=== PATIENT | male | born 1960 | race Caucasian/White ===

== ENCOUNTER → 2017-11-27 05:57 | Outpatient (CLI) | payer OTHER, SELFPAY ==
[2017-11-27 06:03] LABS: Bacteria 0 SEEN /hpf (None Seen); Mucous, Urine 0 SEEN /hpf (<or=2+); Red Blood Cells-Urine 0 SEEN /hpf (0-5); Squamous Epithelial Cells - UA 0 SEEN /hpf (0-5); White Blood Cells 0 SEEN /hpf (0-5)
[2017-11-27 07:51] LABS: Absolute Lymphocyte Count 2.21 X10^3/ul (0.83-4.51); Absolute Neutrophil Count 2.3 X10^3/uL (2.0-7.7); Basophil# 0.02 X10^3/uL; Basophil% 0.4 % (0-1); Eosinophil# 0.26 X10^3/uL; Eosinophils% 4.9 % (0-5); Hematocrit 41.9 % (40-54); Hemoglobin 14.2 g/dl (13.0-16.5); Lymphocyte # 2.21 X10^3/ul (4.0); Lymphocyte % 41.3 % (19-41); Mean Corp Hgb Conc 33.9 g/gl (32-36); Mean Corpuscular Hgb 31.2 pg (27.0-32.0); Mean Corpuscular Volume 92.1 fL (80-94); Mean Platelet Vol. 10.2 fl (6.2-12.0); Monocyte# 0.59 X10^3/uL; Neutrophil # 2.27 X10^3/uL (2.7-7.7); Neutrophil % 42.4 % (47-70); Platelet Count 228 K/mm3 (150-450); RBC Distribution Width CV 12.1 % (11.6-14.6); RBC Distribution Width SD 40.1 fl (35.1-43.9); Red Blood Count 4.55 M/mm3 (4.6-6.2); White Blood Count 5.4 K/mm3 (4.4-11.0)
[2017-11-27 07:56] LABS: POSITIVE COUNT NO; POSITIVE DIFFERENTIAL NO; POSITIVE MORPHOLOGY NO
[2017-11-27 08:09] LABS: Microalbumin,Random Urine < 5.0 mg/L (NO RANGE EST.)
[2017-11-27 08:26] LABS: BUN 12 mg/dL (7-18); Creatinine, Serum 0.93 mg/dL (0.70-1.30); Glucose 86 mg/dL (74-106)
[2017-11-27 08:27] LABS: ALB/GLOB Ratio 1.1 RATIO (0.9-2.4); AST(SGOT) 17 U/L (15-37); Alanine Aminotransfer ALT/SGPT 37 U/L (16-61); Albumin, Serum 3.7 g/dL (3.2-5.0); Alkaline Phosphatase 88 U/L (45-117); Anion Gap 7 (5-15); Calcium,Total 8.3 mg/dL (8.5-10.1); Chloride 105 mmol/L (98-107); Cholesterol 131 mg/dL (200); EST Glomerular Filtration Rate 90 mL/min (>60); Est Glom Filt Rate - Afr Amer 109 mL/min (>60); Globulin 3.4 g/dL (2.2-4.2); High Density Lipoprotein 35 mg/dL; Potassium 3.9 mmol/L (3.5-5.1); Protein, Total 7.1 g/dL (6.4-8.2); Sodium Level 140 mmol/L (136-145); Thyroid Stim Hormone (TSH) 2.27 uIU/mL (0.358-3.74); Triglycerides 157 mg/dL; Very Low Density Lipoprotein 31 mg/dL (5-40)
[2017-11-27 08:37] LABS: Color, Urine Yellow (Yellow); Glucose, Dipstick Normal (Normal); Ketone-Dipstick Negative (Negative); Leukocyte Esterase-Dipstick Negative /ul (Negative); Nitrite-Dipstick Negative (Negative); Occult Blood-Urine Negative /ul (Negative); Protein-Dipstick Negative (Negative); Urine Bilirubin Dipstick Negative (Negative); Urine Clarity Sl. Cloudy (Clear); Urine Urobilinogen Normal (Normal)
== END ==
PROVIDERS: Family Provider Internal Medicine; PCP Internal Medicine; Visit Provider Internal Medicine
DX: I10 Essential (primary) hypertension (principal); E78.5 Hyperlipidemia, unspecified
CPT/HCPCS: 36415; 80053; 80061; 81001; 82043; 82570; 84443; 85025

== ENCOUNTER → 2018-05-28 05:58 | Outpatient (CLI) | payer OTHER, SELFPAY ==
[2018-05-28 07:48] LABS: Cholesterol 165 mg/dL (200); High Density Lipoprotein 58 mg/dL; PSA,Total - Annual Screen 1.18 ng/mL (0.00-4.00); Triglycerides 158 mg/dL; Very Low Density Lipoprotein 32 mg/dL (5-40)
== END ==
PROVIDERS: Family Provider Internal Medicine; PCP Internal Medicine; Referring Provider Internal Medicine; Visit Provider Internal Medicine
DX: Z12.5 Encounter for screening for malignant neoplasm of prostate (principal); I10 Essential (primary) hypertension
CPT/HCPCS: 36415; 80061; 84153; G0103

== ENCOUNTER → 2018-12-13 06:06 | Outpatient (CLI) | payer OTHER, SELFPAY ==
[2018-12-13 06:15] LABS: Bacteria 0 SEEN /hpf (None Seen); Mucous, Urine 0 SEEN /hpf (<or=2+); Red Blood Cells-Urine 0 SEEN /hpf (0-5); Squamous Epithelial Cells - UA 0 SEEN /hpf (0-5); White Blood Cells 0 SEEN /hpf (0-5)
[2018-12-13 08:07] LABS: Color, Urine Yellow (Yellow); Glucose, Dipstick Normal (Normal); Ketone-Dipstick Negative (Negative); Leukocyte Esterase-Dipstick Negative /ul (Negative); Nitrite-Dipstick Negative (Negative); Occult Blood-Urine Negative /ul (Negative); Protein-Dipstick Negative (Negative); Urine Bilirubin Dipstick Negative (Negative); Urine Clarity Clear (Clear); Urine Urobilinogen Normal (Normal)
[2018-12-13 08:11] LABS: Absolute Lymphocyte Count 1.89 X10^3/ul (0.83-4.51); Absolute Neutrophil Count 2.2 X10^3/uL (2.0-7.7); Basophil# 0.03 X10^3/uL; Basophil% 0.6 % (0-1); Eosinophil# 0.21 X10^3/uL; Eosinophils% 4.4 % (0-5); Hematocrit 44.4 % (40-54); Hemoglobin 14.8 g/dl (13.0-16.5); Lymphocyte # 1.89 X10^3/ul (4.0); Lymphocyte % 39.9 % (19-41); Mean Corp Hgb Conc 33.3 g/gl (32-36); Mean Corpuscular Hgb 30.6 pg (27.0-32.0); Mean Corpuscular Volume 91.7 fL (80-94); Mean Platelet Vol. 10.1 fl (6.2-12.0); Monocyte# 0.45 X10^3/uL; Monocyte% 9.5 % (0-10); Neutrophil # 2.15 X10^3/uL (2.7-7.7); Neutrophil % 45.4 % (47-70); Platelet Count 221 K/mm3 (150-450); RBC Distribution Width CV 12.3 % (11.6-14.6); RBC Distribution Width SD 40.6 fl (35.1-43.9); Red Blood Count 4.84 M/mm3 (4.6-6.2); White Blood Count 4.7 K/mm3 (4.4-11.0)
[2018-12-13 08:14] LABS: POSITIVE COUNT NO; POSITIVE DIFFERENTIAL NO; POSITIVE MORPHOLOGY NO
[2018-12-13 08:31] LABS: Microalbumin,Random Urine < 5.0 mg/L (NO RANGE EST.)
[2018-12-13 08:39] LABS: ALB/GLOB Ratio 1.2 RATIO (0.9-2.4); AST(SGOT) 21 U/L (15-37); Alanine Aminotransfer ALT/SGPT 42 U/L (16-61); Albumin, Serum 3.9 g/dL (3.2-5.0); Alkaline Phosphatase 81 U/L (45-117); Anion Gap 9 (5-15); BUN 15 mg/dL (7-18); BUN/Creat Ratio 17.6 RATIO (10-20); Calcium,Total 8.5 mg/dL (8.5-10.1); Chloride 104 mmol/L (98-107); Cholesterol 198 mg/dL (200); Creatinine, Serum 0.85 mg/dL (0.70-1.30); EST Glomerular Filtration Rate 98 mL/min (>60); Est Glom Filt Rate - Afr Amer 119 mL/min (>60); Globulin 3.2 g/dL (2.2-4.2); Glucose 87 mg/dL (74-106); High Density Lipoprotein 55 mg/dL; Potassium 3.7 mmol/L (3.5-5.1); Protein, Total 7.1 g/dL (6.4-8.2); Sodium Level 141 mmol/L (136-145); Thyroid Stim Hormone (TSH) 2.09 uIU/mL (0.358-3.74); Triglycerides 114 mg/dL; Very Low Density Lipoprotein 23 mg/dL (5-40)
== END ==
PROVIDERS: Family Provider Internal Medicine; PCP Internal Medicine; Referring Provider Internal Medicine; Visit Provider Internal Medicine
DX: E78.5 Hyperlipidemia, unspecified (principal); I10 Essential (primary) hypertension
CPT/HCPCS: 36415; 80053; 80061; 81001; 82043; 82570; 84443; 85025

== ENCOUNTER → 2019-06-14 06:16 | Outpatient (CLI) | payer OTHER, SELFPAY ==
[2019-06-14 06:23] LABS: Bacteria 0 SEEN /hpf (None Seen); Mucous, Urine 0 SEEN /hpf (<or=2+); Red Blood Cells-Urine 0 SEEN /hpf (0-5); White Blood Cells 0 SEEN /hpf (0-5)
[2019-06-14 07:06] LABS: Absolute Neutrophil Count 2.2 X10^3/uL (2.0-7.7); Basophil# 0.05 X10^3/uL; Eosinophil# 0.29 X10^3/uL; Eosinophils% 5.6 % (0-5); Hematocrit 43.7 % (40-54); Hemoglobin 14.5 g/dL (13.0-16.5); Lymphocyte % 40.2 % (19-41); Mean Corp Hgb Conc 33.2 g/dL (32-36); Mean Corpuscular Hgb 31.1 pg (27.0-32.0); Mean Corpuscular Volume 93.8 fL (80-94); Mean Platelet Vol. 9.7 fl (6.2-12.0); Monocyte# 0.55 X10^3/uL; Monocyte% 10.5 % (0-10); NRBC Flagged by Analyzer 0 % (0-5); Neutrophil # 2.21 X10^3/uL (2.7-7.7); Neutrophil % 42.3 % (47-70); Platelet Count 233 K/mm3 (150-450); RBC Distribution Width SD 41.3 fl (35.1-43.9); Red Blood Count 4.66 M/mm3 (4.6-6.2); White Blood Count 5.2 K/mm3 (4.4-11.0)
[2019-06-14 07:39] LABS: ALB/GLOB Ratio 1.1 RATIO (0.9-2.4); AST(SGOT) 30 U/L (15-37); Alanine Aminotransfer ALT/SGPT 53 U/L (16-61); Albumin, Serum 3.8 g/dL (3.2-5.0); Alkaline Phosphatase 85 U/L (45-117); Anion Gap 9 (5-15); BUN 15 mg/dL (7-18); BUN/Creat Ratio 17.9 RATIO (10-20); Calcium,Total 8.5 mg/dL (8.5-10.1); Chloride 104 mmol/L (98-107); Cholesterol 186 mg/dL (200); Creatinine, Serum 0.84 mg/dL (0.70-1.30); EST Glomerular Filtration Rate 100 mL/min (>60); Est Glom Filt Rate - Afr Amer 121 mL/min (>60); Globulin 3.5 g/dL (2.2-4.2); Glucose 87 mg/dL (74-106); High Density Lipoprotein 51 mg/dL; Protein, Total 7.3 g/dL (6.4-8.2); Sodium Level 141 mmol/L (136-145); Thyroid Stim Hormone (TSH) 1.84 uIU/mL (0.358-3.74); Triglycerides 155 mg/dL; Very Low Density Lipoprotein 31 mg/dL (5-40)
[2019-06-14 07:47] LABS: Microalbumin,Random Urine < 5.0 mg/L (NO RANGE EST.)
[2019-06-14 07:53] LABS: Color, Urine Yellow (Yellow); Glucose, Dipstick Normal (Normal); Ketone-Dipstick Negative (Negative); Leukocyte Esterase-Dipstick Negative /ul (Negative); Nitrite-Dipstick Negative (Negative); Occult Blood-Urine Negative /ul (Negative); Protein-Dipstick Negative (Negative); Specific Gravity, Urine 1.005 (1.002-1.030); Urine Bilirubin Dipstick Negative (Negative); Urine Clarity Sl. Cloudy (Clear); Urine Urobilinogen Normal (Normal)
[2019-06-14 08:04] LABS: Squamous Epithelial Cells - UA 0-5 SEEN /hpf (0-5)
== END ==
PROVIDERS: Family Provider Internal Medicine; PCP Internal Medicine; Referring Provider Internal Medicine; Visit Provider Internal Medicine
DX: E78.5 Hyperlipidemia, unspecified (principal); I10 Essential (primary) hypertension
CPT/HCPCS: 36415; 80053; 80061; 81001; 82043; 82570; 84443; 85025

== ENCOUNTER → 2020-04-22 06:02 | Outpatient (CLI) | payer BC, SELFPAY ==
[2020-04-22 06:10] LABS: Bacteria 0 SEEN /hpf (None Seen); Mucous, Urine 0 SEEN /hpf (<or=2+); Red Blood Cells-Urine 0 SEEN /hpf (0-5); Squamous Epithelial Cells - UA 0 SEEN /hpf (0-5)
[2020-04-22 07:14] LABS: Absolute Lymphocyte Count 2.22 X10^3/uL (0.83-4.51); Absolute Neutrophil Count 2.1 X10^3/uL (2.0-7.7); Basophil# 0.05 X10^3/uL; Eosinophil# 0.23 X10^3/uL; Eosinophils% 4.4 % (0-5); Hematocrit 42.3 % (40-54); Hemoglobin 14.1 g/dL (13.0-16.5); Lymphocyte # 2.22 X10^3/ul (4.0); Lymphocyte % 42.9 % (19-41); Mean Corp Hgb Conc 33.3 g/dL (32-36); Monocyte# 0.51 X10^3/uL; Monocyte% 9.9 % (0-10); NRBC Flagged by Analyzer 0 % (0-5); Neutrophil # 2.14 X10^3/uL (2.7-7.7); Neutrophil % 41.4 % (47-70); Platelet Count 253 K/mm3 (150-450); RBC Distribution Width CV 12.2 % (11.6-14.6); Red Blood Count 4.55 M/mm3 (4.6-6.2); White Blood Count 5.2 K/mm3 (4.4-11.0)
[2020-04-22 07:38] LABS: Microalbumin,Random Urine 9.1 mg/L (NO RANGE EST.); Microalbumin:Creatinine Ratio 5.3 mg/g CRE (<30 mg/g CRE)
[2020-04-22 07:39] LABS: Color, Urine Yellow (Yellow); Glucose, Dipstick Normal (Normal); Ketone-Dipstick Negative (Negative); Leukocyte Esterase-Dipstick Negative /ul (Negative); Nitrite-Dipstick Negative (Negative); Occult Blood-Urine Negative /ul (Negative); Protein-Dipstick 15 mg/dl (Negative); Urine Bilirubin Dipstick Negative (Negative); Urine Clarity Clear (Clear); Urine Urobilinogen Normal (Normal)
[2020-04-22 07:56] LABS: AST(SGOT) 22 U/L (15-37); Alanine Aminotransfer ALT/SGPT 39 U/L (16-61); Albumin, Serum 3.6 g/dL (3.2-5.0); Alkaline Phosphatase 92 U/L (45-117); Anion Gap 5 (5-15); BUN 18 mg/dL (7-18); BUN/Creat Ratio 21.3 RATIO (10-20); Calcium,Total 8.6 mg/dL (8.5-10.1); Chloride 107 mmol/L (98-107); Cholesterol 201 mg/dL (200); Creatinine, Serum 0.85 mg/dL (0.70-1.30); EST Glomerular Filtration Rate 99 mL/min (>60); Est Glom Filt Rate - Afr Amer 120 mL/min (>60); Globulin 3.6 g/dL (2.2-4.2); Glucose 87 mg/dL (74-106); High Density Lipoprotein 43 mg/dL; Protein, Total 7.2 g/dL (6.4-8.2); Sodium Level 140 mmol/L (136-145); Thyroid Stim Hormone (TSH) 2.46 uIU/mL (0.358-3.74); Triglycerides 238 mg/dL; Very Low Density Lipoprotein 48 mg/dL (5-40)
[2020-04-22 08:11] LABS: White Blood Cells 0-5 SEEN /hpf (0-5)
== END ==
PROVIDERS: PCP Internal Medicine; Referring Provider Internal Medicine; Visit Provider Internal Medicine
DX: I10 Essential (primary) hypertension (principal); E78.5 Hyperlipidemia, unspecified
CPT/HCPCS: 36415; 80053; 80061; 81001; 82043; 82570; 84443; 85025

== ENCOUNTER → 2020-10-12 06:06 | Outpatient (CLI) | payer BC, SELFPAY ==
[2020-10-12 06:11] LABS: Bacteria 0 SEEN /hpf (None Seen); Mucous, Urine 0 SEEN /hpf (<or=2+); Red Blood Cells-Urine 0 SEEN /hpf (0-5); Squamous Epithelial Cells - UA 0 SEEN /hpf (0-5); White Blood Cells 0 SEEN /hpf (0-5)
[2020-10-12 07:23] LABS: Absolute Neutrophil Count 2.9 X10^3/uL (2.0-7.7); Basophil# 0.04 X10^3/uL; Basophil% 0.7 % (0-1); Eosinophil# 0.35 X10^3/uL; Eosinophils% 5.8 % (0-5); Hematocrit 44.6 % (40-54); Hemoglobin 14.7 g/dL (13.0-16.5); Lymphocyte % 34.7 % (19-41); Mean Corpuscular Hgb 30.6 pg (27.0-32.0); Mean Corpuscular Volume 92.7 fL (80-94); Monocyte# 0.64 X10^3/uL; Monocyte% 10.6 % (0-10); NRBC Flagged by Analyzer 0 % (0-5); Neutrophil # 2.91 X10^3/uL (2.7-7.7); Platelet Count 252 K/mm3 (150-450); RBC Distribution Width CV 12.1 % (11.6-14.6); RBC Distribution Width SD 42.3 fl (35.1-43.9); Red Blood Count 4.81 M/mm3 (4.6-6.2); White Blood Count 6.1 K/mm3 (4.4-11.0)
[2020-10-12 07:43] LABS: Microalbumin,Random Urine 7.5 mg/L (NO RANGE EST.); Microalbumin:Creatinine Ratio 7.2 mg/g CRE (<30 mg/g CRE)
[2020-10-12 07:47] LABS: AST(SGOT) 24 U/L (15-37); Alanine Aminotransfer ALT/SGPT 47 U/L (16-61); Albumin, Serum 3.7 g/dL (3.2-5.0); Alkaline Phosphatase 108 U/L (45-117); Anion Gap 11 (5-15); BUN 12 mg/dL (7-18); Calcium,Total 8.3 mg/dL (8.5-10.1); Chloride 98 mmol/L (98-107); Cholesterol 221 mg/dL (200); Creatinine, Serum 0.86 mg/dL (0.70-1.30); EST Glomerular Filtration Rate 97 mL/min (>60); Est Glom Filt Rate - Afr Amer 117 mL/min (>60); Globulin 3.8 g/dL (2.2-4.2); Glucose 105 mg/dL (74-106); High Density Lipoprotein 54 mg/dL; Potassium 3.3 mmol/L (3.5-5.1); Protein, Total 7.5 g/dL (6.4-8.2); Sodium Level 137 mmol/L (136-145); Thyroid Stim Hormone (TSH) 2.72 uIU/mL (0.358-3.74); Triglycerides 202 mg/dL; Very Low Density Lipoprotein 40 mg/dL (5-40)
[2020-10-12 07:54] LABS: Color, Urine Yellow (Yellow); Glucose, Dipstick Normal (Normal); Ketone-Dipstick Negative (Negative); Leukocyte Esterase-Dipstick Negative /ul (Negative); Nitrite-Dipstick Negative (Negative); Occult Blood-Urine Negative /ul (Negative); Protein-Dipstick Negative (Negative); Urine Bilirubin Dipstick Negative (Negative); Urine Clarity Clear (Clear); Urine Urobilinogen Normal (Normal); Urine pH 6.5 (5.0 - 8.0)
== END ==
PROVIDERS: PCP Internal Medicine; Referring Provider Internal Medicine; Visit Provider Internal Medicine
DX: I10 Essential (primary) hypertension (principal); E78.5 Hyperlipidemia, unspecified
CPT/HCPCS: 36415; 80053; 80061; 81001; 82043; 82570; 84443; 85025

== ENCOUNTER → 2021-04-28 06:10 | Outpatient (CLI) | payer OTHER, SELFPAY ==
[2021-04-28 06:41] LABS: Absolute Neutrophil Count 2.7 X10^3/uL (2.0-7.7); Basophil# 0.05 X10^3/uL; Basophil% 0.8 % (0-1); Eosinophil# 0.21 X10^3/uL; Eosinophils% 3.5 % (0-5); Hematocrit 42.7 % (40-54); Hemoglobin 14.4 g/dL (13.0-16.5); Lymphocyte % 39.6 % (19-41); Mean Corp Hgb Conc 33.7 g/dL (32-36); Mean Corpuscular Hgb 31.1 pg (27.0-32.0); Mean Corpuscular Volume 92.2 fL (80-94); Mean Platelet Vol. 9.8 fl (6.2-12.0); Monocyte# 0.67 X10^3/uL; Monocyte% 11.1 % (0-10); NRBC Flagged by Analyzer 0 % (0-5); Neutrophil % 44.5 % (47-70); Platelet Count 235 K/mm3 (150-450); RBC Distribution Width SD 40.6 fl (35.1-43.9); Red Blood Count 4.63 M/mm3 (4.6-6.2); White Blood Count 6.1 K/mm3 (4.4-11.0)
[2021-04-28 06:45] LABS: Color, Urine Yellow (Yellow); Glucose, Dipstick Normal (Normal); Ketone-Dipstick Negative (Negative); Leukocyte Esterase-Dipstick Negative /ul (Negative); Nitrite-Dipstick Negative (Negative); Occult Blood-Urine Negative /ul (Negative); Protein-Dipstick Negative (Negative); Urine Bilirubin Dipstick Negative (Negative); Urine Clarity Clear (Clear); Urine Urobilinogen Normal (Normal); Urine pH 6.5 (5.0 - 8.0)
[2021-04-28 07:13] LABS: Hemoglobin A1c 5.5 % (3.8-5.6)
[2021-04-28 07:14] LABS: Microalbumin,Random Urine 5.2 mg/L (NO RANGE EST.)
[2021-04-28 07:15] LABS: ALB/GLOB Ratio 0.9 RATIO (0.9-2.4); AST(SGOT) 24 U/L (15-37); Alanine Aminotransfer ALT/SGPT 48 U/L (16-61); Albumin, Serum 3.5 g/dL (3.2-5.0); Alkaline Phosphatase 97 U/L (45-117); Anion Gap 6 (5-15); BUN 14 mg/dL (7-18); BUN/Creat Ratio 16.6 RATIO (10-20); Calcium,Total 8.9 mg/dL (8.5-10.1); Chloride 102 mmol/L (98-107); Cholesterol 204 mg/dL (200); Creatinine, Serum 0.84 mg/dL (0.70-1.30); EST Glomerular Filtration Rate 99 mL/min (>60); Est Glom Filt Rate - Afr Amer 120 mL/min (>60); Globulin 3.9 g/dL (2.2-4.2); Glucose 96 mg/dL (74-106); High Density Lipoprotein 44 mg/dL; Potassium 3.9 mmol/L (3.5-5.1); Protein, Total 7.4 g/dL (6.4-8.2); Sodium Level 136 mmol/L (136-145); Thyroid Stim Hormone (TSH) 2.23 uIU/mL (0.358-3.74); Triglycerides 213 mg/dL; Very Low Density Lipoprotein 43 mg/dL (5-40)
== END ==
PROVIDERS: PCP Internal Medicine; Referring Provider Internal Medicine; Visit Provider Internal Medicine
DX: I10 Essential (primary) hypertension (principal); E78.5 Hyperlipidemia, unspecified
CPT/HCPCS: 36415; 80053; 80061; 81002; 82043; 82570; 83036; 84443; 85025

== ENCOUNTER 2021-09-20 10:41 | Outpatient (CLI) | payer OTHER, SELFPAY ==
--- NOTE | 2021-09-20 10:46 | ECHOCS_ITS ---
Reason For Study: CHEST PAIN Procedure This was a 2D Doppler, Color Flow transthoracic echocardiogram. The study was technically difficult. Contrast injection was performed. Exam performed in department. Left Ventricle Normal LV size. Left ventricular systolic function is normal. The estimated ejection fraction is 60 %. Normal diastology for age. No regional wall motion abnormalities noted. Right Ventricle Normal RV size. Normal systolic function. Atria Normal left atrium. Normal right atrium. Mitral Valve Normal mitral valve. Tricuspid Valve Normal tricuspid valve. Mild (1+) tricuspid valve insufficiency. Pulmonary artery systolic pressure is 34 mmHg. Aortic Valve The aortic valve is not well visualized. Pulmonic Valve The pulmonic valve is not well visualized. Great Vessels Normal aortic root. The pulmonary artery is normal size. Normal inferior vena cava. Pericardium/Pleural No pericardial effusion. Medication 22 gauge I.V. with prn adaptor inserted into left arm. Diluted definity 5.0ml given slow IV push to enhance endocardial definition. MMode/2D Measurements & Calculations LVIDd: 4.7 cm IVSd: 0.99 cm LAV(MOD-bp): 47.2 ml LVIDs: 3.1 cm LVPWd: 0.98 cm RVDd: 3.6 cm FS: 33.2 % LAV(MOD-bp) Indexed: 22.9 ml/m2 LAV(MOD-sp2): 45.2 ml LAV(MOD-sp4): 49.8 ml SV(MOD-sp4): 65.1 ml SV(sp4-el): 68.7 ml LVAd ap4: 32.2 cm2 LVLd ap4: 8.2 cm EDV(MOD-sp4): 104.0 ml EDV(sp4-el): 108.2 ml LVAs ap4: 17.6 cm2 LVLs ap4: 6.7 cm ESV(MOD-sp4): 38.9 ml ESV(sp4-el): 39.5 ml EF(MOD-sp4): 62.6 % EF(sp4-el): 63.5 % LA A4 area: 18.1 cm2 RA A4 area: 12.5 cm2 Doppler Measurements & Calculations MV E max ajit: 81.9 cm/sec Lat Peak E' Ajit: 15.8 cm/sec Med Peak E' Ajit: 10.3 cm/sec MV A max ajit: 71.9 cm/sec E/E' lat: 5.2 E/E' med: 7.9 MV E/A: 1.1 Ao V2 max: 147.4 cm/sec LV V1 max: 146.8 cm/sec TR max ajit: 268.5 cm/sec Ao max P.7 mmHg LV V1 max P.6 mmHg TR max P.8 mmHg ECHO/Echo Complete W/ Contrast Interpretation Summary Normal LV size. Left ventricular systolic function is normal. The estimated ejection fraction is 60 %. Normal diastology for age. Contrast injection was performed. Ordering Physician: Abi Newman Referring Physician: Abi Newman Performed By: Delmi Richards, MARCELLUS, RVT
--- NOTE | 2021-09-20 17:51 | STRESSREP_ITS ---
Stress Test Report Exercise stress test. 61-year-old man with a history of chest pain. Medications amlodipine atorvastatin aspirin lisinopril hydrochlorothiazide. Stress protocol: Resting EKG demonstrates normal sinus rhythm with a rate of 71 bpm normal intervals are noted resting blood pressure is 144/92 mmHg. The patient exercised according to regular Regan protocol for total duration of 10 minutes and 31 seconds completing 1 minute and 31 seconds into stage IV of the Regan protocol. The maximum heart rate attained was 166 bpm which was 103% of max i mpact at heart rate the maximum workload was 13.4 metabolic equivalents. At rest there were no ST or T wave changes noted suggest ischemia and at peak exercise upsloping ST changes were noted with did not meet the criteria for ischemia. No clinical angina was noted the test was terminated due to leg fatigue. No arrhythmias were noted. The peak blood pressure was 178/70 mmHg. Conclusion: Exercise stress test with no EKG criteria for ischemia at a high workload. Excellent functional capacity
== END 2021-09-20 23:59 | disposition home or self-care (01) ==
PROVIDERS: PCP Internal Medicine; Referring Provider Internal Medicine; Visit Provider Internal Medicine
DX: R07.89 Other chest pain (principal)
CPT/HCPCS: 93017; 93306; Q9957; A4216; C8929

== ENCOUNTER → 2022-01-19 | Outpatient (CLI) | payer OTHER, SELFPAY ==
[2022-01-19 07:09] LABS: Absolute Lymphocyte Count 2.03 X10^3/uL (0.83-4.51); Absolute Neutrophil Count 2.4 X10^3/uL (2.0-7.7); Basophil# 0.05 X10^3/uL; Eosinophil# 0.13 X10^3/uL; Eosinophils% 2.5 % (0-5); Hematocrit 41.8 % (40-54); Hemoglobin 14.1 g/dL (13.0-16.5); Lymphocyte # 2.03 X10^3/ul (0.83-4.51); Lymphocyte % 39.5 % (19-41); Mean Corp Hgb Conc 33.7 g/dL (32-36); Mean Corpuscular Hgb 31.7 pg (27.0-32.0); Mean Corpuscular Volume 93.9 fL (80-94); Monocyte# 0.55 X10^3/uL; Monocyte% 10.7 % (0-10); NRBC Flagged by Analyzer 0 % (0-5); Neutrophil # 2.37 X10^3/uL (2.7-7.7); Neutrophil % 46.1 % (47-70); Platelet Count 240 K/mm3 (150-450); RBC Distribution Width CV 12.3 % (11.6-14.6); RBC Distribution Width SD 42.7 fl (35.1-43.9); Red Blood Count 4.45 M/mm3 (4.6-6.2); White Blood Count 5.1 K/mm3 (4.4-11.0)
[2022-01-19 07:10] LABS: Color, Urine Yellow (Yellow); Glucose, Dipstick Normal (Normal); Ketone-Dipstick Negative (Negative); Leukocyte Esterase-Dipstick Negative /ul (Negative); Nitrite-Dipstick Negative (Negative); Occult Blood-Urine Negative /ul (Negative); Protein-Dipstick Negative (Negative); Specific Gravity, Urine 1.005 (1.002-1.030); Urine Bilirubin Dipstick Negative (Negative); Urine Clarity Clear (Clear); Urine Urobilinogen Normal (Normal)
[2022-01-19 07:39] LABS: Microalbumin,Random Urine < 5.0 mg/L (NO RANGE EST.)
[2022-01-19 07:43] LABS: ALB/GLOB Ratio 1.1 RATIO (0.9-2.4); AST(SGOT) 15 U/L (15-37); Alanine Aminotransfer ALT/SGPT 33 U/L (16-61); Albumin, Serum 3.7 g/dL (3.2-5.0); Alkaline Phosphatase 91 U/L (45-117); Anion Gap 6 (5-15); BUN 15 mg/dL (7-18); BUN/Creat Ratio 18.3 RATIO (10-20); Calcium,Total 8.9 mg/dL (8.5-10.1); Chloride 105 mmol/L (98-107); Cholesterol 204 mg/dL (200); Creatinine, Serum 0.82 mg/dL (0.70-1.30); EST Glomerular Filtration Rate 102 mL/min (>60); Est Glom Filt Rate - Afr Amer 123 mL/min (>60); Globulin 3.5 g/dL (2.2-4.2); Glucose 95 mg/dL (74-106); High Density Lipoprotein 49 mg/dL; PSA,Total - Annual Screen 2.15 ng/mL (0.00-4.00); Potassium 4.2 mmol/L (3.5-5.1); Protein, Total 7.2 g/dL (6.4-8.2); Sodium Level 138 mmol/L (136-145); Thyroid Stim Hormone (TSH) 2.34 uIU/mL (0.358-3.74); Triglycerides 130 mg/dL; Very Low Density Lipoprotein 26 mg/dL (5-40)
[2022-01-19 08:15] LABS: Vitamin D,25 Hydroxy 50.4 ng/mL
[2022-01-19 09:00] LABS: Hemoglobin A1c 5.4 % (3.8-5.6)
== END | disposition home or self-care (01) ==
LOC: LAB 06:00
PROVIDERS: PCP Internal Medicine; Referring Provider Internal Medicine; Visit Provider Internal Medicine
DX: E78.5 Hyperlipidemia, unspecified (principal); I10 Essential (primary) hypertension; E55.9 Vitamin D deficiency, unspecified; E78.6 Lipoprotein deficiency; Z13.29 Encounter for screening for other suspected endocrine disorder; Z12.5 Encounter for screening for malignant neoplasm of prostate
CPT/HCPCS: 36415; 80053; 80061; 81002; 82043; 82306; 82570; 83036; 84153; 84443; 85025; G0103

== ENCOUNTER → 2022-07-22 | Outpatient (CLI) | payer OTHER, SELFPAY ==
[2022-07-22 06:45] LABS: Absolute Lymphocyte Count 1.83 X10^3/uL (0.83-4.51); Absolute Neutrophil Count 1.8 X10^3/uL (2.0-7.7); Basophil# 0.04 X10^3/uL; Basophil% 0.9 % (0-1); Eosinophil# 0.24 X10^3/uL; Eosinophils% 5.6 % (0-5); Hematocrit 42.5 % (40-54); Hemoglobin 14.2 g/dL (13.0-16.5); Lymphocyte # 1.83 X10^3/ul (0.83-4.51); Lymphocyte % 42.4 % (19-41); Mean Corp Hgb Conc 33.4 g/dL (32-36); Mean Corpuscular Hgb 31.5 pg (27.0-32.0); Mean Corpuscular Volume 94.2 fL (80-94); Mean Platelet Vol. 10.2 fl (6.2-12.0); Monocyte# 0.45 X10^3/uL; Monocyte% 10.4 % (0-10); NRBC Flagged by Analyzer 0 % (0-5); Neutrophil # 1.75 X10^3/uL (2.7-7.7); Neutrophil % 40.5 % (47-70); Platelet Count 237 K/mm3 (150-450); RBC Distribution Width CV 11.9 % (11.6-14.6); RBC Distribution Width SD 41.1 fl (35.1-43.9); Red Blood Count 4.51 M/mm3 (4.6-6.2); White Blood Count 4.3 K/mm3 (4.4-11.0)
[2022-07-22 07:16] LABS: ALB/GLOB Ratio 1.1 RATIO (0.9-2.4); AST(SGOT) 17 U/L (15-37); Alanine Aminotransfer ALT/SGPT 34 U/L (16-61); Albumin, Serum 3.7 g/dL (3.2-5.0); Alkaline Phosphatase 79 U/L (45-117); Anion Gap 4 (5-15); BUN 18 mg/dL (7-18); BUN/Creat Ratio 22.5 RATIO (10-20); Calcium,Total 8.6 mg/dL (8.5-10.1); Chloride 106 mmol/L (98-107); Cholesterol 211 mg/dL (200); EST Glomerular Filtration Rate 105 mL/min (>60); Est Glom Filt Rate - Afr Amer 127 mL/min (>60); Globulin 3.3 g/dL (2.2-4.2); Glucose 94 mg/dL (74-106); High Density Lipoprotein 60 mg/dL; Potassium 4.1 mmol/L (3.5-5.1); Sodium Level 138 mmol/L (136-145); Thyroid Stim Hormone (TSH) 1.89 uIU/mL (0.358-3.74); Triglycerides 135 mg/dL; Very Low Density Lipoprotein 27 mg/dL (5-40)
[2022-07-22 07:19] LABS: Microalbumin,Random Urine 11.6 mg/L (NO RANGE EST.); Microalbumin:Creatinine Ratio 13.4 mg/g CRE (<30 mg/g CRE)
[2022-07-22 08:09] LABS: Vitamin D,25 Hydroxy 40.9 ng/mL
== END | disposition home or self-care (01) ==
LOC: LAB 06:02
PROVIDERS: PCP Internal Medicine; Referring Provider Internal Medicine; Visit Provider Internal Medicine
DX: I10 Essential (primary) hypertension (principal); E78.5 Hyperlipidemia, unspecified; E55.9 Vitamin D deficiency, unspecified
CPT/HCPCS: 36415; 80053; 80061; 82043; 82306; 82570; 84443; 85025

== ENCOUNTER → 2022-09-15 | Outpatient (CLI) | payer OTHER, SELFPAY ==
[2022-09-15 07:46] LABS: Cholesterol 245 mg/dL (200); High Density Lipoprotein 54 mg/dL; Triglycerides 134 mg/dL; Very Low Density Lipoprotein 27 mg/dL (5-40)
== END | disposition home or self-care (01) ==
LOC: LAB 06:00
PROVIDERS: PCP Internal Medicine; Referring Provider Internal Medicine; Visit Provider Internal Medicine
DX: E78.5 Hyperlipidemia, unspecified (principal)
CPT/HCPCS: 36415; 80061

== ENCOUNTER → 2023-03-29 | Outpatient (CLI) | payer OTHER, SELFPAY ==
[2023-03-29 07:38] LABS: Absolute Lymphocyte Count 1.77 X10^3/uL (0.83-4.51); Absolute Neutrophil Count 2.4 X10^3/uL (2.0-7.7); Basophil# 0.06 X10^3/uL; Basophil% 1.2 % (0-1); Hematocrit 45.3 % (40-54); Hemoglobin 15.1 g/dL (13.0-16.5); Lymphocyte # 1.77 X10^3/ul (0.83-4.51); Lymphocyte % 36.2 % (19-41); Mean Corp Hgb Conc 33.3 g/dL (32-36); Mean Corpuscular Hgb 32.2 pg (27.0-32.0); Mean Corpuscular Volume 96.6 fL (80-94); Monocyte# 0.55 X10^3/uL; Monocyte% 11.2 % (0-10); NRBC Flagged by Analyzer 0 % (0-5); Neutrophil # 2.38 X10^3/uL (2.7-7.7); Neutrophil % 48.8 % (47-70); Platelet Count 245 K/mm3 (150-450); RBC Distribution Width CV 11.8 % (11.6-14.6); RBC Distribution Width SD 41.6 fl (35.1-43.9); Red Blood Count 4.69 M/mm3 (4.6-6.2); White Blood Count 4.9 K/mm3 (4.4-11.0)
[2023-03-29 08:13] LABS: Microalbumin,Random Urine 5.4 mg/L (NO RANGE EST.)
[2023-03-29 08:16] LABS: AST(SGOT) 23 U/L (15-37); Alanine Aminotransfer ALT/SGPT 37 U/L (16-61); Albumin, Serum 3.8 g/dL (3.2-5.0); Alkaline Phosphatase 97 U/L (45-117); Anion Gap 6 (5-15); BUN 20 mg/dL (7-18); BUN/Creat Ratio 23.7 RATIO (10-20); Calcium,Total 9.6 mg/dL (8.5-10.1); Chloride 102 mmol/L (98-107); Cholesterol 262 mg/dL (200); Creatinine, Serum 0.84 mg/dL (0.70-1.30); EST Glomerular Filtration Rate 98 mL/min (>60); Est Glom Filt Rate - Afr Amer 119 mL/min (>60); Globulin 3.9 g/dL (2.2-4.2); Glucose 92 mg/dL (74-106); High Density Lipoprotein 63 mg/dL; PSA,Total - Annual Screen 2.22 ng/mL (0.00-4.00); Protein, Total 7.7 g/dL (6.4-8.2); Sodium Level 136 mmol/L (136-145); Thyroid Stim Hormone (TSH) 2.53 uIU/mL (0.358-3.74); Triglycerides 199 mg/dL; Very Low Density Lipoprotein 40 mg/dL (5-40)
[2023-03-29 09:18] LABS: Hepatitis C Antibody Non-Reactive (Nonreactive)
== END | disposition home or self-care (01) ==
PROVIDERS: PCP Internal Medicine; Referring Provider Internal Medicine; Visit Provider Internal Medicine
DX: I10 Essential (primary) hypertension (principal); E78.5 Hyperlipidemia, unspecified; Z11.59 Encounter for screening for other viral diseases; Z12.5 Encounter for screening for malignant neoplasm of prostate
CPT/HCPCS: 36415; 80053; 80061; 82043; 82570; 84153; 84443; 85025; 86803; G0103

== ENCOUNTER → 2023-06-20 | Outpatient (CLI) | payer OTHER, SELFPAY ==
[2023-06-20 07:29] LABS: Cholesterol 229 mg/dL (200); High Density Lipoprotein 49 mg/dL; Triglycerides 269 mg/dL; Very Low Density Lipoprotein 54 mg/dL (5-40)
== END | disposition home or self-care (01) ==
LOC: LAB 05:57
PROVIDERS: PCP Internal Medicine; Referring Provider Internal Medicine; Visit Provider Internal Medicine
DX: E78.5 Hyperlipidemia, unspecified (principal)
CPT/HCPCS: 36415; 80061

== ENCOUNTER → 2023-07-12 | Outpatient (CLI) | payer OTHER, SELFPAY ==
[2023-07-12 10:21] LABS: Cholesterol 209 mg/dL (200); High Density Lipoprotein 53 mg/dL; Triglycerides 136 mg/dL; Very Low Density Lipoprotein 27 mg/dL (5-40)
== END | disposition home or self-care (01) ==
LOC: LAB 06:00
PROVIDERS: PCP Internal Medicine; Referring Provider Internal Medicine; Visit Provider Internal Medicine
DX: E78.2 Mixed hyperlipidemia (principal)
CPT/HCPCS: 36415; 80061

== ENCOUNTER → 2023-10-06 | Outpatient (CLI) | payer OTHER, SELFPAY ==
--- OUTSIDE RECORDS SUMMARY | 2023-10-06 06:05 | XMS RPT_ITS | CCD ---
Author Name Unknown Address [id number] [place] [address] Organization [facility] Care Team Providers Care Geochemical Manager Name Role Phone Abi Newman Unavailable Carmen Friedman Unavailable Unavailable Unavailable Unavailable Abi Newman Unavailable Gravius, Leda Unavailable Unavailable Unavailable Unavailable Charmaine, Onelia Unavailable Unavailable Gravius, Leda Unavailable Unavailable Michael, Jacey Unavailable Unavailable Paty DO Abi Unavailable [phone] Gravius STORE HOST, Leda Unavailable Unavailable Cross RESIDENT INSPECTOR, Jacey Unavailable Unavailable Unavailable Unavailable Slarb RESIDENT INSPECTOR, Analia Unavailable Unavailable Charmaine RESIDENT INSPECTOR, Onelia Unavailable Unavailable Elder RESIDENT INSPECTOR, Philip Unavailable Unavailable Manchristi STORE HOST, Daja Unavailable Unavailable Rafiq MEHTA, Maryann Unavailable Unavailable Camille Newman DOhleen Unavailable Hermelinda STORE HOST, Kayela Unavailable Unavailable PatyAbi albercht DO Attending Unavailable Paty DO Abi Consulting Unavailable Darian RESIDENT INSPECTOR, HOLA Unavailable Unavailable Medications Completed/Discontinued Medications Medication Drug Class(es) Dates Sig (Normalized) Sig (Original) acetaminophen / HYDROcodone (20 sources) Opioid Agonist Start: 05-26-2014 End: 10-01-2014 take 1 tablet by mouth every week VICODIN, 5-300MG (ORAL TABLET), 5-300mgmg (Oral Tablet) (Free Text) 1 (one) Tablet 2 x week for 20 days Refills: 0 Ordered: 01-Oct-2014 Aixa Yates RN Start : 26-May-2014 End : 01-Oct-2014 Inactive Problems Active Problems Problem Classification Problem Date Documented Da te Episodic/Chronic Abdominal hernia (20 sources) Hernia of abdominal cavity; Translations: [Intra-abdominal hernia] 12-19-2018 Episodic Past or Other Problems Problem Classification Problem Date Documented Date Episodic/Chronic Coronary atherosclerosis and other heart disease (20 sources) Coronary atherosclerosis and other heart disease Other nutritional; endocrine; and metabolic disorders (20 sources) Body mass index 25-29 - overweight; Translations: [BMI 28.0-28.9,adult] Resolved: 06-19-2019 12-19-2018 Chronic Residual codes; unclassified (6 sources) Increased body mass index; Translations: [BMI 29.0-29.9,adult] Resolved: 06-19-2019 12-19-2018 Episodic Unclassified (20 sources) Stress reaction Unclassified (20 sources) Stye, right Unclassified (20 sources) Unspecified Diagnosis 12-04-2017 Unclassified (20 sources) Screening status; Translations: [Encounter for screening for malignant neoplasm of colon (Renamed from Special screening for malignant neoplasms, colon)] 12-19-2018 Unclassified (20 sources) Patient encounter status; Translations: [Encounter for tobacco use cessation counseling] 12-19-2018 Unclassified (20 sources) Strain of muscle of right thigh; Translations: [Muscle strain of right thigh, initial encounter] 02-08-2019 Unclassified (20 sources) Muscle injury Unclassified (20 sources) BMI 32.0-32.9,adult Unclassified (20 sources) Chest pain, atypical Unclassified (8 sources) Screening for thyroid disorder NEGATED: Highlighted row has been ruled out!Unclassified (20 sources) Problem Onset: 04-20-2011 12-04-2017 Results Test Name Value Interpretation Reference Range Facil it Vital Signs Date Time Vital Sign Value Performing Clinician Facility 04-05-2023 15:05-0400 Body height 172.72 cm HOLA Farmer LPN [facility]; [facility] Work Phone: 04-05-2023 15:05-0400 Body mass index (BMI) [Ratio] 27.98 kg/m2 HOLA Farmer LPN [facility]; [facility] Work Phone: 04-05-2023 15:05-0400 Body surface area Derived from formula 1.97 m2 HOLA Farmer LPN [facility]; [facility] Work Phone: 04-05-2023 15:05-0400 Body temperature 97.7 [degF] HOLA Darian [facility]; [facility] Work Phone: Encounters Encounter Date Encounter Type Care Provider Facility Start: 04-05-2023 End: 04-05-2023 Office outpatient visit 15 minutes Abi Paty DO Work Phone: [facility] Start: 11-23-2022 ambulatory Abi Paty DO [facility] Start: 10-07-2022 End: 10-07-2022 Phone Encounter Abi Paty DO Work Phone: [facility] Start: 10-07-2022 End: 10-07-2022 Phone Encounter Abi Paty DO Work Phone: [facility] Start: 09-21-2022 End: 09-21-2022 Office outpatient visit 15 minutes Abi Paty DO Work Phone: [facility] Start: 07-27-2022 End: 07-27-2022 Office outpatient visit 15 minutes Abi Paty DO Work Phone: [facility] Start: 07-27-2022 Review Abi Fearo n DO Work Phone: [facility] Start: 01-24-2022 End: 01-24-2022 Office outpatient visit 25 minutes Abi Paty DO Work Phone: [facility] Start: 01-24-2022 Review Abi Fearo n DO Work Phone: [facility] Start: 09-23-2021 End: 09-23-2021 Lab Order Abi Paty DO Work Phone: [facility] Start: 08-30-2021 End: 09-14-2021 Phone Encounter Abi Paty DO Work Phone: [facility] Start: 08-30-2021 Review Abi Fearo n DO Work Phone: [facility] Start: 08-23-2021 End: 08-23-2021 Office outpatient visit 40 minutes Abi Paty DO Work Phone: [facility] Start: 07-26-2021 End: 07-26-2021 Office outpatient visit 10 minutes Abi Paty DO Work Phone: [facility] Start: 07-05-2021 End: 07-05-2021 Office outpatient visit 10 minutes Abi Paty DO Work Phone: [facility] Start: 05-03-2021 End: 05-03-2021 Office outpatient visit 25 minutes Abi Paty DO Work Phone: [facility] Start: 10-29-2020 End: 10-29-2020 Phone Encounter Abi Newman [facility] Start: 10-29-2020 End: 10-29-2020 Phone Encounter Abi Newman [facility] Start: 10-28-2020 End: 10-28-2020 Office outpatient visit 15 minutes Abi Newman [facility] Start: 04-15-2020 End: 04-15-2020 Office outpatient visit 25 minutes Abisoheila Newman [facility] Start: 10-16-2019 End: 10-16-2019 Office outpatient visit 10 minutes Abi Newman [facility] Start: 09-09-2019 End: 09-09-2019 Office outpatient visit 15 minutes Abi Trevizoon [facility] Start: 08-19-2019 End: 08-19-2019 Office outpatient visit 15 minutes Abi Newman [facility] Start: 07-16-2019 End: 07-16-2019 Phone Encounter Abi Newman [facility] Start: 06-19-2019 End: 06-19-2019 Office outpatient visit 15 minutes Abisoheila Newman [facility] Start: 02-08-2019 End: 02-08-2019 Office outpatient visit 10 minutes Abi Newman [facility] Start: 12-19-2018 End: 12-19-2018 Office outpatient visit 25 minutes Abi Paty [facility] Start: 06-18-2018 End: 06-18-2018 Office outpatient visit 15 minutes Abisoheila Newman [facility] Start: 12-04-2017 End: 12-04-2017 Office outpatient visit 15 minutes Abisoheila Newman [facility] Start: 05-29-2017 End: 05-29-2017 Phone Encounter Abi Paty [facility] Start: 05-29-2017 End: 05-29-2017 Office outpatient visit 15 minutes [facility] Start: 11-21-2016 End: 11-21-2016 Office outpatient visit 15 minutes Abi [facility] Start: 07-13-2016 End: 07-13-2016 Office outpatient visit 15 minutes Abi [facility] Start: 05-18-2016 End: 05-18-2016 Office outpatient visit 15 minutes Abi [facility] Start: 11-11-2015 End: 11-11-2015 Office outpatient visit 25 minutes Abi [facility] Start: 08-19-2015 End: 08-19-2015 Phone Encounter Abi [facility] Start: 05-13-2015 End: 05-13-2015 Phone Encounter Abi [facility] Start: 05-11-2015 End: 05-11-2015 Office outpatient visit 15 minutes Abi [facility] Start: 11-07-2014 End: 11-07-2014 Office outpatient visit 25 minutes Abi [facility] Start: 10-15-2014 End: 10-15-2014 Phone Encounter Abi [facility] Start: 10-01-2014 End: 10-01-2014 Office outpatient visit 15 minutes Abi [facility] Start: 05-26-2014 End: 05-26-2014 Office outpatient visit 40 minutes Abi [facility] Start: 08-26-2013 End: 08-26-2013 Patient encounter Abi [facility] Start: 06-03-2013 End: 06-03-2013 Patient encounter [facility]i [facility] Start: 02-06-2013 End: 02-06-2013 Patient encounter [facility]i [facility] Start: 07-23-2012 End: 07-23-2012 Patient encounter Abi [facility] Start: 07-13-2012 End: 07-13-2012 Patient encounter Abi [facility] Start: 04-20-2011 End: 04-20-2011 Patient encounter [facility]i [facility] Procedures Date Procedure Procedure Detail Performing Clinician Start: 09-20-2021 End: 09-20-2021 Stress Report Comments: See Note; NOTES: [facility] [address] [place] [address] MR#: [id number] Acct: [id number] Name: LOPEZ MALLORY Rep #: [id number] : 1960 61 From: Jose Rajput MD Primary Care: Dr. Abi Newman DO Status: REG CLI Referring Dr: Abi Newman DO Sex: M C Stress Test Report Exercise stress test. 61-year-old man with a history of chest pain. Medications amlodipine atorvastatin aspirin lisinopril hydrochlorothiazide. Stress protocol: Resting EKG demonstrates normal sinus rhythm with a rate of 71 bpm normal intervals are noted resting blood pressure is 144/92 mmHg. The patient exercised according to regular Regan protocol for total duration of 10 minutes and 31 seconds completing 1 minute and 31 seconds into stage IV of the Regan protocol. The maximum heart rate attained was 166 bpm which was 103% of max impact at heart rate the maximum workload was 13.4 metabolic equivalents. At rest there were no ST or T wave changes noted suggest ischemia and at peak exercise upsloping ST changes were noted with did not meet the criteria for ischemia. No clinical angina was noted the test was terminated due to leg fatigue. No arrhythmias were noted. The peak blood pressure was 178/70 mmHg. Conclusion: Exercise stress test with no EKG criteria for ischemia at a high workload. Excellent functional capacity 09/20/211751 <Electronically signed by Jose Rajput MD> Date Jose Rajput MD CC: Dr. Abi Newman DO; Abi Newman DO Date Dictated: 09/20/211750 Date Transcribed: 09/20/211750 Insole Cementer: CO Signed Abi Newman DO Work Phone: Start: 09-20-2021 End: 09-20-2021 Echo Complete W/ Contrast Comments: See Note; NOTES: [facility] [address] [place] [address] Echo Complete W/ Contrast 09/20/21 1100 MR#: [id number] Acct: [id number] Name: LOPEZ MALLORY Rep #: [id number] : 1960 61 From: Jose Rajput MD Attending Dr: Dr. Abi Newman, Status: R EG CLI Ordering Dr: Abi Newman DO Date: 09/20/21 Location: [facility] Sex: M C Admitted: Reason For Study: CHEST PAIN Procedure This was a 2D Doppler, Color Flow transthoracic echocardiogram. The study was technically difficult. Contrast injection was performed. Exam performed in department. Left Ventricle Normal LV size. Left ventricular systolic function is normal. The estimated ejection fraction is 60 %. Normal diastology for age. No regional wall motion abnormalities noted. Right Ventricle Normal RV size. Normal systolic function. Atria Normal left atrium. Normal right atrium. Mitral Valve Normal mitral valve. Tricuspid Valve Normal tricuspid valve. Mild (1+) tricuspid valve insufficiency. Pulmonary artery systolic pressure is 34 mmHg. Aortic Valve The aortic valve is not well visualized. Pulmonic Valve The pulmonic valve is not well visualized. Great Vessels Normal aortic root. The pulmonary artery is normal size. Normal inferior vena cava. Pericardium/Pleural No pericardial effusion. Medication 22 gauge I.V. with prn adaptor inserted into left arm. Diluted definity 5.0ml given slow IV push to enhance endocardial definition. MMode/2D Measurements Calculations LVIDd: 4.7 cm IVSd: 0.99 cm LAV(MOD-bp): 47.2 ml LVIDs: 3.1 cm LVPWd: 0.98 cm RVDd: 3.6 cm FS: 33.2 % LAV(MOD-bp) Indexed: 22.9 ml/m2 LAV(MOD-sp2): 45.2 ml LAV(MOD-sp4): 49.8 ml SV(MOD-sp4): 65.1 ml SV(sp4-el): 68.7 ml LVAd ap4: 32.2 cm2 LVLd ap4: 8.2 cm EDV(MOD-sp4): 104.0 ml EDV(sp4-el): 108.2 ml LVAs ap4: 17.6 cm2 LVLs ap4: 6.7 cm ESV(MOD-sp4): 38.9 ml ESV(sp4-el): 39.5 ml EF(MOD-sp4): 62.6 % EF(sp4-el): 63.5 % LA A4 area: 18.1 cm2 RA A4 area: 12.5 cm2 Doppler Measurements Calculations MV E max ajit: 81.9 cm/sec Lat Peak E' Ajit: 15.8 cm/sec Med Peak E' Ajit: 10.3 cm/sec MV A max ajit: 71.9 cm/sec E/E' lat: 5.2 E/E' med: 7.9 MV E/A: 1.1 Ao V2 max: 147.4 cm/sec LV V1 max: 146.8 cm/sec TR max ajit: 268.5 cm/sec Ao max P.7 mmHg LV V1 max P.6 mmHg TR max P.8 mmHg ECHO/Echo Complete W/ Contrast Interpretation Summary Normal LV size. Left ventricular systolic function is normal. The estimated ejection fraction is 60 %. Normal diastology for age. Contrast injection was performed. _ Ordering Physician: Abi Newman Referring Physician: Abi Newman Performed By: Delmi Richards, EDUARDCS, RVT 09/20/21 1155 Date Jose Rajput MD CC: Dr. Abi Newman DO; Abi Newman DO Date Dictated: 09/20/21 1100 Date Transcribed: 09/20/21 115 Insole Cementer: Signed Abi Newman DO Work Phone: Start: 03-22-2018 End: 03-22-2018 Screening colonoscopy Daja Annalise QUACH A Plan of Treatment Date Care Activity Detail Author Start: 04-05-2023 Lipid panel LIPID PANEL (80642) [facility]; [facility] Work Phone: Start: 04-05-2023 Procedure Education Eprescribed prescriptions (G8553) [facility]; [facility] Work Phone: Start: 04-05-2023 Provider Instructions for Treatment [facility]; [facility] Work Phone: Start: 09-21-2022 Hepatitis c antibody HEPATITIS C ANTIBODY (35861) [facility]; [facility] Work Phone: Start: 09-21-2022 Assay of prostate specific antigen total PSA (PROSTATE SPECIFIC ANTIGEN) (V76.44) [facility]; [facility] Work Phone: Start: 09-21-2022 Urine albumin quantitative MICROALBUMIN: CREATININE RATIO (48788) AND (23909) [facility]; [facility] Work Phone: Start: 09-21-2022 Assay of thyroid stimulating hormone tsh TSH (94030) [facility]; [facility] Work Phone: Start: 09-21-2022 Comprehensive metabolic panel METABOLIC PANEL, COMPREHENSIVE (31776) [facility]; [facility] Work Phone: Start: 09-21-2022 Lipid panel LIPID PANEL (20991) [facility]; [facility] Work Phone: Start: 09-21-2022 Blood count complete auto&auto difrntl wbc CBC W/AUTO DIFF WBC (49311) [facility]; [facility] Work Phone: Start: 09-21-2022 Procedure Education Eprescribed prescriptions (G8553) [facility]; [facility] Work Phone: Start: 09-21-2022 Provider Instructions for Treatment [facility]; [facility] Work Phone: Start: 07-27-2022 Lipid panel LIPID PANEL (75536) [facility]; [facility] Work Phone: Immunizations Immunization Date Immunization Notes Care Provider Seth campos 07-05-2021 zoster vaccine, live Kathlee n Paty DO Work Phone: [facility]; [facility] Work Phone: Payers Date Payer Category Payer Private Health Insurance [id number] 2020 Unknown [id number] 2018 Unknown [id number] 2015 Unknown [id number] 2010 Unknown [id number] 1960 Unknown [id number] Unknown Unknown [id number] Social History Date Type Detail Facility Alcohol Use: Occasional alcohol use. [facility] Work Phone: Caffeine Use [facility] Work Phone: Clinical Notes Note Date & Type Note Facility [facility]; [facility] Work Phone: Instructions* Name Dates Details Patient Instructions Indication:Non-smoker Start:26-Jul-2021 Instruction Type:Provider Instructions for Treatment How to Access Health Informa tion Online using Patient Portal and 3rd [employer] Apps Indication:Non-smoker Start:26-Jul-2021 Instruction Type:Patient Education Patient Instructions Indication:BMI 32.0-32.9,adult Start:05-Jul-2021 Instruction Type:Provider Instructions for Treatment How to Access Health Informa tion Online using Patient Portal and 3[employer] Apps Indication:BMI 32.0-32.9,adult Start:05-Jul-2021 Instruction Type:Patient Education Patient Instructions Indication:Non-smoker Start:03-May-2021 Instruction Type:Provider Instructions for Treatment How to Access Health Informa tion Online using Patient Portal and 3[employer] Apps Indication:Non-smoker Start:03-May-2021 Instruction Type:Patient Education How to Access Health Informa tion Online using Patient Portal and [employer] Apps Indication:Tobacco abuse Start:28-Oct-2020 Instruction Type:Patient Education Patient Instructions Indication:Tobacco abuse Start:28-Oct-2020 Instruction Type:Provider Instructions for Treatment How to access health informa tion online Indication:Non-smoker Start:15-Apr-2020 Instruction Type:Patient Education How to access health informa tion online - Detail Indication:Non-smoker Start:15-Apr-2020 Instruction Type:Patient Education Patient Instructions Indication:Non-smoker Start:15-Apr-2020 Instruction Type:Provider Instructions for Treatment How to access health informa tion online Indication:BMI 31.0-31.9,adult Start:16-Oct-2019 Instruction Type:Patient Education How to access health informa tion online - Detail Indication:BMI 31.0-31.9,adult Start:16-Oct-2019 Instruction Type:Patient Education Patient Instructions Indication:BMI 31.0-31.9,adult Start:16-Oct-2019 Instruction Type:Provider Instructions for Treatment How to access health informa tion online Indication:BMI 31.0-31.9,adult Start:09-Sep-2019 Instruction Type:Patient Education How to access health informa tion online - Detail Indication:BMI 31.0-31.9,adult Start:09-Sep-2019 Instruction Type:Patient Education Patient Instructions Indication:BMI 31.0-31.9,adult Start:09-Sep-2019 Instruction Type:Provider Instructions for Treatment How to access health informa tion online Indication:BMI 31.0-31.9,adult Start:19-Aug-2019 Instruction Type:Patient Education How to access health informa tion online - Detail Indication:BMI 31.0-31.9,adult Start:19-Aug-2019 Instruction Type:Patient Education Patient Instructions Indication:BMI 31.0-31.9,adult Start:19-Aug-2019 Instruction Type:Provider Instructions for Treatment How to access health informa tion online Indication:BMI 31.0-31.9,adult Start:19-Jun-2019 Instruction Type:Patient Education How to access health informa tion online - Detail Indication:BMI 31.0-31.9,adult Start:19-Jun-2019 Instruction Type:Patient Education Patient Instructions Indication:BMI 31.0-31.9,adult Start:19-Jun-2019 Instruction Type:Provider Instructions for Treatment How to access health informa tion online Indication:Muscle injury Start:08-Feb-2019 Instruction Type:Patient Education How to access health informa tion online - Detail Indication:Muscle injury Start:08-Feb-2019 Instruction Type:Patient Education Patient Instructions Indication:Muscle injury Start:08-Feb-2019 Instruction Type:Provider Instructions for Treatment How to access health informa tion online Indication:Non-smoker Start:19-Dec-2018 Instruction Type:Patient Education How to access health informa tion online - Detail Indication:Non-smoker Start:19-Dec-2018 Instruction Type:Patient Education Patient Instructions Indication:Non-smoker Start:19-Dec-2018 Instruction Type:Provider Instructions for Treatment How to access health informa tion online Indication:BMI 28.0-28.9,adult Start:18-Jun-2018 Instruction Type:Patient Education How to access health informa tion online - Detail Indication:BMI 28.0-28.9,adult Start:18-Jun-2018 Instruction Type:Patient Education Patient Instructions Indication:BMI 28.0-28.9,adult Start:18-Jun-2018 Instruction Type:Provider Instructions for Treatment How to access health informa tion online Indication:Snuff user Start:04-Dec-2017 Instruction Type:Patient Education How to access health informa tion online - Detail Indication:Snuff user Start:04-Dec-2017 Instruction Type:Patient Education Patient Instructions Indication:Snuff user Start:04-Dec-2017 Instruction Type:Provider Instructions for Treatment How to access health informa tion online Indication:Snuff user Start:29-May-2017 Instruction Type:Patient Education How to access health informa tion online - Detail Indication:Snuff user Start:29-May-2017 Instruction Type:Patient Education Patient Instructions Indication:Snuff user Start:29-May-2017 Instruction Type:Provider Instructions for Treatment How to access health informa tion online Indication:Snuff user Start:21-Nov-2016 Instruction Type:Patient Education How to access health informa tion online - Detail Indication:Snuff user Start:21-Nov-2016 Instruction Type:Patient Education Patient Instructions Indication:Snuff user Start:21-Nov-2016 Instruction Type:Provider Instructions for Treatment How to access health informa tion online Indication:Benign essential HTN Start:13-Jul-2016 Instruction Type:Patient Education How to access health informa tion online - Detail Indication:Benign essential HTN Start:13-Jul-2016 Instruction Type:Patient Education Patient Instructions Indication:Benign essential HTN Start:13-Jul-2016 Instruction Type:Provider Instructions for Treatment How to access health informa tion online Indication:Benign essential HTN Start:18-May-2016 Instruction Type:Patient Education How to access health informa tion online - Detail Indication:Benign essential HTN Start:18-May-2016 Instruction Type:Patient Education Patient Instructions Indication:Benign essential HTN Start:18-May-2016 Instruction Type:Provider Instructions for Treatment Patient Instructions Indication:Benign essential HTN Start:11-Nov-2015 Instruction Type:Provider Instructions for Treatment How to access health informa tion online - Detail Indication:Benign essential HTN Start:11-Nov-2015 Instruction Type:Patient Education How to access health informa tion online Indication:Benign essential HTN Start:11-Nov-2015 Instruction Type:Patient Education How to access health informa tion online Indication:Hyperlipidemia Start:11-May-2015 Instruction Type:Patient Education How to access health informa tion online - Detail Indication:Hyperlipidemia Start:11-May-2015 Instruction Type:Patient Education Patient Instructions Indication:Hyperlipidemia Start:11-May-2015 Instruction Type:Provider Instructions for Treatment Patient Instructions Indication:Hyperlipidemia Start:01-Oct-2014 Instruction Type:Provider Instructions for Treatment Patient Instructions Indication:Hyperlipidemia Start:26-May-2014 Instruction Type:Provider Instructions for Treatment How to access health informa tion online Indication:Hyperlipidemia Start:26-May-2014 Instruction Type:Patient Education How to access health informa tion online - Detail Indication:Hyperlipidemia Start:26-May-2014 Instruction Type:Patient Education Patient Instructions Indication:Hyperlipidemia Start:26-Aug-2013 Instruction Type:Provider Instructions for Treatment Patient Instructions Start:03-Jun-2013 Instruction Type:Provider Instructions for Treatment Patient Instructions Indication:Hyperlipidemia Start:06-Feb-2013 Instruction Type:Provider Instructions for Treatment Patient Instructions Indication:Hyperlipidemia Start:23-Jul-2012 Instruction Type:Provider Instructions for Treatment [facility]; [facility] Work Phone: Instructions* Name Dates Details Patient Instructions Indication:Non-smoker Start:23-Aug-2021 Instruction Type:Provider Instructions for Treatment How to Access Health Informa tion Online using Patient Portal and [employer] Apps Indication:Non-smoker Start:23-Aug-2021 Instruction Type:Patient Education Patient Instructions Indication:Non-smoker Start:26-Jul-2021 Instruction Type:Provider Instructions for Treatment How to Access Health Informa tion Online using Patient Portal and [employer] Apps Indication:Non-smoker Start:26-Jul-2021 Instruction Type:Patient Education Patient Instructions Indication:BMI 32.0-32.9,adult Start:05-Jul-2021 Instruction Type:Provider Instructions for Treatment How to Access Health Informa tion Online using Patient Portal and [employer] Apps Indication:BMI 32.0-32.9,adult Start:05-Jul-2021 Instruction Type:Patient Education Patient Instructions Indication:Non-smoker Start:03-May-2021 Instruction Type:Provider Instructions for Treatment How to Access Health Informa tion Online using Patient Portal and [employer] Apps Indication:Non-smoker Start:03-May-2021 Instruction Type:Patient Education How to Access Health Informa tion Online using Patient Portal and [employer] Apps Indication:Tobacco abuse Start:28-Oct-2020 Instruction Type:Patient Education Patient Instructions Indication:Tobacco abuse Start:28-Oct-2020 Instruction Type:Provider Instructions for Treatment How to access health informa tion online Indication:Non-smoker Start:15-Apr-2020 Instruction Type:Patient Education How to access health informa tion online - Detail Indication:Non-smoker Start:15-Apr-2020 Instruction Type:Patient Education Patient Instructions Indication:Non-smoker Start:15-Apr-2020 Instruction Type:Provider Instructions for Treatment How to access health informa tion online Indication:BMI 31.0-31.9,adult Start:16-Oct-2019 Instruction Type:Patient Education How to access health informa tion online - Detail Indication:BMI 31.0-31.9,adult Start:16-Oct-2019 Instruction Type:Patient Education Patient Instructions Indication:BMI 31.0-31.9,adult Start:16-Oct-2019 Instruction Type:Provider Instructions for Treatment How to access health informa tion online Indication:BMI 31.0-31.9,adult Start:09-Sep-2019 Instruction Type:Patient Education How to access health informa tion online - Detail Indication:BMI 31.0-31.9,adult Start:09-Sep-2019 Instruction Type:Patient Education Patient Instructions Indication:BMI 31.0-31.9,adult Start:09-Sep-2019 Instruction Type:Provider Instructions for Treatment How to access health informa tion online Indication:BMI 31.0-31.9,adult Start:19-Aug-2019 Instruction Type:Patient Education How to access health informa tion online - Detail Indication:BMI 31.0-31.9,adult Start:19-Aug-2019 Instruction Type:Patient Education Patient Instructions Indication:BMI 31.0-31.9,adult Start:19-Aug-2019 Instruction Type:Provider Instructions for Treatment How to access health informa tion online Indication:BMI 31.0-31.9,adult Start:19-Jun-2019 Instruction Type:Patient Education How to access health informa tion online - Detail Indication:BMI 31.0-31.9,adult Start:19-Jun-2019 Instruction Type:Patient Education Patient Instructions Indication:BMI 31.0-31.9,adult Start:19-Jun-2019 Instruction Type:Provider Instructions for Treatment How to access health informa tion online Indication:Muscle injury Start:08-Feb-2019 Instruction Type:Patient Education How to access health informa tion online - Detail Indication:Muscle injury Start:08-Feb-2019 Instruction Type:Patient Education Patient Instructions Indication:Muscle injury Start:08-Feb-2019 Instruction Type:Provider Instructions for Treatment How to access health informa tion online Indication:Non-smoker Start:19-Dec-2018 Instruction Type:Patient Education How to access health informa tion online - Detail Indication:Non-smoker Start:19-Dec-2018 Instruction Type:Patient Education Patient Instructions Indication:Non-smoker Start:19-Dec-2018 Instruction Type:Provider Instructions for Treatment How to access health informa tion online Indication:BMI 28.0-28.9,adult Start:18-Jun-2018 Instruction Type:Patient Education How to access health informa tion online - Detail Indication:BMI 28.0-28.9,adult Start:18-Jun-2018 Instruction Type:Patient Education Patient Instructions Indication:BMI 28.0-28.9,adult Start:18-Jun-2018 Instruction Type:Provider Instructions for Treatment How to access health informa tion online Indication:Snuff user Start:04-Dec-2017 Instruction Type:Patient Education How to access health informa tion online - Detail Indication:Snuff user Start:04-Dec-2017 Instruction Type:Patient Education Patient Instructions Indication:Snuff user Start:04-Dec-2017 Instruction Type:Provider Instructions for Treatment How to access health informa tion online Indication:Snuff user Start:29-May-2017 Instruction Type:Patient Education How to access health informa tion online - Detail Indication:Snuff user Start:29-May-2017 Instruction Type:Patient Education Patient Instructions Indication:Snuff user Start:29-May-2017 Instruction Type:Provider Instructions for Treatment How to access health informa tion online Indication:Snuff user Start:21-Nov-2016 Instruction Type:Patient Education How to access health informa tion online - Detail Indication:Snuff user Start:21-Nov-2016 Instruction Type:Patient Education Patient Instructions Indication:Snuff user Start:21-Nov-2016 Instruction Type:Provider Instructions for Treatment How to access health informa tion online Indication:Benign essential HTN Start:13-Jul-2016 Instruction Type:Patient Education How to access health informa tion online - Detail Indication:Benign essential HTN Start:13-Jul-2016 Instruction Type:Patient Education Patient Instructions Indication:Benign essential HTN Start:13-Jul-2016 Instruction Type:Provider Instructions for Treatment How to access health informa tion online Indication:Benign essential HTN Start:18-May-2016 Instruction Type:Patient Education How to access health informa tion online - Detail Indication:Benign essential HTN Start:18-May-2016 Instruction Type:Patient Education Patient Instructions Indication:Benign essential HTN Start:18-May-2016 Instruction Type:Provider Instructions for Treatment Patient Instructions Indication:Benign essential HTN Start:11-Nov-2015 Instruction Type:Provider Instructions for Treatment How to access health informa tion online - Detail Indication:Benign essential HTN Start:11-Nov-2015 Instruction Type:Patient Education How to access health informa tion online Indication:Benign essential HTN Start:11-Nov-2015 Instruction Type:Patient Education How to access health informa tion online Indication:Hyperlipidemia Start:11-May-2015 Instruction Type:Patient Education How to access health informa tion online - Detail Indication:Hyperlipidemia Start:11-May-2015 Instruction Type:Patient Education Patient Instructions Indication:Hyperlipidemia Start:11-May-2015 Instruction Type:Provider Instructions for Treatment Patient Instructions Indication:Hyperlipidemia Start:01-Oct-2014 Instruction Type:Provider Instructions for Treatment Patient Instructions Indication:Hyperlipidemia Start:26-May-2014 Instruction Type:Provider Instructions for Treatment How to access health informa tion online Indication:Hyperlipidemia Start:26-May-2014 Instruction Type:Patient Education How to access health informa tion online - Detail Indication:Hyperlipidemia Start:26-May-2014 Instruction Type:Patient Education Patient Instructions Indication:Hyperlipidemia Start:26-Aug-2013 Instruction Type:Provider Instructions for Treatment Patient Instructions Start:03-Jun-2013 Instruction Type:Provider Instructions for Treatment Patient Instructions Indication:Hyperlipidemia Start:06-Feb-2013 Instruction Type:Provider Instructions for Treatment Patient Instructions Indication:Hyperlipidemia Start:23-Jul-2012 Instruction Type:Provider Instructions for Treatment [facility]; [facility] Work Phone: Instructions* Name Dates Details How to access health informa tion online Indication:Non-smoker Start:15-Apr-2020 Instruction Type:Patient Education How to access health informa tion online - Detail Indication:Non-smoker Start:15-Apr-2020 Instruction Type:Patient Education Patient Instructions Indication:Non-smoker Start:15-Apr-2020 Instruction Type:Provider Instructions for Treatment How to access health informa tion online Indication:BMI 31.0-31.9,adult Start:16-Oct-2019 Instruction Type:Patient Education How to access health informa tion online - Detail Indication:BMI 31.0-31.9,adult Start:16-Oct-2019 Instruction Type:Patient Education Patient Instructions Indication:BMI 31.0-31.9,adult Start:16-Oct-2019 Instruction Type:Provider Instructions for Treatment How to access health informa tion online Indication:BMI 31.0-31.9,adult Start:09-Sep-2019 Instruction Type:Patient Education How to access health informa tion online - Detail Indication:BMI 31.0-31.9,adult Start:09-Sep-2019 Instruction Type:Patient Education Patient Instructions Indication:BMI 31.0-31.9,adult Start:09-Sep-2019 Instruction Type:Provider Instructions for Treatment How to access health informa tion online Indication:BMI 31.0-31.9,adult Start:19-Aug-2019 Instruction Type:Patient Education How to access health informa tion online - Detail Indication:BMI 31.0-31.9,adult Start:19-Aug-2019 Instruction Type:Patient Education Patient Instructions Indication:BMI 31.0-31.9,adult Start:19-Aug-2019 Instruction Type:Provider Instructions for Treatment How to access health informa tion online Indication:BMI 31.0-31.9,adult Start:19-Jun-2019 Instruction Type:Patient Education How to access health informa tion online - Detail Indication:BMI 31.0-31.9,adult Start:19-Jun-2019 Instruction Type:Patient Education Patient Instructions Indication:BMI 31.0-31.9,adult Start:19-Jun-2019 Instruction Type:Provider Instructions for Treatment How to access health informa tion online Indication:Muscle injury Start:08-Feb-2019 Instruction Type:Patient Education How to access health informa tion online - Detail Indication:Muscle injury Start:08-Feb-2019 Instruction Type:Patient Education Patient Instructions Indication:Muscle injury Start:08-Feb-2019 Instruction Type:Provider Instructions for Treatment How to access health informa tion online Indication:Non-smoker Start:19-Dec-2018 Instruction Type:Patient Education How to access health informa tion online - Detail Indication:Non-smoker Start:19-Dec-2018 Instruction Type:Patient Education Patient Instructions Indication:Non-smoker Start:19-Dec-2018 Instruction Type:Provider Instructions for Treatment How to access health informa tion online Indication:BMI 28.0-28.9,adult Start:18-Jun-2018 Instruction Type:Patient Education How to access health informa tion online - Detail Indication:BMI 28.0-28.9,adult Start:18-Jun-2018 Instruction Type:Patient Education Patient Instructions Indication:BMI 28.0-28.9,adult Start:18-Jun-2018 Instruction Type:Provider Instructions for Treatment How to access health informa tion online Indication:Snuff user Start:04-Dec-2017 Instruction Type:Patient Education How to access health informa tion online - Detail Indication:Snuff user Start:04-Dec-2017 Instruction Type:Patient Education Patient Instructions Indication:Snuff user Start:04-Dec-2017 Instruction Type:Provider Instructions for Treatment How to access health informa tion online Indication:Snuff user Start:29-May-2017 Instruction Type:Patient Education How to access health informa tion online - Detail Indication:Snuff user Start:29-May-2017 Instruction Type:Patient Education Patient Instructions Indication:Snuff user Start:29-May-2017 Instruction Type:Provider Instructions for Treatment How to access health informa tion online Indication:Snuff user Start:21-Nov-2016 Instruction Type:Patient Education How to access health informa tion online - Detail Indication:Snuff user Start:21-Nov-2016 Instruction Type:Patient Education Patient Instructions Indication:Snuff user Start:21-Nov-2016 Instruction Type:Provider Instructions for Treatment How to access health informa tion online Indication:Benign essential HTN Start:13-Jul-2016 Instruction Type:Patient Education How to access health informa tion online - Detail Indication:Benign essential HTN Start:13-Jul-2016 Instruction Type:Patient Education Patient Instructions Indication:Benign essential HTN Start:13-Jul-2016 Instruction Type:Provider Instructions for Treatment How to access health informa tion online Indication:Benign essential HTN Start:18-May-2016 Instruction Type:Patient Education How to access health informa tion online - Detail Indication:Benign essential HTN Start:18-May-2016 Instruction Type:Patient Education Patient Instructions Indication:Benign essential HTN Start:18-May-2016 Instruction Type:Provider Instructions for Treatment Patient Instructions Indication:Benign essential HTN Start:11-Nov-2015 Instruction Type:Provider Instructions for Treatment How to access health informa tion online - Detail Indication:Benign essential HTN Start:11-Nov-2015 Instruction Type:Patient Education How to access health informa tion online Indication:Benign essential HTN Start:11-Nov-2015 Instruction Type:Patient Education How to access health informa tion online Indication:Hyperlipidemia Start:11-May-2015 Instruction Type:Patient Education How to access health informa tion online - Detail Indication:Hyperlipidemia Start:11-May-2015 Instruction Type:Patient Education Patient Instructions Indication:Hyperlipidemia Start:11-May-2015 Instruction Type:Provider Instructions for Treatment Patient Instructions Indication:Hyperlipidemia Start:01-Oct-2014 Instruction Type:Provider Instructions for Treatment Patient Instructions Indication:Hyperlipidemia Start:26-May-2014 Instruction Type:Provider Instructions for Treatment How to access health informa tion online Indication:Hyperlipidemia Start:26-May-2014 Instruction Type:Patient Education How to access health informa tion online - Detail Indication:Hyperlipidemia Start:26-May-2014 Instruction Type:Patient Education Patient Instructions Indication:Hyperlipidemia Start:26-Aug-2013 Instruction Type:Provider Instructions for Treatment Patient Instructions Start:03-Jun-2013 Instruction Type:Provider Instructions for Treatment Patient Instructions Indication:Hyperlipidemia Start:06-Feb-2013 Instruction Type:Provider Instructions for Treatment Patient Instructions Indication:Hyperlipidemia Start:23-Jul-2012 Instruction Type:Provider Instructions for Treatment [facility] Work Phone: Instructions* Name Dates Details Patient Instructions Indication:Non-smoker Start:23-Aug-2021 Instruction Type:Provider Instructions for Treatment How to Access Health Informa tion Online using Patient Portal and [employer] Apps Indication:Non-smoker Start:23-Aug-2021 Instruction Type:Patient Education Patient Instructions Indication:Non-smoker Start:26-Jul-2021 Instruction Type:Provider Instructions for Treatment How to Access Health Informa tion Online using Patient Portal and [employer] Apps Indication:Non-smoker Start:26-Jul-2021 Instruction Type:Patient Education Patient Instructions Indication:BMI 32.0-32.9,adult Start:05-Jul-2021 Instruction Type:Provider Instructions for Treatment How to Access Health Informa tion Online using Patient Portal and [employer] Apps Indication:BMI 32.0-32.9,adult Start:05-Jul-2021 Instruction Type:Patient Education Patient Instructions Indication:Non-smoker Start:03-May-2021 Instruction Type:Provider Instructions for Treatment How to Access Health Informa tion Online using Patient Portal and [employer] Apps Indication:Non-smoker Start:03-May-2021 Instruction Type:Patient Education How to Access Health Informa tion Online using Patient Portal and [employer] Apps Indication:Tobacco abuse Start:28-Oct-2020 Instruction Type:Patient Education Patient Instructions Indication:Tobacco abuse Start:28-Oct-2020 Instruction Type:Provider Instructions for Treatment How to access health informa tion online Indication:Non-smoker Start:15-Apr-2020 Instruction Type:Patient Education How to access health informa tion online - Detail Indication:Non-smoker Start:15-Apr-2020 Instruction Type:Patient Education Patient Instructions Indication:Non-smoker Start:15-Apr-2020 Instruction Type:Provider Instructions for Treatment How to access health informa tion online Indication:BMI 31.0-31.9,adult Start:16-Oct-2019 Instruction Type:Patient Education How to access health informa tion online - Detail Indication:BMI 31.0-31.9,adult Start:16-Oct-2019 Instruction Type:Patient Education Patient Instructions Indication:BMI 31.0-31.9,adult Start:16-Oct-2019 Instruction Type:Provider Instructions for Treatment How to access health informa tion online Indication:BMI 31.0-31.9,adult Start:09-Sep-2019 Instruction Type:Patient Education How to access health informa tion online - Detail Indication:BMI 31.0-31.9,adult Start:09-Sep-2019 Instruction Type:Patient Education Patient Instructions Indication:BMI 31.0-31.9,adult Start:09-Sep-2019 Instruction Type:Provider Instructions for Treatment How to access health informa tion online Indication:BMI 31.0-31.9,adult Start:19-Aug-2019 Instruction Type:Patient Education How to access health informa tion online - Detail Indication:BMI 31.0-31.9,adult Start:19-Aug-2019 Instruction Type:Patient Education Patient Instructions Indication:BMI 31.0-31.9,adult Start:19-Aug-2019 Instruction Type:Provider Instructions for Treatment How to access health informa tion online Indication:BMI 31.0-31.9,adult Start:19-Jun-2019 Instruction Type:Patient Education How to access health informa tion online - Detail Indication:BMI 31.0-31.9,adult Start:19-Jun-2019 Instruction Type:Patient Education Patient Instructions Indication:BMI 31.0-31.9,adult Start:19-Jun-2019 Instruction Type:Provider Instructions for Treatment How to access health informa tion online Indication:Muscle injury Start:08-Feb-2019 Instruction Type:Patient Education How to access health informa tion online - Detail Indication:Muscle injury Start:08-Feb-2019 Instruction Type:Patient Education Patient Instructions Indication:Muscle injury Start:08-Feb-2019 Instruction Type:Provider Instructions for Treatment How to access health informa tion online Indication:Non-smoker Start:19-Dec-2018 Instruction Type:Patient Education How to access health informa tion online - Detail Indication:Non-smoker Start:19-Dec-2018 Instruction Type:Patient Education Patient Instructions Indication:Non-smoker Start:19-Dec-2018 Instruction Type:Provider Instructions for Treatment How to access health informa tion online Indication:BMI 28.0-28.9,adult Start:18-Jun-2018 Instruction Type:Patient Education How to access health informa tion online - Detail Indication:BMI 28.0-28.9,adult Start:18-Jun-2018 Instruction Type:Patient Education Patient Instructions Indication:BMI 28.0-28.9,adult Start:18-Jun-2018 Instruction Type:Provider Instructions for Treatment How to access health informa tion online Indication:Snuff user Start:04-Dec-2017 Instruction Type:Patient Education How to access health informa tion online - Detail Indication:Snuff user Start:04-Dec-2017 Instruction Type:Patient Education Patient Instructions Indication:Snuff user Start:04-Dec-2017 Instruction Type:Provider Instructions for Treatment How to access health informa tion online Indication:Snuff user Start:29-May-2017 Instruction Type:Patient Education How to access health informa tion online - Detail Indication:Snuff user Start:29-May-2017 Instruction Type:Patient Education Patient Instructions Indication:Snuff user Start:29-May-2017 Instruction Type:Provider Instructions for Treatment How to access health informa tion online Indication:Snuff user Start:21-Nov-2016 Instruction Type:Patient Education How to access health informa tion online - Detail Indication:Snuff user Start:21-Nov-2016 Instruction Type:Patient Education Patient Instructions Indication:Snuff user Start:21-Nov-2016 Instruction Type:Provider Instructions for Treatment How to access health informa tion online Indication:Benign essential HTN Start:13-Jul-2016 Instruction Type:Patient Education How to access health informa tion online - Detail Indication:Benign essential HTN Start:13-Jul-2016 Instruction Type:Patient Education Patient Instructions Indication:Benign essential HTN Start:13-Jul-2016 Instruction Type:Provider Instructions for Treatment How to access health informa tion online Indication:Benign essential HTN Start:18-May-2016 Instruction Type:Patient Education How to access health informa tion online - Detail Indication:Benign essential HTN Start:18-May-2016 Instruction Type:Patient Education Patient Instructions Indication:Benign essential HTN Start:18-May-2016 Instruction Type:Provider Instructions for Treatment Patient Instructions Indication:Benign essential HTN Start:11-Nov-2015 Instruction Type:Provider Instructions for Treatment How to access health informa tion online - Detail Indication:Benign essential HTN Start:11-Nov-2015 Instruction Type:Patient Education How to access health informa tion online Indication:Benign essential HTN Start:11-Nov-2015 Instruction Type:Patient Education How to access health informa tion online Indication:Hyperlipidemia Start:11-May-2015 Instruction Type:Patient Education How to access health informa tion online - Detail Indication:Hyperlipidemia Start:11-May-2015 Instruction Type:Patient Education Patient Instructions Indication:Hyperlipidemia Start:11-May-2015 Instruction Type:Provider Instructions for Treatment Patient Instructions Indication:Hyperlipidemia Start:01-Oct-2014 Instruction Type:Provider Instructions for Treatment Patient Instructions Indication:Hyperlipidemia Start:26-May-2014 Instruction Type:Provider Instructions for Treatment How to access health informa tion online Indication:Hyperlipidemia Start:26-May-2014 Instruction Type:Patient Education How to access health informa tion online - Detail Indication:Hyperlipidemia Start:26-May-2014 Instruction Type:Patient Education Patient Instructions Indication:Hyperlipidemia Start:26-Aug-2013 Instruction Type:Provider Instructions for Treatment Patient Instructions Start:03-Jun-2013 Instruction Type:Provider Instructions for Treatment Patient Instructions Indication:Hyperlipidemia Start:06-Feb-2013 Instruction Type:Provider Instructions for Treatment Patient Instructions Indication:Hyperlipidemia Start:23-Jul-2012 Instruction Type:Provider Instructions for Treatment [facility]; [facility] Work Phone: Instructions* Name Dates Details Patient Instructions Indication:Non-smoker Start:23-Aug-2021 Instruction Type:Provider Instructions for Treatment How to Access Health Informa tion Online using Patient Portal and [employer] Apps Indication:Non-smoker Start:23-Aug-2021 Instruction Type:Patient Education Patient Instructions Indication:Non-smoker Start:26-Jul-2021 Instruction Type:Provider Instructions for Treatment How to Access Health Informa tion Online using Patient Portal and [employer] Apps Indication:Non-smoker Start:26-Jul-2021 Instruction Type:Patient Education Patient Instructions Indication:BMI 32.0-32.9,adult Start:05-Jul-2021 Instruction Type:Provider Instructions for Treatment How to Access Health Informa tion Online using Patient Portal and [employer] Apps Indication:BMI 32.0-32.9,adult Start:05-Jul-2021 Instruction Type:Patient Education Patient Instructions Indication:Non-smoker Start:03-May-2021 Instruction Type:Provider Instructions for Treatment How to Access Health Informa tion Online using Patient Portal and [employer] Apps Indication:Non-smoker Start:03-May-2021 Instruction Type:Patient Education How to Access Health Informa tion Online using Patient Portal and [employer] Apps Indication:Tobacco abuse Start:28-Oct-2020 Instruction Type:Patient Education Patient Instructions Indication:Tobacco abuse Start:28-Oct-2020 Instruction Type:Provider Instructions for Treatment How to access health informa tion online Indication:Non-smoker Start:15-Apr-2020 Instruction Type:Patient Education How to access health informa tion online - Detail Indication:Non-smoker Start:15-Apr-2020 Instruction Type:Patient Education Patient Instructions Indication:Non-smoker Start:15-Apr-2020 Instruction Type:Provider Instructions for Treatment How to access health informa tion online Indication:BMI 31.0-31.9,adult Start:16-Oct-2019 Instruction Type:Patient Education How to access health informa tion online - Detail Indication:BMI 31.0-31.9,adult Start:16-Oct-2019 Instruction Type:Patient Education Patient Instructions Indication:BMI 31.0-31.9,adult Start:16-Oct-2019 Instruction Type:Provider Instructions for Treatment How to access health informa tion online Indication:BMI 31.0-31.9,adult Start:09-Sep-2019 Instruction Type:Patient Education How to access health informa tion online - Detail Indication:BMI 31.0-31.9,adult Start:09-Sep-2019 Instruction Type:Patient Education Patient Instructions Indication:BMI 31.0-31.9,adult Start:09-Sep-2019 Instruction Type:Provider Instructions for Treatment How to access health informa tion online Indication:BMI 31.0-31.9,adult Start:19-Aug-2019 Instruction Type:Patient Education How to access health informa tion online - Detail Indication:BMI 31.0-31.9,adult Start:19-Aug-2019 Instruction Type:Patient Education Patient Instructions Indication:BMI 31.0-31.9,adult Start:19-Aug-2019 Instruction Type:Provider Instructions for Treatment How to access health informa tion online Indication:BMI 31.0-31.9,adult Start:19-Jun-2019 Instruction Type:Patient Education How to access health informa tion online - Detail Indication:BMI 31.0-31.9,adult Start:19-Jun-2019 Instruction Type:Patient Education Patient Instructions Indication:BMI 31.0-31.9,adult Start:19-Jun-2019 Instruction Type:Provider Instructions for Treatment How to access health informa tion online Indication:Muscle injury Start:08-Feb-2019 Instruction Type:Patient Education How to access health informa tion online - Detail Indication:Muscle injury Start:08-Feb-2019 Instruction Type:Patient Education Patient Instructions Indication:Muscle injury Start:08-Feb-2019 Instruction Type:Provider Instructions for Treatment How to access health informa tion online Indication:Non-smoker Start:19-Dec-2018 Instruction Type:Patient Education How to access health informa tion online - Detail Indication:Non-smoker Start:19-Dec-2018 Instruction Type:Patient Education Patient Instructions Indication:Non-smoker Start:19-Dec-2018 Instruction Type:Provider Instructions for Treatment How to access health informa tion online Indication:BMI 28.0-28.9,adult Start:18-Jun-2018 Instruction Type:Patient Education How to access health informa tion online - Detail Indication:BMI 28.0-28.9,adult Start:18-Jun-2018 Instruction Type:Patient Education Patient Instructions Indication:BMI 28.0-28.9,adult Start:18-Jun-2018 Instruction Type:Provider Instructions for Treatment How to access health informa tion online Indication:Snuff user Start:04-Dec-2017 Instruction Type:Patient Education How to access health informa tion online - Detail Indication:Snuff user Start:04-Dec-2017 Instruction Type:Patient Education Patient Instructions Indication:Snuff user Start:04-Dec-2017 Instruction Type:Provider Instructions for Treatment How to access health informa tion online Indication:Snuff user Start:29-May-2017 Instruction Type:Patient Education How to access health informa tion online - Detail Indication:Snuff user Start:29-May-2017 Instruction Type:Patient Education Patient Instructions Indication:Snuff user Start:29-May-2017 Instruction Type:Provider Instructions for Treatment How to access health informa tion online Indication:Snuff user Start:21-Nov-2016 Instruction Type:Patient Education How to access health informa tion online - Detail Indication:Snuff user Start:21-Nov-2016 Instruction Type:Patient Education Patient Instructions Indication:Snuff user Start:21-Nov-2016 Instruction Type:Provider Instructions for Treatment How to access health informa tion online Indication:Benign essential HTN Start:13-Jul-2016 Instruction Type:Patient Education How to access health informa tion online - Detail Indication:Benign essential HTN Start:13-Jul-2016 Instruction Type:Patient Education Patient Instructions Indication:Benign essential HTN Start:13-Jul-2016 Instruction Type:Provider Instructions for Treatment How to access health informa tion online Indication:Benign essential HTN Start:18-May-2016 Instruction Type:Patient Education How to access health informa tion online - Detail Indication:Benign essential HTN Start:18-May-2016 Instruction Type:Patient Education Patient Instructions Indication:Benign essential HTN Start:18-May-2016 Instruction Type:Provider Instructions for Treatment Patient Instructions Indication:Benign essential HTN Start:11-Nov-2015 Instruction Type:Provider Instructions for Treatment How to access health informa tion online - Detail Indication:Benign essential HTN Start:11-Nov-2015 Instruction Type:Patient Education How to access health informa tion online Indication:Benign essential HTN Start:11-Nov-2015 Instruction Type:Patient Education How to access health informa tion online Indication:Hyperlipidemia Start:11-May-2015 Instruction Type:Patient Education How to access health informa tion online - Detail Indication:Hyperlipidemia Start:11-May-2015 Instruction Type:Patient Education Patient Instructions Indication:Hyperlipidemia Start:11-May-2015 Instruction Type:Provider Instructions for Treatment Patient Instructions Indication:Hyperlipidemia Start:01-Oct-2014 Instruction Type:Provider Instructions for Treatment Patient Instructions Indication:Hyperlipidemia Start:26-May-2014 Instruction Type:Provider Instructions for Treatment How to access health informa tion online Indication:Hyperlipidemia Start:26-May-2014 Instruction Type:Patient Education How to access health informa tion online - Detail Indication:Hyperlipidemia Start:26-May-2014 Instruction Type:Patient Education Patient Instructions Indication:Hyperlipidemia Start:26-Aug-2013 Instruction Type:Provider Instructions for Treatment Patient Instructions Start:03-Jun-2013 Instruction Type:Provider Instructions for Treatment Patient Instructions Indication:Hyperlipidemia Start:06-Feb-2013 Instruction Type:Provider Instructions for Treatment Patient Instructions Indication:Hyperlipidemia Start:23-Jul-2012 Instruction Type:Provider Instructions for Treatment [facility]; [facility] Work Phone: Instructions* Name Dates Details Patient Instructions Indication:Non-smoker Start:23-Aug-2021 Instruction Type:Provider Instructions for Treatment How to Access Health Informa tion Online using Patient Portal and [employer] Apps Indication:Non-smoker Start:23-Aug-2021 Instruction Type:Patient Education Patient Instructions Indication:Non-smoker Start:26-Jul-2021 Instruction Type:Provider Instructions for Treatment How to Access Health Informa tion Online using Patient Portal and [employer] Apps Indication:Non-smoker Start:26-Jul-2021 Instruction Type:Patient Education Patient Instructions Indication:BMI 32.0-32.9,adult Start:05-Jul-2021 Instruction Type:Provider Instructions for Treatment How to Access Health Informa tion Online using Patient Portal and [employer] Apps Indication:BMI 32.0-32.9,adult Start:05-Jul-2021 Instruction Type:Patient Education Patient Instructions Indication:Non-smoker Start:03-May-2021 Instruction Type:Provider Instructions for Treatment How to Access Health Informa tion Online using Patient Portal and [employer] Apps Indication:Non-smoker Start:03-May-2021 Instruction Type:Patient Education How to Access Health Informa tion Online using Patient Portal and [employer] Apps Indication:Tobacco abuse Start:28-Oct-2020 Instruction Type:Patient Education Patient Instructions Indication:Tobacco abuse Start:28-Oct-2020 Instruction Type:Provider Instructions for Treatment How to access health informa tion online Indication:Non-smoker Start:15-Apr-2020 Instruction Type:Patient Education How to access health informa tion online - Detail Indication:Non-smoker Start:15-Apr-2020 Instruction Type:Patient Education Patient Instructions Indication:Non-smoker Start:15-Apr-2020 Instruction Type:Provider Instructions for Treatment How to access health informa tion online Indication:BMI 31.0-31.9,adult Start:16-Oct-2019 Instruction Type:Patient Education How to access health informa tion online - Detail Indication:BMI 31.0-31.9,adult Start:16-Oct-2019 Instruction Type:Patient Education Patient Instructions Indication:BMI 31.0-31.9,adult Start:16-Oct-2019 Instruction Type:Provider Instructions for Treatment How to access health informa tion online Indication:BMI 31.0-31.9,adult Start:09-Sep-2019 Instruction Type:Patient Education How to access health informa tion online - Detail Indication:BMI 31.0-31.9,adult Start:09-Sep-2019 Instruction Type:Patient Education Patient Instructions Indication:BMI 31.0-31.9,adult Start:09-Sep-2019 Instruction Type:Provider Instructions for Treatment How to access health informa tion online Indication:BMI 31.0-31.9,adult Start:19-Aug-2019 Instruction Type:Patient Education How to access health informa tion online - Detail Indication:BMI 31.0-31.9,adult Start:19-Aug-2019 Instruction Type:Patient Education Patient Instructions Indication:BMI 31.0-31.9,adult Start:19-Aug-2019 Instruction Type:Provider Instructions for Treatment How to access health informa tion online Indication:BMI 31.0-31.9,adult Start:19-Jun-2019 Instruction Type:Patient Education How to access health informa tion online - Detail Indication:BMI 31.0-31.9,adult Start:19-Jun-2019 Instruction Type:Patient Education Patient Instructions Indication:BMI 31.0-31.9,adult Start:19-Jun-2019 Instruction Type:Provider Instructions for Treatment How to access health informa tion online Indication:Muscle injury Start:08-Feb-2019 Instruction Type:Patient Education How to access health informa tion online - Detail Indication:Muscle injury Start:08-Feb-2019 Instruction Type:Patient Education Patient Instructions Indication:Muscle injury Start:08-Feb-2019 Instruction Type:Provider Instructions for Treatment How to access health informa tion online Indication:Non-smoker Start:19-Dec-2018 Instruction Type:Patient Education How to access health informa tion online - Detail Indication:Non-smoker Start:19-Dec-2018 Instruction Type:Patient Education Patient Instructions Indication:Non-smoker Start:19-Dec-2018 Instruction Type:Provider Instructions for Treatment How to access health informa tion online Indication:BMI 28.0-28.9,adult Start:18-Jun-2018 Instruction Type:Patient Education How to access health informa tion online - Detail Indication:BMI 28.0-28.9,adult Start:18-Jun-2018 Instruction Type:Patient Education Patient Instructions Indication:BMI 28.0-28.9,adult Start:18-Jun-2018 Instruction Type:Provider Instructions for Treatment How to access health informa tion online Indication:Snuff user Start:04-Dec-2017 Instruction Type:Patient Education How to access health informa tion online - Detail Indication:Snuff user Start:04-Dec-2017 Instruction Type:Patient Education Patient Instructions Indication:Snuff user Start:04-Dec-2017 Instruction Type:Provider Instructions for Treatment How to access health informa tion online Indication:Snuff user Start:29-May-2017 Instruction Type:Patient Education How to access health informa tion online - Detail Indication:Snuff user Start:29-May-2017 Instruction Type:Patient Education Patient Instructions Indication:Snuff user Start:29-May-2017 Instruction Type:Provider Instructions for Treatment How to access health informa tion online Indication:Snuff user Start:21-Nov-2016 Instruction Type:Patient Education How to access health informa tion online - Detail Indication:Snuff user Start:21-Nov-2016 Instruction Type:Patient Education Patient Instructions Indication:Snuff user Start:21-Nov-2016 Instruction Type:Provider Instructions for Treatment How to access health informa tion online Indication:Benign essential HTN Start:13-Jul-2016 Instruction Type:Patient Education How to access health informa tion online - Detail Indication:Benign essential HTN Start:13-Jul-2016 Instruction Type:Patient Education Patient Instructions Indication:Benign essential HTN Start:13-Jul-2016 Instruction Type:Provider Instructions for Treatment How to access health informa tion online Indication:Benign essential HTN Start:18-May-2016 Instruction Type:Patient Education How to access health informa tion online - Detail Indication:Benign essential HTN Start:18-May-2016 Instruction Type:Patient Education Patient Instructions Indication:Benign essential HTN Start:18-May-2016 Instruction Type:Provider Instructions for Treatment Patient Instructions Indication:Benign essential HTN Start:11-Nov-2015 Instruction Type:Provider Instructions for Treatment How to access health informa tion online - Detail Indication:Benign essential HTN Start:11-Nov-2015 Instruction Type:Patient Education How to access health informa tion online Indication:Benign essential HTN Start:11-Nov-2015 Instruction Type:Patient Education How to access health informa tion online Indication:Hyperlipidemia Start:11-May-2015 Instruction Type:Patient Education How to access health informa tion online - Detail Indication:Hyperlipidemia Start:11-May-2015 Instruction Type:Patient Education Patient Instructions Indication:Hyperlipidemia Start:11-May-2015 Instruction Type:Provider Instructions for Treatment Patient Instructions Indication:Hyperlipidemia Start:01-Oct-2014 Instruction Type:Provider Instructions for Treatment Patient Instructions Indication:Hyperlipidemia Start:26-May-2014 Instruction Type:Provider Instructions for Treatment How to access health informa tion online Indication:Hyperlipidemia Start:26-May-2014 Instruction Type:Patient Education How to access health informa tion online - Detail Indication:Hyperlipidemia Start:26-May-2014 Instruction Type:Patient Education Patient Instructions Indication:Hyperlipidemia Start:26-Aug-2013 Instruction Type:Provider Instructions for Treatment Patient Instructions Start:03-Jun-2013 Instruction Type:Provider Instructions for Treatment Patient Instructions Indication:Hyperlipidemia Start:06-Feb-2013 Instruction Type:Provider Instructions for Treatment Patient Instructions Indication:Hyperlipidemia Start:23-Jul-2012 Instruction Type:Provider Instructions for Treatment [facility]; [facility] Work Phone: Instructions* Name Dates Details Patient Instructions Indication:Non-smoker Start:23-Aug-2021 Instruction Type:Provider Instructions for Treatment How to Access Health Informa tion Online using Patient Portal and [employer] Apps Indication:Non-smoker Start:23-Aug-2021 Instruction Type:Patient Education Patient Instructions Indication:Non-smoker Start:26-Jul-2021 Instruction Type:Provider Instructions for Treatment How to Access Health Informa tion Online using Patient Portal and [employer] Apps Indication:Non-smoker Start:26-Jul-2021 Instruction Type:Patient Education Patient Instructions Indication:BMI 32.0-32.9,adult Start:05-Jul-2021 Instruction Type:Provider Instructions for Treatment How to Access Health Informa tion Online using Patient Portal and [employer] Apps Indication:BMI 32.0-32.9,adult Start:05-Jul-2021 Instruction Type:Patient Education Patient Instructions Indication:Non-smoker Start:03-May-2021 Instruction Type:Provider Instructions for Treatment How to Access Health Informa tion Online using Patient Portal and [employer] Apps Indication:Non-smoker Start:03-May-2021 Instruction Type:Patient Education How to Access Health Informa tion Online using Patient Portal and [employer] Apps Indication:Tobacco abuse Start:28-Oct-2020 Instruction Type:Patient Education Patient Instructions Indication:Tobacco abuse Start:28-Oct-2020 Instruction Type:Provider Instructions for Treatment How to access health informa tion online Indication:Non-smoker Start:15-Apr-2020 Instruction Type:Patient Education How to access health informa tion online - Detail Indication:Non-smoker Start:15-Apr-2020 Instruction Type:Patient Education Patient Instructions Indication:Non-smoker Start:15-Apr-2020 Instruction Type:Provider Instructions for Treatment How to access health informa tion online Indication:BMI 31.0-31.9,adult Start:16-Oct-2019 Instruction Type:Patient Education How to access health informa tion online - Detail Indication:BMI 31.0-31.9,adult Start:16-Oct-2019 Instruction Type:Patient Education Patient Instructions Indication:BMI 31.0-31.9,adult Start:16-Oct-2019 Instruction Type:Provider Instructions for Treatment How to access health informa tion online Indication:BMI 31.0-31.9,adult Start:09-Sep-2019 Instruction Type:Patient Education How to access health informa tion online - Detail Indication:BMI 31.0-31.9,adult Start:09-Sep-2019 Instruction Type:Patient Education Patient Instructions Indication:BMI 31.0-31.9,adult Start:09-Sep-2019 Instruction Type:Provider Instructions for Treatment How to access health informa tion online Indication:BMI 31.0-31.9,adult Start:19-Aug-2019 Instruction Type:Patient Education How to access health informa tion online - Detail Indication:BMI 31.0-31.9,adult Start:19-Aug-2019 Instruction Type:Patient Education Patient Instructions Indication:BMI 31.0-31.9,adult Start:19-Aug-2019 Instruction Type:Provider Instructions for Treatment How to access health informa tion online Indication:BMI 31.0-31.9,adult Start:19-Jun-2019 Instruction Type:Patient Education How to access health informa tion online - Detail Indication:BMI 31.0-31.9,adult Start:19-Jun-2019 Instruction Type:Patient Education Patient Instructions Indication:BMI 31.0-31.9,adult Start:19-Jun-2019 Instruction Type:Provider Instructions for Treatment How to access health informa tion online Indication:Muscle injury Start:08-Feb-2019 Instruction Type:Patient Education How to access health informa tion online - Detail Indication:Muscle injury Start:08-Feb-2019 Instruction Type:Patient Education Patient Instructions Indication:Muscle injury Start:08-Feb-2019 Instruction Type:Provider Instructions for Treatment How to access health informa tion online Indication:Non-smoker Start:19-Dec-2018 Instruction Type:Patient Education How to access health informa tion online - Detail Indication:Non-smoker Start:19-Dec-2018 Instruction Type:Patient Education Patient Instructions Indication:Non-smoker Start:19-Dec-2018 Instruction Type:Provider Instructions for Treatment How to access health informa tion online Indication:BMI 28.0-28.9,adult Start:18-Jun-2018 Instruction Type:Patient Education How to access health informa tion online - Detail Indication:BMI 28.0-28.9,adult Start:18-Jun-2018 Instruction Type:Patient Education Patient Instructions Indication:BMI 28.0-28.9,adult Start:18-Jun-2018 Instruction Type:Provider Instructions for Treatment How to access health informa tion online Indication:Snuff user Start:04-Dec-2017 Instruction Type:Patient Education How to access health informa tion online - Detail Indication:Snuff user Start:04-Dec-2017 Instruction Type:Patient Education Patient Instructions Indication:Snuff user Start:04-Dec-2017 Instruction Type:Provider Instructions for Treatment How to access health informa tion online Indication:Snuff user Start:29-May-2017 Instruction Type:Patient Education How to access health informa tion online - Detail Indication:Snuff user Start:29-May-2017 Instruction Type:Patient Education Patient Instructions Indication:Snuff user Start:29-May-2017 Instruction Type:Provider Instructions for Treatment How to access health informa tion online Indication:Snuff user Start:21-Nov-2016 Instruction Type:Patient Education How to access health informa tion online - Detail Indication:Snuff user Start:21-Nov-2016 Instruction Type:Patient Education Patient Instructions Indication:Snuff user Start:21-Nov-2016 Instruction Type:Provider Instructions for Treatment How to access health informa tion online Indication:Benign essential HTN Start:13-Jul-2016 Instruction Type:Patient Education How to access health informa tion online - Detail Indication:Benign essential HTN Start:13-Jul-2016 Instruction Type:Patient Education Patient Instructions Indication:Benign essential HTN Start:13-Jul-2016 Instruction Type:Provider Instructions for Treatment How to access health informa tion online Indication:Benign essential HTN Start:18-May-2016 Instruction Type:Patient Education How to access health informa tion online - Detail Indication:Benign essential HTN Start:18-May-2016 Instruction Type:Patient Education Patient Instructions Indication:Benign essential HTN Start:18-May-2016 Instruction Type:Provider Instructions for Treatment Patient Instructions Indication:Benign essential HTN Start:11-Nov-2015 Instruction Type:Provider Instructions for Treatment How to access health informa tion online - Detail Indication:Benign essential HTN Start:11-Nov-2015 Instruction Type:Patient Education How to access health informa tion online Indication:Benign essential HTN Start:11-Nov-2015 Instruction Type:Patient Education How to access health informa tion online Indication:Hyperlipidemia Start:11-May-2015 Instruction Type:Patient Education How to access health informa tion online - Detail Indication:Hyperlipidemia Start:11-May-2015 Instruction Type:Patient Education Patient Instructions Indication:Hyperlipidemia Start:11-May-2015 Instruction Type:Provider Instructions for Treatment Patient Instructions Indication:Hyperlipidemia Start:01-Oct-2014 Instruction Type:Provider Instructions for Treatment Patient Instructions Indication:Hyperlipidemia Start:26-May-2014 Instruction Type:Provider Instructions for Treatment How to access health informa tion online Indication:Hyperlipidemia Start:26-May-2014 Instruction Type:Patient Education How to access health informa tion online - Detail Indication:Hyperlipidemia Start:26-May-2014 Instruction Type:Patient Education Patient Instructions Indication:Hyperlipidemia Start:26-Aug-2013 Instruction Type:Provider Instructions for Treatment Patient Instructions Start:03-Jun-2013 Instruction Type:Provider Instructions for Treatment Patient Instructions Indication:Hyperlipidemia Start:06-Feb-2013 Instruction Type:Provider Instructions for Treatment Patient Instructions Indication:Hyperlipidemia Start:23-Jul-2012 Instruction Type:Provider Instructions for Treatment [facility]; [facility] Work Phone: Instructions* Name Dates Details Patient Instructions Indication:Non-smoker Start:23-Aug-2021 Instruction Type:Provider Instructions for Treatment How to Access Health Informa tion Online using Patient Portal and [employer] Apps Indication:Non-smoker Start:23-Aug-2021 Instruction Type:Patient Education Patient Instructions Indication:Non-smoker Start:26-Jul-2021 Instruction Type:Provider Instructions for Treatment How to Access Health Informa tion Online using Patient Portal and [employer] Apps Indication:Non-smoker Start:26-Jul-2021 Instruction Type:Patient Education Patient Instructions Indication:BMI 32.0-32.9,adult Start:05-Jul-2021 Instruction Type:Provider Instructions for Treatment How to Access Health Informa tion Online using Patient Portal and [employer] Apps Indication:BMI 32.0-32.9,adult Start:05-Jul-2021 Instruction Type:Patient Education Patient Instructions Indication:Non-smoker Start:03-May-2021 Instruction Type:Provider Instructions for Treatment How to Access Health Informa tion Online using Patient Portal and [employer] Apps Indication:Non-smoker Start:03-May-2021 Instruction Type:Patient Education How to Access Health Informa tion Online using Patient Portal and [employer] Apps Indication:Tobacco abuse Start:28-Oct-2020 Instruction Type:Patient Education Patient Instructions Indication:Tobacco abuse Start:28-Oct-2020 Instruction Type:Provider Instructions for Treatment How to access health informa tion online Indication:Non-smoker Start:15-Apr-2020 Instruction Type:Patient Education How to access health informa tion online - Detail Indication:Non-smoker Start:15-Apr-2020 Instruction Type:Patient Education Patient Instructions Indication:Non-smoker Start:15-Apr-2020 Instruction Type:Provider Instructions for Treatment How to access health informa tion online Indication:BMI 31.0-31.9,adult Start:16-Oct-2019 Instruction Type:Patient Education How to access health informa tion online - Detail Indication:BMI 31.0-31.9,adult Start:16-Oct-2019 Instruction Type:Patient Education Patient Instructions Indication:BMI 31.0-31.9,adult Start:16-Oct-2019 Instruction Type:Provider Instructions for Treatment How to access health informa tion online Indication:BMI 31.0-31.9,adult Start:09-Sep-2019 Instruction Type:Patient Education How to access health informa tion online - Detail Indication:BMI 31.0-31.9,adult Start:09-Sep-2019 Instruction Type:Patient Education Patient Instructions Indication:BMI 31.0-31.9,adult Start:09-Sep-2019 Instruction Type:Provider Instructions for Treatment How to access health informa tion online Indication:BMI 31.0-31.9,adult Start:19-Aug-2019 Instruction Type:Patient Education How to access health informa tion online - Detail Indication:BMI 31.0-31.9,adult Start:19-Aug-2019 Instruction Type:Patient Education Patient Instructions Indication:BMI 31.0-31.9,adult Start:19-Aug-2019 Instruction Type:Provider Instructions for Treatment How to access health informa tion online Indication:BMI 31.0-31.9,adult Start:19-Jun-2019 Instruction Type:Patient Education How to access health informa tion online - Detail Indication:BMI 31.0-31.9,adult Start:19-Jun-2019 Instruction Type:Patient Education Patient Instructions Indication:BMI 31.0-31.9,adult Start:19-Jun-2019 Instruction Type:Provider Instructions for Treatment How to access health informa tion online Indication:Muscle injury Start:08-Feb-2019 Instruction Type:Patient Education How to access health informa tion online - Detail Indication:Muscle injury Start:08-Feb-2019 Instruction Type:Patient Education Patient Instructions Indication:Muscle injury Start:08-Feb-2019 Instruction Type:Provider Instructions for Treatment How to access health informa tion online Indication:Non-smoker Start:19-Dec-2018 Instruction Type:Patient Education How to access health informa tion online - Detail Indication:Non-smoker Start:19-Dec-2018 Instruction Type:Patient Education Patient Instructions Indication:Non-smoker Start:19-Dec-2018 Instruction Type:Provider Instructions for Treatment How to access health informa tion online Indication:BMI 28.0-28.9,adult Start:18-Jun-2018 Instruction Type:Patient Education How to access health informa tion online - Detail Indication:BMI 28.0-28.9,adult Start:18-Jun-2018 Instruction Type:Patient Education Patient Instructions Indication:BMI 28.0-28.9,adult Start:18-Jun-2018 Instruction Type:Provider Instructions for Treatment How to access health informa tion online Indication:Snuff user Start:04-Dec-2017 Instruction Type:Patient Education How to access health informa tion online - Detail Indication:Snuff user Start:04-Dec-2017 Instruction Type:Patient Education Patient Instructions Indication:Snuff user Start:04-Dec-2017 Instruction Type:Provider Instructions for Treatment How to access health informa tion online Indication:Snuff user Start:29-May-2017 Instruction Type:Patient Education How to access health informa tion online - Detail Indication:Snuff user Start:29-May-2017 Instruction Type:Patient Education Patient Instructions Indication:Snuff user Start:29-May-2017 Instruction Type:Provider Instructions for Treatment How to access health informa tion online Indication:Snuff user Start:21-Nov-2016 Instruction Type:Patient Education How to access health informa tion online - Detail Indication:Snuff user Start:21-Nov-2016 Instruction Type:Patient Education Patient Instructions Indication:Snuff user Start:21-Nov-2016 Instruction Type:Provider Instructions for Treatment How to access health informa tion online Indication:Benign essential HTN Start:13-Jul-2016 Instruction Type:Patient Education How to access health informa tion online - Detail Indication:Benign essential HTN Start:13-Jul-2016 Instruction Type:Patient Education Patient Instructions Indication:Benign essential HTN Start:13-Jul-2016 Instruction Type:Provider Instructions for Treatment How to access health informa tion online Indication:Benign essential HTN Start:18-May-2016 Instruction Type:Patient Education How to access health informa tion online - Detail Indication:Benign essential HTN Start:18-May-2016 Instruction Type:Patient Education Patient Instructions Indication:Benign essential HTN Start:18-May-2016 Instruction Type:Provider Instructions for Treatment Patient Instructions Indication:Benign essential HTN Start:11-Nov-2015 Instruction Type:Provider Instructions for Treatment How to access health informa tion online - Detail Indication:Benign essential HTN Start:11-Nov-2015 Instruction Type:Patient Education How to access health informa tion online Indication:Benign essential HTN Start:11-Nov-2015 Instruction Type:Patient Education How to access health informa tion online Indication:Hyperlipidemia Start:11-May-2015 Instruction Type:Patient Education How to access health informa tion online - Detail Indication:Hyperlipidemia Start:11-May-2015 Instruction Type:Patient Education Patient Instructions Indication:Hyperlipidemia Start:11-May-2015 Instruction Type:Provider Instructions for Treatment Patient Instructions Indication:Hyperlipidemia Start:01-Oct-2014 Instruction Type:Provider Instructions for Treatment Patient Instructions Indication:Hyperlipidemia Start:26-May-2014 Instruction Type:Provider Instructions for Treatment How to access health informa tion online Indication:Hyperlipidemia Start:26-May-2014 Instruction Type:Patient Education How to access health informa tion online - Detail Indication:Hyperlipidemia Start:26-May-2014 Instruction Type:Patient Education Patient Instructions Indication:Hyperlipidemia Start:26-Aug-2013 Instruction Type:Provider Instructions for Treatment Patient Instructions Start:03-Jun-2013 Instruction Type:Provider Instructions for Treatment Patient Instructions Indication:Hyperlipidemia Start:06-Feb-2013 Instruction Type:Provider Instructions for Treatment Patient Instructions Indication:Hyperlipidemia Start:23-Jul-2012 Instruction Type:Provider Instructions for Treatment [facility]; [facility] Work Phone: Instructions* Name Dates Details Patient Instructions Indication:Non-smoker Start:24-Jan-2022 Instruction Type:Provider Instructions for Treatment How to Access Health Informa tion Online using Patient Portal and [employer] Apps Indication:Non-smoker Start:24-Jan-2022 Instruction Type:Patient Education Patient Instructions Indication:Non-smoker Start:23-Aug-2021 Instruction Type:Provider Instructions for Treatment How to Access Health Informa tion Online using Patient Portal and [employer] Apps Indication:Non-smoker Start:23-Aug-2021 Instruction Type:Patient Education Patient Instructions Indication:Non-smoker Start:26-Jul-2021 Instruction Type:Provider Instructions for Treatment How to Access Health Informa tion Online using Patient Portal and [employer] Apps Indication:Non-smoker Start:26-Jul-2021 Instruction Type:Patient Education Patient Instructions Indication:BMI 32.0-32.9,adult Start:05-Jul-2021 Instruction Type:Provider Instructions for Treatment How to Access Health Informa tion Online using Patient Portal and [employer] Apps Indication:BMI 32.0-32.9,adult Start:05-Jul-2021 Instruction Type:Patient Education Patient Instructions Indication:Non-smoker Start:03-May-2021 Instruction Type:Provider Instructions for Treatment How to Access Health Informa tion Online using Patient Portal and [employer] Apps Indication:Non-smoker Start:03-May-2021 Instruction Type:Patient Education How to Access Health Informa tion Online using Patient Portal and [employer] Apps Indication:Tobacco abuse Start:28-Oct-2020 Instruction Type:Patient Education Patient Instructions Indication:Tobacco abuse Start:28-Oct-2020 Instruction Type:Provider Instructions for Treatment How to access health informa tion online Indication:Non-smoker Start:15-Apr-2020 Instruction Type:Patient Education How to access health informa tion online - Detail Indication:Non-smoker Start:15-Apr-2020 Instruction Type:Patient Education Patient Instructions Indication:Non-smoker Start:15-Apr-2020 Instruction Type:Provider Instructions for Treatment How to access health informa tion online Indication:BMI 31.0-31.9,adult Start:16-Oct-2019 Instruction Type:Patient Education How to access health informa tion online - Detail Indication:BMI 31.0-31.9,adult Start:16-Oct-2019 Instruction Type:Patient Education Patient Instructions Indication:BMI 31.0-31.9,adult Start:16-Oct-2019 Instruction Type:Provider Instructions for Treatment How to access health informa tion online Indication:BMI 31.0-31.9,adult Start:09-Sep-2019 Instruction Type:Patient Education How to access health informa tion online - Detail Indication:BMI 31.0-31.9,adult Start:09-Sep-2019 Instruction Type:Patient Education Patient Instructions Indication:BMI 31.0-31.9,adult Start:09-Sep-2019 Instruction Type:Provider Instructions for Treatment How to access health informa tion online Indication:BMI 31.0-31.9,adult Start:19-Aug-2019 Instruction Type:Patient Education How to access health informa tion online - Detail Indication:BMI 31.0-31.9,adult Start:19-Aug-2019 Instruction Type:Patient Education Patient Instructions Indication:BMI 31.0-31.9,adult Start:19-Aug-2019 Instruction Type:Provider Instructions for Treatment How to access health informa tion online Indication:BMI 31.0-31.9,adult Start:19-Jun-2019 Instruction Type:Patient Education How to access health informa tion online - Detail Indication:BMI 31.0-31.9,adult Start:19-Jun-2019 Instruction Type:Patient Education Patient Instructions Indication:BMI 31.0-31.9,adult Start:19-Jun-2019 Instruction Type:Provider Instructions for Treatment How to access health informa tion online Indication:Muscle injury Start:08-Feb-2019 Instruction Type:Patient Education How to access health informa tion online - Detail Indication:Muscle injury Start:08-Feb-2019 Instruction Type:Patient Education Patient Instructions Indication:Muscle injury Start:08-Feb-2019 Instruction Type:Provider Instructions for Treatment How to access health informa tion online Indication:Non-smoker Start:19-Dec-2018 Instruction Type:Patient Education How to access health informa tion online - Detail Indication:Non-smoker Start:19-Dec-2018 Instruction Type:Patient Education Patient Instructions Indication:Non-smoker Start:19-Dec-2018 Instruction Type:Provider Instructions for Treatment How to access health informa tion online Indication:BMI 28.0-28.9,adult Start:18-Jun-2018 Instruction Type:Patient Education How to access health informa tion online - Detail Indication:BMI 28.0-28.9,adult Start:18-Jun-2018 Instruction Type:Patient Education Patient Instructions Indication:BMI 28.0-28.9,adult Start:18-Jun-2018 Instruction Type:Provider Instructions for Treatment How to access health informa tion online Indication:Snuff user Start:04-Dec-2017 Instruction Type:Patient Education How to access health informa tion online - Detail Indication:Snuff user Start:04-Dec-2017 Instruction Type:Patient Education Patient Instructions Indication:Snuff user Start:04-Dec-2017 Instruction Type:Provider Instructions for Treatment How to access health informa tion online Indication:Snuff user Start:29-May-2017 Instruction Type:Patient Education How to access health informa tion online - Detail Indication:Snuff user Start:29-May-2017 Instruction Type:Patient Education Patient Instructions Indication:Snuff user Start:29-May-2017 Instruction Type:Provider Instructions for Treatment How to access health informa tion online Indication:Snuff user Start:21-Nov-2016 Instruction Type:Patient Education How to access health informa tion online - Detail Indication:Snuff user Start:21-Nov-2016 Instruction Type:Patient Education Patient Instructions Indication:Snuff user Start:21-Nov-2016 Instruction Type:Provider Instructions for Treatment How to access health informa tion online Indication:Benign essential HTN Start:13-Jul-2016 Instruction Type:Patient Education How to access health informa tion online - Detail Indication:Benign essential HTN Start:13-Jul-2016 Instruction Type:Patient Education Patient Instructions Indication:Benign essential HTN Start:13-Jul-2016 Instruction Type:Provider Instructions for Treatment How to access health informa tion online Indication:Benign essential HTN Start:18-May-2016 Instruction Type:Patient Education How to access health informa tion online - Detail Indication:Benign essential HTN Start:18-May-2016 Instruction Type:Patient Education Patient Instructions Indication:Benign essential HTN Start:18-May-2016 Instruction Type:Provider Instructions for Treatment Patient Instructions Indication:Benign essential HTN Start:11-Nov-2015 Instruction Type:Provider Instructions for Treatment How to access health informa tion online - Detail Indication:Benign essential HTN Start:11-Nov-2015 Instruction Type:Patient Education How to access health informa tion online Indication:Benign essential HTN Start:11-Nov-2015 Instruction Type:Patient Education How to access health informa tion online Indication:Hyperlipidemia Start:11-May-2015 Instruction Type:Patient Education How to access health informa tion online - Detail Indication:Hyperlipidemia Start:11-May-2015 Instruction Type:Patient Education Patient Instructions Indication:Hyperlipidemia Start:11-May-2015 Instruction Type:Provider Instructions for Treatment Patient Instructions Indication:Hyperlipidemia Start:01-Oct-2014 Instruction Type:Provider Instructions for Treatment Patient Instructions Indication:Hyperlipidemia Start:26-May-2014 Instruction Type:Provider Instructions for Treatment How to access health informa tion online Indication:Hyperlipidemia Start:26-May-2014 Instruction Type:Patient Education How to access health informa tion online - Detail Indication:Hyperlipidemia Start:26-May-2014 Instruction Type:Patient Education Patient Instructions Indication:Hyperlipidemia Start:26-Aug-2013 Instruction Type:Provider Instructions for Treatment Patient Instructions Start:03-Jun-2013 Instruction Type:Provider Instructions for Treatment Patient Instructions Indication:Hyperlipidemia Start:06-Feb-2013 Instruction Type:Provider Instructions for Treatment Patient Instructions Indication:Hyperlipidemia Start:23-Jul-2012 Instruction Type:Provider Instructions for Treatment [facility]; [facility] Work Phone: Instructions* Name Dates Details Patient Instructions Indication:Non-smoker Start:24-Jan-2022 Instruction Type:Provider Instructions for Treatment How to Access Health Informa tion Online using Patient Portal and [employer] Apps Indication:Non-smoker Start:24-Jan-2022 Instruction Type:Patient Education Patient Instructions Indication:Non-smoker Start:23-Aug-2021 Instruction Type:Provider Instructions for Treatment How to Access Health Informa tion Online using Patient Portal and [employer] Apps Indication:Non-smoker Start:23-Aug-2021 Instruction Type:Patient Education Patient Instructions Indication:Non-smoker Start:26-Jul-2021 Instruction Type:Provider Instructions for Treatment How to Access Health Informa tion Online using Patient Portal and [employer] Apps Indication:Non-smoker Start:26-Jul-2021 Instruction Type:Patient Education Patient Instructions Indication:BMI 32.0-32.9,adult Start:05-Jul-2021 Instruction Type:Provider Instructions for Treatment How to Access Health Informa tion Online using Patient Portal and [employer] Apps Indication:BMI 32.0-32.9,adult Start:05-Jul-2021 Instruction Type:Patient Education Patient Instructions Indication:Non-smoker Start:03-May-2021 Instruction Type:Provider Instructions for Treatment How to Access Health Informa tion Online using Patient Portal and [employer] Apps Indication:Non-smoker Start:03-May-2021 Instruction Type:Patient Education How to Access Health Informa tion Online using Patient Portal and [employer] Apps Indication:Tobacco abuse Start:28-Oct-2020 Instruction Type:Patient Education Patient Instructions Indication:Tobacco abuse Start:28-Oct-2020 Instruction Type:Provider Instructions for Treatment How to access health informa tion online Indication:Non-smoker Start:15-Apr-2020 Instruction Type:Patient Education How to access health informa tion online - Detail Indication:Non-smoker Start:15-Apr-2020 Instruction Type:Patient Education Patient Instructions Indication:Non-smoker Start:15-Apr-2020 Instruction Type:Provider Instructions for Treatment How to access health informa tion online Indication:BMI 31.0-31.9,adult Start:16-Oct-2019 Instruction Type:Patient Education How to access health informa tion online - Detail Indication:BMI 31.0-31.9,adult Start:16-Oct-2019 Instruction Type:Patient Education Patient Instructions Indication:BMI 31.0-31.9,adult Start:16-Oct-2019 Instruction Type:Provider Instructions for Treatment How to access health informa tion online Indication:BMI 31.0-31.9,adult Start:09-Sep-2019 Instruction Type:Patient Education How to access health informa tion online - Detail Indication:BMI 31.0-31.9,adult Start:09-Sep-2019 Instruction Type:Patient Education Patient Instructions Indication:BMI 31.0-31.9,adult Start:09-Sep-2019 Instruction Type:Provider Instructions for Treatment How to access health informa tion online Indication:BMI 31.0-31.9,adult Start:19-Aug-2019 Instruction Type:Patient Education How to access health informa tion online - Detail Indication:BMI 31.0-31.9,adult Start:19-Aug-2019 Instruction Type:Patient Education Patient Instructions Indication:BMI 31.0-31.9,adult Start:19-Aug-2019 Instruction Type:Provider Instructions for Treatment How to access health informa tion online Indication:BMI 31.0-31.9,adult Start:19-Jun-2019 Instruction Type:Patient Education How to access health informa tion online - Detail Indication:BMI 31.0-31.9,adult Start:19-Jun-2019 Instruction Type:Patient Education Patient Instructions Indication:BMI 31.0-31.9,adult Start:19-Jun-2019 Instruction Type:Provider Instructions for Treatment How to access health informa tion online Indication:Muscle injury Start:08-Feb-2019 Instruction Type:Patient Education How to access health informa tion online - Detail Indication:Muscle injury Start:08-Feb-2019 Instruction Type:Patient Education Patient Instructions Indication:Muscle injury Start:08-Feb-2019 Instruction Type:Provider Instructions for Treatment How to access health informa tion online Indication:Non-smoker Start:19-Dec-2018 Instruction Type:Patient Education How to access health informa tion online - Detail Indication:Non-smoker Start:19-Dec-2018 Instruction Type:Patient Education Patient Instructions Indication:Non-smoker Start:19-Dec-2018 Instruction Type:Provider Instructions for Treatment How to access health informa tion online Indication:BMI 28.0-28.9,adult Start:18-Jun-2018 Instruction Type:Patient Education How to access health informa tion online - Detail Indication:BMI 28.0-28.9,adult Start:18-Jun-2018 Instruction Type:Patient Education Patient Instructions Indication:BMI 28.0-28.9,adult Start:18-Jun-2018 Instruction Type:Provider Instructions for Treatment How to access health informa tion online Indication:Snuff user Start:04-Dec-2017 Instruction Type:Patient Education How to access health informa tion online - Detail Indication:Snuff user Start:04-Dec-2017 Instruction Type:Patient Education Patient Instructions Indication:Snuff user Start:04-Dec-2017 Instruction Type:Provider Instructions for Treatment How to access health informa tion online Indication:Snuff user Start:29-May-2017 Instruction Type:Patient Education How to access health informa tion online - Detail Indication:Snuff user Start:29-May-2017 Instruction Type:Patient Education Patient Instructions Indication:Snuff user Start:29-May-2017 Instruction Type:Provider Instructions for Treatment How to access health informa tion online Indication:Snuff user Start:21-Nov-2016 Instruction Type:Patient Education How to access health informa tion online - Detail Indication:Snuff user Start:21-Nov-2016 Instruction Type:Patient Education Patient Instructions Indication:Snuff user Start:21-Nov-2016 Instruction Type:Provider Instructions for Treatment How to access health informa tion online Indication:Benign essential HTN Start:13-Jul-2016 Instruction Type:Patient Education How to access health informa tion online - Detail Indication:Benign essential HTN Start:13-Jul-2016 Instruction Type:Patient Education Patient Instructions Indication:Benign essential HTN Start:13-Jul-2016 Instruction Type:Provider Instructions for Treatment How to access health informa tion online Indication:Benign essential HTN Start:18-May-2016 Instruction Type:Patient Education How to access health informa tion online - Detail Indication:Benign essential HTN Start:18-May-2016 Instruction Type:Patient Education Patient Instructions Indication:Benign essential HTN Start:18-May-2016 Instruction Type:Provider Instructions for Treatment Patient Instructions Indication:Benign essential HTN Start:11-Nov-2015 Instruction Type:Provider Instructions for Treatment How to access health informa tion online - Detail Indication:Benign essential HTN Start:11-Nov-2015 Instruction Type:Patient Education How to access health informa tion online Indication:Benign essential HTN Start:11-Nov-2015 Instruction Type:Patient Education How to access health informa tion online Indication:Hyperlipidemia Start:11-May-2015 Instruction Type:Patient Education How to access health informa tion online - Detail Indication:Hyperlipidemia Start:11-May-2015 Instruction Type:Patient Education Patient Instructions Indication:Hyperlipidemia Start:11-May-2015 Instruction Type:Provider Instructions for Treatment Patient Instructions Indication:Hyperlipidemia Start:01-Oct-2014 Instruction Type:Provider Instructions for Treatment Patient Instructions Indication:Hyperlipidemia Start:26-May-2014 Instruction Type:Provider Instructions for Treatment How to access health informa tion online Indication:Hyperlipidemia Start:26-May-2014 Instruction Type:Patient Education How to access health informa tion online - Detail Indication:Hyperlipidemia Start:26-May-2014 Instruction Type:Patient Education Patient Instructions Indication:Hyperlipidemia Start:26-Aug-2013 Instruction Type:Provider Instructions for Treatment Patient Instructions Start:03-Jun-2013 Instruction Type:Provider Instructions for Treatment Patient Instructions Indication:Hyperlipidemia Start:06-Feb-2013 Instruction Type:Provider Instructions for Treatment Patient Instructions Indication:Hyperlipidemia Start:23-Jul-2012 Instruction Type:Provider Instructions for Treatment [facility]; [facility] Work Phone: Instructions* Name Dates Details Patient Instructions Indication:Non-smoker Start:24-Jan-2022 Instruction Type:Provider Instructions for Treatment How to Access Health Informa tion Online using Patient Portal and [employer] Apps Indication:Non-smoker Start:24-Jan-2022 Instruction Type:Patient Education Patient Instructions Indication:Non-smoker Start:23-Aug-2021 Instruction Type:Provider Instructions for Treatment How to Access Health Informa tion Online using Patient Portal and [employer] Apps Indication:Non-smoker Start:23-Aug-2021 Instruction Type:Patient Education Patient Instructions Indication:Non-smoker Start:26-Jul-2021 Instruction Type:Provider Instructions for Treatment How to Access Health Informa tion Online using Patient Portal and [employer] Apps Indication:Non-smoker Start:26-Jul-2021 Instruction Type:Patient Education Patient Instructions Indication:BMI 32.0-32.9,adult Start:05-Jul-2021 Instruction Type:Provider Instructions for Treatment How to Access Health Informa tion Online using Patient Portal and [employer] Apps Indication:BMI 32.0-32.9,adult Start:05-Jul-2021 Instruction Type:Patient Education Patient Instructions Indication:Non-smoker Start:03-May-2021 Instruction Type:Provider Instructions for Treatment How to Access Health Informa tion Online using Patient Portal and [employer] Apps Indication:Non-smoker Start:03-May-2021 Instruction Type:Patient Education How to Access Health Informa tion Online using Patient Portal and [employer] Apps Indication:Tobacco abuse Start:28-Oct-2020 Instruction Type:Patient Education Patient Instructions Indication:Tobacco abuse Start:28-Oct-2020 Instruction Type:Provider Instructions for Treatment How to access health informa tion online Indication:Non-smoker Start:15-Apr-2020 Instruction Type:Patient Education How to access health informa tion online - Detail Indication:Non-smoker Start:15-Apr-2020 Instruction Type:Patient Education Patient Instructions Indication:Non-smoker Start:15-Apr-2020 Instruction Type:Provider Instructions for Treatment How to access health informa tion online Indication:BMI 31.0-31.9,adult Start:16-Oct-2019 Instruction Type:Patient Education How to access health informa tion online - Detail Indication:BMI 31.0-31.9,adult Start:16-Oct-2019 Instruction Type:Patient Education Patient Instructions Indication:BMI 31.0-31.9,adult Start:16-Oct-2019 Instruction Type:Provider Instructions for Treatment How to access health informa tion online Indication:BMI 31.0-31.9,adult Start:09-Sep-2019 Instruction Type:Patient Education How to access health informa tion online - Detail Indication:BMI 31.0-31.9,adult Start:09-Sep-2019 Instruction Type:Patient Education Patient Instructions Indication:BMI 31.0-31.9,adult Start:09-Sep-2019 Instruction Type:Provider Instructions for Treatment How to access health informa tion online Indication:BMI 31.0-31.9,adult Start:19-Aug-2019 Instruction Type:Patient Education How to access health informa tion online - Detail Indication:BMI 31.0-31.9,adult Start:19-Aug-2019 Instruction Type:Patient Education Patient Instructions Indication:BMI 31.0-31.9,adult Start:19-Aug-2019 Instruction Type:Provider Instructions for Treatment How to access health informa tion online Indication:BMI 31.0-31.9,adult Start:19-Jun-2019 Instruction Type:Patient Education How to access health informa tion online - Detail Indication:BMI 31.0-31.9,adult Start:19-Jun-2019 Instruction Type:Patient Education Patient Instructions Indication:BMI 31.0-31.9,adult Start:19-Jun-2019 Instruction Type:Provider Instructions for Treatment How to access health informa tion online Indication:Muscle injury Start:08-Feb-2019 Instruction Type:Patient Education How to access health informa tion online - Detail Indication:Muscle injury Start:08-Feb-2019 Instruction Type:Patient Education Patient Instructions Indication:Muscle injury Start:08-Feb-2019 Instruction Type:Provider Instructions for Treatment How to access health informa tion online Indication:Non-smoker Start:19-Dec-2018 Instruction Type:Patient Education How to access health informa tion online - Detail Indication:Non-smoker Start:19-Dec-2018 Instruction Type:Patient Education Patient Instructions Indication:Non-smoker Start:19-Dec-2018 Instruction Type:Provider Instructions for Treatment How to access health informa tion online Indication:BMI 28.0-28.9,adult Start:18-Jun-2018 Instruction Type:Patient Education How to access health informa tion online - Detail Indication:BMI 28.0-28.9,adult Start:18-Jun-2018 Instruction Type:Patient Education Patient Instructions Indication:BMI 28.0-28.9,adult Start:18-Jun-2018 Instruction Type:Provider Instructions for Treatment How to access health informa tion online Indication:Snuff user Start:04-Dec-2017 Instruction Type:Patient Education How to access health informa tion online - Detail Indication:Snuff user Start:04-Dec-2017 Instruction Type:Patient Education Patient Instructions Indication:Snuff user Start:04-Dec-2017 Instruction Type:Provider Instructions for Treatment How to access health informa tion online Indication:Snuff user Start:29-May-2017 Instruction Type:Patient Education How to access health informa tion online - Detail Indication:Snuff user Start:29-May-2017 Instruction Type:Patient Education Patient Instructions Indication:Snuff user Start:29-May-2017 Instruction Type:Provider Instructions for Treatment How to access health informa tion online Indication:Snuff user Start:21-Nov-2016 Instruction Type:Patient Education How to access health informa tion online - Detail Indication:Snuff user Start:21-Nov-2016 Instruction Type:Patient Education Patient Instructions Indication:Snuff user Start:21-Nov-2016 Instruction Type:Provider Instructions for Treatment How to access health informa tion online Indication:Benign essential HTN Start:13-Jul-2016 Instruction Type:Patient Education How to access health informa tion online - Detail Indication:Benign essential HTN Start:13-Jul-2016 Instruction Type:Patient Education Patient Instructions Indication:Benign essential HTN Start:13-Jul-2016 Instruction Type:Provider Instructions for Treatment How to access health informa tion online Indication:Benign essential HTN Start:18-May-2016 Instruction Type:Patient Education How to access health informa tion online - Detail Indication:Benign essential HTN Start:18-May-2016 Instruction Type:Patient Education Patient Instructions Indication:Benign essential HTN Start:18-May-2016 Instruction Type:Provider Instructions for Treatment Patient Instructions Indication:Benign essential HTN Start:11-Nov-2015 Instruction Type:Provider Instructions for Treatment How to access health informa tion online - Detail Indication:Benign essential HTN Start:11-Nov-2015 Instruction Type:Patient Education How to access health informa tion online Indication:Benign essential HTN Start:11-Nov-2015 Instruction Type:Patient Education How to access health informa tion online Indication:Hyperlipidemia Start:11-May-2015 Instruction Type:Patient Education How to access health informa tion online - Detail Indication:Hyperlipidemia Start:11-May-2015 Instruction Type:Patient Education Patient Instructions Indication:Hyperlipidemia Start:11-May-2015 Instruction Type:Provider Instructions for Treatment Patient Instructions Indication:Hyperlipidemia Start:01-Oct-2014 Instruction Type:Provider Instructions for Treatment Patient Instructions Indication:Hyperlipidemia Start:26-May-2014 Instruction Type:Provider Instructions for Treatment How to access health informa tion online Indication:Hyperlipidemia Start:26-May-2014 Instruction Type:Patient Education How to access health informa tion online - Detail Indication:Hyperlipidemia Start:26-May-2014 Instruction Type:Patient Education Patient Instructions Indication:Hyperlipidemia Start:26-Aug-2013 Instruction Type:Provider Instructions for Treatment Patient Instructions Start:03-Jun-2013 Instruction Type:Provider Instructions for Treatment Patient Instructions Indication:Hyperlipidemia Start:06-Feb-2013 Instruction Type:Provider Instructions for Treatment Patient Instructions Indication:Hyperlipidemia Start:23-Jul-2012 Instruction Type:Provider Instructions for Treatment [facility]; [facility] Work Phone: Instructions* Name Dates Details Patient Instructions Indication:BMI 28.0-28.9,adult Start:27-Jul-2022 Instruction Type:Provider Instructions for Treatment How to Access Health Informa tion Online using Patient Portal and [employer] Apps Indication:BMI 28.0-28.9,adult Start:27-Jul-2022 Instruction Type:Patient Education Patient Instructions Indication:Non-smoker Start:24-Jan-2022 Instruction Type:Provider Instructions for Treatment How to Access Health Informa tion Online using Patient Portal and [employer] Apps Indication:Non-smoker Start:24-Jan-2022 Instruction Type:Patient Education Patient Instructions Indication:Non-smoker Start:23-Aug-2021 Instruction Type:Provider Instructions for Treatment How to Access Health Informa tion Online using Patient Portal and [employer] Apps Indication:Non-smoker Start:23-Aug-2021 Instruction Type:Patient Education Patient Instructions Indication:Non-smoker Start:26-Jul-2021 Instruction Type:Provider Instructions for Treatment How to Access Health Informa tion Online using Patient Portal and [employer] Apps Indication:Non-smoker Start:26-Jul-2021 Instruction Type:Patient Education Patient Instructions Indication:BMI 32.0-32.9,adult Start:05-Jul-2021 Instruction Type:Provider Instructions for Treatment How to Access Health Informa tion Online using Patient Portal and [employer] Apps Indication:BMI 32.0-32.9,adult Start:05-Jul-2021 Instruction Type:Patient Education Patient Instructions Indication:Non-smoker Start:03-May-2021 Instruction Type:Provider Instructions for Treatment How to Access Health Informa tion Online using Patient Portal and [employer] Indication:Non-smoker Start:03-May-2021 Instruction Type:Patient Education How to Access Health Informa tion Online using Patient Portal and [employer] Apps Indication:Tobacco abuse Start:28-Oct-2020 Instruction Type:Patient Education Patient Instructions Indication:Tobacco abuse Start:28-Oct-2020 Instruction Type:Provider Instructions for Treatment How to access health informa tion online Indication:Non-smoker Start:15-Apr-2020 Instruction Type:Patient Education How to access health informa tion online - Detail Indication:Non-smoker Start:15-Apr-2020 Instruction Type:Patient Education Patient Instructions Indication:Non-smoker Start:15-Apr-2020 Instruction Type:Provider Instructions for Treatment How to access health informa tion online Indication:BMI 31.0-31.9,adult Start:16-Oct-2019 Instruction Type:Patient Education How to access health informa tion online - Detail Indication:BMI 31.0-31.9,adult Start:16-Oct-2019 Instruction Type:Patient Education Patient Instructions Indication:BMI 31.0-31.9,adult Start:16-Oct-2019 Instruction Type:Provider Instructions for Treatment How to access health informa tion online Indication:BMI 31.0-31.9,adult Start:09-Sep-2019 Instruction Type:Patient Education How to access health informa tion online - Detail Indication:BMI 31.0-31.9,adult Start:09-Sep-2019 Instruction Type:Patient Education Patient Instructions Indication:BMI 31.0-31.9,adult Start:09-Sep-2019 Instruction Type:Provider Instructions for Treatment How to access health informa tion online Indication:BMI 31.0-31.9,adult Start:19-Aug-2019 Instruction Type:Patient Education How to access health informa tion online - Detail Indication:BMI 31.0-31.9,adult Start:19-Aug-2019 Instruction Type:Patient Education Patient Instructions Indication:BMI 31.0-31.9,adult Start:19-Aug-2019 Instruction Type:Provider Instructions for Treatment How to access health informa tion online Indication:BMI 31.0-31.9,adult Start:19-Jun-2019 Instruction Type:Patient Education How to access health informa tion online - Detail Indication:BMI 31.0-31.9,adult Start:19-Jun-2019 Instruction Type:Patient Education Patient Instructions Indication:BMI 31.0-31.9,adult Start:19-Jun-2019 Instruction Type:Provider Instructions for Treatment How to access health informa tion online Indication:Muscle injury Start:08-Feb-2019 Instruction Type:Patient Education How to access health informa tion online - Detail Indication:Muscle injury Start:08-Feb-2019 Instruction Type:Patient Education Patient Instructions Indication:Muscle injury Start:08-Feb-2019 Instruction Type:Provider Instructions for Treatment How to access health informa tion online Indication:Non-smoker Start:19-Dec-2018 Instruction Type:Patient Education How to access health informa tion online - Detail Indication:Non-smoker Start:19-Dec-2018 Instruction Type:Patient Education Patient Instructions Indication:Non-smoker Start:19-Dec-2018 Instruction Type:Provider Instructions for Treatment How to access health informa tion online Indication:BMI 28.0-28.9,adult Start:18-Jun-2018 Instruction Type:Patient Education How to access health informa tion online - Detail Indication:BMI 28.0-28.9,adult Start:18-Jun-2018 Instruction Type:Patient Education Patient Instructions Indication:BMI 28.0-28.9,adult Start:18-Jun-2018 Instruction Type:Provider Instructions for Treatment How to access health informa tion online Indication:Snuff user Start:04-Dec-2017 Instruction Type:Patient Education How to access health informa tion online - Detail Indication:Snuff user Start:04-Dec-2017 Instruction Type:Patient Education Patient Instructions Indication:Snuff user Start:04-Dec-2017 Instruction Type:Provider Instructions for Treatment How to access health informa tion online Indication:Snuff user Start:29-May-2017 Instruction Type:Patient Education How to access health informa tion online - Detail Indication:Snuff user Start:29-May-2017 Instruction Type:Patient Education Patient Instructions Indication:Snuff user Start:29-May-2017 Instruction Type:Provider Instructions for Treatment How to access health informa tion online Indication:Snuff user Start:21-Nov-2016 Instruction Type:Patient Education How to access health informa tion online - Detail Indication:Snuff user Start:21-Nov-2016 Instruction Type:Patient Education Patient Instructions Indication:Snuff user Start:21-Nov-2016 Instruction Type:Provider Instructions for Treatment How to access health informa tion online Indication:Benign essential HTN Start:13-Jul-2016 Instruction Type:Patient Education How to access health informa tion online - Detail Indication:Benign essential HTN Start:13-Jul-2016 Instruction Type:Patient Education Patient Instructions Indication:Benign essential HTN Start:13-Jul-2016 Instruction Type:Provider Instructions for Treatment How to access health informa tion online Indication:Benign essential HTN Start:18-May-2016 Instruction Type:Patient Education How to access health informa tion online - Detail Indication:Benign essential HTN Start:18-May-2016 Instruction Type:Patient Education Patient Instructions Indication:Benign essential HTN Start:18-May-2016 Instruction Type:Provider Instructions for Treatment Patient Instructions Indication:Benign essential HTN Start:11-Nov-2015 Instruction Type:Provider Instructions for Treatment How to access health informa tion online - Detail Indication:Benign essential HTN Start:11-Nov-2015 Instruction Type:Patient Education How to access health informa tion online Indication:Benign essential HTN Start:11-Nov-2015 Instruction Type:Patient Education How to access health informa tion online Indication:Hyperlipidemia Start:11-May-2015 Instruction Type:Patient Education How to access health informa tion online - Detail Indication:Hyperlipidemia Start:11-May-2015 Instruction Type:Patient Education Patient Instructions Indication:Hyperlipidemia Start:11-May-2015 Instruction Type:Provider Instructions for Treatment Patient Instructions Indication:Hyperlipidemia Start:01-Oct-2014 Instruction Type:Provider Instructions for Treatment Patient Instructions Indication:Hyperlipidemia Start:26-May-2014 Instruction Type:Provider Instructions for Treatment How to access health informa tion online Indication:Hyperlipidemia Start:26-May-2014 Instruction Type:Patient Education How to access health informa tion online - Detail Indication:Hyperlipidemia Start:26-May-2014 Instruction Type:Patient Education Patient Instructions Indication:Hyperlipidemia Start:26-Aug-2013 Instruction Type:Provider Instructions for Treatment Patient Instructions Start:03-Jun-2013 Instruction Type:Provider Instructions for Treatment Patient Instructions Indication:Hyperlipidemia Start:06-Feb-2013 Instruction Type:Provider Instructions for Treatment Patient Instructions Indication:Hyperlipidemia Start:23-Jul-2012 Instruction Type:Provider Instructions for Treatment [facility]; [facility] Work Phone: Instructions* Name Dates Details Patient Instructions Indication:BMI 28.0-28.9,adult Start:21-Sep-2022 Instruction Type:Provider Instructions for Treatment How to Access Health Informa tion Online using Patient Portal and [employer] Apps Indication:BMI 28.0-28.9,adult Start:21-Sep-2022 Instruction Type:Patient Education Patient Instructions Indication:BMI 28.0-28.9,adult Start:27-Jul-2022 Instruction Type:Provider Instructions for Treatment How to Access Health Informa tion Online using Patient Portal and [employer] Indication:BMI 28.0-28.9,adult Start:27-Jul-2022 Instruction Type:Patient Education Patient Instructions Indication:Non-smoker Start:24-Jan-2022 Instruction Type:Provider Instructions for Treatment How to Access Health Informa tion Online using Patient Portal and [employer] Apps Indication:Non-smoker Start:24-Jan-2022 Instruction Type:Patient Education Patient Instructions Indication:Non-smoker Start:23-Aug-2021 Instruction Type:Provider Instructions for Treatment How to Access Health Informa tion Online using Patient Portal and [employer] Apps Indication:Non-smoker Start:23-Aug-2021 Instruction Type:Patient Education Patient Instructions Indication:Non-smoker Start:26-Jul-2021 Instruction Type:Provider Instructions for Treatment How to Access Health Informa tion Online using Patient Portal and [employer] Apps Indication:Non-smoker Start:26-Jul-2021 Instruction Type:Patient Education Patient Instructions Indication:BMI 32.0-32.9,adult Start:05-Jul-2021 Instruction Type:Provider Instructions for Treatment How to Access Health Informa tion Online using Patient Portal and [employer] Apps Indication:BMI 32.0-32.9,adult Start:05-Jul-2021 Instruction Type:Patient Education Patient Instructions Indication:Non-smoker Start:03-May-2021 Instruction Type:Provider Instructions for Treatment How to Access Health Informa tion Online using Patient Portal and [employer] Apps Indication:Non-smoker Start:03-May-2021 Instruction Type:Patient Education How to Access Health Informa tion Online using Patient Portal and [employer] Apps Indication:Tobacco abuse Start:28-Oct-2020 Instruction Type:Patient Education Patient Instructions Indication:Tobacco abuse Start:28-Oct-2020 Instruction Type:Provider Instructions for Treatment How to access health informa tion online Indication:Non-smoker Start:15-Apr-2020 Instruction Type:Patient Education How to access health informa tion online - Detail Indication:Non-smoker Start:15-Apr-2020 Instruction Type:Patient Education Patient Instructions Indication:Non-smoker Start:15-Apr-2020 Instruction Type:Provider Instructions for Treatment How to access health informa tion online Indication:BMI 31.0-31.9,adult Start:16-Oct-2019 Instruction Type:Patient Education How to access health informa tion online - Detail Indication:BMI 31.0-31.9,adult Start:16-Oct-2019 Instruction Type:Patient Education Patient Instructions Indication:BMI 31.0-31.9,adult Start:16-Oct-2019 Instruction Type:Provider Instructions for Treatment How to access health informa tion online Indication:BMI 31.0-31.9,adult Start:09-Sep-2019 Instruction Type:Patient Education How to access health informa tion online - Detail Indication:BMI 31.0-31.9,adult Start:09-Sep-2019 Instruction Type:Patient Education Patient Instructions Indication:BMI 31.0-31.9,adult Start:09-Sep-2019 Instruction Type:Provider Instructions for Treatment How to access health informa tion online Indication:BMI 31.0-31.9,adult Start:19-Aug-2019 Instruction Type:Patient Education How to access health informa tion online - Detail Indication:BMI 31.0-31.9,adult Start:19-Aug-2019 Instruction Type:Patient Education Patient Instructions Indication:BMI 31.0-31.9,adult Start:19-Aug-2019 Instruction Type:Provider Instructions for Treatment How to access health informa tion online Indication:BMI 31.0-31.9,adult Start:19-Jun-2019 Instruction Type:Patient Education How to access health informa tion online - Detail Indication:BMI 31.0-31.9,adult Start:19-Jun-2019 Instruction Type:Patient Education Patient Instructions Indication:BMI 31.0-31.9,adult Start:19-Jun-2019 Instruction Type:Provider Instructions for Treatment How to access health informa tion online Indication:Muscle injury Start:08-Feb-2019 Instruction Type:Patient Education How to access health informa tion online - Detail Indication:Muscle injury Start:08-Feb-2019 Instruction Type:Patient Education Patient Instructions Indication:Muscle injury Start:08-Feb-2019 Instruction Type:Provider Instructions for Treatment How to access health informa tion online Indication:Non-smoker Start:19-Dec-2018 Instruction Type:Patient Education How to access health informa tion online - Detail Indication:Non-smoker Start:19-Dec-2018 Instruction Type:Patient Education Patient Instructions Indication:Non-smoker Start:19-Dec-2018 Instruction Type:Provider Instructions for Treatment How to access health informa tion online Indication:BMI 28.0-28.9,adult Start:18-Jun-2018 Instruction Type:Patient Education How to access health informa tion online - Detail Indication:BMI 28.0-28.9,adult Start:18-Jun-2018 Instruction Type:Patient Education Patient Instructions Indication:BMI 28.0-28.9,adult Start:18-Jun-2018 Instruction Type:Provider Instructions for Treatment How to access health informa tion online Indication:Snuff user Start:04-Dec-2017 Instruction Type:Patient Education How to access health informa tion online - Detail Indication:Snuff user Start:04-Dec-2017 Instruction Type:Patient Education Patient Instructions Indication:Snuff user Start:04-Dec-2017 Instruction Type:Provider Instructions for Treatment How to access health informa tion online Indication:Snuff user Start:29-May-2017 Instruction Type:Patient Education How to access health informa tion online - Detail Indication:Snuff user Start:29-May-2017 Instruction Type:Patient Education Patient Instructions Indication:Snuff user Start:29-May-2017 Instruction Type:Provider Instructions for Treatment How to access health informa tion online Indication:Snuff user Start:21-Nov-2016 Instruction Type:Patient Education How to access health informa tion online - Detail Indication:Snuff user Start:21-Nov-2016 Instruction Type:Patient Education Patient Instructions Indication:Snuff user Start:21-Nov-2016 Instruction Type:Provider Instructions for Treatment How to access health informa tion online Indication:Benign essential HTN Start:13-Jul-2016 Instruction Type:Patient Education How to access health informa tion online - Detail Indication:Benign essential HTN Start:13-Jul-2016 Instruction Type:Patient Education Patient Instructions Indication:Benign essential HTN Start:13-Jul-2016 Instruction Type:Provider Instructions for Treatment How to access health informa tion online Indication:Benign essential HTN Start:18-May-2016 Instruction Type:Patient Education How to access health informa tion online - Detail Indication:Benign essential HTN Start:18-May-2016 Instruction Type:Patient Education Patient Instructions Indication:Benign essential HTN Start:18-May-2016 Instruction Type:Provider Instructions for Treatment Patient Instructions Indication:Benign essential HTN Start:11-Nov-2015 Instruction Type:Provider Instructions for Treatment How to access health informa tion online - Detail Indication:Benign essential HTN Start:11-Nov-2015 Instruction Type:Patient Education How to access health informa tion online Indication:Benign essential HTN Start:11-Nov-2015 Instruction Type:Patient Education How to access health informa tion online Indication:Hyperlipidemia Start:11-May-2015 Instruction Type:Patient Education How to access health informa tion online - Detail Indication:Hyperlipidemia Start:11-May-2015 Instruction Type:Patient Education Patient Instructions Indication:Hyperlipidemia Start:11-May-2015 Instruction Type:Provider Instructions for Treatment Patient Instructions Indication:Hyperlipidemia Start:01-Oct-2014 Instruction Type:Provider Instructions for Treatment Patient Instructions Indication:Hyperlipidemia Start:26-May-2014 Instruction Type:Provider Instructions for Treatment How to access health informa tion online Indication:Hyperlipidemia Start:26-May-2014 Instruction Type:Patient Education How to access health informa tion online - Detail Indication:Hyperlipidemia Start:26-May-2014 Instruction Type:Patient Education Patient Instructions Indication:Hyperlipidemia Start:26-Aug-2013 Instruction Type:Provider Instructions for Treatment Patient Instructions Start:03-Jun-2013 Instruction Type:Provider Instructions for Treatment Patient Instructions Indication:Hyperlipidemia Start:06-Feb-2013 Instruction Type:Provider Instructions for Treatment Patient Instructions Indication:Hyperlipidemia Start:23-Jul-2012 Instruction Type:Provider Instructions for Treatment [facility]; [facility] Work Phone: Instructions* Name Dates Details Patient Instructions Indication:BMI 28.0-28.9,adult Start:21-Sep-2022 Instruction Type:Provider Instructions for Treatment How to Access Health Informa tion Online using Patient Portal and [employer] Apps Indication:BMI 28.0-28.9,adult Start:21-Sep-2022 Instruction Type:Patient Education Patient Instructions Indication:BMI 28.0-28.9,adult Start:27-Jul-2022 Instruction Type:Provider Instructions for Treatment How to Access Health Informa tion Online using Patient Portal and [employer] Apps Indication:BMI 28.0-28.9,adult Start:27-Jul-2022 Instruction Type:Patient Education Patient Instructions Indication:Non-smoker Start:24-Jan-2022 Instruction Type:Provider Instructions for Treatment How to Access Health Informa tion Online using Patient Portal and [employer] Apps Indication:Non-smoker Start:24-Jan-2022 Instruction Type:Patient Education Patient Instructions Indication:Non-smoker Start:23-Aug-2021 Instruction Type:Provider Instructions for Treatment How to Access Health Informa tion Online using Patient Portal and [employer] Apps Indication:Non-smoker Start:23-Aug-2021 Instruction Type:Patient Education Patient Instructions Indication:Non-smoker Start:26-Jul-2021 Instruction Type:Provider Instructions for Treatment How to Access Health Informa tion Online using Patient Portal and [employer] Apps Indication:Non-smoker Start:26-Jul-2021 Instruction Type:Patient Education Patient Instructions Indication:BMI 32.0-32.9,adult Start:05-Jul-2021 Instruction Type:Provider Instructions for Treatment How to Access Health Informa tion Online using Patient Portal and [employer] Apps Indication:BMI 32.0-32.9,adult Start:05-Jul-2021 Instruction Type:Patient Education Patient Instructions Indication:Non-smoker Start:03-May-2021 Instruction Type:Provider Instructions for Treatment How to Access Health Informa tion Online using Patient Portal and [employer] Apps Indication:Non-smoker Start:03-May-2021 Instruction Type:Patient Education How to Access Health Informa tion Online using Patient Portal and [employer] Apps Indication:Tobacco abuse Start:28-Oct-2020 Instruction Type:Patient Education Patient Instructions Indication:Tobacco abuse Start:28-Oct-2020 Instruction Type:Provider Instructions for Treatment How to access health informa tion online Indication:Non-smoker Start:15-Apr-2020 Instruction Type:Patient Education How to access health informa tion online - Detail Indication:Non-smoker Start:15-Apr-2020 Instruction Type:Patient Education Patient Instructions Indication:Non-smoker Start:15-Apr-2020 Instruction Type:Provider Instructions for Treatment How to access health informa tion online Indication:BMI 31.0-31.9,adult Start:16-Oct-2019 Instruction Type:Patient Education How to access health informa tion online - Detail Indication:BMI 31.0-31.9,adult Start:16-Oct-2019 Instruction Type:Patient Education Patient Instructions Indication:BMI 31.0-31.9,adult Start:16-Oct-2019 Instruction Type:Provider Instructions for Treatment How to access health informa tion online Indication:BMI 31.0-31.9,adult Start:09-Sep-2019 Instruction Type:Patient Education How to access health informa tion online - Detail Indication:BMI 31.0-31.9,adult Start:09-Sep-2019 Instruction Type:Patient Education Patient Instructions Indication:BMI 31.0-31.9,adult Start:09-Sep-2019 Instruction Type:Provider Instructions for Treatment How to access health informa tion online Indication:BMI 31.0-31.9,adult Start:19-Aug-2019 Instruction Type:Patient Education How to access health informa tion online - Detail Indication:BMI 31.0-31.9,adult Start:19-Aug-2019 Instruction Type:Patient Education Patient Instructions Indication:BMI 31.0-31.9,adult Start:19-Aug-2019 Instruction Type:Provider Instructions for Treatment How to access health informa tion online Indication:BMI 31.0-31.9,adult Start:19-Jun-2019 Instruction Type:Patient Education How to access health informa tion online - Detail Indication:BMI 31.0-31.9,adult Start:19-Jun-2019 Instruction Type:Patient Education Patient Instructions Indication:BMI 31.0-31.9,adult Start:19-Jun-2019 Instruction Type:Provider Instructions for Treatment How to access health informa tion online Indication:Muscle injury Start:08-Feb-2019 Instruction Type:Patient Education How to access health informa tion online - Detail Indication:Muscle injury Start:08-Feb-2019 Instruction Type:Patient Education Patient Instructions Indication:Muscle injury Start:08-Feb-2019 Instruction Type:Provider Instructions for Treatment How to access health informa tion online Indication:Non-smoker Start:19-Dec-2018 Instruction Type:Patient Education How to access health informa tion online - Detail Indication:Non-smoker Start:19-Dec-2018 Instruction Type:Patient Education Patient Instructions Indication:Non-smoker Start:19-Dec-2018 Instruction Type:Provider Instructions for Treatment How to access health informa tion online Indication:BMI 28.0-28.9,adult Start:18-Jun-2018 Instruction Type:Patient Education How to access health informa tion online - Detail Indication:BMI 28.0-28.9,adult Start:18-Jun-2018 Instruction Type:Patient Education Patient Instructions Indication:BMI 28.0-28.9,adult Start:18-Jun-2018 Instruction Type:Provider Instructions for Treatment How to access health informa tion online Indication:Snuff user Start:04-Dec-2017 Instruction Type:Patient Education How to access health informa tion online - Detail Indication:Snuff user Start:04-Dec-2017 Instruction Type:Patient Education Patient Instructions Indication:Snuff user Start:04-Dec-2017 Instruction Type:Provider Instructions for Treatment How to access health informa tion online Indication:Snuff user Start:29-May-2017 Instruction Type:Patient Education How to access health informa tion online - Detail Indication:Snuff user Start:29-May-2017 Instruction Type:Patient Education Patient Instructions Indication:Snuff user Start:29-May-2017 Instruction Type:Provider Instructions for Treatment How to access health informa tion online Indication:Snuff user Start:21-Nov-2016 Instruction Type:Patient Education How to access health informa tion online - Detail Indication:Snuff user Start:21-Nov-2016 Instruction Type:Patient Education Patient Instructions Indication:Snuff user Start:21-Nov-2016 Instruction Type:Provider Instructions for Treatment How to access health informa tion online Indication:Benign essential HTN Start:13-Jul-2016 Instruction Type:Patient Education How to access health informa tion online - Detail Indication:Benign essential HTN Start:13-Jul-2016 Instruction Type:Patient Education Patient Instructions Indication:Benign essential HTN Start:13-Jul-2016 Instruction Type:Provider Instructions for Treatment How to access health informa tion online Indication:Benign essential HTN Start:18-May-2016 Instruction Type:Patient Education How to access health informa tion online - Detail Indication:Benign essential HTN Start:18-May-2016 Instruction Type:Patient Education Patient Instructions Indication:Benign essential HTN Start:18-May-2016 Instruction Type:Provider Instructions for Treatment Patient Instructions Indication:Benign essential HTN Start:11-Nov-2015 Instruction Type:Provider Instructions for Treatment How to access health informa tion online - Detail Indication:Benign essential HTN Start:11-Nov-2015 Instruction Type:Patient Education How to access health informa tion online Indication:Benign essential HTN Start:11-Nov-2015 Instruction Type:Patient Education How to access health informa tion online Indication:Hyperlipidemia Start:11-May-2015 Instruction Type:Patient Education How to access health informa tion online - Detail Indication:Hyperlipidemia Start:11-May-2015 Instruction Type:Patient Education Patient Instructions Indication:Hyperlipidemia Start:11-May-2015 Instruction Type:Provider Instructions for Treatment Patient Instructions Indication:Hyperlipidemia Start:01-Oct-2014 Instruction Type:Provider Instructions for Treatment Patient Instructions Indication:Hyperlipidemia Start:26-May-2014 Instruction Type:Provider Instructions for Treatment How to access health informa tion online Indication:Hyperlipidemia Start:26-May-2014 Instruction Type:Patient Education How to access health informa tion online - Detail Indication:Hyperlipidemia Start:26-May-2014 Instruction Type:Patient Education Patient Instructions Indication:Hyperlipidemia Start:26-Aug-2013 Instruction Type:Provider Instructions for Treatment Patient Instructions Start:03-Jun-2013 Instruction Type:Provider Instructions for Treatment Patient Instructions Indication:Hyperlipidemia Start:06-Feb-2013 Instruction Type:Provider Instructions for Treatment Patient Instructions Indication:Hyperlipidemia Start:23-Jul-2012 Instruction Type:Provider Instructions for Treatment [facility]; [facility] Work Phone: Instructions* Name Dates Details Patient Instructions Indication:BMI 28.0-28.9,adult Start:21-Sep-2022 Instruction Type:Provider Instructions for Treatment How to Access Health Informa tion Online using Patient Portal and [employer] Apps Indication:BMI 28.0-28.9,adult Start:21-Sep-2022 Instruction Type:Patient Education Patient Instructions Indication:BMI 28.0-28.9,adult Start:27-Jul-2022 Instruction Type:Provider Instructions for Treatment How to Access Health Informa tion Online using Patient Portal and [employer] Apps Indication:BMI 28.0-28.9,adult Start:27-Jul-2022 Instruction Type:Patient Education Patient Instructions Indication:Non-smoker Start:24-Jan-2022 Instruction Type:Provider Instructions for Treatment How to Access Health Informa tion Online using Patient Portal and [employer] Apps Indication:Non-smoker Start:24-Jan-2022 Instruction Type:Patient Education Patient Instructions Indication:Non-smoker Start:23-Aug-2021 Instruction Type:Provider Instructions for Treatment How to Access Health Informa tion Online using Patient Portal and [employer] Apps Indication:Non-smoker Start:23-Aug-2021 Instruction Type:Patient Education Patient Instructions Indication:Non-smoker Start:26-Jul-2021 Instruction Type:Provider Instructions for Treatment How to Access Health Informa tion Online using Patient Portal and [employer] Apps Indication:Non-smoker Start:26-Jul-2021 Instruction Type:Patient Education Patient Instructions Indication:BMI 32.0-32.9,adult Start:05-Jul-2021 Instruction Type:Provider Instructions for Treatment How to Access Health Informa tion Online using Patient Portal and [employer] Apps Indication:BMI 32.0-32.9,adult Start:05-Jul-2021 Instruction Type:Patient Education Patient Instructions Indication:Non-smoker Start:03-May-2021 Instruction Type:Provider Instructions for Treatment How to Access Health Informa tion Online using Patient Portal and [employer] Apps Indication:Non-smoker Start:03-May-2021 Instruction Type:Patient Education How to Access Health Informa tion Online using Patient Portal and [employer] Apps Indication:Tobacco abuse Start:28-Oct-2020 Instruction Type:Patient Education Patient Instructions Indication:Tobacco abuse Start:28-Oct-2020 Instruction Type:Provider Instructions for Treatment How to access health informa tion online Indication:Non-smoker Start:15-Apr-2020 Instruction Type:Patient Education How to access health informa tion online - Detail Indication:Non-smoker Start:15-Apr-2020 Instruction Type:Patient Education Patient Instructions Indication:Non-smoker Start:15-Apr-2020 Instruction Type:Provider Instructions for Treatment How to access health informa tion online Indication:BMI 31.0-31.9,adult Start:16-Oct-2019 Instruction Type:Patient Education How to access health informa tion online - Detail Indication:BMI 31.0-31.9,adult Start:16-Oct-2019 Instruction Type:Patient Education Patient Instructions Indication:BMI 31.0-31.9,adult Start:16-Oct-2019 Instruction Type:Provider Instructions for Treatment How to access health informa tion online Indication:BMI 31.0-31.9,adult Start:09-Sep-2019 Instruction Type:Patient Education How to access health informa tion online - Detail Indication:BMI 31.0-31.9,adult Start:09-Sep-2019 Instruction Type:Patient Education Patient Instructions Indication:BMI 31.0-31.9,adult Start:09-Sep-2019 Instruction Type:Provider Instructions for Treatment How to access health informa tion online Indication:BMI 31.0-31.9,adult Start:19-Aug-2019 Instruction Type:Patient Education How to access health informa tion online - Detail Indication:BMI 31.0-31.9,adult Start:19-Aug-2019 Instruction Type:Patient Education Patient Instructions Indication:BMI 31.0-31.9,adult Start:19-Aug-2019 Instruction Type:Provider Instructions for Treatment How to access health informa tion online Indication:BMI 31.0-31.9,adult Start:19-Jun-2019 Instruction Type:Patient Education How to access health informa tion online - Detail Indication:BMI 31.0-31.9,adult Start:19-Jun-2019 Instruction Type:Patient Education Patient Instructions Indication:BMI 31.0-31.9,adult Start:19-Jun-2019 Instruction Type:Provider Instructions for Treatment How to access health informa tion online Indication:Muscle injury Start:08-Feb-2019 Instruction Type:Patient Education How to access health informa tion online - Detail Indication:Muscle injury Start:08-Feb-2019 Instruction Type:Patient Education Patient Instructions Indication:Muscle injury Start:08-Feb-2019 Instruction Type:Provider Instructions for Treatment How to access health informa tion online Indication:Non-smoker Start:19-Dec-2018 Instruction Type:Patient Education How to access health informa tion online - Detail Indication:Non-smoker Start:19-Dec-2018 Instruction Type:Patient Education Patient Instructions Indication:Non-smoker Start:19-Dec-2018 Instruction Type:Provider Instructions for Treatment How to access health informa tion online Indication:BMI 28.0-28.9,adult Start:18-Jun-2018 Instruction Type:Patient Education How to access health informa tion online - Detail Indication:BMI 28.0-28.9,adult Start:18-Jun-2018 Instruction Type:Patient Education Patient Instructions Indication:BMI 28.0-28.9,adult Start:18-Jun-2018 Instruction Type:Provider Instructions for Treatment How to access health informa tion online Indication:Snuff user Start:04-Dec-2017 Instruction Type:Patient Education How to access health informa tion online - Detail Indication:Snuff user Start:04-Dec-2017 Instruction Type:Patient Education Patient Instructions Indication:Snuff user Start:04-Dec-2017 Instruction Type:Provider Instructions for Treatment How to access health informa tion online Indication:Snuff user Start:29-May-2017 Instruction Type:Patient Education How to access health informa tion online - Detail Indication:Snuff user Start:29-May-2017 Instruction Type:Patient Education Patient Instructions Indication:Snuff user Start:29-May-2017 Instruction Type:Provider Instructions for Treatment How to access health informa tion online Indication:Snuff user Start:21-Nov-2016 Instruction Type:Patient Education How to access health informa tion online - Detail Indication:Snuff user Start:21-Nov-2016 Instruction Type:Patient Education Patient Instructions Indication:Snuff user Start:21-Nov-2016 Instruction Type:Provider Instructions for Treatment How to access health informa tion online Indication:Benign essential HTN Start:13-Jul-2016 Instruction Type:Patient Education How to access health informa tion online - Detail Indication:Benign essential HTN Start:13-Jul-2016 Instruction Type:Patient Education Patient Instructions Indication:Benign essential HTN Start:13-Jul-2016 Instruction Type:Provider Instructions for Treatment How to access health informa tion online Indication:Benign essential HTN Start:18-May-2016 Instruction Type:Patient Education How to access health informa tion online - Detail Indication:Benign essential HTN Start:18-May-2016 Instruction Type:Patient Education Patient Instructions Indication:Benign essential HTN Start:18-May-2016 Instruction Type:Provider Instructions for Treatment Patient Instructions Indication:Benign essential HTN Start:11-Nov-2015 Instruction Type:Provider Instructions for Treatment How to access health informa tion online - Detail Indication:Benign essential HTN Start:11-Nov-2015 Instruction Type:Patient Education How to access health informa tion online Indication:Benign essential HTN Start:11-Nov-2015 Instruction Type:Patient Education How to access health informa tion online Indication:Hyperlipidemia Start:11-May-2015 Instruction Type:Patient Education How to access health informa tion online - Detail Indication:Hyperlipidemia Start:11-May-2015 Instruction Type:Patient Education Patient Instructions Indication:Hyperlipidemia Start:11-May-2015 Instruction Type:Provider Instructions for Treatment Patient Instructions Indication:Hyperlipidemia Start:01-Oct-2014 Instruction Type:Provider Instructions for Treatment Patient Instructions Indication:Hyperlipidemia Start:26-May-2014 Instruction Type:Provider Instructions for Treatment How to access health informa tion online Indication:Hyperlipidemia Start:26-May-2014 Instruction Type:Patient Education How to access health informa tion online - Detail Indication:Hyperlipidemia Start:26-May-2014 Instruction Type:Patient Education Patient Instructions Indication:Hyperlipidemia Start:26-Aug-2013 Instruction Type:Provider Instructions for Treatment Patient Instructions Start:03-Jun-2013 Instruction Type:Provider Instructions for Treatment Patient Instructions Indication:Hyperlipidemia Start:06-Feb-2013 Instruction Type:Provider Instructions for Treatment Patient Instructions Indication:Hyperlipidemia Start:23-Jul-2012 Instruction Type:Provider Instructions for Treatment [facility]; [facility] Work Phone: Instructions* Name Dates Details How to Access Health Informa tion Online using Patient Portal and [employer] Apps Indication:Non-smoker Start:05-Apr-2023 Instruction Type:Patient Education Patient Instructions Indication:Non-smoker Start:05-Apr-2023 Instruction Type:Provider Instructions for Treatment Patient Instructions Indication:BMI 28.0-28.9,adult Start:21-Sep-2022 Instruction Type:Provider Instructions for Treatment How to Access Health Informa tion Online using Patient Portal and [employer] Apps Indication:BMI 28.0-28.9,adult Start:21-Sep-2022 Instruction Type:Patient Education Patient Instructions Indication:BMI 28.0-28.9,adult Start:27-Jul-2022 Instruction Type:Provider Instructions for Treatment How to Access Health Informa tion Online using Patient Portal and [employer] Apps Indication:BMI 28.0-28.9,adult Start:27-Jul-2022 Instruction Type:Patient Education Patient Instructions Indication:Non-smoker Start:24-Jan-2022 Instruction Type:Provider Instructions for Treatment How to Access Health Informa tion Online using Patient Portal and [employer] Apps Indication:Non-smoker Start:24-Jan-2022 Instruction Type:Patient Education Patient Instructions Indication:Non-smoker Start:23-Aug-2021 Instruction Type:Provider Instructions for Treatment How to Access Health Informa tion Online using Patient Portal and [employer] Apps Indication:Non-smoker Start:23-Aug-2021 Instruction Type:Patient Education Patient Instructions Indication:Non-smoker Start:26-Jul-2021 Instruction Type:Provider Instructions for Treatment How to Access Health Informa tion Online using Patient Portal and [employer] Apps Indication:Non-smoker Start:26-Jul-2021 Instruction Type:Patient Education Patient Instructions Indication:BMI 32.0-32.9,adult Start:05-Jul-2021 Instruction Type:Provider Instructions for Treatment How to Access Health Informa tion Online using Patient Portal and [employer] Apps Indication:BMI 32.0-32.9,adult Start:05-Jul-2021 Instruction Type:Patient Education Patient Instructions Indication:Non-smoker Start:03-May-2021 Instruction Type:Provider Instructions for Treatment How to Access Health Informa tion Online using Patient Portal and [employer] Apps Indication:Non-smoker Start:03-May-2021 Instruction Type:Patient Education How to Access Health Informa tion Online using Patient Portal and [employer] Apps Indication:Tobacco abuse Start:28-Oct-2020 Instruction Type:Patient Education Patient Instructions Indication:Tobacco abuse Start:28-Oct-2020 Instruction Type:Provider Instructions for Treatment How to access health informa tion online Indication:Non-smoker Start:15-Apr-2020 Instruction Type:Patient Education How to access health informa tion online - Detail Indication:Non-smoker Start:15-Apr-2020 Instruction Type:Patient Education Patient Instructions Indication:Non-smoker Start:15-Apr-2020 Instruction Type:Provider Instructions for Treatment How to access health informa tion online Indication:BMI 31.0-31.9,adult Start:16-Oct-2019 Instruction Type:Patient Education How to access health informa tion online - Detail Indication:BMI 31.0-31.9,adult Start:16-Oct-2019 Instruction Type:Patient Education Patient Instructions Indication:BMI 31.0-31.9,adult Start:16-Oct-2019 Instruction Type:Provider Instructions for Treatment How to access health informa tion online Indication:BMI 31.0-31.9,adult Start:09-Sep-2019 Instruction Type:Patient Education How to access health informa tion online - Detail Indication:BMI 31.0-31.9,adult Start:09-Sep-2019 Instruction Type:Patient Education Patient Instructions Indication:BMI 31.0-31.9,adult Start:09-Sep-2019 Instruction Type:Provider Instructions for Treatment How to access health informa tion online Indication:BMI 31.0-31.9,adult Start:19-Aug-2019 Instruction Type:Patient Education How to access health informa tion online - Detail Indication:BMI 31.0-31.9,adult Start:19-Aug-2019 Instruction Type:Patient Education Patient Instructions Indication:BMI 31.0-31.9,adult Start:19-Aug-2019 Instruction Type:Provider Instructions for Treatment How to access health informa tion online Indication:BMI 31.0-31.9,adult Start:19-Jun-2019 Instruction Type:Patient Education How to access health informa tion online - Detail Indication:BMI 31.0-31.9,adult Start:19-Jun-2019 Instruction Type:Patient Education Patient Instructions Indication:BMI 31.0-31.9,adult Start:19-Jun-2019 Instruction Type:Provider Instructions for Treatment How to access health informa tion online Indication:Muscle injury Start:08-Feb-2019 Instruction Type:Patient Education How to access health informa tion online - Detail Indication:Muscle injury Start:08-Feb-2019 Instruction Type:Patient Education Patient Instructions Indication:Muscle injury Start:08-Feb-2019 Instruction Type:Provider Instructions for Treatment How to access health informa tion online Indication:Non-smoker Start:19-Dec-2018 Instruction Type:Patient Education How to access health informa tion online - Detail Indication:Non-smoker Start:19-Dec-2018 Instruction Type:Patient Education Patient Instructions Indication:Non-smoker Start:19-Dec-2018 Instruction Type:Provider Instructions for Treatment How to access health informa tion online Indication:BMI 28.0-28.9,adult Start:18-Jun-2018 Instruction Type:Patient Education How to access health informa tion online - Detail Indication:BMI 28.0-28.9,adult Start:18-Jun-2018 Instruction Type:Patient Education Patient Instructions Indication:BMI 28.0-28.9,adult Start:18-Jun-2018 Instruction Type:Provider Instructions for Treatment How to access health informa tion online Indication:Snuff user Start:04-Dec-2017 Instruction Type:Patient Education How to access health informa tion online - Detail Indication:Snuff user Start:04-Dec-2017 Instruction Type:Patient Education Patient Instructions Indication:Snuff user Start:04-Dec-2017 Instruction Type:Provider Instructions for Treatment How to access health informa tion online Indication:Snuff user Start:29-May-2017 Instruction Type:Patient Education How to access health informa tion online - Detail Indication:Snuff user Start:29-May-2017 Instruction Type:Patient Education Patient Instructions Indication:Snuff user Start:29-May-2017 Instruction Type:Provider Instructions for Treatment How to access health informa tion online Indication:Snuff user Start:21-Nov-2016 Instruction Type:Patient Education How to access health informa tion online - Detail Indication:Snuff user Start:21-Nov-2016 Instruction Type:Patient Education Patient Instructions Indication:Snuff user Start:21-Nov-2016 Instruction Type:Provider Instructions for Treatment How to access health informa tion online Indication:Benign essential HTN Start:13-Jul-2016 Instruction Type:Patient Education How to access health informa tion online - Detail Indication:Benign essential HTN Start:13-Jul-2016 Instruction Type:Patient Education Patient Instructions Indication:Benign essential HTN Start:13-Jul-2016 Instruction Type:Provider Instructions for Treatment How to access health informa tion online Indication:Benign essential HTN Start:18-May-2016 Instruction Type:Patient Education How to access health informa tion online - Detail Indication:Benign essential HTN Start:18-May-2016 Instruction Type:Patient Education Patient Instructions Indication:Benign essential HTN Start:18-May-2016 Instruction Type:Provider Instructions for Treatment Patient Instructions Indication:Benign essential HTN Start:11-Nov-2015 Instruction Type:Provider Instructions for Treatment How to access health informa tion online - Detail Indication:Benign essential HTN Start:11-Nov-2015 Instruction Type:Patient Education How to access health informa tion online Indication:Benign essential HTN Start:11-Nov-2015 Instruction Type:Patient Education How to access health informa tion online Indication:Hyperlipidemia Start:11-May-2015 Instruction Type:Patient Education How to access health informa tion online - Detail Indication:Hyperlipidemia Start:11-May-2015 Instruction Type:Patient Education Patient Instructions Indication:Hyperlipidemia Start:11-May-2015 Instruction Type:Provider Instructions for Treatment Patient Instructions Indication:Hyperlipidemia Start:01-Oct-2014 Instruction Type:Provider Instructions for Treatment Patient Instructions Indication:Hyperlipidemia Start:26-May-2014 Instruction Type:Provider Instructions for Treatment How to access health informa tion online Indication:Hyperlipidemia Start:26-May-2014 Instruction Type:Patient Education How to access health informa tion online - Detail Indication:Hyperlipidemia Start:26-May-2014 Instruction Type:Patient Education Patient Instructions Indication:Hyperlipidemia Start:26-Aug-2013 Instruction Type:Provider Instructions for Treatment Patient Instructions Start:03-Jun-2013 Instruction Type:Provider Instructions for Treatment Patient Instructions Indication:Hyperlipidemia Start:06-Feb-2013 Instruction Type:Provider Instructions for Treatment Patient Instructions Indication:Hyperlipidemia Start:23-Jul-2012 Instruction Type:Provider Instructions for Treatment [facility] Work Phone: Family History Unknown Family Member Name Dates Details Asthma Comments:Mother. Status:Active Heart Disease Comments:Maternal Grandfathe r. Status:Active Hypercholesterolemia Comments:Mother. Father. Status:Active Unknown Family Member Name Dates Details Asthma Comments:Mother. Status:Active Heart Disease Comments:Maternal Grandfathe r. Status:Active Hypercholesterolemia Comments:Mother. Father. Status:Active Unknown Family Member Name Dates Details Asthma Comments:Mother. Status:Active Heart Disease Comments:Maternal Grandfathe r. Status:Active Hypercholesterolemia Comments:Mother. Father. Status:Active Unknown Family Member Name Dates Details Asthma Comments:Mother. Status:Active Heart Disease Comments:Maternal Grandfathe r. Status:Active Hypercholesterolemia Comments:Mother. Father. Status:Active Unknown Family Member Name Dates Details Asthma Comments:Mother. Status:Active Heart Disease Comments:Maternal Grandfathe r. Status:Active Hypercholesterolemia Comments:Mother. Father. Status:Active Unknown Family Member Name Dates Details Asthma Comments:Mother. Status:Active Heart Disease Comments:Maternal Grandfathe r. Status:Active Hypercholesterolemia Comments:Mother. Father. Status:Active Unknown Family Member Name Dates Details Asthma Comments:Mother. Status:Active Heart Disease Comments:Maternal Grandfathe r. Status:Active Hypercholesterolemia Comments:Mother. Father. Status:Active Unknown Family Member Name Dates Details Asthma Comments:Mother. Status:Active Heart Disease Comments:Maternal Grandfathe r. Status:Active Hypercholesterolemia Comments:Mother. Father. Status:Active Unknown Family Member Name Dates Details Asthma Comments:Mother. Status:Active Heart Disease Comments:Maternal Grandfathe r. Status:Active Hypercholesterolemia Comments:Mother. Father. Status:Active Unknown Family Member Name Dates Details Asthma Comments:Mother. Status:Active Heart Disease Comments:Maternal Grandfathe r. Status:Active Hypercholesterolemia Comments:Mother. Father. Status:Active Unknown Family Member Name Dates Details Asthma Comments:Mother. Status:Active Heart Disease Comments:Maternal Grandfathe r. Status:Active Hypercholesterolemia Comments:Mother. Father. Status:Active Unknown Family Member Name Dates Details Asthma Comments:Mother. Status:Active Heart Disease Comments:Maternal Grandfathe r. Status:Active Hypercholesterolemia Comments:Mother. Father. Status:Active Unknown Family Member Name Dates Details Asthma Comments:Mother. Status:Active Heart Disease Comments:Maternal Grandfathe r. Status:Active Hypercholesterolemia Comments:Mother. Father. Status:Active Unknown Family Member Name Dates Details Asthma Comments:Mother. Status:Active Heart Disease Comments:Maternal Grandfathe r. Status:Active Hypercholesterolemia Comments:Mother. Father. Status:Active Unknown Family Member Name Dates Details Asthma Comments:Mother. Status:Active Heart Disease Comments:Maternal Grandfathe r. Status:Active Hypercholesterolemia Comments:Mother. Father. Status:Active Unknown Family Member Name Dates Details Asthma Comments:Mother. Status:Active Heart Disease Comments:Maternal Grandfathe r. Status:Active Hypercholesterolemia Comments:Mother. Father. Status:Active Unknown Family Member Name Dates Details Asthma Comments:Mother. Status:Active Heart Disease Comments:Maternal Grandfathe r. Status:Active Hypercholesterolemia Comments:Mother. Father. Status:Active Unknown Family Member Name Dates Details Asthma Comments:Mother. Status:Active Heart Disease Comments:Maternal Grandfathe r. Status:Active Hypercholesterolemia Comments:Mother. Father. Status:Active Unknown Family Member Name Dates Details Asthma Comments:Mother. Status:Active Heart Disease Comments:Maternal Grandfathe r. Status:Active Hypercholesterolemia Comments:Mother. Father. Status:Active Unknown Family Member Name Dates Details Asthma Comments:Mother. Status:Active Heart Disease Comments:Maternal Grandfathe r. Status:Active Hypercholesterolemia Comments:Mother. Father. Status:Active Unknown Family Member Name Dates Details Asthma Comments:Mother. Status:Active Heart Disease Comments:Maternal Grandfathe r. Status:Active Hypercholesterolemia Comments:Mother. Father. Status:Active Unknown Family Member Name Dates Details Asthma Comments:Mother. Status:Active Heart Disease Comments:Maternal Grandfathe r. Status:Active Hypercholesterolemia Comments:Mother. Father. Status:Active Unknown Family Member Name Dates Details Asthma Comments:Mother. Status:Active Heart Disease Comments:Maternal Grandfathe r. Status:Active Hypercholesterolemia Comments:Mother. Father. Status:Active Unknown Family Member Name Dates Details Asthma Comments:Mother. Status:Active Heart Disease Comments:Maternal Grandfathe r. Status:Active Hypercholesterolemia Comments:Mother. Father. Status:Active Unknown Family Member Name Dates Details Asthma Comments:Mother. Status:Active Heart Disease Comments:Maternal Grandfathe r. Status:Active Hypercholesterolemia Comments:Mother. Father. Status:Active Unknown Family Member Name Dates Details Asthma Comments:Mother. Status:Active Heart Disease Comments:Maternal Grandfathe r. Status:Active Hypercholesterolemia Comments:Mother. Father. Status:Active Unknown Family Member Name Dates Details Asthma Comments:Mother. Status:Active Heart Disease Comments:Maternal Grandfathe r. Status:Active Hypercholesterolemia Comments:Mother. Father. Status:Active Unknown Family Member Name Dates Details Asthma Comments:Mother. Status:Active Heart Disease Comments:Maternal Grandfathe r. Status:Active Hypercholesterolemia Comments:Mother. Father. Status:Active Unknown Family Member Name Dates Details Asthma Comments:Mother. Status:Active Heart Disease Comments:Maternal Grandfathe r. Status:Active Hypercholesterolemia Comments:Mother. Father. Status:Active Unknown Family Member Name Dates Details Asthma Comments:Mother. Status:Active Heart Disease Comments:Maternal Grandfathe r. Status:Active Hypercholesterolemia Comments:Mother. Father. Status:Active Instructions Name Dates Details Snuff user : How to access h ealth information online Indication:Snuff user Snuff user : How to access h ealth information online - Detail Indication:Snuff user Snuff user : Patient Instruc tions Indication:Snuff user Benign essential HTN : How t o access health information online Indication:Benign essential HTN Benign essential HTN : How t o access health information online - Detail Indication:Benign essential HTN Benign essential HTN : Patie nt Instructions Indication:Benign essential HTN Hyperlipidemia : How to acce ss health information online Indication:Hyperlipidemia Hyperlipidemia : How to acce ss health information online - Detail Indication:Hyperlipidemia Hyperlipidemia : Patient Ins tructions Indication:Hyperlipidemia Patient Instructions Name Dates Details How to access health informa tion online Indication:Non-smoker Start:19-Dec-2018 Instruction Type:Patient Education How to access health informa tion online - Detail Indication:Non-smoker Start:19-Dec-2018 Instruction Type:Patient Education Patient Instructions Indication:Non-smoker Start:19-Dec-2018 Instruction Type:Provider Instructions for Treatment How to access health informa tion online Indication:BMI 28.0-28.9,adult Start:18-Jun-2018 Instruction Type:Patient Education How to access health informa tion online - Detail Indication:BMI 28.0-28.9,adult Start:18-Jun-2018 Instruction Type:Patient Education Patient Instructions Indication:BMI 28.0-28.9,adult Start:18-Jun-2018 Instruction Type:Provider Instructions for Treatment How to access health informa tion online Indication:Snuff user Start:04-Dec-2017 Instruction Type:Patient Education How to access health informa tion online - Detail Indication:Snuff user Start:04-Dec-2017 Instruction Type:Patient Education Patient Instructions Indication:Snuff user Start:04-Dec-2017 Instruction Type:Provider Instructions for Treatment How to access health informa tion online Indication:Snuff user Start:29-May-2017 Instruction Type:Patient Education How to access health informa tion online - Detail Indication:Snuff user Start:29-May-2017 Instruction Type:Patient Education Patient Instructions Indication:Snuff user Start:29-May-2017 Instruction Type:Provider Instructions for Treatment How to access health informa tion online Indication:Snuff user Start:21-Nov-2016 Instruction Type:Patient Education How to access health informa tion online - Detail Indication:Snuff user Start:21-Nov-2016 Instruction Type:Patient Education Patient Instructions Indication:Snuff user Start:21-Nov-2016 Instruction Type:Provider Instructions for Treatment How to access health informa tion online Indication:Benign essential HTN Start:13-Jul-2016 Instruction Type:Patient Education How to access health informa tion online - Detail Indication:Benign essential HTN Start:13-Jul-2016 Instruction Type:Patient Education Patient Instructions Indication:Benign essential HTN Start:13-Jul-2016 Instruction Type:Provider Instructions for Treatment How to access health informa tion online Indication:Benign essential HTN Start:18-May-2016 Instruction Type:Patient Education How to access health informa tion online - Detail Indication:Benign essential HTN Start:18-May-2016 Instruction Type:Patient Education Patient Instructions Indication:Benign essential HTN Start:18-May-2016 Instruction Type:Provider Instructions for Treatment Patient Instructions Indication:Benign essential HTN Start:11-Nov-2015 Instruction Type:Provider Instructions for Treatment How to access health informa tion online - Detail Indication:Benign essential HTN Start:11-Nov-2015 Instruction Type:Patient Education How to access health informa tion online Indication:Benign essential HTN Start:11-Nov-2015 Instruction Type:Patient Education How to access health informa tion online Indication:Hyperlipidemia Start:11-May-2015 Instruction Type:Patient Education How to access health informa tion online - Detail Indication:Hyperlipidemia Start:11-May-2015 Instruction Type:Patient Education Patient Instructions Indication:Hyperlipidemia Start:11-May-2015 Instruction Type:Provider Instructions for Treatment Patient Instructions Indication:Hyperlipidemia Start:01-Oct-2014 Instruction Type:Provider Instructions for Treatment Patient Instructions Indication:Hyperlipidemia Start:26-May-2014 Instruction Type:Provider Instructions for Treatment How to access health informa tion online Indication:Hyperlipidemia Start:26-May-2014 Instruction Type:Patient Education How to access health informa tion online - Detail Indication:Hyperlipidemia Start:26-May-2014 Instruction Type:Patient Education Patient Instructions Indication:Hyperlipidemia Start:26-Aug-2013 Instruction Type:Provider Instructions for Treatment Patient Instructions Start:03-Jun-2013 Instruction Type:Provider Instructions for Treatment Patient Instructions Indication:Hyperlipidemia Start:06-Feb-2013 Instruction Type:Provider Instructions for Treatment Patient Instructions Indication:Hyperlipidemia Start:23-Jul-2012 Instruction Type:Provider Instructions for Treatment Name Dates Details How to access health informa tion online Indication:Non-smoker Start:19-Dec-2018 Instruction Type:Patient Education How to access health informa tion online - Detail Indication:Non-smoker Start:19-Dec-2018 Instruction Type:Patient Education Patient Instructions Indication:Non-smoker Start:19-Dec-2018 Instruction Type:Provider Instructions for Treatment How to access health informa tion online Indication:BMI 28.0-28.9,adult Start:18-Jun-2018 Instruction Type:Patient Education How to access health informa tion online - Detail Indication:BMI 28.0-28.9,adult Start:18-Jun-2018 Instruction Type:Patient Education Patient Instructions Indication:BMI 28.0-28.9,adult Start:18-Jun-2018 Instruction Type:Provider Instructions for Treatment How to access health informa tion online Indication:Snuff user Start:04-Dec-2017 Instruction Type:Patient Education How to access health informa tion online - Detail Indication:Snuff user Start:04-Dec-2017 Instruction Type:Patient Education Patient Instructions Indication:Snuff user Start:04-Dec-2017 Instruction Type:Provider Instructions for Treatment How to access health informa tion online Indication:Snuff user Start:29-May-2017 Instruction Type:Patient Education How to access health informa tion online - Detail Indication:Snuff user Start:29-May-2017 Instruction Type:Patient Education Patient Instructions Indication:Snuff user Start:29-May-2017 Instruction Type:Provider Instructions for Treatment How to access health informa tion online Indication:Snuff user Start:21-Nov-2016 Instruction Type:Patient Education How to access health informa tion online - Detail Indication:Snuff user Start:21-Nov-2016 Instruction Type:Patient Education Patient Instructions Indication:Snuff user Start:21-Nov-2016 Instruction Type:Provider Instructions for Treatment How to access health informa tion online Indication:Benign essential HTN Start:13-Jul-2016 Instruction Type:Patient Education How to access health informa tion online - Detail Indication:Benign essential HTN Start:13-Jul-2016 Instruction Type:Patient Education Patient Instructions Indication:Benign essential HTN Start:13-Jul-2016 Instruction Type:Provider Instructions for Treatment How to access health informa tion online Indication:Benign essential HTN Start:18-May-2016 Instruction Type:Patient Education How to access health informa tion online - Detail Indication:Benign essential HTN Start:18-May-2016 Instruction Type:Patient Education Patient Instructions Indication:Benign essential HTN Start:18-May-2016 Instruction Type:Provider Instructions for Treatment Patient Instructions Indication:Benign essential HTN Start:11-Nov-2015 Instruction Type:Provider Instructions for Treatment How to access health informa tion online - Detail Indication:Benign essential HTN Start:11-Nov-2015 Instruction Type:Patient Education How to access health informa tion online Indication:Benign essential HTN Start:11-Nov-2015 Instruction Type:Patient Education How to access health informa tion online Indication:Hyperlipidemia Start:11-May-2015 Instruction Type:Patient Education How to access health informa tion online - Detail Indication:Hyperlipidemia Start:11-May-2015 Instruction Type:Patient Education Patient Instructions Indication:Hyperlipidemia Start:11-May-2015 Instruction Type:Provider Instructions for Treatment Patient Instructions Indication:Hyperlipidemia Start:01-Oct-2014 Instruction Type:Provider Instructions for Treatment Patient Instructions Indication:Hyperlipidemia Start:26-May-2014 Instruction Type:Provider Instructions for Treatment How to access health informa tion online Indication:Hyperlipidemia Start:26-May-2014 Instruction Type:Patient Education How to access health informa tion online - Detail Indication:Hyperlipidemia Start:26-May-2014 Instruction Type:Patient Education Patient Instructions Indication:Hyperlipidemia Start:26-Aug-2013 Instruction Type:Provider Instructions for Treatment Patient Instructions Start:03-Jun-2013 Instruction Type:Provider Instructions for Treatment Patient Instructions Indication:Hyperlipidemia Start:06-Feb-2013 Instruction Type:Provider Instructions for Treatment Patient Instructions Indication:Hyperlipidemia Start:23-Jul-2012 Instruction Type:Provider Instructions for Treatment Name Dates Details How to access health informa tion online Indication:Muscle injury Start:08-Feb-2019 Instruction Type:Patient Education How to access health informa tion online - Detail Indication:Muscle injury Start:08-Feb-2019 Instruction Type:Patient Education Patient Instructions Indication:Muscle injury Start:08-Feb-2019 Instruction Type:Provider Instructions for Treatment How to access health informa tion online Indication:Non-smoker Start:19-Dec-2018 Instruction Type:Patient Education How to access health informa tion online - Detail Indication:Non-smoker Start:19-Dec-2018 Instruction Type:Patient Education Patient Instructions Indication:Non-smoker Start:19-Dec-2018 Instruction Type:Provider Instructions for Treatment How to access health informa tion online Indication:BMI 28.0-28.9,adult Start:18-Jun-2018 Instruction Type:Patient Education How to access health informa tion online - Detail Indication:BMI 28.0-28.9,adult Start:18-Jun-2018 Instruction Type:Patient Education Patient Instructions Indication:BMI 28.0-28.9,adult Start:18-Jun-2018 Instruction Type:Provider Instructions for Treatment How to access health informa tion online Indication:Snuff user Start:04-Dec-2017 Instruction Type:Patient Education How to access health informa tion online - Detail Indication:Snuff user Start:04-Dec-2017 Instruction Type:Patient Education Patient Instructions Indication:Snuff user Start:04-Dec-2017 Instruction Type:Provider Instructions for Treatment How to access health informa tion online Indication:Snuff user Start:29-May-2017 Instruction Type:Patient Education How to access health informa tion online - Detail Indication:Snuff user Start:29-May-2017 Instruction Type:Patient Education Patient Instructions Indication:Snuff user Start:29-May-2017 Instruction Type:Provider Instructions for Treatment How to access health informa tion online Indication:Snuff user Start:21-Nov-2016 Instruction Type:Patient Education How to access health informa tion online - Detail Indication:Snuff user Start:21-Nov-2016 Instruction Type:Patient Education Patient Instructions Indication:Snuff user Start:21-Nov-2016 Instruction Type:Provider Instructions for Treatment How to access health informa tion online Indication:Benign essential HTN Start:13-Jul-2016 Instruction Type:Patient Education How to access health informa tion online - Detail Indication:Benign essential HTN Start:13-Jul-2016 Instruction Type:Patient Education Patient Instructions Indication:Benign essential HTN Start:13-Jul-2016 Instruction Type:Provider Instructions for Treatment How to access health informa tion online Indication:Benign essential HTN Start:18-May-2016 Instruction Type:Patient Education How to access health informa tion online - Detail Indication:Benign essential HTN Start:18-May-2016 Instruction Type:Patient Education Patient Instructions Indication:Benign essential HTN Start:18-May-2016 Instruction Type:Provider Instructions for Treatment Patient Instructions Indication:Benign essential HTN Start:11-Nov-2015 Instruction Type:Provider Instructions for Treatment How to access health informa tion online - Detail Indication:Benign essential HTN Start:11-Nov-2015 Instruction Type:Patient Education How to access health informa tion online Indication:Benign essential HTN Start:11-Nov-2015 Instruction Type:Patient Education How to access health informa tion online Indication:Hyperlipidemia Start:11-May-2015 Instruction Type:Patient Education How to access health informa tion online - Detail Indication:Hyperlipidemia Start:11-May-2015 Instruction Type:Patient Education Patient Instructions Indication:Hyperlipidemia Start:11-May-2015 Instruction Type:Provider Instructions for Treatment Patient Instructions Indication:Hyperlipidemia Start:01-Oct-2014 Instruction Type:Provider Instructions for Treatment Patient Instructions Indication:Hyperlipidemia Start:26-May-2014 Instruction Type:Provider Instructions for Treatment How to access health informa tion online Indication:Hyperlipidemia Start:26-May-2014 Instruction Type:Patient Education How to access health informa tion online - Detail Indication:Hyperlipidemia Start:26-May-2014 Instruction Type:Patient Education Patient Instructions Indication:Hyperlipidemia Start:26-Aug-2013 Instruction Type:Provider Instructions for Treatment Patient Instructions Start:03-Jun-2013 Instruction Type:Provider Instructions for Treatment Patient Instructions Indication:Hyperlipidemia Start:06-Feb-2013 Instruction Type:Provider Instructions for Treatment Patient Instructions Indication:Hyperlipidemia Start:23-Jul-2012 Instruction Type:Provider Instructions for Treatment Name Dates Details How to access health informa tion online Indication:BMI 31.0-31.9,adult Start:16-Oct-2019 Instruction Type:Patient Education How to access health informa tion online - Detail Indication:BMI 31.0-31.9,adult Start:16-Oct-2019 Instruction Type:Patient Education Patient Instructions Indication:BMI 31.0-31.9,adult Start:16-Oct-2019 Instruction Type:Provider Instructions for Treatment How to access health informa tion online Indication:BMI 31.0-31.9,adult Start:09-Sep-2019 Instruction Type:Patient Education How to access health informa tion online - Detail Indication:BMI 31.0-31.9,adult Start:09-Sep-2019 Instruction Type:Patient Education Patient Instructions Indication:BMI 31.0-31.9,adult Start:09-Sep-2019 Instruction Type:Provider Instructions for Treatment How to access health informa tion online Indication:BMI 31.0-31.9,adult Start:19-Aug-2019 Instruction Type:Patient Education How to access health informa tion online - Detail Indication:BMI 31.0-31.9,adult Start:19-Aug-2019 Instruction Type:Patient Education Patient Instructions Indication:BMI 31.0-31.9,adult Start:19-Aug-2019 Instruction Type:Provider Instructions for Treatment How to access health informa tion online Indication:BMI 31.0-31.9,adult Start:19-Jun-2019 Instruction Type:Patient Education How to access health informa tion online - Detail Indication:BMI 31.0-31.9,adult Start:19-Jun-2019 Instruction Type:Patient Education Patient Instructions Indication:BMI 31.0-31.9,adult Start:19-Jun-2019 Instruction Type:Provider Instructions for Treatment How to access health informa tion online Indication:Muscle injury Start:08-Feb-2019 Instruction Type:Patient Education How to access health informa tion online - Detail Indication:Muscle injury Start:08-Feb-2019 Instruction Type:Patient Education Patient Instructions Indication:Muscle injury Start:08-Feb-2019 Instruction Type:Provider Instructions for Treatment How to access health informa tion online Indication:Non-smoker Start:19-Dec-2018 Instruction Type:Patient Education How to access health informa tion online - Detail Indication:Non-smoker Start:19-Dec-2018 Instruction Type:Patient Education Patient Instructions Indication:Non-smoker Start:19-Dec-2018 Instruction Type:Provider Instructions for Treatment How to access health informa tion online Indication:BMI 28.0-28.9,adult Start:18-Jun-2018 Instruction Type:Patient Education How to access health informa tion online - Detail Indication:BMI 28.0-28.9,adult Start:18-Jun-2018 Instruction Type:Patient Education Patient Instructions Indication:BMI 28.0-28.9,adult Start:18-Jun-2018 Instruction Type:Provider Instructions for Treatment How to access health informa tion online Indication:Snuff user Start:04-Dec-2017 Instruction Type:Patient Education How to access health informa tion online - Detail Indication:Snuff user Start:04-Dec-2017 Instruction Type:Patient Education Patient Instructions Indication:Snuff user Start:04-Dec-2017 Instruction Type:Provider Instructions for Treatment How to access health informa tion online Indication:Snuff user Start:29-May-2017 Instruction Type:Patient Education How to access health informa tion online - Detail Indication:Snuff user Start:29-May-2017 Instruction Type:Patient Education Patient Instructions Indication:Snuff user Start:29-May-2017 Instruction Type:Provider Instructions for Treatment How to access health informa tion online Indication:Snuff user Start:21-Nov-2016 Instruction Type:Patient Education How to access health informa tion online - Detail Indication:Snuff user Start:21-Nov-2016 Instruction Type:Patient Education Patient Instructions Indication:Snuff user Start:21-Nov-2016 Instruction Type:Provider Instructions for Treatment How to access health informa tion online Indication:Benign essential HTN Start:13-Jul-2016 Instruction Type:Patient Education How to access health informa tion online - Detail Indication:Benign essential HTN Start:13-Jul-2016 Instruction Type:Patient Education Patient Instructions Indication:Benign essential HTN Start:13-Jul-2016 Instruction Type:Provider Instructions for Treatment How to access health informa tion online Indication:Benign essential HTN Start:18-May-2016 Instruction Type:Patient Education How to access health informa tion online - Detail Indication:Benign essential HTN Start:18-May-2016 Instruction Type:Patient Education Patient Instructions Indication:Benign essential HTN Start:18-May-2016 Instruction Type:Provider Instructions for Treatment Patient Instructions Indication:Benign essential HTN Start:11-Nov-2015 Instruction Type:Provider Instructions for Treatment How to access health informa tion online - Detail Indication:Benign essential HTN Start:11-Nov-2015 Instruction Type:Patient Education How to access health informa tion online Indication:Benign essential HTN Start:11-Nov-2015 Instruction Type:Patient Education How to access health informa tion online Indication:Hyperlipidemia Start:11-May-2015 Instruction Type:Patient Education How to access health informa tion online - Detail Indication:Hyperlipidemia Start:11-May-2015 Instruction Type:Patient Education Patient Instructions Indication:Hyperlipidemia Start:11-May-2015 Instruction Type:Provider Instructions for Treatment Patient Instructions Indication:Hyperlipidemia Start:01-Oct-2014 Instruction Type:Provider Instructions for Treatment Patient Instructions Indication:Hyperlipidemia Start:26-May-2014 Instruction Type:Provider Instructions for Treatment How to access health informa tion online Indication:Hyperlipidemia Start:26-May-2014 Instruction Type:Patient Education How to access health informa tion online - Detail Indication:Hyperlipidemia Start:26-May-2014 Instruction Type:Patient Education Patient Instructions Indication:Hyperlipidemia Start:26-Aug-2013 Instruction Type:Provider Instructions for Treatment Patient Instructions Start:03-Jun-2013 Instruction Type:Provider Instructions for Treatment Patient Instructions Indication:Hyperlipidemia Start:06-Feb-2013 Instruction Type:Provider Instructions for Treatment Patient Instructions Indication:Hyperlipidemia Start:23-Jul-2012 Instruction Type:Provider Instructions for Treatment Name Dates Details How to access health informa tion online Indication:Non-smoker Start:15-Apr-2020 Instruction Type:Patient Education How to access health informa tion online - Detail Indication:Non-smoker Start:15-Apr-2020 Instruction Type:Patient Education Patient Instructions Indication:Non-smoker Start:15-Apr-2020 Instruction Type:Provider Instructions for Treatment How to access health informa tion online Indication:BMI 31.0-31.9,adult Start:16-Oct-2019 Instruction Type:Patient Education How to access health informa tion online - Detail Indication:BMI 31.0-31.9,adult Start:16-Oct-2019 Instruction Type:Patient Education Patient Instructions Indication:BMI 31.0-31.9,adult Start:16-Oct-2019 Instruction Type:Provider Instructions for Treatment How to access health informa tion online Indication:BMI 31.0-31.9,adult Start:09-Sep-2019 Instruction Type:Patient Education How to access health informa tion online - Detail Indication:BMI 31.0-31.9,adult Start:09-Sep-2019 Instruction Type:Patient Education Patient Instructions Indication:BMI 31.0-31.9,adult Start:09-Sep-2019 Instruction Type:Provider Instructions for Treatment How to access health informa tion online Indication:BMI 31.0-31.9,adult Start:19-Aug-2019 Instruction Type:Patient Education How to access health informa tion online - Detail Indication:BMI 31.0-31.9,adult Start:19-Aug-2019 Instruction Type:Patient Education Patient Instructions Indication:BMI 31.0-31.9,adult Start:19-Aug-2019 Instruction Type:Provider Instructions for Treatment How to access health informa tion online Indication:BMI 31.0-31.9,adult Start:19-Jun-2019 Instruction Type:Patient Education How to access health informa tion online - Detail Indication:BMI 31.0-31.9,adult Start:19-Jun-2019 Instruction Type:Patient Education Patient Instructions Indication:BMI 31.0-31.9,adult Start:19-Jun-2019 Instruction Type:Provider Instructions for Treatment How to access health informa tion online Indication:Muscle injury Start:08-Feb-2019 Instruction Type:Patient Education How to access health informa tion online - Detail Indication:Muscle injury Start:08-Feb-2019 Instruction Type:Patient Education Patient Instructions Indication:Muscle injury Start:08-Feb-2019 Instruction Type:Provider Instructions for Treatment How to access health informa tion online Indication:Non-smoker Start:19-Dec-2018 Instruction Type:Patient Education How to access health informa tion online - Detail Indication:Non-smoker Start:19-Dec-2018 Instruction Type:Patient Education Patient Instructions Indication:Non-smoker Start:19-Dec-2018 Instruction Type:Provider Instructions for Treatment How to access health informa tion online Indication:BMI 28.0-28.9,adult Start:18-Jun-2018 Instruction Type:Patient Education How to access health informa tion online - Detail Indication:BMI 28.0-28.9,adult Start:18-Jun-2018 Instruction Type:Patient Education Patient Instructions Indication:BMI 28.0-28.9,adult Start:18-Jun-2018 Instruction Type:Provider Instructions for Treatment How to access health informa tion online Indication:Snuff user Start:04-Dec-2017 Instruction Type:Patient Education How to access health informa tion online - Detail Indication:Snuff user Start:04-Dec-2017 Instruction Type:Patient Education Patient Instructions Indication:Snuff user Start:04-Dec-2017 Instruction Type:Provider Instructions for Treatment How to access health informa tion online Indication:Snuff user Start:29-May-2017 Instruction Type:Patient Education How to access health informa tion online - Detail Indication:Snuff user Start:29-May-2017 Instruction Type:Patient Education Patient Instructions Indication:Snuff user Start:29-May-2017 Instruction Type:Provider Instructions for Treatment How to access health informa tion online Indication:Snuff user Start:21-Nov-2016 Instruction Type:Patient Education How to access health informa tion online - Detail Indication:Snuff user Start:21-Nov-2016 Instruction Type:Patient Education Patient Instructions Indication:Snuff user Start:21-Nov-2016 Instruction Type:Provider Instructions for Treatment How to access health informa tion online Indication:Benign essential HTN Start:13-Jul-2016 Instruction Type:Patient Education How to access health informa tion online - Detail Indication:Benign essential HTN Start:13-Jul-2016 Instruction Type:Patient Education Patient Instructions Indication:Benign essential HTN Start:13-Jul-2016 Instruction Type:Provider Instructions for Treatment How to access health informa tion online Indication:Benign essential HTN Start:18-May-2016 Instruction Type:Patient Education How to access health informa tion online - Detail Indication:Benign essential HTN Start:18-May-2016 Instruction Type:Patient Education Patient Instructions Indication:Benign essential HTN Start:18-May-2016 Instruction Type:Provider Instructions for Treatment Patient Instructions Indication:Benign essential HTN Start:11-Nov-2015 Instruction Type:Provider Instructions for Treatment How to access health informa tion online - Detail Indication:Benign essential HTN Start:11-Nov-2015 Instruction Type:Patient Education How to access health informa tion online Indication:Benign essential HTN Start:11-Nov-2015 Instruction Type:Patient Education How to access health informa tion online Indication:Hyperlipidemia Start:11-May-2015 Instruction Type:Patient Education How to access health informa tion online - Detail Indication:Hyperlipidemia Start:11-May-2015 Instruction Type:Patient Education Patient Instructions Indication:Hyperlipidemia Start:11-May-2015 Instruction Type:Provider Instructions for Treatment Patient Instructions Indication:Hyperlipidemia Start:01-Oct-2014 Instruction Type:Provider Instructions for Treatment Patient Instructions Indication:Hyperlipidemia Start:26-May-2014 Instruction Type:Provider Instructions for Treatment How to access health informa tion online Indication:Hyperlipidemia Start:26-May-2014 Instruction Type:Patient Education How to access health informa tion online - Detail Indication:Hyperlipidemia Start:26-May-2014 Instruction Type:Patient Education Patient Instructions Indication:Hyperlipidemia Start:26-Aug-2013 Instruction Type:Provider Instructions for Treatment Patient Instructions Start:03-Jun-2013 Instruction Type:Provider Instructions for Treatment Patient Instructions Indication:Hyperlipidemia Start:06-Feb-2013 Instruction Type:Provider Instructions for Treatment Patient Instructions Indication:Hyperlipidemia Start:23-Jul-2012 Instruction Type:Provider Instructions for Treatment Name Dates Details How to access health informa tion online Indication:Non-smoker Start:15-Apr-2020 Instruction Type:Patient Education How to access health informa tion online - Detail Indication:Non-smoker Start:15-Apr-2020 Instruction Type:Patient Education Patient Instructions Indication:Non-smoker Start:15-Apr-2020 Instruction Type:Provider Instructions for Treatment How to access health informa tion online Indication:BMI 31.0-31.9,adult Start:16-Oct-2019 Instruction Type:Patient Education How to access health informa tion online - Detail Indication:BMI 31.0-31.9,adult Start:16-Oct-2019 Instruction Type:Patient Education Patient Instructions Indication:BMI 31.0-31.9,adult Start:16-Oct-2019 Instruction Type:Provider Instructions for Treatment How to access health informa tion online Indication:BMI 31.0-31.9,adult Start:09-Sep-2019 Instruction Type:Patient Education How to access health informa tion online - Detail Indication:BMI 31.0-31.9,adult Start:09-Sep-2019 Instruction Type:Patient Education Patient Instructions Indication:BMI 31.0-31.9,adult Start:09-Sep-2019 Instruction Type:Provider Instructions for Treatment How to access health informa tion online Indication:BMI 31.0-31.9,adult Start:19-Aug-2019 Instruction Type:Patient Education How to access health informa tion online - Detail Indication:BMI 31.0-31.9,adult Start:19-Aug-2019 Instruction Type:Patient Education Patient Instructions Indication:BMI 31.0-31.9,adult Start:19-Aug-2019 Instruction Type:Provider Instructions for Treatment How to access health informa tion online Indication:BMI 31.0-31.9,adult Start:19-Jun-2019 Instruction Type:Patient Education How to access health informa tion online - Detail Indication:BMI 31.0-31.9,adult Start:19-Jun-2019 Instruction Type:Patient Education Patient Instructions Indication:BMI 31.0-31.9,adult Start:19-Jun-2019 Instruction Type:Provider Instructions for Treatment How to access health informa tion online Indication:Muscle injury Start:08-Feb-2019 Instruction Type:Patient Education How to access health informa tion online - Detail Indication:Muscle injury Start:08-Feb-2019 Instruction Type:Patient Education Patient Instructions Indication:Muscle injury Start:08-Feb-2019 Instruction Type:Provider Instructions for Treatment How to access health informa tion online Indication:Non-smoker Start:19-Dec-2018 Instruction Type:Patient Education How to access health informa tion online - Detail Indication:Non-smoker Start:19-Dec-2018 Instruction Type:Patient Education Patient Instructions Indication:Non-smoker Start:19-Dec-2018 Instruction Type:Provider Instructions for Treatment How to access health informa tion online Indication:BMI 28.0-28.9,adult Start:18-Jun-2018 Instruction Type:Patient Education How to access health informa tion online - Detail Indication:BMI 28.0-28.9,adult Start:18-Jun-2018 Instruction Type:Patient Education Patient Instructions Indication:BMI 28.0-28.9,adult Start:18-Jun-2018 Instruction Type:Provider Instructions for Treatment How to access health informa tion online Indication:Snuff user Start:04-Dec-2017 Instruction Type:Patient Education How to access health informa tion online - Detail Indication:Snuff user Start:04-Dec-2017 Instruction Type:Patient Education Patient Instructions Indication:Snuff user Start:04-Dec-2017 Instruction Type:Provider Instructions for Treatment How to access health informa tion online Indication:Snuff user Start:29-May-2017 Instruction Type:Patient Education How to access health informa tion online - Detail Indication:Snuff user Start:29-May-2017 Instruction Type:Patient Education Patient Instructions Indication:Snuff user Start:29-May-2017 Instruction Type:Provider Instructions for Treatment How to access health informa tion online Indication:Snuff user Start:21-Nov-2016 Instruction Type:Patient Education How to access health informa tion online - Detail Indication:Snuff user Start:21-Nov-2016 Instruction Type:Patient Education Patient Instructions Indication:Snuff user Start:21-Nov-2016 Instruction Type:Provider Instructions for Treatment How to access health informa tion online Indication:Benign essential HTN Start:13-Jul-2016 Instruction Type:Patient Education How to access health informa tion online - Detail Indication:Benign essential HTN Start:13-Jul-2016 Instruction Type:Patient Education Patient Instructions Indication:Benign essential HTN Start:13-Jul-2016 Instruction Type:Provider Instructions for Treatment How to access health informa tion online Indication:Benign essential HTN Start:18-May-2016 Instruction Type:Patient Education How to access health informa tion online - Detail Indication:Benign essential HTN Start:18-May-2016 Instruction Type:Patient Education Patient Instructions Indication:Benign essential HTN Start:18-May-2016 Instruction Type:Provider Instructions for Treatment Patient Instructions Indication:Benign essential HTN Start:11-Nov-2015 Instruction Type:Provider Instructions for Treatment How to access health informa tion online - Detail Indication:Benign essential HTN Start:11-Nov-2015 Instruction Type:Patient Education How to access health informa tion online Indication:Benign essential HTN Start:11-Nov-2015 Instruction Type:Patient Education How to access health informa tion online Indication:Hyperlipidemia Start:11-May-2015 Instruction Type:Patient Education How to access health informa tion online - Detail Indication:Hyperlipidemia Start:11-May-2015 Instruction Type:Patient Education Patient Instructions Indication:Hyperlipidemia Start:11-May-2015 Instruction Type:Provider Instructions for Treatment Patient Instructions Indication:Hyperlipidemia Start:01-Oct-2014 Instruction Type:Provider Instructions for Treatment Patient Instructions Indication:Hyperlipidemia Start:26-May-2014 Instruction Type:Provider Instructions for Treatment How to access health informa tion online Indication:Hyperlipidemia Start:26-May-2014 Instruction Type:Patient Education How to access health informa tion online - Detail Indication:Hyperlipidemia Start:26-May-2014 Instruction Type:Patient Education Patient Instructions Indication:Hyperlipidemia Start:26-Aug-2013 Instruction Type:Provider Instructions for Treatment Patient Instructions Start:03-Jun-2013 Instruction Type:Provider Instructions for Treatment Patient Instructions Indication:Hyperlipidemia Start:06-Feb-2013 Instruction Type:Provider Instructions for Treatment Patient Instructions Indication:Hyperlipidemia Start:23-Jul-2012 Instruction Type:Provider Instructions for Treatment Name Dates Details How to access health informa tion online Indication:Non-smoker Start:15-Apr-2020 Instruction Type:Patient Education How to access health informa tion online - Detail Indication:Non-smoker Start:15-Apr-2020 Instruction Type:Patient Education Patient Instructions Indication:Non-smoker Start:15-Apr-2020 Instruction Type:Provider Instructions for Treatment How to access health informa tion online Indication:BMI 31.0-31.9,adult Start:16-Oct-2019 Instruction Type:Patient Education How to access health informa tion online - Detail Indication:BMI 31.0-31.9,adult Start:16-Oct-2019 Instruction Type:Patient Education Patient Instructions Indication:BMI 31.0-31.9,adult Start:16-Oct-2019 Instruction Type:Provider Instructions for Treatment How to access health informa tion online Indication:BMI 31.0-31.9,adult Start:09-Sep-2019 Instruction Type:Patient Education How to access health informa tion online - Detail Indication:BMI 31.0-31.9,adult Start:09-Sep-2019 Instruction Type:Patient Education Patient Instructions Indication:BMI 31.0-31.9,adult Start:09-Sep-2019 Instruction Type:Provider Instructions for Treatment How to access health informa tion online Indication:BMI 31.0-31.9,adult Start:19-Aug-2019 Instruction Type:Patient Education How to access health informa tion online - Detail Indication:BMI 31.0-31.9,adult Start:19-Aug-2019 Instruction Type:Patient Education Patient Instructions Indication:BMI 31.0-31.9,adult Start:19-Aug-2019 Instruction Type:Provider Instructions for Treatment How to access health informa tion online Indication:BMI 31.0-31.9,adult Start:19-Jun-2019 Instruction Type:Patient Education How to access health informa tion online - Detail Indication:BMI 31.0-31.9,adult Start:19-Jun-2019 Instruction Type:Patient Education Patient Instructions Indication:BMI 31.0-31.9,adult Start:19-Jun-2019 Instruction Type:Provider Instructions for Treatment How to access health informa tion online Indication:Muscle injury Start:08-Feb-2019 Instruction Type:Patient Education How to access health informa tion online - Detail Indication:Muscle injury Start:08-Feb-2019 Instruction Type:Patient Education Patient Instructions Indication:Muscle injury Start:08-Feb-2019 Instruction Type:Provider Instructions for Treatment How to access health informa tion online Indication:Non-smoker Start:19-Dec-2018 Instruction Type:Patient Education How to access health informa tion online - Detail Indication:Non-smoker Start:19-Dec-2018 Instruction Type:Patient Education Patient Instructions Indication:Non-smoker Start:19-Dec-2018 Instruction Type:Provider Instructions for Treatment How to access health informa tion online Indication:BMI 28.0-28.9,adult Start:18-Jun-2018 Instruction Type:Patient Education How to access health informa tion online - Detail Indication:BMI 28.0-28.9,adult Start:18-Jun-2018 Instruction Type:Patient Education Patient Instructions Indication:BMI 28.0-28.9,adult Start:18-Jun-2018 Instruction Type:Provider Instructions for Treatment How to access health informa tion online Indication:Snuff user Start:04-Dec-2017 Instruction Type:Patient Education How to access health informa tion online - Detail Indication:Snuff user Start:04-Dec-2017 Instruction Type:Patient Education Patient Instructions Indication:Snuff user Start:04-Dec-2017 Instruction Type:Provider Instructions for Treatment How to access health informa tion online Indication:Snuff user Start:29-May-2017 Instruction Type:Patient Education How to access health informa tion online - Detail Indication:Snuff user Start:29-May-2017 Instruction Type:Patient Education Patient Instructions Indication:Snuff user Start:29-May-2017 Instruction Type:Provider Instructions for Treatment How to access health informa tion online Indication:Snuff user Start:21-Nov-2016 Instruction Type:Patient Education How to access health informa tion online - Detail Indication:Snuff user Start:21-Nov-2016 Instruction Type:Patient Education Patient Instructions Indication:Snuff user Start:21-Nov-2016 Instruction Type:Provider Instructions for Treatment How to access health informa tion online Indication:Benign essential HTN Start:13-Jul-2016 Instruction Type:Patient Education How to access health informa tion online - Detail Indication:Benign essential HTN Start:13-Jul-2016 Instruction Type:Patient Education Patient Instructions Indication:Benign essential HTN Start:13-Jul-2016 Instruction Type:Provider Instructions for Treatment How to access health informa tion online Indication:Benign essential HTN Start:18-May-2016 Instruction Type:Patient Education How to access health informa tion online - Detail Indication:Benign essential HTN Start:18-May-2016 Instruction Type:Patient Education Patient Instructions Indication:Benign essential HTN Start:18-May-2016 Instruction Type:Provider Instructions for Treatment Patient Instructions Indication:Benign essential HTN Start:11-Nov-2015 Instruction Type:Provider Instructions for Treatment How to access health informa tion online - Detail Indication:Benign essential HTN Start:11-Nov-2015 Instruction Type:Patient Education How to access health informa tion online Indication:Benign essential HTN Start:11-Nov-2015 Instruction Type:Patient Education How to access health informa tion online Indication:Hyperlipidemia Start:11-May-2015 Instruction Type:Patient Education How to access health informa tion online - Detail Indication:Hyperlipidemia Start:11-May-2015 Instruction Type:Patient Education Patient Instructions Indication:Hyperlipidemia Start:11-May-2015 Instruction Type:Provider Instructions for Treatment Patient Instructions Indication:Hyperlipidemia Start:01-Oct-2014 Instruction Type:Provider Instructions for Treatment Patient Instructions Indication:Hyperlipidemia Start:26-May-2014 Instruction Type:Provider Instructions for Treatment How to access health informa tion online Indication:Hyperlipidemia Start:26-May-2014 Instruction Type:Patient Education How to access health informa tion online - Detail Indication:Hyperlipidemia Start:26-May-2014 Instruction Type:Patient Education Patient Instructions Indication:Hyperlipidemia Start:26-Aug-2013 Instruction Type:Provider Instructions for Treatment Patient Instructions Start:03-Jun-2013 Instruction Type:Provider Instructions for Treatment Patient Instructions Indication:Hyperlipidemia Start:06-Feb-2013 Instruction Type:Provider Instructions for Treatment Patient Instructions Indication:Hyperlipidemia Start:23-Jul-2012 Instruction Type:Provider Instructions for Treatment Name Dates Details How to access health informa tion online Indication:Muscle injury Start:08-Feb-2019 Instruction Type:Patient Education How to access health informa tion online - Detail Indication:Muscle injury Start:08-Feb-2019 Instruction Type:Patient Education Patient Instructions Indication:Muscle injury Start:08-Feb-2019 Instruction Type:Provider Instructions for Treatment How to access health informa tion online Indication:Non-smoker Start:19-Dec-2018 Instruction Type:Patient Education How to access health informa tion online - Detail Indication:Non-smoker Start:19-Dec-2018 Instruction Type:Patient Education Patient Instructions Indication:Non-smoker Start:19-Dec-2018 Instruction Type:Provider Instructions for Treatment How to access health informa tion online Indication:BMI 28.0-28.9,adult Start:18-Jun-2018 Instruction Type:Patient Education How to access health informa tion online - Detail Indication:BMI 28.0-28.9,adult Start:18-Jun-2018 Instruction Type:Patient Education Patient Instructions Indication:BMI 28.0-28.9,adult Start:18-Jun-2018 Instruction Type:Provider Instructions for Treatment How to access health informa tion online Indication:Snuff user Start:04-Dec-2017 Instruction Type:Patient Education How to access health informa tion online - Detail Indication:Snuff user Start:04-Dec-2017 Instruction Type:Patient Education Patient Instructions Indication:Snuff user Start:04-Dec-2017 Instruction Type:Provider Instructions for Treatment How to access health informa tion online Indication:Snuff user Start:29-May-2017 Instruction Type:Patient Education How to access health informa tion online - Detail Indication:Snuff user Start:29-May-2017 Instruction Type:Patient Education Patient Instructions Indication:Snuff user Start:29-May-2017 Instruction Type:Provider Instructions for Treatment How to access health informa tion online Indication:Snuff user Start:21-Nov-2016 Instruction Type:Patient Education How to access health informa tion online - Detail Indication:Snuff user Start:21-Nov-2016 Instruction Type:Patient Education Patient Instructions Indication:Snuff user Start:21-Nov-2016 Instruction Type:Provider Instructions for Treatment How to access health informa tion online Indication:Benign essential HTN Start:13-Jul-2016 Instruction Type:Patient Education How to access health informa tion online - Detail Indication:Benign essential HTN Start:13-Jul-2016 Instruction Type:Patient Education Patient Instructions Indication:Benign essential HTN Start:13-Jul-2016 Instruction Type:Provider Instructions for Treatment How to access health informa tion online Indication:Benign essential HTN Start:18-May-2016 Instruction Type:Patient Education How to access health informa tion online - Detail Indication:Benign essential HTN Start:18-May-2016 Instruction Type:Patient Education Patient Instructions Indication:Benign essential HTN Start:18-May-2016 Instruction Type:Provider Instructions for Treatment Patient Instructions Indication:Benign essential HTN Start:11-Nov-2015 Instruction Type:Provider Instructions for Treatment How to access health informa tion online - Detail Indication:Benign essential HTN Start:11-Nov-2015 Instruction Type:Patient Education How to access health informa tion online Indication:Benign essential HTN Start:11-Nov-2015 Instruction Type:Patient Education How to access health informa tion online Indication:Hyperlipidemia Start:11-May-2015 Instruction Type:Patient Education How to access health informa tion online - Detail Indication:Hyperlipidemia Start:11-May-2015 Instruction Type:Patient Education Patient Instructions Indication:Hyperlipidemia Start:11-May-2015 Instruction Type:Provider Instructions for Treatment Patient Instructions Indication:Hyperlipidemia Start:01-Oct-2014 Instruction Type:Provider Instructions for Treatment Patient Instructions Indication:Hyperlipidemia Start:26-May-2014 Instruction Type:Provider Instructions for Treatment How to access health informa tion online Indication:Hyperlipidemia Start:26-May-2014 Instruction Type:Patient Education How to access health informa tion online - Detail Indication:Hyperlipidemia Start:26-May-2014 Instruction Type:Patient Education Patient Instructions Indication:Hyperlipidemia Start:26-Aug-2013 Instruction Type:Provider Instructions for Treatment Patient Instructions Start:03-Jun-2013 Instruction Type:Provider Instructions for Treatment Patient Instructions Indication:Hyperlipidemia Start:06-Feb-2013 Instruction Type:Provider Instructions for Treatment Patient Instructions Indication:Hyperlipidemia Start:23-Jul-2012 Instruction Type:Provider Instructions for Treatment Name Dates Details How to Access Health Informa tion Online using Patient Portal and [employer] Apps Indication:Tobacco abuse Start:28-Oct-2020 Instruction Type:Patient Education Patient Instructions Indication:Tobacco abuse Start:28-Oct-2020 Instruction Type:Provider Instructions for Treatment How to access health informa tion online Indication:Non-smoker Start:15-Apr-2020 Instruction Type:Patient Education How to access health informa tion online - Detail Indication:Non-smoker Start:15-Apr-2020 Instruction Type:Patient Education Patient Instructions Indication:Non-smoker Start:15-Apr-2020 Instruction Type:Provider Instructions for Treatment How to access health informa tion online Indication:BMI 31.0-31.9,adult Start:16-Oct-2019 Instruction Type:Patient Education How to access health informa tion online - Detail Indication:BMI 31.0-31.9,adult Start:16-Oct-2019 Instruction Type:Patient Education Patient Instructions Indication:BMI 31.0-31.9,adult Start:16-Oct-2019 Instruction Type:Provider Instructions for Treatment How to access health informa tion online Indication:BMI 31.0-31.9,adult Start:09-Sep-2019 Instruction Type:Patient Education How to access health informa tion online - Detail Indication:BMI 31.0-31.9,adult Start:09-Sep-2019 Instruction Type:Patient Education Patient Instructions Indication:BMI 31.0-31.9,adult Start:09-Sep-2019 Instruction Type:Provider Instructions for Treatment How to access health informa tion online Indication:BMI 31.0-31.9,adult Start:19-Aug-2019 Instruction Type:Patient Education How to access health informa tion online - Detail Indication:BMI 31.0-31.9,adult Start:19-Aug-2019 Instruction Type:Patient Education Patient Instructions Indication:BMI 31.0-31.9,adult Start:19-Aug-2019 Instruction Type:Provider Instructions for Treatment How to access health informa tion online Indication:BMI 31.0-31.9,adult Start:19-Jun-2019 Instruction Type:Patient Education How to access health informa tion online - Detail Indication:BMI 31.0-31.9,adult Start:19-Jun-2019 Instruction Type:Patient Education Patient Instructions Indication:BMI 31.0-31.9,adult Start:19-Jun-2019 Instruction Type:Provider Instructions for Treatment How to access health informa tion online Indication:Muscle injury Start:08-Feb-2019 Instruction Type:Patient Education How to access health informa tion online - Detail Indication:Muscle injury Start:08-Feb-2019 Instruction Type:Patient Education Patient Instructions Indication:Muscle injury Start:08-Feb-2019 Instruction Type:Provider Instructions for Treatment How to access health informa tion online Indication:Non-smoker Start:19-Dec-2018 Instruction Type:Patient Education How to access health informa tion online - Detail Indication:Non-smoker Start:19-Dec-2018 Instruction Type:Patient Education Patient Instructions Indication:Non-smoker Start:19-Dec-2018 Instruction Type:Provider Instructions for Treatment How to access health informa tion online Indication:BMI 28.0-28.9,adult Start:18-Jun-2018 Instruction Type:Patient Education How to access health informa tion online - Detail Indication:BMI 28.0-28.9,adult Start:18-Jun-2018 Instruction Type:Patient Education Patient Instructions Indication:BMI 28.0-28.9,adult Start:18-Jun-2018 Instruction Type:Provider Instructions for Treatment How to access health informa tion online Indication:Snuff user Start:04-Dec-2017 Instruction Type:Patient Education How to access health informa tion online - Detail Indication:Snuff user Start:04-Dec-2017 Instruction Type:Patient Education Patient Instructions Indication:Snuff user Start:04-Dec-2017 Instruction Type:Provider Instructions for Treatment How to access health informa tion online Indication:Snuff user Start:29-May-2017 Instruction Type:Patient Education How to access health informa tion online - Detail Indication:Snuff user Start:29-May-2017 Instruction Type:Patient Education Patient Instructions Indication:Snuff user Start:29-May-2017 Instruction Type:Provider Instructions for Treatment How to access health informa tion online Indication:Snuff user Start:21-Nov-2016 Instruction Type:Patient Education How to access health informa tion online - Detail Indication:Snuff user Start:21-Nov-2016 Instruction Type:Patient Education Patient Instructions Indication:Snuff user Start:21-Nov-2016 Instruction Type:Provider Instructions for Treatment How to access health informa tion online Indication:Benign essential HTN Start:13-Jul-2016 Instruction Type:Patient Education How to access health informa tion online - Detail Indication:Benign essential HTN Start:13-Jul-2016 Instruction Type:Patient Education Patient Instructions Indication:Benign essential HTN Start:13-Jul-2016 Instruction Type:Provider Instructions for Treatment How to access health informa tion online Indication:Benign essential HTN Start:18-May-2016 Instruction Type:Patient Education How to access health informa tion online - Detail Indication:Benign essential HTN Start:18-May-2016 Instruction Type:Patient Education Patient Instructions Indication:Benign essential HTN Start:18-May-2016 Instruction Type:Provider Instructions for Treatment Patient Instructions Indication:Benign essential HTN Start:11-Nov-2015 Instruction Type:Provider Instructions for Treatment How to access health informa tion online - Detail Indication:Benign essential HTN Start:11-Nov-2015 Instruction Type:Patient Education How to access health informa tion online Indication:Benign essential HTN Start:11-Nov-2015 Instruction Type:Patient Education How to access health informa tion online Indication:Hyperlipidemia Start:11-May-2015 Instruction Type:Patient Education How to access health informa tion online - Detail Indication:Hyperlipidemia Start:11-May-2015 Instruction Type:Patient Education Patient Instructions Indication:Hyperlipidemia Start:11-May-2015 Instruction Type:Provider Instructions for Treatment Patient Instructions Indication:Hyperlipidemia Start:01-Oct-2014 Instruction Type:Provider Instructions for Treatment Patient Instructions Indication:Hyperlipidemia Start:26-May-2014 Instruction Type:Provider Instructions for Treatment How to access health informa tion online Indication:Hyperlipidemia Start:26-May-2014 Instruction Type:Patient Education How to access health informa tion online - Detail Indication:Hyperlipidemia Start:26-May-2014 Instruction Type:Patient Education Patient Instructions Indication:Hyperlipidemia Start:26-Aug-2013 Instruction Type:Provider Instructions for Treatment Patient Instructions Start:03-Jun-2013 Instruction Type:Provider Instructions for Treatment Patient Instructions Indication:Hyperlipidemia Start:06-Feb-2013 Instruction Type:Provider Instructions for Treatment Patient Instructions Indication:Hyperlipidemia Start:23-Jul-2012 Instruction Type:Provider Instructions for Treatment Name Dates Details How to access health informa tion online Indication:BMI 31.0-31.9,adult Start:19-Jun-2019 Instruction Type:Patient Education How to access health informa tion online - Detail Indication:BMI 31.0-31.9,adult Start:19-Jun-2019 Instruction Type:Patient Education Patient Instructions Indication:BMI 31.0-31.9,adult Start:19-Jun-2019 Instruction Type:Provider Instructions for Treatment How to access health informa tion online Indication:Muscle injury Start:08-Feb-2019 Instruction Type:Patient Education How to access health informa tion online - Detail Indication:Muscle injury Start:08-Feb-2019 Instruction Type:Patient Education Patient Instructions Indication:Muscle injury Start:08-Feb-2019 Instruction Type:Provider Instructions for Treatment How to access health informa tion online Indication:Non-smoker Start:19-Dec-2018 Instruction Type:Patient Education How to access health informa tion online - Detail Indication:Non-smoker Start:19-Dec-2018 Instruction Type:Patient Education Patient Instructions Indication:Non-smoker Start:19-Dec-2018 Instruction Type:Provider Instructions for Treatment How to access health informa tion online Indication:BMI 28.0-28.9,adult Start:18-Jun-2018 Instruction Type:Patient Education How to access health informa tion online - Detail Indication:BMI 28.0-28.9,adult Start:18-Jun-2018 Instruction Type:Patient Education Patient Instructions Indication:BMI 28.0-28.9,adult Start:18-Jun-2018 Instruction Type:Provider Instructions for Treatment How to access health informa tion online Indication:Snuff user Start:04-Dec-2017 Instruction Type:Patient Education How to access health informa tion online - Detail Indication:Snuff user Start:04-Dec-2017 Instruction Type:Patient Education Patient Instructions Indication:Snuff user Start:04-Dec-2017 Instruction Type:Provider Instructions for Treatment How to access health informa tion online Indication:Snuff user Start:29-May-2017 Instruction Type:Patient Education How to access health informa tion online - Detail Indication:Snuff user Start:29-May-2017 Instruction Type:Patient Education Patient Instructions Indication:Snuff user Start:29-May-2017 Instruction Type:Provider Instructions for Treatment How to access health informa tion online Indication:Snuff user Start:21-Nov-2016 Instruction Type:Patient Education How to access health informa tion online - Detail Indication:Snuff user Start:21-Nov-2016 Instruction Type:Patient Education Patient Instructions Indication:Snuff user Start:21-Nov-2016 Instruction Type:Provider Instructions for Treatment How to access health informa tion online Indication:Benign essential HTN Start:13-Jul-2016 Instruction Type:Patient Education How to access health informa tion online - Detail Indication:Benign essential HTN Start:13-Jul-2016 Instruction Type:Patient Education Patient Instructions Indication:Benign essential HTN Start:13-Jul-2016 Instruction Type:Provider Instructions for Treatment How to access health informa tion online Indication:Benign essential HTN Start:18-May-2016 Instruction Type:Patient Education How to access health informa tion online - Detail Indication:Benign essential HTN Start:18-May-2016 Instruction Type:Patient Education Patient Instructions Indication:Benign essential HTN Start:18-May-2016 Instruction Type:Provider Instructions for Treatment Patient Instructions Indication:Benign essential HTN Start:11-Nov-2015 Instruction Type:Provider Instructions for Treatment How to access health informa tion online - Detail Indication:Benign essential HTN Start:11-Nov-2015 Instruction Type:Patient Education How to access health informa tion online Indication:Benign essential HTN Start:11-Nov-2015 Instruction Type:Patient Education How to access health informa tion online Indication:Hyperlipidemia Start:11-May-2015 Instruction Type:Patient Education How to access health informa tion online - Detail Indication:Hyperlipidemia Start:11-May-2015 Instruction Type:Patient Education Patient Instructions Indication:Hyperlipidemia Start:11-May-2015 Instruction Type:Provider Instructions for Treatment Patient Instructions Indication:Hyperlipidemia Start:01-Oct-2014 Instruction Type:Provider Instructions for Treatment Patient Instructions Indication:Hyperlipidemia Start:26-May-2014 Instruction Type:Provider Instructions for Treatment How to access health informa tion online Indication:Hyperlipidemia Start:26-May-2014 Instruction Type:Patient Education How to access health informa tion online - Detail Indication:Hyperlipidemia Start:26-May-2014 Instruction Type:Patient Education Patient Instructions Indication:Hyperlipidemia Start:26-Aug-2013 Instruction Type:Provider Instructions for Treatment Patient Instructions Start:03-Jun-2013 Instruction Type:Provider Instructions for Treatment Patient Instructions Indication:Hyperlipidemia Start:06-Feb-2013 Instruction Type:Provider Instructions for Treatment Patient Instructions Indication:Hyperlipidemia Start:23-Jul-2012 Instruction Type:Provider Instructions for Treatment Name Dates Details How to Access Health Informa tion Online using Patient Portal and [employer] Apps Indication:Tobacco abuse Start:28-Oct-2020 Instruction Type:Patient Education Patient Instructions Indication:Tobacco abuse Start:28-Oct-2020 Instruction Type:Provider Instructions for Treatment How to access health informa tion online Indication:Non-smoker Start:15-Apr-2020 Instruction Type:Patient Education How to access health informa tion online - Detail Indication:Non-smoker Start:15-Apr-2020 Instruction Type:Patient Education Patient Instructions Indication:Non-smoker Start:15-Apr-2020 Instruction Type:Provider Instructions for Treatment How to access health informa tion online Indication:BMI 31.0-31.9,adult Start:16-Oct-2019 Instruction Type:Patient Education How to access health informa tion online - Detail Indication:BMI 31.0-31.9,adult Start:16-Oct-2019 Instruction Type:Patient Education Patient Instructions Indication:BMI 31.0-31.9,adult Start:16-Oct-2019 Instruction Type:Provider Instructions for Treatment How to access health informa tion online Indication:BMI 31.0-31.9,adult Start:09-Sep-2019 Instruction Type:Patient Education How to access health informa tion online - Detail Indication:BMI 31.0-31.9,adult Start:09-Sep-2019 Instruction Type:Patient Education Patient Instructions Indication:BMI 31.0-31.9,adult Start:09-Sep-2019 Instruction Type:Provider Instructions for Treatment How to access health informa tion online Indication:BMI 31.0-31.9,adult Start:19-Aug-2019 Instruction Type:Patient Education How to access health informa tion online - Detail Indication:BMI 31.0-31.9,adult Start:19-Aug-2019 Instruction Type:Patient Education Patient Instructions Indication:BMI 31.0-31.9,adult Start:19-Aug-2019 Instruction Type:Provider Instructions for Treatment How to access health informa tion online Indication:BMI 31.0-31.9,adult Start:19-Jun-2019 Instruction Type:Patient Education How to access health informa tion online - Detail Indication:BMI 31.0-31.9,adult Start:19-Jun-2019 Instruction Type:Patient Education Patient Instructions Indication:BMI 31.0-31.9,adult Start:19-Jun-2019 Instruction Type:Provider Instructions for Treatment How to access health informa tion online Indication:Muscle injury Start:08-Feb-2019 Instruction Type:Patient Education How to access health informa tion online - Detail Indication:Muscle injury Start:08-Feb-2019 Instruction Type:Patient Education Patient Instructions Indication:Muscle injury Start:08-Feb-2019 Instruction Type:Provider Instructions for Treatment How to access health informa tion online Indication:Non-smoker Start:19-Dec-2018 Instruction Type:Patient Education How to access health informa tion online - Detail Indication:Non-smoker Start:19-Dec-2018 Instruction Type:Patient Education Patient Instructions Indication:Non-smoker Start:19-Dec-2018 Instruction Type:Provider Instructions for Treatment How to access health informa tion online Indication:BMI 28.0-28.9,adult Start:18-Jun-2018 Instruction Type:Patient Education How to access health informa tion online - Detail Indication:BMI 28.0-28.9,adult Start:18-Jun-2018 Instruction Type:Patient Education Patient Instructions Indication:BMI 28.0-28.9,adult Start:18-Jun-2018 Instruction Type:Provider Instructions for Treatment How to access health informa tion online Indication:Snuff user Start:04-Dec-2017 Instruction Type:Patient Education How to access health informa tion online - Detail Indication:Snuff user Start:04-Dec-2017 Instruction Type:Patient Education Patient Instructions Indication:Snuff user Start:04-Dec-2017 Instruction Type:Provider Instructions for Treatment How to access health informa tion online Indication:Snuff user Start:29-May-2017 Instruction Type:Patient Education How to access health informa tion online - Detail Indication:Snuff user Start:29-May-2017 Instruction Type:Patient Education Patient Instructions Indication:Snuff user Start:29-May-2017 Instruction Type:Provider Instructions for Treatment How to access health informa tion online Indication:Snuff user Start:21-Nov-2016 Instruction Type:Patient Education How to access health informa tion online - Detail Indication:Snuff user Start:21-Nov-2016 Instruction Type:Patient Education Patient Instructions Indication:Snuff user Start:21-Nov-2016 Instruction Type:Provider Instructions for Treatment How to access health informa tion online Indication:Benign essential HTN Start:13-Jul-2016 Instruction Type:Patient Education How to access health informa tion online - Detail Indication:Benign essential HTN Start:13-Jul-2016 Instruction Type:Patient Education Patient Instructions Indication:Benign essential HTN Start:13-Jul-2016 Instruction Type:Provider Instructions for Treatment How to access health informa tion online Indication:Benign essential HTN Start:18-May-2016 Instruction Type:Patient Education How to access health informa tion online - Detail Indication:Benign essential HTN Start:18-May-2016 Instruction Type:Patient Education Patient Instructions Indication:Benign essential HTN Start:18-May-2016 Instruction Type:Provider Instructions for Treatment Patient Instructions Indication:Benign essential HTN Start:11-Nov-2015 Instruction Type:Provider Instructions for Treatment How to access health informa tion online - Detail Indication:Benign essential HTN Start:11-Nov-2015 Instruction Type:Patient Education How to access health informa tion online Indication:Benign essential HTN Start:11-Nov-2015 Instruction Type:Patient Education How to access health informa tion online Indication:Hyperlipidemia Start:11-May-2015 Instruction Type:Patient Education How to access health informa tion online - Detail Indication:Hyperlipidemia Start:11-May-2015 Instruction Type:Patient Education Patient Instructions Indication:Hyperlipidemia Start:11-May-2015 Instruction Type:Provider Instructions for Treatment Patient Instructions Indication:Hyperlipidemia Start:01-Oct-2014 Instruction Type:Provider Instructions for Treatment Patient Instructions Indication:Hyperlipidemia Start:26-May-2014 Instruction Type:Provider Instructions for Treatment How to access health informa tion online Indication:Hyperlipidemia Start:26-May-2014 Instruction Type:Patient Education How to access health informa tion online - Detail Indication:Hyperlipidemia Start:26-May-2014 Instruction Type:Patient Education Patient Instructions Indication:Hyperlipidemia Start:26-Aug-2013 Instruction Type:Provider Instructions for Treatment Patient Instructions Start:03-Jun-2013 Instruction Type:Provider Instructions for Treatment Patient Instructions Indication:Hyperlipidemia Start:06-Feb-2013 Instruction Type:Provider Instructions for Treatment Patient Instructions Indication:Hyperlipidemia Start:23-Jul-2012 Instruction Type:Provider Instructions for Treatment Advance Directives Name Dates Details Immunization Registry [place] - Effective on 06/19/2019. Expiration date unspecified Effective:19-Jun-2019 Name Dates Details Immunization [facility] [place] - Effective on 06/19/2019. Expiration date unspecified Effective:19-Jun-2019 Name Dates Details Immunization [facility] [place] - Effective on 06/19/2019. Expiration date unspecified Effective:19-Jun-2019 Name Dates Details Immunization [facility] [place] - Effective on 06/19/2019. Expiration date unspecified Effective:19-Jun-2019 Name Dates Details Immunization [facility] [place] - Effective on 06/19/2019. Expiration date unspecified Effective:19-Jun-2019 Name Dates Details Immunization [facility] [place] - Effective on 06/19/2019. Expiration date unspecified Effective:19-Jun-2019 Name Dates Details Immunization [facility] [place] - Effective on 06/19/2019. Expiration date unspecified Effective:19-Jun-2019 Name Dates Details Immunization [facility] [place] - Effective on 06/19/2019. Expiration date unspecified Effective:19-Jun-2019 Name Dates Details Immunization [facility] [place] - Effective on 06/19/2019. Expiration date unspecified Effective:19-Jun-2019 Name Dates Details Immunization [facility] [place] - Effective on 06/19/2019. Expiration date unspecified Effective:19-Jun-2019 Name Dates Details Immunization [facility] [place] - Effective on 06/19/2019. Expiration date unspecified Effective:19-Jun-2019 Name Dates Details Immunization [facility] [place] - Effective on 06/19/2019. Expiration date unspecified Effective:19-Jun-2019 Name Dates Details Immunization [facility] [place] - Effective on 06/19/2019. Expiration date unspecified Effective:19-Jun-2019 Name Dates Details Immunization [facility] [place] - Effective on 06/19/2019. Expiration date unspecified Effective:19-Jun-2019 Name Dates Details Immunization [facility] [place] - Effective on 06/19/2019. Expiration date unspecified Effective:19-Jun-2019 Name Dates Details Immunization [facility] [place] - Effective on 06/19/2019. Expiration date unspecified Effective:19-Jun-2019 Name Dates Details Immunization [facility] [place] - Effective on 06/19/2019. Expiration date unspecified Effective:19-Jun-2019 Name Dates Details Immunization [facility] [place] - Effective on 06/19/2019. Expiration date unspecified Effective:19-Jun-2019 Name Dates Details Immunization [facility] [place] - Effective on 06/19/2019. Expiration date unspecified Effective:19-Jun-2019 Name Dates Details Immunization [facility] [place] - Effective on 06/19/2019. Expiration date unspecified Effective:19-Jun-2019 Name Dates Details Immunization [facility] [place] - Effective on 06/19/2019. Expiration date unspecified Effective:19-Jun-2019 Name Dates Details Immunization [facility] [place] - Effective on 06/19/2019. Expiration date unspecified Effective:19-Jun-2019 Name Dates Details Immunization [facility] [place] - Effective on 06/19/2019. Expiration date unspecified Effective:19-Jun-2019 Summary Purpose Additional Source Comments (unrecognized sect ion and content) No Status Records Found INFORMATION SOURCE (unrecogn ized section and content) FOR RECORDS PERTAINING TO PATIENTS WHO ARE OR HAVE BEEN ENROLLED IN A CHEMICAL DEPENDENCY/SUBSTANCEABUSE PROGRAM, SOME INFORMATION MAY BE OMITTED. This clinical summary was aggregated from multiple sources. Caution should be exercised in using it in the provision of clinical care. This summary normalizes information from multiple sources, and as a consequence, information in this document may materially change the coding, format and clinical context of patient data. In addition, data may be omitted in some cases. CLINICAL DECISIONS SHOULD BE BASED ON THE PRIMARY CLINICAL RECORDS. [facility], [facility]. provides no warranty or guarantee of the accuracy or completeness of information in this document.
[2023-10-06 06:09] LABS: Bacteria 0 SEEN /hpf (None Seen); Mucous, Urine 0 SEEN /hpf (<or=2+); Red Blood Cells-Urine 0 SEEN /hpf (0-5); Squamous Epithelial Cells - UA 0 SEEN /hpf (0-5)
[2023-10-06 07:37] LABS: Color, Urine Straw (Yellow); Glucose, Dipstick Normal (Normal); Ketone-Dipstick Negative (Negative); Leukocyte Esterase-Dipstick 25 /ul (Negative); Nitrite-Dipstick Negative (Negative); Occult Blood-Urine Negative /ul (Negative); Protein-Dipstick Negative (Negative); Urine Bilirubin Dipstick Negative (Negative); Urine Clarity Clear (Clear); Urine Urobilinogen Normal (Normal)
[2023-10-06 07:41] LABS: Absolute Lymphocyte Count 1.88 X10^3/uL (0.83-4.51); Absolute Neutrophil Count 2.6 X10^3/uL (2.0-7.7); Basophil# 0.05 X10^3/uL; Basophil% 0.9 % (0-1); Eosinophil# 0.17 X10^3/uL; Eosinophils% 3.1 % (0-5); Hematocrit 42.8 % (40-54); Hemoglobin 13.9 g/dL (13.0-16.5); Lymphocyte # 1.88 X10^3/ul (0.83-4.51); Lymphocyte % 34.6 % (19-41); Mean Corp Hgb Conc 32.5 g/dL (32-36); Mean Corpuscular Hgb 30.8 pg (27.0-32.0); Mean Corpuscular Volume 94.9 fL (80-94); Mean Platelet Vol. 10.1 fl (6.2-12.0); Monocyte# 0.66 X10^3/uL; Monocyte% 12.2 % (0-10); NRBC Flagged by Analyzer 0 % (0-5); Neutrophil # 2.62 X10^3/uL (2.7-7.7); Neutrophil % 48.3 % (47-70); Platelet Count 280 K/mm3 (150-450); RBC Distribution Width CV 12.2 % (11.6-14.6); RBC Distribution Width SD 42.5 fl (35.1-43.9); Red Blood Count 4.51 M/mm3 (4.6-6.2); White Blood Count 5.4 K/mm3 (4.4-11.0)
[2023-10-06 07:48] LABS: White Blood Cells 0-5 SEEN /hpf (0-5)
[2023-10-06 08:05] LABS: ALB/GLOB Ratio 1.1 RATIO (0.9-2.4); AST(SGOT) 21 U/L (15-37); Alanine Aminotransfer ALT/SGPT 47 U/L (16-61); Albumin, Serum 3.9 g/dL (3.2-5.0); Alkaline Phosphatase 93 U/L (45-117); Anion Gap 4 (5-15); BUN 20 mg/dL (7-18); BUN/Creat Ratio 22.4 RATIO (10-20); Calcium,Total 9.2 mg/dL (8.5-10.1); Chloride 105 mmol/L (98-107); Cholesterol 247 mg/dL (200); Creatinine, Serum 0.89 mg/dL (0.70-1.30); EST Glomerular Filtration Rate 92 mL/min (>60); Est Glom Filt Rate - Afr Amer 111 mL/min (>60); Globulin 3.4 g/dL (2.2-4.2); Glucose 94 mg/dL (74-106); High Density Lipoprotein 52 mg/dL; Potassium 4.4 mmol/L (3.5-5.1); Protein, Total 7.3 g/dL (6.4-8.2); Sodium Level 138 mmol/L (136-145); Thyroid Stim Hormone (TSH) 2.37 uIU/mL (0.358-3.74); Triglycerides 219 mg/dL; Very Low Density Lipoprotein 44 mg/dL (5-40)
[2023-10-06 10:44] LABS: Microalbumin,Random Urine 5.4 mg/L (NO RANGE EST.); Microalbumin:Creatinine Ratio 14.7 mg/g CRE (<30 mg/g CRE)
== END | disposition home or self-care (01) ==
LOC: LAB 06:00
PROVIDERS: PCP Internal Medicine; Referring Provider Internal Medicine; Visit Provider Internal Medicine
DX: E55.9 Vitamin D deficiency, unspecified (principal); I10 Essential (primary) hypertension; E78.2 Mixed hyperlipidemia
CPT/HCPCS: 36415; 80053; 80061; 81001; 82043; 82306; 82570; 84443; 85025

== ENCOUNTER → 2024-02-07 | Outpatient (CLI) | payer OTHER, SELFPAY ==
[2024-02-07 07:56] LABS: Cholesterol 219 mg/dL (200); High Density Lipoprotein 62 mg/dL; Triglycerides 160 mg/dL; Very Low Density Lipoprotein 32 mg/dL (5-40)
== END | disposition home or self-care (01) ==
LOC: LAB 05:55
PROVIDERS: PCP Internal Medicine; Referring Provider Internal Medicine; Visit Provider Internal Medicine
DX: E78.5 Hyperlipidemia, unspecified (principal)
CPT/HCPCS: 36415; 80061

== ENCOUNTER 2024-03-21 13:33 | Emergency (ER) | payer OTHER, SELFPAY ==
[2024-03-21 13:34] VITALS: BP 136/81; PULSE 78; RESP 17; TEMP 36.1; O2SAT 97; BMI 29.7
--- NOTE | 2024-03-21 13:51 | ED.VIS.GI ---
HPI HPI - GI History of Present Illness Chief Complaint: Abd Pain Detail of Chief Complaint: Right lower abdomen pain Informant: patient and spouse/S.O. Narrative Narrative: Patient presents the emergency department with complaint of pain in the right lower abdomen radiating to his testicle and back. Symptoms started around 9 AM rather suddenly. He vomited about 4 times. Currently rates his pain about a 7 out of 10. He is never had pain like this before. Patient does describe some urinary urgency and feeling like he needs to urinate but cannot get much urine out. Denies hematuria. No history of kidney stones. PFSH PFSH Home Medications ?Medication ?Instructions ?Recorded ?Last Taken ?Type hydrocodone-acetaminophen 5-325mg 1 tab PO Q4H PRN PRN Pain 2 days 03/21/24 Unknown Rx 5mg-325mg #10 TABLETS Allergy/AdvReac Type Severity Reaction Status Date / Time No Known Allergies Allergy Verified 03/21/24 13:34 ROS ROS ED Review of Systems ROS Unobtainable: other Constitutional Constitutional ED: Reports lethargy; Denies chills, fever(s), sweats or weight loss Eyes Eyes: Denies blurry vision, change in vision or diplopia ENT ENT ED: Denies rhinorrhea or sore throat Cardiovascular Cardiovascular: Denies chest pain, orthopnea or racing heartbeat Respiratory/Chest Respiratory/Chest: Denies cough, dyspnea, dyspnea on exertion, orthopnea or sputum Gastrointestinal Gastrointestinal: Reports abdominal pain, nausea and vomiting; Denies diarrhea Genitourinary Genitourinary ED: Denies dysuria, hematuria or urinary frequency Musculoskeletal Musculoskeletal: Denies arthralgias, back pain, myalgias or neck pain Integumentary Denies abscess, Abrasions or rash Neurologic Neurologic: Denies headache(s) or weakness Psychiatric Psychiatric: Denies anxiety, depression or suicidal thoughts Endocrine Endocrinology: Denies polydipsia, polyphagia or polyuria Hematologic/Lymphatic Hematologic/Lymphatic: Denies easy bleeding, easy bruising or lymphadenopathy Allergic/Immunologic Allergic/Immunologic ED: Denies mouth swelling, tongue swelling or urticaria EXAM Physical Exam Const Vital Signs: 03/21/24 13:34 Temperature 96.9 F L Temperature Source Temporal Pulse Rate 78 Respiratory Rate 17 Blood Pressure 136/81 H Blood Pressure Mean 99 Pulse Ox 97 Oxygen Delivery Method Room Air Positive well nourished and well developed General Appearance ED: well developed and NAD HEENT Reports TM's clear and moist mucous membranes normocephalic and atraumatic; Negative for trauma or tenderness Tympanic Membrane ED: Yes TM's clear Eyes PERRL and EOMs intact bilaterally General Eye ED: Negative for pale conjunctiva or scleral icterus Neck no lymphadenopathy, supple and no JVD General: Negative for tenderness Chest Wall inspection of chest normal and palpation of chest normal Chest: Negative for tenderness Resp normal respiratory effort and clear to auscultation bilaterally Effort and Inspection: Negative for respiratory distress or pain with movement Auscultation: Negative for rhonchi, wheezes or diminished lung sounds Cardio regular rate, regular rhythm, S1 normal heart sound, S2 normal heart sound and no murmurs Peripheral Pulses: pulses 2+ throughout GI normal to inspection, nondistended, normoactive bowel sounds, soft to palpation, non-distended and no masses GI Narrative: Tenderness to palpation of the right lower quadrant with some guarding. There is CVA tenderness on the right. There is no rebound, rigidity, or peritoneal signs. No mass palpated Back/Spine no thoracic nor lumbar tenderness; Negative for no CVA tenderness Back/Spine Narrative: Right CVA tenderness Extremity normal to inspection General Extremety ED: Negative for edema General Extremity: Negative for edema Neuro oriented x3, CN's II-XII intact bilaterally, no sensory deficits noted and gait normal Sensorium / Orientation: awake, alert, oriented to person, oriented to place and oriented to time Motor Exam: strength 5/5 throughout and strength abnormal Psych mental status grossly normal Skin no rashes or lesions noted and no wounds MDM MDM MDM Narrative Medical decision making narrative: Patient presents with sudden onset of right flank pain radiating to groin. Clinically looks well. He said some vomiting with this. No history of kidney stones but clinically I suspect a kidney stone versus UTI versus other acute intra-abdominal process. Patient was medicated Toradol and Zofran as well as morphine. He had good pain relief with that. CBC with differential 10.4 with hemoglobin 14 and platelet count of 222. Chemistries unremarkable. Urinalysis without signs of infection. CT flank showed a 3 mm stone in the right portion of the bladder near the right UVJ that suspected to have passed with mild right hydroureter and hydronephrosis. Patient continues to have pain and states the pain will start to come back a little bit so I gave him another 4 mg of morphine. He will be discharged home with urine strainers and a prescription for a few [place] for pain. Advised to return if persistent pain, vomiting, or condition worsening way. Will be referred to urology to follow-up as needed. Lab Data Attestation: I reviewed the patient's lab results. Labs: Laboratory Results - last 24 hr 03/21/24 03/21/24 14:00 14:50 WBC 10.4 RBC 4.45 L Hgb 14.0 Hct 41.6 MCV 93.5 MCH 31.5 MCHC 33.7 RDW Std Deviation 41.2 RDW Coeff of [place] 12.0 Plt Count 222 MPV 9.9 Immature Gran % (Auto) 0.500 Neut % (Auto) 87.7 H Lymph % (Auto) 5.9 L [place] % (Auto) 5.6 Eos % (Auto) 0.0 Baso % (Auto) 0.3 Absolute Neuts (auto) 9.1 H Absolute Lymphs (auto) 0.61 L Nucleated RBC % 0 Sodium 138 Potassium 4.1 Chloride 105 Carbon Dioxide 26.0 Anion Gap 7 BUN 23 H Creatinine 1.10 Estim Creat Clear Calc 75.44 Est GFR (MDRD) Af Amer 87 Est GFR (MDRD) Non-Af 72 BUN/Creatinine Ratio 20.9 H Glucose 108 H Calcium 9.2 Urine Color Yellow Urine Clarity Clear Urine pH 6.0 Ur Specific [place] 1.020 Urine Protein 15 H Urine Glucose (UA) Normal Urine Ketones 50 H Urine Occult Blood Negative Urine Nitrite Negative Urine Bilirubin Negative Urine Urobilinogen Normal Ur Leukocyte Esterase 25 H Radiography Diagnostic Testing: Clinical Impression(s) from Imaging Studies Abdomen/Pelvis CT 03/21/24 14:25 IMPRESSION: 1. Mild right hydronephrosis secondary to recently passed 3 mm stone inside the right posterior urinary bladder wall. 2. A couple of nonobstructing stones in the right kidney. 3. No stones or hydronephrosis of left kidney. Electronically Signed: Ziyad Hua MD at 15:11 EDT , Discharge Plan Triage Chief Complaint: Abd Pain ED Provider: Ungur,Remus Dx/Rx/DC Orders Clinical Impression: Urolithiasis Instructions: ED Kidney Stone with Pain Prescriptions: New hydrocodone-acetaminophen 5-325 mg tablet 1 tab PO Q4H PRN PRN (Reason: Pain) 2 Days Qty: 10 0RF Primary Care Provider: Abi Newman Referrals: Jasson Lennon MD [Med Staff - Active Staff] - As Needed Abi Newman DO [Primary Care Provider] - Print Language: [place] Disposition Disposition: Home, Self Care
[2024-03-21] MEDS: 0.9% Normal Saline (1000mL) 1,000 ML 150 ML IV (14:01)
[2024-03-21] MEDS: Ondansetron 4 MG/2 ML Vial IV (14:02)
[2024-03-21] MEDS: Ketorolac 15 MG/ML Vial IV (14:02)
[2024-03-21] MEDS: Morphine 4 MG/ML Syringe IV ×2 (14:02→15:29)
[2024-03-21 14:20] LABS: Absolute Lymphocyte Count 0.61 X10^3/uL (0.83-4.51); Absolute Neutrophil Count 9.1 X10^3/uL (2.0-7.7); Basophil# 0.03 X10^3/uL; Basophil% 0.3 % (0-1); Hematocrit 41.6 % (40-54); Lymphocyte # 0.61 X10^3/ul (0.83-4.51); Lymphocyte % 5.9 % (19-41); Mean Corp Hgb Conc 33.7 g/dL (32-36); Mean Corpuscular Hgb 31.5 pg (27.0-32.0); Mean Corpuscular Volume 93.5 fL (80-94); Mean Platelet Vol. 9.9 fl (6.2-12.0); Monocyte# 0.58 X10^3/uL; Monocyte% 5.6 % (0-10); NRBC Flagged by Analyzer 0 % (0-5); Neutrophil % 87.7 % (47-70); Platelet Count 222 K/mm3 (150-450); RBC Distribution Width SD 41.2 fl (35.1-43.9); Red Blood Count 4.45 M/mm3 (4.6-6.2); White Blood Count 10.4 K/mm3 (4.4-11.0)
--- NOTE | 2024-03-21 14:25 | CT_ITS ---
EXAM: CT ABDOMEN AND PELVIS WITHOUT INTRAVENOUS CONTRAST CLINICAL INDICATION: right flank pain TECHNIQUE: Helically acquired images were obtained of the abdomen and pelvis without intravenous contrast. This CT exam was performed using one or more of the following dose reduction techniques: automated exposure control, adjustment of the mA and/or kV according to patient size, and/or use of iterative reconstruction technique. RADIATION DOSE: CTDIvol = 14.47 mGy, DLP = 768.76 mGy-cm COMPARISON: No relevant prior studies available. FINDINGS: LOWER THORAX: Unremarkable. Lung bases are clear. No cardiomegaly. No significant pericardial effusion. ABDOMEN: LIVER: Unremarkable. Homogeneous. GALLBLADDER AND BILE DUCTS: Unremarkable. No calcified gallstones. No gallbladder distention or wall edema. No intra- or extrahepatic biliary ductal dilation. PANCREAS: Unremarkable. No focal cystic mass. SPLEEN: Unremarkable. Normal size without focal cystic or solid mass. ADRENALS: Unremarkable. No nodules. KIDNEYS AND URETERS: Mild right hydronephrosis with stranding of the perineural fat and mild right hydroureter secondary to recently passed 3 mm stone inside the right posterior urinary bladder wall. 2 mm and 3 mm nonobstructing stones in the right kidney. No stones or hydronephrosis in the left kidney. No suspicious right or left renal mass or cyst. Normal renal size and position. STOMACH AND BOWEL: Unremarkable. No stomach or bowel distention. No focal inflammatory change. PELVIS: APPENDIX: Normal. BLADDER: 3 mm calcified stone inside the right posterior urinary bladder wall. REPRODUCTIVE: Unremarkable as visualized. No mass. ABDOMEN and PELVIS: INTRAPERITONEAL SPACE: Unremarkable. No ascites or other fluid collection. No free air. BONES/JOINTS: Unremarkable. No suspicious lytic or blastic abnormality. SOFT TISSUES: Unremarkable. No discrete abdominal or pelvic wall hernia. VASCULATURE: Unremarkable. Abdominal aorta is non-dilated. LYMPH NODES: Unremarkable. No enlarged lymph nodes. CT/Abdomen/Pelvis without Cont IMPRESSION: 1. Mild right hydronephrosis secondary to recently passed 3 mm stone inside the right posterior urinary bladder wall. 2. A couple of nonobstructing stones in the right kidney. 3. No stones or hydronephrosis of left kidney. Electronically Signed: Ziyad Hua MD at 15:11 EDT ,
[2024-03-21 14:33] LABS: Anion Gap 7 (5-15); BUN 23 mg/dL (7-18); BUN/Creat Ratio 20.9 RATIO (10-20); Calcium,Total 9.2 mg/dL (8.5-10.1); Chloride 105 mmol/L (98-107); EST Glomerular Filtration Rate 72 mL/min (>60); Est Glom Filt Rate - Afr Amer 87 mL/min (>60); Estimated Creatinine Clearance 75.44 ml/min; Glucose 108 mg/dL (74-106); Potassium 4.1 mmol/L (3.5-5.1); Sodium Level 138 mmol/L (136-145)
[2024-03-21 14:56] LABS: Bacteria 0 SEEN /hpf (None Seen); Mucous, Urine 0 SEEN /hpf (<or=2+)
[2024-03-21 15:05] LABS: Color, Urine Yellow (Yellow); Glucose, Dipstick Normal (Normal); Ketone-Dipstick 50 mg/dl (Negative); Leukocyte Esterase-Dipstick 25 /ul (Negative); Nitrite-Dipstick Negative (Negative); Occult Blood-Urine Negative /ul (Negative); Protein-Dipstick 15 mg/dl (Negative); Urine Bilirubin Dipstick Negative (Negative); Urine Clarity Clear (Clear); Urine Urobilinogen Normal (Normal)
[2024-03-21 15:34] VITALS: BP 146/75; PULSE 62; RESP 17; TEMP 36.7; O2SAT 98
[2024-03-21 15:38] LABS: Squamous Epithelial Cells - UA 0-5 SEEN /hpf (0-5); White Blood Cells 0-5 SEEN /hpf (0-5)
[2024-03-21 15:39] LABS: Red Blood Cells-Urine 0-5 SEEN /hpf (0-5)
== END 2024-03-21 15:35 | disposition home or self-care (01) ==
PROVIDERS: Emergency Provider Emergency Medicine; PCP Internal Medicine; Visit Provider Emergency Medicine
DX: N13.2 Hydronephrosis with renal and ureteral calculous obstruction (principal)
CPT/HCPCS: 74176; 80048; 81001; 85025; 96374; 96375; 96376; 99283; J2405

== ENCOUNTER → 2024-08-28 | Outpatient (CLI) | payer OTHER, SELFPAY ==
[2024-08-28 06:01] LABS: Bacteria 0 SEEN /hpf (None Seen); Mucous, Urine 0 SEEN /hpf (<or=2+); Red Blood Cells-Urine 0 SEEN /hpf (0-5); Squamous Epithelial Cells - UA 0 SEEN /hpf (0-5)
[2024-08-28 06:16] LABS: Color, Urine Yellow (Yellow); Glucose, Dipstick Normal (Normal); Ketone-Dipstick Negative (Negative); Leukocyte Esterase-Dipstick 25 /ul (Negative); Nitrite-Dipstick Negative (Negative); Occult Blood-Urine Negative /ul (Negative); Protein-Dipstick Negative (Negative); Urine Bilirubin Dipstick Negative (Negative); Urine Clarity Clear (Clear); Urine Urobilinogen Normal (Normal)
[2024-08-28 06:25] LABS: Absolute Lymphocyte Count 1.86 X10^3/uL (0.83-4.51); Absolute Neutrophil Count 2.5 X10^3/uL (2.0-7.7); Basophil# 0.06 X10^3/uL; Basophil% 1.2 % (0-1); Eosinophil# 0.13 X10^3/uL; Eosinophils% 2.5 % (0-5); Hematocrit 41.5 % (40-54); Hemoglobin 14.2 g/dL (13.0-16.5); Lymphocyte # 1.86 X10^3/ul (0.83-4.51); Lymphocyte % 36.1 % (19-41); Mean Corp Hgb Conc 34.2 g/dL (32-36); Mean Corpuscular Volume 93.5 fL (80-94); Mean Platelet Vol. 9.7 fl (6.2-12.0); Monocyte# 0.61 X10^3/uL; Monocyte% 11.8 % (0-10); NRBC Flagged by Analyzer 0 % (0-5); Neutrophil # 2.45 X10^3/uL (2.7-7.7); Neutrophil % 47.6 % (47-70); Platelet Count 276 K/mm3 (150-450); RBC Distribution Width CV 11.8 % (11.6-14.6); RBC Distribution Width SD 39.9 fl (35.1-43.9); Red Blood Count 4.44 M/mm3 (4.6-6.2); White Blood Count 5.2 K/mm3 (4.4-11.0)
[2024-08-28 06:34] LABS: White Blood Cells 0-5 SEEN /hpf (0-5)
[2024-08-28 06:43] LABS: AST(SGOT) 22 U/L (15-37); Alanine Aminotransfer ALT/SGPT 43 U/L (16-61); Albumin, Serum 3.9 g/dL (3.2-5.0); Alkaline Phosphatase 100 U/L (45-117); Anion Gap 3 (5-15); BUN 21 mg/dL (7-18); BUN/Creat Ratio 25.7 RATIO (10-20); Calcium,Total 9.2 mg/dL (8.5-10.1); Chloride 103 mmol/L (98-107); Cholesterol 209 mg/dL (200); Creatinine, Serum 0.82 mg/dL (0.70-1.30); EST Glomerular Filtration Rate 101 mL/min (>60); Est Glom Filt Rate - Afr Amer 123 mL/min (>60); Globulin 3.8 g/dL (2.2-4.2); Glucose 97 mg/dL (74-106); High Density Lipoprotein 49 mg/dL; Potassium 4.1 mmol/L (3.5-5.1); Protein, Total 7.7 g/dL (6.4-8.2); Sodium Level 134 mmol/L (136-145); Triglycerides 143 mg/dL; Very Low Density Lipoprotein 29 mg/dL (5-40)
[2024-08-28 06:48] LABS: Microalbumin,Random Urine 13.5 mg/L (NO RANGE EST.); Microalbumin:Creatinine Ratio 13.7 mg/g CRE (<30 mg/g CRE)
== END | disposition home or self-care (01) ==
LOC: LAB 05:55
PROVIDERS: PCP Internal Medicine; Referring Provider Internal Medicine; Visit Provider Internal Medicine
DX: E55.9 Vitamin D deficiency, unspecified (principal); E78.5 Hyperlipidemia, unspecified; I10 Essential (primary) hypertension
CPT/HCPCS: 36415; 80053; 80061; 81001; 82043; 82306; 82570; 85025

== ENCOUNTER → 2025-02-27 | Outpatient (CLI) | payer OTHER, SELFPAY ==
--- OUTSIDE RECORDS SUMMARY | 2025-02-27 06:13 | XMS RPT_ITS | CCD ---
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 Role Phone Paty, Abi Unavailable Carmen Friedman Unavailable Unavailable Unavailable Unavailable Paty, Abi Unavailable Gravius, Leda Unavailable Unavailable Unavailable Unavailable Charmaine, Onelia Unavailable Unavailable Gravius, Leda Unavailable Unavailable Cross, Jacey Unavailable Unavailable Paty DO, Abi Unavailable Gravius COMMUNITY EDUCATOR, Leda Unavailable Unavailable Cross TWX OPERATOR, Jacey Unavailable Unavailable Unavailable Unavailable Slarb TWX OPERATOR, Analia Unavailable Unavailable Charmaine TWX OPERATOR, Onelia Unavailable Unavailable Elder TWX OPERATOR, Philip Unavailable Unavailable [place] COMMUNITY EDUCATOR, Daja Unavailable Unavailable Rafiq MEHTA, Maryann Unavailable Unavailable Paty DO, Abi Unavailable [phone] [place] COMMUNITY EDUCATOR, Kayela Unavailable Unavailable Paty DO, Abi Attending Unavailable Paty DO, Abi Consulting Unavailable Darian TWX OPERATOR, HOLA Unavailable Unavailable Paty, Abi Primary Care Unavailable Ungnita, Rosannaus Attending Unavailable Paty, Abi Attending Unavailable Paty, Abi Referring Unavailable Paty, Abi Primary Care Unavailable Paty, Abi Attending Unavailable Paty, Abi Referring Unavailable Paty, Abi Primary Care Unavailable Paty, Abi Referring Unavailable Paty, Abi Primary Care Unavailable Paty, Abi Attending Unavailable Medications Completed/Discontinued Medications Medication Drug Class(es) Dates Sig (Normalized) Sig (Original) acetaminophen / HYDROcodone (20 sources) Opioid Agonist Start: 05-26-2014 End: 10-01-2014 take 1 tablet by mouth every week VICODIN, 5-300MG (ORAL TABLET), 5-300mgmg (Oral Tablet) (Free Text) 1 (one) Tablet 2 x week for 20 days Refills: 0 Ordered: 01-Oct-2014 Aixa Yates RN Start : 26-May-2014 End : 01-Oct-2014 Inactive Start: 05-26-2014 End: 10-01-2014 take 1 tablet by mouth every week VICODIN, 5-300MG (ORAL TABLET), 5-300mgmg (Oral Tablet) (Free Text) 1 (one) Tablet 2 x week for 20 days Refills: 0 Ordered: 01-Oct-2014 Aixa Yates LPN Start : 26-May-2014 End : 01-Oct-2014 Inactive Advocare MNS (20 sources) Advocare MNS [place] Inactive Comments: nultinutrient dietary supplements Advocare MNS [place] Active Comments: nultinutrient dietary supplements Comment on above: nultinutrient dietar y supplements amLODIPine 5 mg oral tablet (20 sources) Dihydropyridine Calcium Channel Dina Start: 2 End: 2 take 1 tablet by mouth once daily amLODIPine Besylate 5 MG Oral Tablet 1 (one) Tablet qd for 0 days Quantity: 30 {Tablet} Refills: 0 Ordered: 24-Jan-2022 Analia Guillermo LPN Start : 07-Dec-2021 End : 24-Jan-2022 Inactive Start: 07-26-2021 take 1 tablet by gonzalo th once daily amLODIPine Besylate 5 MG Oral Tablet 1 (one) Tablet qd for 0 days Quantity: 30 {Tablet} Refills: 6 Ordered: 26-Jul-2021 Abi Newman DO, DO, Kathleen Start : 26-Jul-2021 Active Start: 10-28-2020 take 1 tablet by gonzalo th once daily amLODIPine Besylate 5 MG Oral Tablet 1 (one) Tablet qd for 0 days Quantity: 30 {Tablet} Refills: 6 Ordered: 28-Oct-2020 Leda Barron CMA Start : 28-Oct-2020 Active Start: 04-15-2020 take 1 tablet by gonzalo th once daily amLODIPine Besylate 5 MG Oral Tablet 1 (one) Tablet qd for 0 days Quantity: 30 {Tablet} Refills: 6 Ordered: 15-Apr-2020 Abi Newman DO, DO, Kathleen Start : 15-Apr-2020 Active Start: 08-19-2019 take 1 tablet by gonzalo th once daily amLODIPine Besylate 5 MG Oral Tablet 1 (one) Tablet qd for 0 days Quantity: 30 {Tablet} Refills: 6 Ordered: 19-Aug-2019 Aixa Yates RN Start : 19-Aug-2019 Active Start: 06-19-2019 take 1 tablet by gonzalo th once daily amLODIPine Besylate 5 MG Oral Tablet 1 (one) Tablet qd for 0 days Quantity: 30 {Tablet} Refills: 6 Ordered: 19-Jun-2019 Leda Barron CMA Start : 19-Jun-2019 Active Start: 02-11-2019 take 1 tablet by gonzalo th once daily amLODIPine Besylate 5 MG Oral Tablet 1 (one) Tablet qd for 0 days Quantity: 30 {Tablet} Refills: 6 Ordered: 11-Feb-2019 Aib Newman DO, DO, Kathleen Start : 11-Feb-2019 Active Start: 06-18-2018 take 1 tablet by gonzalo th once daily AmLODIPine Besylate 5 MG Oral Tablet 1 (one) Tablet qd for 0 days Quantity: 30 {Tablet} Refills: 6 Ordered: 18-Jun-2018 Abi Newman DO, DO, Kathleen Start : 18-Jun-2018 Active Start: 06-08-2018 take 1 tablet by gonzalo th once daily AmLODIPine Besylate 5 MG Oral Tablet 1 (one) Tablet qd for 0 days Quantity: 30 {Tablet} Refills: 6 Ordered: 08-Jun-2018 Abi Newman DO, DO, Kathleen Start : 08-Jun-2018 Active amoxicillin 875 mg / clavulanate 125 mg oral tablet (20 sources) Penicillin-class Antibacterial Start: 07-13-2016 End: 11-21-2016 take 1 tablet by mouth twice daily Amoxicillin-Pot Clavulanate 875-125 MG Oral Tablet 1 (one) Tablet bid for 0 days Quantity: 20 {Tablet} Refills: 0 Ordered: 21-Nov-2016 Aixa Yates RN Start : 13-Jul-2016 End : 21-Nov-2016 Inactive ascorbic acid 500 mg oral capsule (20 sources) Start: 08-26-2013 End: 01-24-2022 take 1 capsule by mouth once daily Vitamin C 500 MG Oral Capsule 1 (one) Capsule qd for 30 days Refills: 0 Ordered: 24-Jan-2022 Analia Guillermo LPN Start : 26-Aug-2013 End : 24-Jan-2022 Inactive ascorbic acid 60 mg / beta carotene 5000 unt / copper sulfate 40 mg / dl-alpha tocopheryl acetate 30 unt / sodium selenite 0.04 mg / zinc oxide 40 mg oral tablet (10 sources) Vitamin C Start: 08-26-2013 take 1 tablet by mouth once daily CENTRUM SILVER (Oral Tablet) 1 (one) Tablet qd for 30 days Refills: 0 Ordered: 26-Aug-2013 Abi Newman DO, DO, Kathleen Start : 26-Aug-2013 Active aspirin 81 mg delayed release oral tablet (20 sources) Nonsteroidal Anti-inflammatory Drug Start: 08-26-2013 take 1 tablet by mouth once daily ASPIRIN EC LO-DOSE, 81MG (Oral Tablet Delayed Release) 1 (one) Tablet DR qd for 30 days Refills: 0 Ordered: 26-Aug-2013 Abi Newman DO, DO, Kathleen Start : 26-Aug-2013 Active atorvastatin 10 mg oral tablet (20 sources) HMG-CoA Reductase Inhibitor Start: 04-05-2023 take 1 tablet by mouth once daily atorvastatin 10 mg oral tablet 1 (one) Tablet qd for 90 days Quantity: 90 {Tablet} Refills: 3 Ordered: 05-Apr-2023 Abi Newman DO, DO, Kathleen Start : 05-Apr-2023 Active Comments: Mail order. Start: 01-10-2022 take 1 tablet by gonzalo th once daily Atorvastatin Calcium 10 MG Oral Tablet 1 (one) Tablet qd for 30 days Quantity: 30 {Tablet} Refills: 5 Ordered: 10-Jan-2022 Abi Newman DO, DO, Kathleen Start : 10-Jan-2022 Active Start: 05-03-2021 take 1 tablet by gonzalo th once daily Atorvastatin Calcium 10 MG Oral Tablet 1 (one) Tablet qd for 30 days Quantity: 30 {Tablet} Refills: 5 Ordered: 03-May-2021 Leda Barron CMA Start : 03-May-2021 Active Start: 10-28-2020 take 1 tablet by gonzalo th once daily Atorvastatin Calcium 10 MG Oral Tablet 1 (one) Tablet qd for 30 days Quantity: 30 {Tablet} Refills: 5 Ordered: 28-Oct-2020 Leda Barron CMA Start : 28-Oct-2020 Active Start: 04-15-2020 take 1 tablet by gonzalo th once daily Atorvastatin Calcium 10 MG Oral Tablet 1 (one) Tablet qd for 30 days Quantity: 30 {Tablet} Refills: 5 Ordered: 15-Apr-2020 Paty DO, Abi Paty DO, Abi Start : 15-Apr-2020 Active Start: 01-07-2020 take 1 tablet by gonzalo th once daily Atorvastatin Calcium 10 MG Oral Tablet 1 (one) Tablet qd for 30 days Quantity: 30 {Tablet} Refills: 5 Ordered: 07-Jan-2020 Paty DO, Abi Paty DO, Abi Start : 07-Jan-2020 Active Start: 06-19-2019 take 1 tablet by gonzalo th once daily Atorvastatin Calcium 10 MG Oral Tablet 1 (one) Tablet qd for 30 days Quantity: 30 {Tablet} Refills: 5 Ordered: 19-Jun-2019 Leda Barron CMA Start : 19-Jun-2019 Active Start: 01-08-2019 take 1 tablet by gonzalo th once daily Atorvastatin Calcium 10 MG Oral Tablet 1 (one) Tablet qd for 30 days Quantity: 30 {Tablet} Refills: 5 Ordered: 08-Jan-2019 Paty DO, Abi Paty DO, Abi Start : 08-Jan-2019 Active Start: 06-18-2018 take 1 tablet by gonzalo th once daily Atorvastatin Calcium 10 MG Oral Tablet 1 (one) Tablet qd for 30 days Quantity: 30 {Tablet} Refills: 5 Ordered: 18-Jun-2018 Paty DO, Abi Paty DO, Abi Start : 18-Jun-2018 Active Start: 05-09-2018 take 1 tablet by gonzalo th once daily Atorvastatin Calcium 20 MG Oral Tablet 1 (one) Tablet qd for 30 days Quantity: 30 {Tablet} Refills: 5 Ordered: 09-May-2018 Paty DO, Abi Paty DO, Abi Start : 09-May-2018 Active Comment on above: Mail order. Centrum Silver (1 source) Start: 2013 take 1 tablet by mouth once daily CENTRUM SILVER (Oral Tablet) 1 (one) Tablet qd for 30 days Refills: 0 Ordered: 26-Aug-2013 Paty DO, Abi Paty DO, Abi Start : 26-Aug-2013 Active CENTRUM SILVER (Oral Tablet) (20 sources) Start: 2013 take 1 tablet by mouth once daily CENTRUM SILVER (Oral Tablet) 1 (one) Tablet qd for 30 days Refills: 0 Ordered: 26-Aug-2013 Abi Newman DO, DO, Kathleen Start : 26-Aug-2013 Active cyclobenzaprine hydrochloride 10 mg oral tablet (20 sources) Muscle Relaxant Start: 2018 End: 2018 take 1 tablet by mouth three times daily as needed for muscle spasms Cyclobenzaprine HCl 10 MG Oral Tablet 1 (one) Tablet tid prn muscle spasm for 0 days Quantity: 30 {Tablet} Refills: 0 Ordered: 19-Jun-2019 Leda Barron CMA Start : 08-Feb-2019 End : 19-Jun-2019 Inactive Comments: can cause sedation - no driving Comment on above: can cause sedation - no driving docusate sodium 100 mg oral capsule (20 sources) take 1 capsule by mouth once daily Stool Softener 100 MG Oral Capsule 1 daily (100 MG) Active Fish Oil Double Strength 1200 MG Oral Capsule (13 sources) Start: 2013 End: 2021 take 1 capsule by mouth once daily Fish Oil Double Strength 1200 MG Oral Capsule 1 (one) Capsule qd for 30 days Refills: 0 Ordered: 24-Jan-2022 Analia Guillermo LPN Start : 26-Aug-2013 End : 24-Jan-2022 Inactive FISH OIL DOUBLE STRENGTH, 1200MG (Oral Capsule) (14 sources) Start: 2013 take 1 capsule by mouth once daily FISH OIL DOUBLE STRENGTH, 1200MG (Oral Capsule) 1 (one) Capsule qd for 30 days Refills: 0 Ordered: 26-Aug-2013 Abi Newman DO, DO, Kathleen Start : 26-Aug-2013 Active Glucosamine 1500 Complex Oral Capsule (20 sources) take 1 capsule by mouth once daily Glucosamine 1500 Complex Oral Capsule 2000mg daily Active hydroCHLOROthiazide 25 mg oral tablet (20 sources) Thiazide Diuretic Start: 2020 End: 2021 take 1 tablet by mouth once daily hydroCHLOROthiazide 25 MG Oral Tablet 1 (one) Tablet qd for 0 days Quantity: 30 {Tablet} Refills: 2 Ordered: 24-Jan-2022 Analia Guillermo LPN Start : 04-Aug-2021 End : 24-Jan-2022 Inactive Start: 02-03-2021 take 1 tablet by gonzalo th once daily hydroCHLOROthiazide 25 MG Oral Tablet 1 (one) Tablet qd for 0 days Quantity: 30 {Tablet} Refills: 2 Ordered: 03-Feb-2021 Paty DO, Abi Paty DO, Abi Start : 03-Feb-2021 Active Start: 02-03-2021 take 1 tablet by gonzalo th once daily hydroCHLOROthiazide 25 MG Oral Tablet 1 (one) Tablet qd for 0 days Quantity: 30 {Tablet} Refills: 2 Ordered: 03-Feb-2021 Paty DO, Abi Paty DO Abi Start : 03-Feb-2021 Active Start: 10-28-2020 take 1 tablet by gonzalo th once daily hydroCHLOROthiazide 25 MG Oral Tablet 1 (one) Tablet qd for 0 days Quantity: 30 {Tablet} Refills: 2 Ordered: 28-Oct-2020 Leda Barron CMA Start : 28-Oct-2020 Active Start: 08-10-2020 take 1 tablet by gonzalo th once daily hydroCHLOROthiazide 25 MG Oral Tablet 1 (one) Tablet qd for 0 days Quantity: 30 {Tablet} Refills: 2 Ordered: 10-Aug-2020 Paty DO, Abi Paty DO Abi Start : 10-Aug-2020 Active Start: 04-15-2020 take 1 tablet by gonzalo th once daily hydroCHLOROthiazide 25 MG Oral Tablet 1 (one) Tablet qd for 0 days Quantity: 30 {Tablet} Refills: 2 Ordered: 15-Apr-2020 Paty DO, Abi Paty DO Abi Start : 15-Apr-2020 Active Start: 02-10-2020 take 1 tablet by gonzalo th once daily hydroCHLOROthiazide 25 MG Oral Tablet 1 (one) Tablet qd for 0 days Quantity: 30 {Tablet} Refills: 2 Ordered: 10-Feb-2020 Paty DO, Abi Paty DO Abi Start : 10-Feb-2020 Active lisinopril 10 mg oral tablet (20 sources) Angiotensin Converting Enzyme Inhibitor Start: 04-05-2023 take 1 tablet by mouth once daily lisinopriL 10 mg oral tablet 1 (one) Tablet qd for 90 days Quantity: 90 {Tablet} Refills: 3 Ordered: 05-Apr-2023 Paty DO, Abi Paty DO Abi Start : 05-Apr-2023 Active Comments: Mail order. Start: 11-01-2022 take 1 tablet by gonzalo th once daily lisinopriL 10 mg oral tablet 1 (one) Tablet qd for 0 days Quantity: 30 {Tablet} Refills: 6 Ordered: 01-Nov-2022 Paty DO, Abi Paty DO Abi Start : 01-Nov-2022 Active Start: 09-28-2022 take 1 tablet by gonzalo th once daily lisinopriL 10 mg oral tablet 1 (one) Tablet qd for 0 days Quantity: 30 {Tablet} Refills: 0 Ordered: 28-Sep-2022 Paty DO, Abi Payt DO Abi Start : 28-Sep-2022 Active Start: 05-26-2022 take 1 tablet by gonzalo th once daily Lisinopril 10 MG Oral Tablet 1 (one) Tablet qd for 0 days Quantity: 30 {Tablet} Refills: 3 Ordered: 26-May-2022 Paty DO, Abi Paty DO Abi Start : 26-May-2022 Active Start: 01-25-2022 take 1 tablet by gonzalo th once daily Lisinopril 10 MG Oral Tablet 1 (one) Tablet qd for 0 days Quantity: 30 {Tablet} Refills: 3 Ordered: 25-Jan-2022 Paty DO, Abi Paty DO Abi Start : 25-Jan-2022 Active Start: 01-24-2022 take 0.5 tablet by [facility] once daily Lisinopril 20 MG Oral Tablet 1/2 Tablet qd for 0 days Quantity: 30 {Tablet} Refills: 3 Ordered: 24-Jan-2022 Paty DO, Abi Paty DO Abi Start : 24-Jan-2022 Active Start: 07-26-2021 take 1 tablet by gonzalo once daily Lisinopril 20 MG Oral Tablet 1 (one) Tablet qd for 0 days Quantity: 60 {Tablet} Refills: 3 Ordered: 26-Jul-2021 Paty DO, Abi Paty DO Abi Start : 26-Jul-2021 Active Start: 06-18-2018 End: 06-18-2018 take 1 tablet by mouth once daily Lisinopril 10 MG Oral Tablet 1 (one) Tablet qd for 0 days Quantity: 60 {Tablet} Refills: 3 Ordered: 18-Jun-2018 Abi Newman DO, DO, Kathleen Start : 18-Jun-2018 End : 18-Jun-2018 Discontinued Start: 12-04-2017 take 1 tablet by gonzalo once daily Lisinopril 10 MG Oral Tablet 1 (one) Tablet qd for 0 days Quantity: 60 {Tablet} Refills: 3 Ordered: 04-Dec-2017 Abi Newman DO, DO, Kathleen Start : 04-Dec-2017 Active Comment on above: Mail order. meloxicam 15 mg oral tablet (20 sources) Nonsteroidal Anti-inflammatory Drug Start: 9 End: 9 take 1 tablet by mouth once daily at mealtime Meloxicam 15 MG Oral Tablet 1 (one) Tablet qd with food for 0 days Quantity: 30 {Tablet} Refills: 0 Ordered: 19-Jun-2019 Leda Barron CMA Start : 08-Feb-2019 End : 19-Jun-2019 Inactive omega-3 acid ethyl esters ([facility]) 1200 mg oral capsule (12 sources) Start: 4 take 1 capsule by mouth once daily FISH OIL DOUBLE STRENGTH, 1200MG (Oral Capsule) 1 (one) Capsule qd for 30 days Refills: 0 Ordered: 26-Aug-2013 Aib Newman DO, DO, Kathleen Start : 26-Aug-2013 Active piroxicam 10 mg oral capsule (20 sources) Nonsteroidal Anti-inflammatory Drug Start: 4 End: 6 take 1 capsule by mouth once daily FELDENE, 10MG (Oral Capsule) 1 (one) Capsule Capsule qd for 30 days Refills: 0 Ordered: 11-Nov-2015 Aixa Yates RN Start : 26-May-2014 End : 11-Nov-2015 Inactive rosuvastatin calcium 10 mg oral tablet (20 sources) HMG-CoA Reductase Inhibitor Start: 6 End: 6 take 1 tablet by mouth once daily CRESTOR, 10MG (Oral Tablet) 1 Tablet qd for 0 days Quantity: 30 {Tablet} Refills: 6 Ordered: 19-Aug-2015 Eddie Newman DOeen PatyEddie albrecht DOeen Start : 19-Aug-2015 End : 19-Aug-2015 Inactive Stool Softener 100 MG Oral Capsule (8 sources) take 1 capsule by mouth once daily Stool Softener 100 MG Oral Capsule 1 daily (100 MG) Active varenicline 1 mg oral tablet (20 sources) Partial Cholinergic Nicotinic Agonist Start: End: take 1 tablet by mouth twice daily Chantix Continuing Month Siva 1 MG Oral Tablet 1 (one) Tablet bid for 30 days Quantity: 60 {Tablet} Refills: 0 Ordered: 27-Nov-2020 Paty Abi PatyEddie albrecht DOeen Start : 27-Nov-2020 End : 27-Dec-2020 Inactive Start: 10-28-2020 take 1 tablet by gonzalo th twice daily Chantix Starting Month Siva 0.5 MG X 11 & 1 MG X 42 Oral Tablet 1 (one) Tablet bid for 0 days Quantity: 1 {Package} Refills: 0 Ordered: 28-Oct-2020 PatyAbi albrecht DO PatyEddie albrecht DOeen Start : 28-Oct-2020 Active Start: 06-19-2019 End: 10-16-2019 take 1 tablet by mouth twice daily Chantix Continuing Month Siva 1 MG Oral Tablet 1 (one) Tablet bid for 30 days Quantity: 60 {Tablet} Refills: 3 Ordered: 16-Oct-2019 Charmaine ANITAOnelia Start : 22-Jul-2019 End : 16-Oct-2019 Inactive Start: 05-29-2017 End: 12-04-2017 take 1 tablet by mouth once daily Chantix Starting Month Siva 0.5 MG X 11 & 1 MG X 42 Oral Tablet 1 (one) Tablet qd for 0 days Quantity: 1 {Package} Refills: 0 Ordered: 04-Dec-2017 Carmen Friedman Start : 29-May-2017 End : 04-Dec-2017 Discontinued Start: 05-29-2017 End: 12-04-2017 take 1 tablet by mouth once daily Chantix Starting Month Siav 0.5 MG X 11 & 1 MG X 42 Oral Tablet 1 (one) Tablet qd for 0 days Quantity: 1 {Package} Refills: 0 Ordered: 04-Dec-2017 Carmen Friedman Start : 29-May-2017 End : 04-Dec-2017 Discontinued NEGATED: Highlighted row has not occurred!drug or medication (15 sources) No Known Histori nury Medications NEGATED: Highlighted row has not occurred!No Known Historical Medications (16 sources) No Known Histori nury Medications Problems Active Problems Problem Classification Problem Date Documented Da te Episodic/Chronic Abdominal hernia (20 sources) Hernia of abdominal cavity; Translations: [Intra-abdominal hernia] 12-19-2018 Episodic Comment on above: diatheis hernia- asx -reassurrance given fiollow and if ever gets symptomatic will call Administrative/social admission (20 sources) Counseling procedure with explicit context; Translations: [Patient encounter status] 12-04-2017 Episodic Anxiety disorders (20 sources) Acute stress disorder; Translations: [Stress reaction] Resolved: 05-29-2017 05-29-2017 Chronic Disorders of lipid metabolism (20 sources) Hyperlipidemia; Translations: [Hyperlipidemia] Onset: 02-20-2024 12-04-2017 Chronic Comment on above: try lower dose --adn watch #-- use for prevention? try lower dose ( DOI NGQOD) --adn watch #-- use for prevention?WILL STOP NOW TO SEE HOW # GO Essential hypertension (20 sources) Benign essential hypertension; Translations: [Benign essential HTN] 12-04-2017 Chronic Comment on above: educated end organ s creening -- rec eye exam -- will update lab/urine & do ekg educated end organ s creening -- rec eye exam -- will update lab/urine & do ekgpt lost 25# and exercising so wants to try going off meds Immunizations and screening for infectious disease (20 sources) Need for prophylactic vaccination and inoculation against influenza; Translations: [Needs influenza immunization] Resolved: 04-05-2023 04-15-2020 Episodic Inflammation, infection of eye (20 sources) External hordeolum; Translations: [Stye, right] Resolved: 11-21-2016 11-21-2016 Episodic Nonspecific chest pain (20 sources) Atypical chest pain; Translations: [Chest pain, atypical] Resolved: 01-24-2022 08-23-2021 Episodic Nutritional deficiencies (20 sources) Vitamin D deficiency; Translations: [Vitamin D deficiency] Onset: 09-17-2024 09-23-2021 Chronic Comment on above: take extra 2k DAILY Nutritional deficiencies (20 sources) Calcium deficiency; Translations: [Calcium deficiency] Resolved: 11-11-2015 11-21-2016 Episodic Comment on above: on supplement - 1200 mg daily plus diet Other circulatory disease (20 sources) Elevated blood-pressure reading without diagnosis of hypertension; Translations: [Elevated Blood Pressure without diagnosis of Hypertension (796.2)] Episodic Other connective tissue disease (20 sources) Foot pain; Translations: [Foot pain] 12-04-2017 Episodic Comment on above: heel pain -- bone sp ur? plantar fascitis? combo of both def moving prox to achilles tendonits Other disorders of stomach and duodenum (20 sources) Indigestion; Translations: [Indigestion] 08-23-2021 Episodic Comment on above: could try pepic otc to see if helps Other injuries and conditions due to external causes (20 sources) Injury of muscle; Translations: [Muscle injury] 02-08-2019 Episodic Other lower respiratory disease (20 sources) Dyspnea; Translations: [SOB (shortness of breath)] Resolved: 07-27-2022 08-23-2021 Episodic Other non-traumatic joint disorders (20 sources) Shoulder pain; Translations: [Shoulder Pain (Renamed from Pain in shoulder)] Resolved: 10-01-2014 10-01-2014 Episodic Other nutritional; endocrine; and metabolic disorders (20 sources) Body mass index 30+ - obesity; Translations: [BMI 30.0-30.9,adult] Resolved: 07-05-2021 12-04-2017 Chronic Other nutritional; endocrine; and metabolic disorders (20 sources) Cholesterol level - finding; Translations: [Low HDL (under 40)] Resolved: 07-27-2022 12-04-2017 Chronic Comment on above: pt joined [employer] so will see how it increases pt joined [employer] so will see how it increases- and walking up to 4mi now twice a week Other nutritional; endocrine; and metabolic disorders (20 sources) Body mass index 25-29 - overweight; Translations: [BMI 28.0-28.9,adult] Resolved: 06-19-2019 04-15-2020 Episodic Other nutritional; endocrine; and metabolic disorders (20 sources) Overweight in adulthood with body mass index of 25 or more but less than 30; Translations: [BMI 28.0-28.9,adult] Resolved: 07-27-2022 07-27-2022 Episodic Other screening for suspected conditions (not mental disorders or infectious disease) (20 sources) Screening status; Translations: [Encounter for screening for malignant neoplasm of colon (Renamed from Special screening for malignant neoplasms, colon)] Resolved: 04-05-2023 04-15-2020 Episodic Residual codes; unclassified (9 sources) Tobacco user; Translations: [Tobacco abuse] 10-16-2019 Chronic Comment on above: went back to Residual codes; unclassified (20 sources) Family history of ischemic heart disease; Translations: [Family history of ischemic heart disease (Renamed from Fam hx-ischem heart disease)] 12-19-2018 Episodic Residual codes; unclassified (20 sources) Non-smoker; Translations: [Non-smoker] 10-28-2020 Episodic Residual codes; unclassified (20 sources) Snuff user; Translations: [Snuff user] 12-19-2018 Episodic Residual codes; unclassified (20 sources) Tobacco user; Translations: [Tobacco abuse] Resolved: 05-03-2021 10-28-2020 Episodic Comment on above: went back to Sprains and strains (20 sources) Strain of muscle of right thigh; Translations: [Muscle strain of right thigh, initial encounter] 10-28-2020 Episodic Unclassified (15 sources) Snuff user; Translations: [Snuff user] 12-04-2017 Chronic Unclassified (18 sources) Needs influenza immunization; Translations: [Family history of ischemic heart disease] 12-04-2017 Episodic Unclassified (20 sources) Unclassified (20 sources) Benign essential HTN Unclassified (20 sources) BMI 31.0-31.9,adult Unclassified (20 sources) Snuff user Unclassified (20 sources) Nutritional counseling Unclassified (20 sources) Encounter for tobacco use cessation counseling; Translations: [Patient encounter status] 12-04-2017 Unclassified (20 sources) Elevated Blood Pressure without diagnosis of Hypertension (796.2) Unclassified (20 sources) Encounter for screening for malignant neoplasm of colon (Renamed from Special screening for malignant neoplasms, colon); Translations: [Screening status] 12-04-2017 Unclassified (20 sources) SCREENING FOR CANCER OF THE PROSTATE (V76.44) Unclassified (20 sources) Screening for prostate cancer; Translations: [Screening status] 12-04-2017 Unclassified (20 sources) Low HDL (under 40) Unclassified (20 sources) BMI 30.0-30.9,adult Unclassified (20 sources) Non-smoker; Translations: [Non-smoker] 12-19-2018 Unclassified (20 sources) BMI 29.0-29.9,adult Unclassified (20 sources) BMI 28.0-28.9,adult Unclassified (20 sources) Tobacco abuse Unclassified (5 sources) BMI 27.0-27.9,adult Past or Other Problems Problem Classification Problem Date Documented Date Episodic/Chronic Abdominal pain (1 source) Right lower quadrant pain; Translations: [Right lower quadrant pain] Onset: 04-05-2024 Episodic Coronary atherosclerosis and other heart disease (20 [...] Results Test Name Value Interpretation Reference Range Facility CBC W/Diff, Automatedon 08-14 Absolute Lymph 1.86 X10 3/uL Normal 0.83-4.51 [facility] Comment on above: Performed By: #### L 501.9520, L506.1000, L100.0100, L500.4050, L400.0001, L502.0250, L500.4100 #### [facility] [address] [place], [address] Absolute Neut 2.5 X10 3/uL Normal 2.0-7.7 [facility] Comment on above: Performed By: #### L 501.9520, L506.1000, L100.0100, L500.4050, L400.0001, L502.0250, L500.4100 #### [facility] [address] [place], [address] Basophils/100 WBC (Bld) 1.2 % High 0-1 [facility] Comment on above: Performed By: #### L 501.9520, L506.1000, L100.0100, L500.4050, L400.0001, L502.0250, L500.4100 #### [facility] [address] [place], [address] Eosinophils/100 WBC (Bld) 2.5 % Normal 0-5 [facility] Comment on above: Performed By: #### L 501.9520, L506.1000, L100.0100, L500.4050, L400.0001, L502.0250, L500.4100 #### [facility] [address] [place], [address] Erythrocyte distribution width (RBC) [Ratio] 11.8 % Normal 11.6-14.6 [facility] Comment on above: Performed By: #### L 501.9520, L506.1000, L100.0100, L500.4050, L400.0001, L502.0250, L500.4100 #### [facility] [address] [place], [address] Hematocrit (Bld) [Volume fraction] 41.5 % Normal 40-54 [facility] Comment on above: Performed By: #### L 501.9520, L506.1000, L100.0100, L500.4050, L400.0001, L502.0250, L500.4100 #### [facility] [address] [place], [address] Hemoglobin (Bld) [Mass/Vol] 14.2 g/dL Normal 13.0-16.5 [facility] Comment on above: Performed By: #### L 501.9520, L506.1000, L100.0100, L500.4050, L400.0001, L502.0250, L500.4100 #### [facility] [address] [facility] [place], [address] IG% 0.800 Normal 0.0-0.9 [facility] Comment on above: Result Comment: IG% - Immature Granulocytes (promyelocytes, myelocytes and metamyelocytes) > 1% indicates that a LEFT SHIFT is Present. Performed By: #### L 501.9520, L506.1000, L100.0100, L500.4050, L400.0001, L502.0250, L500.4100 #### [facility] [address] [facility] [place], [address] Lymphocytes/100 WBC (Bld) 36.1 % Normal 19-41 [facility] Comment on above: Performed By: #### L 501.9520, L506.1000, L100.0100, L500.4050, L400.0001, L502.0250, L500.4100 #### [facility] [address] [place], [address] MCH (RBC) [Entitic mass] 32.0 pg Normal 27.0-32.0 [facility] Comment on above: Performed By: #### L 501.9520, L506.1000, L100.0100, L500.4050, L400.0001, L502.0250, L500.4100 #### [facility] [address] [place], [address] MCHC (RBC) [Mass/Vol] 34.2 g/dL Normal 32-36 [facility] Comment on above: Performed By: #### L 501.9520, L506.1000, L100.0100, L500.4050, L400.0001, L502.0250, L500.4100 #### [facility] [address] [place], [address] MCV (RBC) [Entitic vol] 93.5 fL Normal 80-94 [facility] Comment on above: Performed By: #### L 501.9520, L506.1000, L100.0100, L500.4050, L400.0001, L502.0250, L500.4100 #### [facility] [address] [place], [address] Monocytes/100 WBC (Bld) 11.8 % High 0-10 [facility] Comment on above: Performed By: #### L 501.9520, L506.1000, L100.0100, L500.4050, L400.0001, L502.0250, L500.4100 #### [facility] [address] [place], [address] Neutrophils/100 WBC (Bld) 47.6 % Normal 47-70 [facility] Comment on above: Performed By: #### L 501.9520, L506.1000, L100.0100, L500.4050, L400.0001, L502.0250, L500.4100 #### [facility] [address] [place], [address] Nucleated RBC (Bld) [#/Vol] 0 10*3/uL Normal 0-5 [facility] Comment on above: Performed By: #### L 501.9520, L506.1000, L100.0100, L500.4050, L400.0001, L502.0250, L500.4100 #### [facility] [address] [place], [address] Platelet mean volume (Bld) [Entitic vol] 9.7 fL Normal 6.2-12.0 [facility] Comment on above: Performed By: #### L 501.9520, L506.1000, L100.0100, L500.4050, L400.0001, L502.0250, L500.4100 #### [facility] [address] [place], [address] Platelets (Bld) [#/Vol] 276 10*3/uL Normal 150-450 [facility] Comment on above: Performed By: #### L 501.9520, L506.1000, L100.0100, L500.4050, L400.0001, L502.0250, L500.4100 #### [facility] [address] [place], [address] RBC (Bld) [#/Vol] 4.44 10*6/uL Low 4.6-6.2 [facility] Comment on above: Performed By: #### L 501.9520, L506.1000, L100.0100, L500.4050, L400.0001, L502.0250, L500.4100 #### [facility] [address] [place], [address] RDW SD 39.9 fl Normal 35.1-43.9 [facility] Comment on above: Performed By: #### L 501.9520, L506.1000, L100.0100, L500.4050, L400.0001, L502.0250, L500.4100 #### [facility] [address] [place], [address] WBC (Bld) [#/Vol] 5.2 10*3/uL Normal 4.4-11.0 [facility] Comment on above: Performed By: #### L 501.9520, L506.1000, L100.0100, L500.4050, L400.0001, L502.0250, L500.4100 #### [facility] [address] [place], [address] Comprehensive Metabolic Prof ilon 08-28-2024 Albumin [Mass/Vol] 3.9 g/dL Normal 3.2-5.0 [facility] Comment on above: Performed By: #### L 501.9520, L506.1000, L100.0100, L500.4050, L400.0001, L502.0250, L500.4100 #### [facility] [address] [place], [address] Albumin/Globulin [Mass ratio] 1.0 {ratio} Normal 0.9-2.4 [facility] Comment on above: Performed By: #### L 501.9520, L506.1000, L100.0100, L500.4050, L400.0001, L502.0250, L500.4100 #### [facility] [address] [place], [address] ALK P 100 U/L Normal 45-117 [facility] Comment on above: Performed By: #### L 501.9520, L506.1000, L100.0100, L500.4050, L400.0001, L502.0250, L500.4100 #### [facility] [address] [place], [address] ALT [Catalytic activity/Vol] 43 U/L Normal 16-61 [facility] Comment on above: Performed By: #### L 501.9520, L506.1000, L100.0100, L500.4050, L400.0001, L502.0250, L500.4100 #### [facility] [address] [place], [address] AST [Catalytic activity/Vol] 22 U/L Normal 15-37 [facility] Comment on above: Performed By: #### L 501.9520, L506.1000, L100.0100, L500.4050, L400.0001, L502.0250, L500.4100 #### [facility] [address] [place], [address] Bilirubin [Mass/Vol] 0.80 mg/dL Normal 0.20-1.00 [facility] Comment on above: Result Comment: For patients on eltrombopag therapy, use of Dimension [place] TBIL is not recommended. Performed By: #### L 501.9520, L506.1000, L100.0100, L500.4050, L400.0001, L502.0250, L500.4100 #### [facility] [address] [place], [address] BUN/CRE 25.7 RATIO High 10-20 [facility] Comment on above: Performed By: #### L 501.9520, L506.1000, L100.0100, L500.4050, L400.0001, L502.0250, L500.4100 #### [facility] [address] [place], [address] CA,Total 9.2 mg/dL Normal 8.5-10.1 [facility] Comment on above: Performed By: #### L 501.9520, L506.1000, L100.0100, L500.4050, L400.0001, L502.0250, L500.4100 #### [facility] [address] [place], [address] Chloride [Moles/Vol] 103 mmol/L Normal 98-107 [facility] Comment on above: Performed By: #### L 501.9520, L506.1000, L100.0100, L500.4050, L400.0001, L502.0250, L500.4100 #### [facility] [address] [place], [address] CO2 [Moles/Vol] 28.0 mmol/L Normal 21.0-32.0 [facility] Comment on above: Performed By: #### L 501.9520, L506.1000, L100.0100, L500.4050, L400.0001, L502.0250, L500.4100 #### [facility] [address] [place], [address] Creatinine [Mass/Vol] 0.82 mg/dL Normal 0.70-1.30 [facility] Comment on above: Result Comment: The validity of the calculated GFR GFRAA in patients over 70 years has not been determined. Clinical correlation is essential. Performed By: #### L 501.9520, L506.1000, L100.0100, L500.4050, L400.0001, L502.0250, L500.4100 #### [facility] [address] [place], [address] EST GFR - AA 123 mL/min Normal >60 [facility] Comment on above: Result Comment: Afri can [place] GFR Calc Performed By: #### L 501.9520, L506.1000, L100.0100, L500.4050, L400.0001, L502.0250, L500.4100 #### [facility] [address] [place], [address] GAP 3 Low 5-15 [facility] Comment on above: Performed By: #### L 501.9520, L506.1000, L100.0100, L500.4050, L400.0001, L502.0250, L500.4100 #### [facility] [address] [place], [address] GFR/1.73 sq M.predicted among non-blacks MDRD (S/P/Bld) [Vol rate/Area] 101 mL/min/{1.73_m2} Normal >60 [facility] Comment on above: Result Comment: Non- GFR Calc Performed By: #### L 501.9520, L506.1000, L100.0100, L500.4050, L400.0001, L502.0250, L500.4100 #### [facility] [address] [place], [address] Globulin (S) [Mass/Vol] 3.8 g/dL Normal 2.2-4.2 [facility] Comment on above: Performed By: #### L 501.9520, L506.1000, L100.0100, L500.4050, L400.0001, L502.0250, L500.4100 #### [facility] [address] [place], [address] Glucose [Mass/Vol] 97 mg/dL Normal 74-106 [facility] Comment on above: Performed By: #### L 501.9520, L506.1000, L100.0100, L500.4050, L400.0001, L502.0250, L500.4100 #### [facility] [address] [place], [address] Potassium [Moles/Vol] 4.1 mmol/L Normal 3.5-5.1 [facility] Comment on above: Performed By: #### L 501.9520, L506.1000, L100.0100, L500.4050, L400.0001, L502.0250, L500.4100 #### [facility] [address] [place], [address] Sodium [Moles/Vol] 134 mmol/L Low 136-145 [facility] Comment on above: Performed By: #### L 501.9520, L506.1000, L100.0100, L500.4050, L400.0001, L502.0250, L500.4100 #### [facility] [address] [place], [address] T PROT 7.7 g/dL Normal 6.4-8.2 [facility] Comment on above: Performed By: #### L 501.9520, L506.1000, L100.0100, L500.4050, L400.0001, L502.0250, L500.4100 #### [facility] [address] [place], [address] Urea nitrogen [Mass/Vol] 21 mg/dL High 7-18 [facility] Comment on above: Performed By: #### L 501.9520, L506.1000, L100.0100, L500.4050, L400.0001, L502.0250, L500.4100 #### [facility] [address] [place], [address] Lipid Profileon 08-28-2024 Cholesterol [Mass/Vol] 209 mg/dL High 200 [facility] Comment on above: Result Comment: <200 mg/dL Desirable 200-240 mg/dL Borderline >240 mg/dL High Risk Performed By: #### L 501.9520, L506.1000, L100.0100, L500.4050, L400.0001, L502.0250, L500.4100 #### [facility] [address] [place], [address] Cholesterol in HDL [Mass/Vol] 49 mg/dL Normal [facility] Comment on above: Result Comment: The drugs N-Acetylcysteine and Metamizole may falsely depress this assay. Reference Range HDL <40 mg/dL Low HDL Cholesterol HDL >or= 60 mg/dL High HDL Cholesterol Performed By: #### L 501.9520, L506.1000, L100.0100, L500.4050, L400.0001, L502.0250, L500.4100 #### [facility] [address] [place], [address] Cholesterol in LDL [Mass/Vol] 131 mg/dL High 0-130 [facility] Comment on above: Performed By: #### L 501.9520, L506.1000, L100.0100, L500.4050, L400.0001, L502.0250, L500.4100 #### [facility] [address] [place], [place], [id number] ([phone]) Cholesterol in VLDL [Mass/Vol] 29 mg/dL Normal 5-40 [facility] Comment on above: Performed By: #### L 501.9520, L506.1000, L100.0100, L500.4050, L400.0001, L502.0250, L500.4100 #### [facility] [address] [place], [place], [id number] ([phone]) Triglyceride [Mass/Vol] 143 mg/dL Normal [facility] Comment on above: Result Comment: The drugs N-Acetylcysteine and Metamizole may falsely depress this assay. Serum Triglycerides Reference Interval Normal <150 mg/dL Borderline high 150 - 199 mg/dL High 200 - 499 mg/dL Very High > or = 500 mg/dL Performed By: #### L 501.9520, L506.1000, L100.0100, L500.4050, L400.0001, L502.0250, L500.4100 #### [facility] [address] [place], [place], [id number] Microalb:Creat Ratio,Random URon 08-28-2024 Creatinine [Mass/Vol] 98.90 mg/dL Normal NO RANGE EST. [facility] Comment on above: Performed By: #### L 501.9520, L506.1000, L100.0100, L500.4050, L400.0001, L502.0250, L500.4100 #### [facility] [address] [place], [address] MALB:CRE 13.7 mg/g CRE Normal <30 mg/g CRE [facility] Comment on above: Performed By: #### L 501.9520, L506.1000, L100.0100, L500.4050, L400.0001, L502.0250, L500.4100 #### [facility] [address] [place], [address] MICROALBUMIN,UR 13.5 mg/L Normal NO RANGE EST. [facility] Comment on above: Performed By: #### L 501.9520, L506.1000, L100.0100, L500.4050, L400.0001, L502.0250, L500.4100 #### [facility] [address] [place], [address] Urinalysis, Completeon 08-28 WBC 0-5 SEEN Normal 0-5 [facility] Comment on above: Order Comment: REFLE X URINE TO CULTURE PER ORDER CLEAN CATCH Performed By: #### L 501.9520, L506.1000, L100.0100, L500.4050, L400.0001, L502.0250, L500.4100 #### [facility] [address] [place], [address] BACTERIA 0 SEEN Normal None Seen [facility] Comment on above: Order Comment: REFLE X URINE TO CULTURE PER ORDER CLEAN CATCH Performed By: #### L 501.9520, L506.1000, L100.0100, L500.4050, L400.0001, L502.0250, L500.4100 #### [facility] [address] [place], [address] EPI,SQUAMOUS 0 SEEN Normal 0-5 [facility] Comment on above: Order Comment: REFLE X URINE TO CULTURE PER ORDER CLEAN CATCH Performed By: #### L 501.9520, L506.1000, L100.0100, L500.4050, L400.0001, L502.0250, L500.4100 #### [facility] [address] [place], [address] Mucus Ql (Urine sed) 0 SEEN Normal [facility] Comment on above: Order Comment: REFLE X URINE TO CULTURE PER ORDER CLEAN CATCH Performed By: #### L 501.9520, L506.1000, L100.0100, L500.4050, L400.0001, L502.0250, L500.4100 #### [facility] [address] [place], [address] RBC 0 SEEN Normal 0-5 [facility] Comment on above: Order Comment: REFLE X URINE TO CULTURE PER ORDER CLEAN CATCH Performed By: #### L 501.9520, L506.1000, L100.0100, L500.4050, L400.0001, L502.0250, L500.4100 #### [facility] [address] [place], [address] Vitamin D,25 Hydroxyon 08-28 Vitamin D 25-OH 75.0 ng/mL Normal [facility] Comment on above: Result Comment: Aaliyah min D 25(OH) Status Range Deficiency <20 ng/mL (50nmol/L) Insufficiency 20 - 30 ng/mL (50 - 75 nmol/L) Sufficiency 30 - 100 ng/mL (75 - 250 nmol/L) Toxicity >100 ng/mL (>250 nmol/L) Performed By: #### L 501.9520, L506.1000, L100.0100, L500.4050, L400.0001, L502.0250, L500.4100 #### [facility] [address] [place], [address] Abdomen/Pelvis without Conto n 03-21-2024 Abdomen/Pelvis without Cont [facility] [address] [place] [address] Abdomen/Pelvis without Cont MR#: [id number] Acct: [id number] Name: LOPEZ MOMIN Rep #: [id number] : 1960 M 64 From: Ziyad Hua MD PCP: Dr. Abi Newman, DO Status: REG ER Study: Abdomen/Pelvis without Cont Date of Exam: 04/06 Exam# [id number] Ordering Dr: Nikai Richardson DO [id number] EXAM: CT ABDOMEN AND PELVIS WITHOUT INTRAVENOUS CONTRAST CLINICAL INDICATION: right flank pain TECHNIQUE: Helically acquired images were obtained of the abdomen and pelvis without intravenous contrast. This CT exam was performed using one or more of the following dose reduction techniques: automated exposure control, adjustment of the mA and/or kV according to patient size, and/or use of iterative reconstruction technique. RADIATION DOSE: CTDIvol = 14.47 mGy, DLP = 768.76 mGy-cm COMPARISON: No relevant prior studies available. FINDINGS: LOWER THORAX: Unremarkable. Lung bases are clear. No cardiomegaly. No significant pericardial effusion. ABDOMEN: LIVER: Unremarkable. Homogeneous. GALLBLADDER AND BILE DUCTS: Unremarkable. No calcified gallstones. No gallbladder distention or wall edema. No intra- or extrahepatic biliary ductal dilation. PANCREAS: Unremarkable. No focal cystic mass. SPLEEN: Unremarkable. Normal size without focal cystic or solid mass. ADRENALS: Unremarkable. No nodules. KIDNEYS AND URETERS: Mild right hydronephrosis with stranding of the perineural fat and mild right hydroureter secondary to recently passed 3 mm stone inside the right posterior urinary bladder wall. 2 mm and 3 mm nonobstructing stones in the right kidney. No stones or hydronephrosis in the left kidney. No suspicious right or left renal mass or cyst. Normal renal size and position. STOMACH AND BOWEL: Unremarkable. No stomach or bowel distention. No focal inflammatory change. PELVIS: APPENDIX: Normal. BLADDER: 3 mm calcified stone inside the right posterior urinary bladder wall. REPRODUCTIVE: Unremarkable as visualized. No mass. ABDOMEN and PELVIS: INTRAPERITONEAL SPACE: Unremarkable. No ascites or other fluid collection. No free air. BONES/JOINTS: Unremarkable. No suspicious lytic or blastic abnormality. SOFT TISSUES: Unremarkable. No discrete abdominal or pelvic wall hernia. VASCULATURE: Unremarkable. Abdominal aorta is non-dilated. LYMPH NODES: Unremarkable. No enlarged lymph nodes. CT/Abdomen/Pelvis without Cont IMPRESSION: 1. Mild right hydronephrosis secondary to recently passed 3 mm stone inside the right posterior urinary bladder wall. 2. A couple of nonobstructing stones in the right kidney. 3. No stones or hydronephrosis of left kidney. Electronically Signed: Ziyad Hua MD at 15:11 EDT , CC: Dr. Abi Newman, DO; Dr. Nikia Richardson DO Sales Representative Raw Fibers: Signed Normal [facility] Basic Metabolic Profile (BMP )on 03-21-2024 BUN/CRE 20.9 RATIO High 10-20 [facility] Comment on above: Performed By: #### L 501.9520, L506.1000, L100.0100, L500.4050, L400.0001, L502.0250, L500.4100 #### [facility] [address] [place], [address] CA,Total 9.2 mg/dL Normal 8.5-10.1 [facility] Comment on above: Performed By: #### L 501.9520, L506.1000, L100.0100, L500.4050, L400.0001, L502.0250, L500.4100 #### [facility] [address] [place], [address] Chloride [Moles/Vol] 105 mmol/L Normal 98-107 [facility] Comment on above: Performed By: #### L 501.9520, L506.1000, L100.0100, L500.4050, L400.0001, L502.0250, L500.4100 #### [facility] [address] [place], [address] CO2 [Moles/Vol] 26.0 mmol/L Normal 21.0-32.0 [facility] Comment on above: Performed By: #### L 501.9520, L506.1000, L100.0100, L500.4050, L400.0001, L502.0250, L500.4100 #### [facility] [address] [place], [address] Creatinine [Mass/Vol] 1.10 mg/dL Normal 0.70-1.30 [facility] Comment on above: Result Comment: The validity of the calculated GFR GFRAA in patients over 70 years has not been determined. Clinical correlation is essential. Performed By: #### L 501.9520, L506.1000, L100.0100, L500.4050, L400.0001, L502.0250, L500.4100 #### [facility] [address] [place], [address] ECRCL 75.44 ml/min Normal [facility] Comment on above: Performed By: #### L 501.9520, L506.1000, L100.0100, L500.4050, L400.0001, L502.0250, L500.4100 #### [facility] [address] [place], [address] EST GFR - AA 87 mL/min Normal >60 [facility] Comment on above: Result Comment: Afri can [place] GFR Calc Performed By: #### L 501.9520, L506.1000, L100.0100, L500.4050, L400.0001, L502.0250, L500.4100 #### [facility] [address] [place], [address] GAP 7 Normal 5-15 [facility] Comment on above: Performed By: #### L 501.9520, L506.1000, L100.0100, L500.4050, L400.0001, L502.0250, L500.4100 #### [facility] [address] [place], [address] GFR/1.73 sq M.predicted among non-blacks MDRD (S/P/Bld) [Vol rate/Area] 72 mL/min/{1.73_m2} Normal >60 [facility] Comment on above: Result Comment: Non- GFR Calc Performed By: #### L 501.9520, L506.1000, L100.0100, L500.4050, L400.0001, L502.0250, L500.4100 #### [facility] [address] [place], [address] Glucose [Mass/Vol] 108 mg/dL High 74-106 [facility] Comment on above: Result Comment: Fast ing Glucose result from 100 to 125 mg/dL suggests IMPAIRED HOMEOSTASIS per A.D.A. criteria. Performed By: #### L 501.9520, L506.1000, L100.0100, L500.4050, L400.0001, L502.0250, L500.4100 #### [facility] [address] [place], [address] Potassium [Moles/Vol] 4.1 mmol/L Normal 3.5-5.1 [facility] Comment on above: Performed By: #### L 501.9520, L506.1000, L100.0100, L500.4050, L400.0001, L502.0250, L500.4100 #### [facility] [address] [place], [address] Sodium [Moles/Vol] 138 mmol/L Normal 136-145 [facility] Comment on above: Performed By: #### L 501.9520, L506.1000, L100.0100, L500.4050, L400.0001, L502.0250, L500.4100 #### [facility] [address] [place], [address] Urea nitrogen [Mass/Vol] 23 mg/dL High 7-18 [facility] Comment on above: Performed By: #### L 501.9520, L506.1000, L100.0100, L500.4050, L400.0001, L502.0250, L500.4100 #### [facility] [address] [place], [address] CBC W/Diff, Automatedon 08-0 8-2024 Absolute Lymph 0.61 X10 3/uL Low 0.83-4.51 [facility] Comment on above: Performed By: #### L 501.9520, L506.1000, L100.0100, L500.4050, L400.0001, L502.0250, L500.4100 #### [facility] [address] [place], [address] Absolute Neut 9.1 X10 3/uL High 2.0-7.7 [facility] Comment on above: Performed By: #### L 501.9520, L506.1000, L100.0100, L500.4050, L400.0001, L502.0250, L500.4100 #### [facility] [address] [facility] [place], [address] Basophils/100 WBC (Bld) 0.3 % Normal 0-1 [facility] Comment on above: Performed By: #### L 501.9520, L506.1000, L100.0100, L500.4050, L400.0001, L502.0250, L500.4100 #### [facility] [address] [facility] [place], [address] Eosinophils/100 WBC (Bld) 0.0 % Normal 0-5 [facility] Comment on above: Performed By: #### L 501.9520, L506.1000, L100.0100, L500.4050, L400.0001, L502.0250, L500.4100 #### [facility] [address] [facility] [place], [address] Erythrocyte distribution width (RBC) [Ratio] 12.0 % Normal 11.6-14.6 [facility] Comment on above: Performed By: #### L 501.9520, L506.1000, L100.0100, L500.4050, L400.0001, L502.0250, L500.4100 #### [facility] [address] [place], [address] Hematocrit (Bld) [Volume fraction] 41.6 % Normal 40-54 [facility] Comment on above: Performed By: #### L 501.9520, L506.1000, L100.0100, L500.4050, L400.0001, L502.0250, L500.4100 #### [facility] [address] [place], [address] Hemoglobin (Bld) [Mass/Vol] 14.0 g/dL Normal 13.0-16.5 [facility] Comment on above: Performed By: #### L 501.9520, L506.1000, L100.0100, L500.4050, L400.0001, L502.0250, L500.4100 #### [facility] [address] [place], [address] IG% 0.500 Normal 0.0-0.9 [facility] Comment on above: Result Comment: IG% - Immature Granulocytes (promyelocytes, myelocytes and metamyelocytes) > 1% indicates that a LEFT SHIFT is Present. Performed By: #### L 501.9520, L506.1000, L100.0100, L500.4050, L400.0001, L502.0250, L500.4100 #### [facility] [address] [place], [address] Lymphocytes/100 WBC (Bld) 5.9 % Low 19-41 [facility] Comment on above: Performed By: #### L 501.9520, L506.1000, L100.0100, L500.4050, L400.0001, L502.0250, L500.4100 #### [facility] [address] [place], [address] MCH (RBC) [Entitic mass] 31.5 pg Normal 27.0-32.0 [facility] Comment on above: Performed By: #### L 501.9520, L506.1000, L100.0100, L500.4050, L400.0001, L502.0250, L500.4100 #### [facility] [address] [place], [address] MCHC (RBC) [Mass/Vol] 33.7 g/dL Normal 32-36 [facility] Comment on above: Performed By: #### L 501.9520, L506.1000, L100.0100, L500.4050, L400.0001, L502.0250, L500.4100 #### [facility] [address] [place], [address] MCV (RBC) [Entitic vol] 93.5 fL Normal 80-94 [facility] Comment on above: Performed By: #### L 501.9520, L506.1000, L100.0100, L500.4050, L400.0001, L502.0250, L500.4100 #### [facility] [address] [place], [address] Monocytes/100 WBC (Bld) 5.6 % Normal 0-10 [facility] Comment on above: Performed By: #### L 501.9520, L506.1000, L100.0100, L500.4050, L400.0001, L502.0250, L500.4100 #### [facility] [address] [place], [address] Neutrophils/100 WBC (Bld) 87.7 % High 47-70 [facility] Comment on above: Performed By: #### L 501.9520, L506.1000, L100.0100, L500.4050, L400.0001, L502.0250, L500.4100 #### [facility] [address] [place], [address] Nucleated RBC (Bld) [#/Vol] 0 10*3/uL Normal 0-5 [facility] Comment on above: Performed By: #### L 501.9520, L506.1000, L100.0100, L500.4050, L400.0001, L502.0250, L500.4100 #### [facility] [address] [place], [address] Platelet mean volume (Bld) [Entitic vol] 9.9 fL Normal 6.2-12.0 [facility] Comment on above: Performed By: #### L 501.9520, L506.1000, L100.0100, L500.4050, L400.0001, L502.0250, L500.4100 #### [facility] [address] [place], [address] Platelets (Bld) [#/Vol] 222 10*3/uL Normal 150-450 [facility] Comment on above: Performed By: #### L 501.9520, L506.1000, L100.0100, L500.4050, L400.0001, L502.0250, L500.4100 #### [facility] [address] [place], [address] RBC (Bld) [#/Vol] 4.45 10*6/uL Low 4.6-6.2 [facility] Comment on above: Performed By: #### L 501.9520, L506.1000, L100.0100, L500.4050, L400.0001, L502.0250, L500.4100 #### [facility] [address] [place], [address] RDW SD 41.2 fl Normal 35.1-43.9 [facility] Comment on above: Performed By: #### L 501.9520, L506.1000, L100.0100, L500.4050, L400.0001, L502.0250, L500.4100 #### [facility] [address] [place], [address] WBC (Bld) [#/Vol] 10.4 10*3/uL Normal 4.4-11.0 [facility] Comment on above: Performed By: #### L 501.9520, L506.1000, L100.0100, L500.4050, L400.0001, L502.0250, L500.4100 #### [facility] [address] [place], [address] Emergency Department Summary on 03-21-2024 Emergency Department Summary [facility] Medical Records Department [address] [place] [address] Emergency Department Summary 03/21/24 MR#: [id number] Acct: [id number] Name: LOPEZ MOMIN Rep #: [id number] : 1960 64 From: Nikia Richardson DO PCP: Dr. Abi Newman, DO Status:REG ER Location: ED HPI HPI - GI History of Present Illness Chief Complaint: Abd Pain Detail of Chief Complaint: Right lower abdomen pain Informant: patient and spouse/S.O. Narrative Narrative: Patient presents the emergency department with complaint of pain in the right lower abdomen radiating to his testicle and back. Symptoms started around 9 AM rather suddenly. He vomited about 4 times. Currently rates his pain about a 7 out of 10. He is never had pain like this before. Patient does describe some urinary urgency and feeling like he needs to urinate but cannot get much urine out. Denies hematuria. No history of kidney stones. PFSH PFS Home Medications ???Medication ???Instructions ???Recorded ???Last Taken ???Type hydrocodone-acetamino phen 5-325mg 1 tab PO Q4H PRN PRN Pain 2 days 03/21/24 Unknown Rx 5mg-325mg #10 TABLETS Allergy/AdvReac Type Severity Reaction Status Date / Time No Known Allergies Allergy Verified 03/21/24 13:34 ROS ROS ED Review of Systems ROS Unobtainable: other Constitutional Constitutional ED: Reports lethargy; Denies chills, fever(s), sweats or weight loss Eyes Eyes: Denies blurry vision, change in vision or diplopia ENT ENT ED: Denies rhinorrhea or sore throat Cardiovascular Cardiovascular: Denies chest pain, orthopnea or racing heartbeat Respiratory/Chest Respiratory/Chest: Denies cough, dyspnea, dyspnea on exertion, orthopnea or sputum Gastrointestinal Gastrointestinal: Reports abdominal pain, nausea and vomiting; Denies diarrhea Genitourinary Genitourinary ED: Denies dysuria, hematuria or urinary frequency Musculoskeletal Musculoskeletal: Denies arthralgias, back pain, myalgias or neck pain Integumentary Denies abscess, Abrasions or rash Neurologic Neurologic: Denies headache(s) or weakness Psychiatric Psychiatric: Denies anxiety, depression or suicidal thoughts Endocrine Endocrinology: Denies polydipsia, polyphagia or polyuria Hematologic/Lymphatic Hematologic/Lymphatic : Denies easy bleeding, easy bruising or lymphadenopathy Allergic/Immunologic Allergic/Immunologic ED: Denies mouth swelling, tongue swelling or urticaria EXAM Physical Exam Const Vital Signs: 03/21/24 13:34 Temperature 96.9 F L Temperature Source Temporal Pulse Rate 78 Respiratory Rate 17 Blood Pressure 136/81 H Blood Pressure Mean 99 Pulse Ox 97 Oxygen Delivery Method Room Air Positive well nourished and well developed General Appearance ED: well developed and NAD HEENT Reports TM's clear and moist mucous membranes normocephalic and atraumatic; Negative for trauma or tenderness Tympanic Membrane ED: Yes TM's clear Eyes PERRL and EOMs intact bilaterally General Eye ED: Negative for pale conjunctiva or scleral icterus Neck no lymphadenopathy, supple and no JVD General: Negative for tenderness Chest Wall inspection of chest normal and palpation of chest normal Chest: Negative for tenderness Resp normal respiratory effort and clear to auscultation bilaterally Effort and Inspection: Negative for respiratory distress or pain with movement Auscultation: Negative for rhonchi, wheezes or diminished lung sounds Cardio regular rate, regular rhythm, S1 normal heart sound, S2 normal heart sound and no murmurs Peripheral Pulses: pulses 2+ throughout GI normal to inspection, nondistended, normoactive bowel sounds, soft to palpation, non-distended and no masses GI Narrative: Tenderness to palpation of the right lower quadrant with some guarding. There is CVA tenderness on the right. There is no rebound, rigidity, or peritoneal signs. No mass palpated Back/Spine no thoracic nor lumbar tenderness; Negative for no CVA tenderness Back/Spine Narrative: Right CVA tenderness Extremity normal to inspection General Extremety ED: Negative for edema General Extremity: Negative for edema Neuro oriented x3, CN's II-XII intact bilaterally, no sensory deficits noted and gait normal Sensorium / Orientation: awake, alert, oriented to person, oriented to place and oriented to time Motor Exam: strength 5/5 throughout and strength abnormal Psych mental status grossly normal Skin no rashes or lesions noted and no wounds MDM MDM MDM Narrative Medical decision making narrative: Patient presents with sudden onset of right flank pain radiating to groin. Clinically looks well. He said some vomiting with this. No history of kidney stones but clinically I suspect a kidney stone versus UTI versus other acute intra-abdominal process. Juani (more content not included)... Normal [facility] Urinalysis, Completeon 03-21 RBC 0-5 SEEN Normal 0-5 [facility] Comment on above: Order Comment: CLEAN CATCH Performed By: #### L 400.0001 #### [facility] [address] [place] [address] EPI,SQUAMOUS 0-5 SEEN Normal 0-5 [facility] Comment on above: Order Comment: CLEAN CATCH Performed By: #### L 400.0001 #### [facility] [address] [facility] [address] WBC 0-5 SEEN Normal 0-5 [facility] Comment on above: Order Comment: CLEAN CATCH Performed By: #### L 400.0001 #### [facility] [address] [facility] [address] BACTERIA 0 SEEN Normal None Seen [facility] Comment on above: Order Comment: CLEAN CATCH Performed By: #### L 400.0001 #### [facility] [address] [place], [address] Mucus Ql (Urine sed) 0 SEEN Normal [facility] Comment on above: Order Comment: CLEAN CATCH Performed By: #### L 400.0001 #### [facility] [address] [place], [address] Lipid Profileon 02-07-2024 Cholesterol [Mass/Vol] 219 mg/dL High 200 [facility] Comment on above: Result Comment: <200 mg/dL Desirable 200-240 mg/dL Borderline >240 mg/dL High Risk Performed By: #### L 501.9520, L506.1000, L100.0100, L500.4050, L400.0001, L502.0250, L500.4100 #### [facility] [address] [place], [address] Cholesterol in HDL [Mass/Vol] 62 mg/dL Normal [facility] Comment on above: Result Comment: The drugs N-Acetylcysteine and Metamizole may falsely depress this assay. Reference Range HDL <40 mg/dL Low HDL Cholesterol HDL >or= 60 mg/dL High HDL Cholesterol Performed By: #### L 501.9520, L506.1000, L100.0100, L500.4050, L400.0001, L502.0250, L500.4100 #### [facility] [address] [place], [address] Cholesterol in LDL [Mass/Vol] 125 mg/dL Normal 0-130 [facility] Comment on above: Performed By: #### L 501.9520, L506.1000, L100.0100, L500.4050, L400.0001, L502.0250, L500.4100 #### [facility] [address] [place], [address] Cholesterol in VLDL [Mass/Vol] 32 mg/dL Normal 5-40 [facility] Comment on above: Performed By: #### L 501.9520, L506.1000, L100.0100, L500.4050, L400.0001, L502.0250, L500.4100 #### [facility] [address] [place], [address] Triglyceride [Mass/Vol] 160 mg/dL Normal [facility] Comment on above: Result Comment: The drugs N-Acetylcysteine and Metamizole may falsely depress this assay. Serum Triglycerides Reference Interval Normal <150 mg/dL Borderline high 150 - 199 mg/dL High 200 - 499 mg/dL Very High > or = 500 mg/dL Performed By: #### L 501.9520, L506.1000, L100.0100, L500.4050, L400.0001, L502.0250, L500.4100 #### [facility] [address] [place], [address] Absolute lymphocyte countOrd ered By: Abi Newman on 10-06-2023 Lymphocytes Auto (Unsp spec) [#/Vol] 1.88 10*3/uL 0.83-4.51 [facility] Automated lymphocyte count a s percentage of total leukocytesOrdered By: Abi Newman on 10-06-2023 Lymphocytes/100 WBC Auto (Unsp spec) 34.6 % 19-41 [facility] Basophil percentageOrdered B y: Abi Newman on 10-06-2023 Basophil percentage 0-5 SEEN /hpf 0-5 [facility] Basophils/100 WBC (Bld) 0.9 % 0-1 [facility] Bilirubin [Mass/Vol] 0.70 mg/dL 0.20-1.00 [facility] Comment on above: For patients on eltr ombopag therapy, use of Dimension [place] TBIL is not recommended. Chloride [Moles/Vol] 105 mmol/L 98-107 [facility] Cholesterol [Mass/Vol] 247 mg/dL <200 [facility] Comment on above: <200 mg/dL Desirable 200-240 mg/dL Borderline >240 mg/dL High Risk Eosinophils/100 WBC (Bld) 3.1 % 0-5 [facility] Glucose [Mass/Vol] 94 mg/dL 74-106 [facility] Hemoglobin (Bld) [Mass/Vol] 13.9 g/dL 13.0-16.5 [facility] Monocytes/100 WBC (Bld) 12.2 % 0-10 [facility] Neutrophils (Bld) [#/Vol] 2.6 10*3/uL 2.0-7.7 [facility] Neutrophils/100 WBC (Bld) 48.3 % 47-70 [facility] Potassium [Moles/Vol] 4.4 mmol/L 3.5-5.1 [facility] Protein [Mass/Vol] 7.3 g/dL 6.4-8.2 [facility] Sodium [Moles/Vol] 138 mmol/L 136-145 [facility] Triglyceride [Mass/Vol] 219 mg/dL <199 [facility] Comment on above: The drugs N-Acetylcy steine and Metamizole may falsely depress this assay.Serum Triglycerides Reference Interval Normal <150 mg/dL Borderline high 150 - 199 mg/dL High 200 - 499 mg/dL Very High > or = 500 mg/dL WBC (Bld) [#/Vol] 5.4 10*3/uL 4.4-11.0 [facility] Bilirubin Test strip Ql (U)O rdered By: Abi Newman on 10-06-2023 Bilirubin Ql (U) Negative Negative [facility] CBC W/Diff, Automatedon 09-15 Absolute Lymph 1.88 X10 3/uL Normal 0.83-4.51 [facility] Comment on above: Performed By: #### L 501.9520, L506.1000, L100.0100, L500.4050, L400.0001, L502.0250, L500.4100 #### [facility] [address] [place], [address] Absolute Neut 2.6 X10 3/uL Normal 2.0-7.7 [facility] Comment on above: Performed By: #### L 501.9520, L506.1000, L100.0100, L500.4050, L400.0001, L502.0250, L500.4100 #### [facility] [address] [place], [address] Basophils/100 WBC (Bld) 0.9 % Normal 0-1 [facility] Comment on above: Performed By: #### L 501.9520, L506.1000, L100.0100, L500.4050, L400.0001, L502.0250, L500.4100 #### [facility] [address] [place], [address] Eosinophils/100 WBC (Bld) 3.1 % Normal 0-5 [facility] Comment on above: Performed By: #### L 501.9520, L506.1000, L100.0100, L500.4050, L400.0001, L502.0250, L500.4100 #### [facility] [address] [place], [address] Erythrocyte distribution width (RBC) [Ratio] 12.2 % Normal 11.6-14.6 [facility] Comment on above: Performed By: #### L 501.9520, L506.1000, L100.0100, L500.4050, L400.0001, L502.0250, L500.4100 #### [facility] [address] [place], [address] Hematocrit (Bld) [Volume fraction] 42.8 % Normal 40-54 [facility] Comment on above: Performed By: #### L 501.9520, L506.1000, L100.0100, L500.4050, L400.0001, L502.0250, L500.4100 #### [facility] [address] [place], [address] Hemoglobin (Bld) [Mass/Vol] 13.9 g/dL Normal 13.0-16.5 [facility] Comment on above: Performed By: #### L 501.9520, L506.1000, L100.0100, L500.4050, L400.0001, L502.0250, L500.4100 #### [facility] [address] [place], [address] IG% 0.900 Normal 0.0-0.9 [facility] Comment on above: Result Comment: IG% - Immature Granulocytes (promyelocytes, myelocytes and metamyelocytes) > 1% indicates that a LEFT SHIFT is Present. Performed By: #### L 501.9520, L506.1000, L100.0100, L500.4050, L400.0001, L502.0250, L500.4100 #### [facility] [address] [place], [address] Lymphocytes/100 WBC (Bld) 34.6 % Normal 19-41 [facility] Comment on above: Performed By: #### L 501.9520, L506.1000, L100.0100, L500.4050, L400.0001, L502.0250, L500.4100 #### [facility] [address] [place], [address] MCH (RBC) [Entitic mass] 30.8 pg Normal 27.0-32.0 [facility] Comment on above: Performed By: #### L 501.9520, L506.1000, L100.0100, L500.4050, L400.0001, L502.0250, L500.4100 #### [facility] [address] [place], [address] MCHC (RBC) [Mass/Vol] 32.5 g/dL Normal 32-36 [facility] Comment on above: Performed By: #### L 501.9520, L506.1000, L100.0100, L500.4050, L400.0001, L502.0250, L500.4100 #### [facility] [address] [place], [address] MCV (RBC) [Entitic vol] 94.9 fL High 80-94 [facility] Comment on above: Performed By: #### L 501.9520, L506.1000, L100.0100, L500.4050, L400.0001, L502.0250, L500.4100 #### [facility] [address] [place], [address] Monocytes/100 WBC (Bld) 12.2 % High 0-10 [facility] Comment on above: Performed By: #### L 501.9520, L506.1000, L100.0100, L500.4050, L400.0001, L502.0250, L500.4100 #### [facility] [address] [place], [address] Neutrophils/100 WBC (Bld) 48.3 % Normal 47-70 [facility] Comment on above: Performed By: #### L 501.9520, L506.1000, L100.0100, L500.4050, L400.0001, L502.0250, L500.4100 #### [facility] [place], [address] Nucleated RBC (Bld) [#/Vol] 0 10*3/uL Normal 0-5 [facility] Comment on above: Performed By: #### L 501.9520, L506.1000, L100.0100, L500.4050, L400.0001, L502.0250, L500.4100 #### [facility] [address] [place], [address] Platelet mean volume (Bld) [Entitic vol] 10.1 fL Normal 6.2-12.0 [facility] Comment on above: Performed By: #### L 501.9520, L506.1000, L100.0100, L500.4050, L400.0001, L502.0250, L500.4100 #### [facility] [address] [facility] [place], [address] Platelets (Bld) [#/Vol] 280 10*3/uL Normal 150-450 [facility] Comment on above: Performed By: #### L 501.9520, L506.1000, L100.0100, L500.4050, L400.0001, L502.0250, L500.4100 #### [facility] [address] [place], [address] RBC (Bld) [#/Vol] 4.51 10*6/uL Low 4.6-6.2 [facility] Comment on above: Performed By: #### L 501.9520, L506.1000, L100.0100, L500.4050, L400.0001, L502.0250, L500.4100 #### [facility] [address] [place], [address] RDW SD 42.5 fl Normal 35.1-43.9 [facility] Comment on above: Performed By: #### L 501.9520, L506.1000, L100.0100, L500.4050, L400.0001, L502.0250, L500.4100 #### [facility] [address] [place], [address] WBC (Bld) [#/Vol] 5.4 10*3/uL Normal 4.4-11.0 [facility] Comment on above: Performed By: #### L 501.9520, L506.1000, L100.0100, L500.4050, L400.0001, L502.0250, L500.4100 #### [facility] [address] [place], [address] Comprehensive Metabolic Prof [facility] 10-06-2023 Albumin [Mass/Vol] 3.9 g/dL Normal 3.2-5.0 [facility] Comment on above: Order Comment: REFLE X URINE TO CULTURE PER ORDER Performed By: #### L 501.9520, L506.1000, L100.0100, L500.4050, L400.0001, L502.0250, L500.4100 #### [facility] [address] [place], [address] Albumin/Globulin [Mass ratio] 1.1 {ratio} Normal 0.9-2.4 [facility] Comment on above: Order Comment: REFLE X URINE TO CULTURE PER ORDER Performed By: #### L 501.9520, L506.1000, L100.0100, L500.4050, L400.0001, L502.0250, L500.4100 #### [facility] [address] [place], [address] ALK P 93 U/L Normal 45-117 [facility] Comment on above: Order Comment: REFLE X URINE TO CULTURE PER ORDER Performed By: #### L 501.9520, L506.1000, L100.0100, L500.4050, L400.0001, L502.0250, L500.4100 #### [facility] [address] [place], [address] ALT [Catalytic activity/Vol] 47 U/L Normal 16-61 [facility] Comment on above: Order Comment: REFLE X URINE TO CULTURE PER ORDER Performed By: #### L 501.9520, L506.1000, L100.0100, L500.4050, L400.0001, L502.0250, L500.4100 #### [facility] [address] [place], [address] AST [Catalytic activity/Vol] 21 U/L Normal 15-37 [facility] Comment on above: Order Comment: REFLE X URINE TO CULTURE PER ORDER Performed By: #### L 501.9520, L506.1000, L100.0100, L500.4050, L400.0001, L502.0250, L500.4100 #### [facility] [address] [place], [address] Bilirubin [Mass/Vol] 0.70 mg/dL Normal 0.20-1.00 [facility] Comment on above: Order Comment: REFLE X URINE TO CULTURE PER ORDER Result Comment: For patients on eltrombopag therapy, use of Dimension [place] TBIL is not recommended. Performed By: #### L 501.9520, L506.1000, L100.0100, L500.4050, L400.0001, L502.0250, L500.4100 #### [facility] [address] [place], [address] BUN/CRE 22.4 RATIO High 10-20 [facility] Comment on above: Order Comment: REFLE X URINE TO CULTURE PER ORDER Performed By: #### L 501.9520, L506.1000, L100.0100, L500.4050, L400.0001, L502.0250, L500.4100 #### [facility] [address] [place], [address] CA,Total 9.2 mg/dL Normal 8.5-10.1 [facility] Comment on above: Order Comment: REFLE X URINE TO CULTURE PER ORDER Performed By: #### L 501.9520, L506.1000, L100.0100, L500.4050, L400.0001, L502.0250, L500.4100 #### [facility] [address] [place], [address] Chloride [Moles/Vol] 105 mmol/L Normal 98-107 [facility] Comment on above: Order Comment: REFLE X URINE TO CULTURE PER ORDER Performed By: #### L 501.9520, L506.1000, L100.0100, L500.4050, L400.0001, L502.0250, L500.4100 #### [facility] [address] [place], [address] CO2 [Moles/Vol] 29.0 mmol/L Normal 21.0-32.0 [facility] Comment on above: Order Comment: REFLE X URINE TO CULTURE PER ORDER Performed By: #### L 501.9520, L506.1000, L100.0100, L500.4050, L400.0001, L502.0250, L500.4100 #### [facility] [address] [place], [address] Creatinine [Mass/Vol] 0.89 mg/dL Normal 0.70-1.30 [facility] Comment on above: Order Comment: REFLE X URINE TO CULTURE PER ORDER Result Comment: The validity of the calculated GFR GFRAA in patients over 70 years has not been determined. Clinical correlation is essential. Performed By: #### L 501.9520, L506.1000, L100.0100, L500.4050, L400.0001, L502.0250, L500.4100 #### [facility] [address] [place], [address] EST GFR - AA 111 mL/min Normal >60 [facility] Comment on above: Order Comment: REFLE X URINE TO CULTURE PER ORDER Result Comment: Afri can [place] GFR Calc Performed By: #### L 501.9520, L506.1000, L100.0100, L500.4050, L400.0001, L502.0250, L500.4100 #### [facility] [address] [place], [address] GAP 4 Low 5-15 [facility] Comment on above: Order Comment: REFLE X URINE TO CULTURE PER ORDER Performed By: #### L 501.9520, L506.1000, L100.0100, L500.4050, L400.0001, L502.0250, L500.4100 #### [facility] [address] [place], [address] GFR/1.73 sq M.predicted among non-blacks MDRD (S/P/Bld) [Vol rate/Area] 92 mL/min/{1.73_m2} Normal >60 [facility] Comment on above: Order Comment: REFLE X URINE TO CULTURE PER ORDER Result Comment: Non- GFR Calc Performed By: #### L 501.9520, L506.1000, L100.0100, L500.4050, L400.0001, L502.0250, L500.4100 #### [facility] [address] [place], [address] Globulin (S) [Mass/Vol] 3.4 g/dL Normal 2.2-4.2 [facility] Comment on above: Order Comment: REFLE X URINE TO CULTURE PER ORDER Performed By: #### L 501.9520, L506.1000, L100.0100, L500.4050, L400.0001, L502.0250, L500.4100 #### [facility] [address] [place], [address] Glucose [Mass/Vol] 94 mg/dL Normal 74-106 [facility] Comment on above: Order Comment: REFLE X URINE TO CULTURE PER ORDER Performed By: #### L 501.9520, L506.1000, L100.0100, L500.4050, L400.0001, L502.0250, L500.4100 #### [facility] [address] [place], [address] Potassium [Moles/Vol] 4.4 mmol/L Normal 3.5-5.1 [facility] Comment on above: Order Comment: REFLE X URINE TO CULTURE PER ORDER Performed By: #### L 501.9520, L506.1000, L100.0100, L500.4050, L400.0001, L502.0250, L500.4100 #### [facility] [address] [place], [address] Sodium [Moles/Vol] 138 mmol/L Normal 136-145 [facility] Comment on above: Order Comment: REFLE X URINE TO CULTURE PER ORDER Performed By: #### L 501.9520, L506.1000, L100.0100, L500.4050, L400.0001, L502.0250, L500.4100 #### [facility] [address] [place], [address] T PROT 7.3 g/dL Normal 6.4-8.2 [facility] Comment on above: Order Comment: REFLE X URINE TO CULTURE PER ORDER Performed By: #### L 501.9520, L506.1000, L100.0100, L500.4050, L400.0001, L502.0250, L500.4100 #### [facility] [address] [place], [address] Urea nitrogen [Mass/Vol] 20 mg/dL High 7-18 [facility] Comment on above: Order Comment: REFLE X URINE TO CULTURE PER ORDER Performed By: #### L 501.9520, L506.1000, L100.0100, L500.4050, L400.0001, L502.0250, L500.4100 #### [facility] [address] [place], [address] Determination of erythrocyte mean corpuscular volume (MCV)Ordered By: Abi Newman on 10-06-2023 MCV (RBC) [Entitic vol] 94.9 fL 80-94 [facility] Erythrocyte distribution wid th ratioOrdered By: Abi Newman on 10-06-2023 Erythrocyte distribution width (RBC) [Ratio] 12.2 % 11.6-14.6 [facility] Erythrocyte distribution wid th standard deviationOrdered By: Abi Newman on 10-06-2023 Erythrocyte distribution width (RBC) [Entitic vol] 42.5 fL 35.1-43.9 [facility] Hematocrit Auto (Bld) [Volum e fraction]Ordered By: Abi Newman on 10-06-2023 Hematocrit (Bld) [Volume fraction] 42.8 % 40-54 [facility] Immature granulocytes/100 WB C Auto (Bld)Ordered By: Abi Newman on 10-06-2023 Immature granulocytes/100 WBC (Bld) 0.900 % 0.0-0.9 [facility] Comment on above: IG% - Immature Granu locytes (promyelocytes, myelocytes and metamyelocytes) > 1% indicates that a LEFT SHIFT is Present. Ketones Test strip Ql (U)Ord ered By: Abi Newman on 10-06-2023 Ketones Ql (U) Negative Negative [facility] - Chemistry and C hemistry - challengeOrdered By: Abi Newman on 10-06-2023 Albumin/Globulin [Mass ratio] 1.1 {ratio} 0.9-2.4 [facility] ALP [Catalytic activity/Vol] 93 U/L 45-117 [facility] ALT [Catalytic activity/Vol] 47 U/L 16-61 [facility] Cholesterol in HDL [Mass/Vol] 52 mg/dL >40 [facility] Comment on above: The drugs N-Acetylcy steine and Metamizole may falsely depress this assay. Reference Range HDL <40 mg/dL Low HDL Cholesterol HDL >or= 60 mg/dL High HDL Cholesterol Cholesterol in LDL [Mass/Vol] 151 mg/dL 0-130 [facility] CO2 [Moles/Vol] 29.0 mmol/L 21.0-32.0 [facility] Globulin (S) [Mass/Vol] 3.4 g/dL 2.2-4.2 [facility] Urea nitrogen/Creatinine [Mass ratio] 22.4 mg/mg 10-20 [facility] - Hematology and Cell countsOrdered By: Abi Newman on 10-06-2023 MCH (RBC) [Entitic mass] 30.8 pg 27.0-32.0 [facility] MCHC (RBC) [Mass/Vol] 32.5 g/dL 32-36 [facility] Nucleated RBC/100 WBC (Bld) [Ratio] 0 % 0-5 [facility] Platelet mean volume (Bld) [Entitic vol] 10.1 fL 6.2-12.0 [facility] Platelets (Bld) [#/Vol] 280 10*3/uL 150-450 [facility] Lipid Profileon 10-06-2023 Cholesterol [Mass/Vol] 247 mg/dL High 200 [facility] Comment on above: Order Comment: REFLE X URINE TO CULTURE PER ORDER Result Comment: <200 mg/dL Desirable 200-240 mg/dL Borderline >240 mg/dL High Risk Performed By: #### L [id number], L506.1000, L100.0100, L500.4050, L400.0001, L502.0250, L500.4100 #### [facility] [address] [place], [address] Cholesterol in HDL [Mass/Vol] 52 mg/dL Normal [facility] Comment on above: Order Comment: REFLE X URINE TO CULTURE PER ORDER Result Comment: The drugs N-Acetylcysteine and Metamizole may falsely depress this assay. Reference Range HDL <40 mg/dL Low HDL Cholesterol HDL >or= 60 mg/dL High HDL Cholesterol Performed By: #### L [id number], L506.1000, L100.0100, L500.4050, L400.0001, L502.0250, L500.4100 #### [facility] [address] [place], [address] Cholesterol in LDL [Mass/Vol] 151 mg/dL High 0-130 [facility] Comment on above: Order Comment: REFLE X URINE TO CULTURE PER ORDER Performed By: #### L [id number], L506.1000, L100.0100, L500.4050, L400.0001, L502.0250, L500.4100 #### [facility] [address] [place], [address] Cholesterol in VLDL [Mass/Vol] 44 mg/dL High 5-40 [facility] Comment on above: Order Comment: REFLE X URINE TO CULTURE PER ORDER Performed By: #### L [id number], L506.1000, L100.0100, L500.4050, L400.0001, L502.0250, L500.4100 #### [facility] [address] [place], [address] Triglyceride [Mass/Vol] 219 mg/dL High [facility] Comment on above: Order Comment: REFLE X URINE TO CULTURE PER ORDER Result Comment: The drugs N-Acetylcysteine and Metamizole may falsely depress this assay. Serum Triglycerides Reference Interval Normal <150 mg/dL Borderline high 150 - 199 mg/dL High 200 - 499 mg/dL Very High > or = 500 mg/dL Performed By: #### L [id number], L506.1000, L100.0100, L500.4050, L400.0001, L502.0250, L500.4100 #### [facility] [address] [place], [place], [id number] Microalb:Creat Ratio,Random URon 10-06-2023 Creatinine [Mass/Vol] 36.70 mg/dL Normal NO RANGE EST. [facility] Comment on above: Performed By: #### L [id number], L506.1000, L100.0100, L500.4050, L400.0001, L502.0250, L500.4100 #### [facility] [address] [place], [place], [id number] MALB:CRE 14.7 mg/g CRE Normal <30 mg/g CRE [facility] Comment on above: Performed By: #### L [id number], L506.1000, L100.0100, L500.4050, L400.0001, L502.0250, L500.4100 #### [facility] [address] [place], [place], [id number] MICROALBUMIN,UR 5.4 mg/L Normal NO RANGE EST. [facility] Comment on above: Performed By: #### L [id number], L506.1000, L100.0100, L500.4050, L400.0001, L502.0250, L500.4100 #### [facility] [address] [place], [address] Mucus LM Ql (Urine sed)Order ed By: Abi Newman on 10-06-2023 Mucus Ql (Urine sed) 0 SEEN /hpf [facility] Nitrite Test strip Ql (U)Ord ered By: Abi Newman on 10-06-2023 Nitrite Ql (U) Negative Negative [facility] No Panel InformationOrdered By: Abi Newman on 10-06-2023 Estimated GFR (MDRD) Amer 111 mL/min >60 [facility] Comment on above: GFR Calc Estimated GFR (MDRD) Non-Af Amer 92 mL/min >60 [facility] Comment on above: Non- GFR Calc Urine Microalbumin/Creatinin e Ratio 14.7 mg/g CRE <30 [facility] Urine RBC 0 SEEN /hpf 0-5 [facility] Vitamin D 25-Hydroxy 53.0 ng/mL [facility] Comment on above: Vitamin D 25(OH) Sta tus Range Deficiency <20 ng/mL (50nmol/L) Insufficiency 20 - 30 ng/mL (50 - 75 nmol/L) Sufficiency 30 - 100 ng/mL (75 - 250 nmol/L) Toxicity >100 ng/mL (>250 nmol/L) VLDL Cholesterol 44 mg/dL 5-40 [facility] Protein Test strip Ql (U)Ord ered By: Abi Newman on 10-06-2023 Protein Ql (U) Negative Negative [facility] RBC Auto (Bld) [#/Vol]Ordere d By: Abi Newman on 10-06-2023 RBC (Bld) [#/Vol] 4.51 10*6/uL 4.6-6.2 [facility] Serum or plasma calcium keiko urement (mass/volume)Ordered By: Abi Newman on 10-06-2023 Calcium [Mass/Vol] 9.2 mg/dL 8.5-10.1 [facility] Serum or plasma creatinine m easurement (mass/volume)Ordered By: Abi Newman on 10-06-2023 Creatinine [Mass/Vol] 0.89 mg/dL 0.70-1.30 [facility] Comment on above: The validity of the calculated GFR & GFRAA in patients over 70 years has not been determined. Clinical correlation is essential. Serum or plasma thyroid stim ulating hormone (TSH) measurement (units/volume)Ordered By: Abi Newman on 10-06-2023 TSH Qn 2.37 uIU/mL 0.358-3.74 [facility] Serum or plasma urea nitroge n measurement (mass/volume)Ordered By: Abi Newman on 10-06-2023 Urea nitrogen [Mass/Vol] 20 mg/dL 7-18 [facility] Squamous epithelial cells de tection in urine sediment by light microscopyOrdered By: Abi Newman on 10-06-2023 Epithelial cells.squamous LM Ql (Urine sed) 0 SEEN /hpf 0-5 [facility] Thin prep Papanicolaou smear with manual screeningOrdered By: Abi Newmna on 10-06-2023 Thin prep Papanicolaou smear with manual screening 3.9 g/dL 3.2-5.0 [facility] Thin prep Papanicolaou smear with manual screening 21 U/L 15-37 [facility] Thin prep Papanicolaou smear with manual screening 4 5-15 [facility] Thin prep Papanicolaou smear with manual screening 5.4 mg/L NO RANGE EST. [facility] Thyroid Stim Hormone (TSH)on 10-06-2023 TSH 2.37 uIU/mL Normal 0.358-3.74 [facility] Comment on above: Order Comment: REFLE X URINE TO CULTURE PER ORDER Performed By: #### L [id number], L506.1000, L100.0100, L500.4050, L400.0001, L502.0250, L500.4100 #### [facility] [address] [place], [place], [id number] Urinalysis, Completeon 10-06 WBC 0-5 SEEN Normal 0-5 [facility] Comment on above: Order Comment: REFLE X URINE TO CULTURE PER ORDER CLEAN CATCH Performed By: #### L [id number], L506.1000, L100.0100, L500.4050, L400.0001, L502.0250, L500.4100 #### [facility] [address] [place], [place], [id number] BACTERIA 0 SEEN Normal None Seen [facility] Comment on above: Order Comment: REFLE X URINE TO CULTURE PER ORDER CLEAN CATCH Performed By: #### L [id number], L506.1000, L100.0100, L500.4050, L400.0001, L502.0250, L500.4100 #### [facility] [address] [place], [address] EPI,SQUAMOUS 0 SEEN Normal 0-5 [facility] Comment on above: Order Comment: REFLE X URINE TO CULTURE PER ORDER CLEAN CATCH Performed By: #### L [id number], L506.1000, L100.0100, L500.4050, L400.0001, L502.0250, L500.4100 #### [facility] [address] [place], [address] Mucus Ql (Urine sed) 0 SEEN Normal [facility] Comment on above: Order Comment: REFLE X URINE TO CULTURE PER ORDER CLEAN CATCH Performed By: #### L [id number], L506.1000, L100.0100, L500.4050, L400.0001, L502.0250, L500.4100 #### [facility] [address] [place], [address] RBC 0 SEEN Normal 0-5 [facility] Comment on above: Order Comment: REFLE X URINE TO CULTURE PER ORDER CLEAN CATCH Performed By: #### L [id number], L506.1000, L100.0100, L500.4050, L400.0001, L502.0250, L500.4100 #### [facility] [address] [place], [address] Urine blood detectionOrdered By: Abi Newman on 10-06-2023 RBC Ql (U) Negative Negative [facility] Urine clarityOrdered By: Camille Newman on 10-06-2023 Clarity (U) Clear Clear [facility] Urine color determinationOrd ered By: Abi Newman on 10-06-2023 Color (U) Straw Yellow [facility] Urine creatinine measurement (mass/volume)Ordered By: Abi Newman on 10-06-2023 Creatinine (U) [Mass/Vol] 36.70 mg/dL NO RANGE EST. [facility] Urine glucose detectionOrder ed By: Abi Newman on 10-06-2023 Glucose Ql (U) Normal mg/dl Normal [facility] Urine leukocyte esterase det ection by dipstickOrdered By: Abi Newman on 10-06-2023 Leukocyte esterase Test strip Ql (U) 25 /ul Negative [facility] Urine pHOrdered By: Abi Newman on 10-06-2023 pH (U) 7.0 [pH] 5.0 - 8.0 [facility] Urine sediment bacteria coun t by microscopy (number/high power field)Ordered By: Abi Newman on 10-06-2023 Bacteria LM.HPF (Urine sed) [#/Area] 0 /[HPF] None Seen [facility] Urine specific gravity measu rementOrdered By: Abi Newman on 10-06-2023 Specific gravity (U) [Rel density] 1.010 1.002-1.030 [facility] Urine urobilinogen measureme ntOrdered By: Abi Newman on 10-06-2023 Urobilinogen Ql (U) Normal mg/dl Normal [facility] Vitamin D,25 Hydroxyon 10-06 Vitamin D 25-OH 53.0 ng/mL Normal [facility] Comment on above: Result Comment: Aaliyah min D 25(OH) Status Range Deficiency <20 ng/mL (50nmol/L) Insufficiency 20 - 30 ng/mL (50 - 75 nmol/L) Sufficiency 30 - 100 ng/mL (75 - 250 nmol/L) Toxicity >100 ng/mL (>250 nmol/L) Performed By: #### L 501.9520, L506.1000, L100.0100, L500.4050, L400.0001, L502.0250, L500.4100 #### [facility] [address] [place], [place], [id number] Basophil percentageOrdered B y: Abi Newman on 07-12-2023 Cholesterol [Mass/Vol] 209 mg/dL <200 [facility] Comment on above: <200 mg/dL Desirable 200-240 mg/dL Borderline >240 mg/dL High Risk Triglyceride [Mass/Vol] 136 mg/dL <199 [facility] Comment on above: The drugs N-Acetylcy steine and Metamizole may falsely depress this assay.Serum Triglycerides Reference Interval Normal <150 mg/dL Borderline high 150 - 199 mg/dL High 200 - 499 mg/dL Very High > or = 500 mg/dL Serum or plasma cholesterol in HDL measurement (mass/volume)Ordered By: Abi Newman on 07-12-2023 Cholesterol in HDL [Mass/Vol] 53 mg/dL >40 [facility] Comment on above: The drugs N-Acetylcy steine and Metamizole may falsely depress this assay. Reference Range HDL <40 mg/dL Low HDL Cholesterol HDL >or= 60 mg/dL High HDL Cholesterol Serum or plasma cholesterol in VLDL measurement (mass/volume)Ordered By: Abi Newman on 07-12-2023 Cholesterol in VLDL [Mass/Vol] 27 mg/dL 5-40 [facility] Serum or plasma low density lipoprotein (LDL) cholesterol measurement (mass/volume)Ordered By: Abi Newman on 07-12-2023 Cholesterol in LDL [Mass/Vol] 129 mg/dL 0-130 [facility] Basophil percentageOrdered B y: Abi Newman on 06-20-2023 Cholesterol [Mass/Vol] 229 mg/dL <200 [facility] Comment on above: <200 mg/dL Desirable 200-240 mg/dL Borderline >240 mg/dL High Risk Triglyceride [Mass/Vol] 269 mg/dL <199 [facility] Comment on above: The drugs N-Acetylcy steine and Metamizole may falsely depress this assay.Serum Triglycerides Reference Interval Normal <150 mg/dL Borderline high 150 - 199 mg/dL High 200 - 499 mg/dL Very High > or = 500 mg/dL Serum or plasma cholesterol in HDL measurement (mass/volume)Ordered By: Abi Newman on 06-20-2023 Cholesterol in HDL [Mass/Vol] 49 mg/dL >40 [facility] Comment on above: The drugs N-Acetylcy steine and Metamizole may falsely depress this assay. Reference Range HDL <40 mg/dL Low HDL Cholesterol HDL >or= 60 mg/dL High HDL Cholesterol Serum or plasma cholesterol in VLDL measurement (mass/volume)Ordered By: Abi Newman on 06-20-2023 Cholesterol in VLDL [Mass/Vol] 54 mg/dL 5-40 [facility] Serum or plasma low density lipoprotein (LDL) cholesterol measurement (mass/volume)Ordered By: Abi Trevizoon on 06-20-2023 Cholesterol in LDL [Mass/Vol] 126 mg/dL 0-130 [facility] Absolute lymphocyte countOrd ered By: Abi Newman on 03-29-2023 Lymphocytes Auto (Unsp spec) [#/Vol] 1.77 10*3/uL 0.83-4.51 [facility] Basophil percentageOrdered B y: Abi Trevizoon on 03-29-2023 Basophils/100 WBC (Bld) 1.2 % 0-1 [facility] Bilirubin [Mass/Vol] 0.70 mg/dL 0.20-1.00 [facility] Comment on above: For patients on eltr ombopag therapy, use of Dimension [place] TBIL is not recommended. Chloride [Moles/Vol] 102 mmol/L 98-107 [facility] Cholesterol [Mass/Vol] 262 mg/dL <200 [facility] Comment on above: <200 mg/dL Desirable 200-240 mg/dL Borderline >240 mg/dL High Risk Eosinophils/100 WBC (Bld) 2.0 % 0-5 [facility] Glucose [Mass/Vol] 92 mg/dL 74-106 [facility] Neutrophils (Bld) [#/Vol] 2.4 10*3/uL 2.0-7.7 [facility] Neutrophils/100 WBC (Bld) 48.8 % 47-70 [facility] Potassium [Moles/Vol] 4.0 mmol/L 3.5-5.1 [facility] Protein [Mass/Vol] 7.7 g/dL 6.4-8.2 [facility] Sodium [Moles/Vol] 136 mmol/L 136-145 [facility] Triglyceride [Mass/Vol] 199 mg/dL <199 [facility] Comment on above: The drugs N-Acetylcy steine and Metamizole may falsely depress this assay.Serum Triglycerides Reference Interval Normal <150 mg/dL Borderline high 150 - 199 mg/dL High 200 - 499 mg/dL Very High > or = 500 mg/dL WBC (Bld) [#/Vol] 4.9 10*3/uL 4.4-11.0 [facility] Blood erythrocytes count (nu mber/volume)Ordered By: Abi Newman on 03-29-2023 RBC (Bld) [#/Vol] 4.69 10*6/uL 4.6-6.2 [facility] Blood hemoglobin measurement (mass/volume)Ordered By: Abi Newman on 03-29-2023 Hemoglobin (Bld) [Mass/Vol] 15.1 g/dL 13.0-16.5 [facility] Blood lymphocytes/100 leukoc ytesOrdered By: Abi Newman on 03-29-2023 Lymphocytes/100 WBC (Bld) 36.2 % 19-41 [facility] Blood monocytes/100 leukocyt esOrdered By: Abi Newman on 03-29-2023 Monocytes/100 WBC (Bld) 11.2 % 0-10 [facility] Blood platelet mean volumeOr dered By: Abi Newman on 03-29-2023 Platelet mean volume (Bld) [Entitic vol] 10.0 fL 6.2-12.0 [facility] Determination of erythrocyte mean corpuscular volume (MCV)Ordered By: Abi Newman on 03-29-2023 MCV (RBC) [Entitic vol] 96.6 fL 80-94 [facility] Hematocrit Auto (Bld) [Volum e fraction]Ordered By: Abi Newman on 03-29-2023 Hematocrit (Bld) [Volume fraction] 45.3 % 40-54 [facility] - Chemistry and C hemistry - challengeOrdered By: Abi Newman on 03-29-2023 ALP [Catalytic activity/Vol] 97 U/L 45-117 [facility] ALT [Catalytic activity/Vol] 37 U/L 16-61 [facility] CO2 [Moles/Vol] 28.0 mmol/L 21.0-32.0 [facility] Globulin (S) [Mass/Vol] 3.9 g/dL 2.2-4.2 [facility] Urea nitrogen/Creatinine [Mass ratio] 23.7 mg/mg 10-20 [facility] - Hematology and Cell countsOrdered By: Abi Newman on 03-29-2023 Erythrocyte distribution width (RBC) [Entitic vol] 41.6 fL 35.1-43.9 [facility] Erythrocyte distribution width (RBC) [Ratio] 11.8 % 11.6-14.6 [facility] Immature granulocytes/100 WBC (Bld) 0.600 % 0.0-0.9 [facility] Comment on above: IG% - Immature Granu locytes (promyelocytes, myelocytes and metamyelocytes) > 1% indicates that a LEFT SHIFT is Present. MCH (RBC) [Entitic mass] 32.2 pg 27.0-32.0 [facility] Nucleated RBC/100 WBC (Bld) [Ratio] 0 % 0-5 [facility] MCHC Auto (RBC) [Mass/Vol]Or dered By: Abi Newman on 03-29-2023 MCHC (RBC) [Mass/Vol] 33.3 g/dL 32-36 [facility] No Panel InformationOrdered By: Abi Newman on 03-29-2023 Estimated GFR (MDRD) Amer 119 mL/min >60 [facility] Comment on above: GFR Calc Estimated GFR (MDRD) Non-Af Amer 98 mL/min >60 [facility] Comment on above: Non- GFR Calc Hepatitis C Antibody Non-Reactive Nonreactive [facility] Comment on above: Non Reactive: < 0.8 Equivocal: >/= 0.8 to < 1.0 Reactive: >/= 1.0The CDC recommends that a reactive/equivocal HCV antibody result be followed up by the HCV Nucleic Acid Amplificationtest (053588) Prostate Specific Antigen Screen 2.22 ng/mL 0.00-4.00 [facility] Comment on above: This test was perfor med using the TPSA assay method for [employer] chemistry system. Values obtained with differentassay methods cannot be used interchangably.When changing PSA assays in the course of monitoring apatient, additional sequential testing should be carriedout to confirm baseline values. Thyroid Stimulating Hormone (TSH) 2.53 uIU/mL 0.358-3.74 [facility] Urine Microalbumin/Creatinin e Ratio 7.0 mg/g CRE <30 [facility] Platelets bldOrdered By: Camille Newman on 03-29-2023 Platelets (Bld) [#/Vol] 245 10*3/uL 150-450 [facility] Serum or plasma albumin keiko urement (mass/volume)Ordered By: Abi Newman on 03-29-2023 Albumin [Mass/Vol] 3.8 g/dL 3.2-5.0 [facility] Serum or plasma albumin/glob ulin mass ratioOrdered By: Abi Newman on 03-29-2023 Albumin/Globulin [Mass ratio] 1.0 {ratio} 0.9-2.4 [facility] Serum or plasma calcium keiko urement (mass/volume)Ordered By: Abi Newman on 03-29-2023 Calcium [Mass/Vol] 9.6 mg/dL 8.5-10.1 [facility] Serum or plasma cholesterol in HDL measurement (mass/volume)Ordered By: Abi Newman on 03-29-2023 Cholesterol in HDL [Mass/Vol] 63 mg/dL >40 [facility] Comment on above: The drugs N-Acetylcy steine and Metamizole may falsely depress this assay. Reference Range HDL <40 mg/dL Low HDL Cholesterol HDL >or= 60 mg/dL High HDL Cholesterol Serum or plasma cholesterol in VLDL measurement (mass/volume)Ordered By: Abi Newman on 03-29-2023 Cholesterol in VLDL [Mass/Vol] 40 mg/dL 5-40 [facility] Serum or plasma creatinine m easurement (mass/volume)Ordered By: Abi Newman on 03-29-2023 Creatinine [Mass/Vol] 0.84 mg/dL 0.70-1.30 [facility] Comment on above: The validity of the calculated GFR & GFRAA in patients over 70 years has not been determined. Clinical correlation is essential. Serum or plasma low density lipoprotein (LDL) cholesterol measurement (mass/volume)Ordered By: Abi Newman on 03-29-2023 Cholesterol in LDL [Mass/Vol] 159 mg/dL 0-130 [facility] Serum or plasma urea nitroge n measurement (mass/volume)Ordered By: Abi Newman on 03-29-2023 Urea nitrogen [Mass/Vol] 20 mg/dL 7-18 [facility] Thin prep Papanicolaou smear with manual screeningOrdered By: Abi Newman on 03-29-2023 Thin prep Papanicolaou smear with manual screening 23 U/L 15-37 [facility] Thin prep Papanicolaou smear with manual screening 6 5-15 [facility] Thin prep Papanicolaou smear with manual screening 5.4 mg/L NO RANGE EST. [facility] Urine creatinine measurement (mass/volume)Ordered By: Abi Newman on 03-29-2023 Creatinine (U) [Mass/Vol] 77.30 mg/dL NO RANGE EST. [facility] Absolute lymphocyte counton 07-22-2022 Lymphocytes Auto (Unsp spec) [#/Vol] 1.83 10*3/uL 0.83-4.51 [facility] Work Phone: Basophil percentageon 2021 Basophils/100 WBC (Bld) 0.9 % 0-1 [facility] Work Phone: Bilirubin [Mass/Vol] 0.70 mg/dL 0.20-1.00 [facility] Work Phone: Comment on above: For patients on eltr ombopag therapy, use of Dimension [place] TBIL is not recommended. Chloride [Moles/Vol] 106 mmol/L 98-107 [facility] Work Phone: Cholesterol [Mass/Vol] 211 mg/dL <200 [facility] Work Phone: Comment on above: <200 mg/dL Desirable 200-240 mg/dL Borderline >240 mg/dL High Risk Eosinophils/100 WBC (Bld) 5.6 % 0-5 [facility] Work Phone: Glucose [Mass/Vol] 94 mg/dL 74-106 [facility] Work Phone: Neutrophils (Bld) [#/Vol] 1.8 10*3/uL 2.0-7.7 [facility] Work Phone: Neutrophils/100 WBC (Bld) 40.5 % 47-70 [facility] Work Phone: Potassium [Moles/Vol] 4.1 mmol/L 3.5-5.1 [facility] Work Phone: Protein [Mass/Vol] 7.0 g/dL 6.4-8.2 [facility] Work Phone: Sodium [Moles/Vol] 138 mmol/L 136-145 [facility] Work Phone: Triglyceride [Mass/Vol] 135 mg/dL <199 [facility] Work Phone: Comment on above: The drugs N-Acetylcy steine and Metamizole may falsely depress this assay.Serum Triglycerides Reference Interval Normal <150 mg/dL Borderline high 150 - 199 mg/dL High 200 - 499 mg/dL Very High > or = 500 mg/dL WBC (Bld) [#/Vol] 4.3 10*3/uL 4.4-11.0 [facility] Work Phone: Blood erythrocytes count (nu mber/volume)on 07-22-2022 RBC (Bld) [#/Vol] 4.51 10*6/uL 4.6-6.2 [facility] Work Phone: Blood hemoglobin measurement (mass/volume)on 07-22-2022 Hemoglobin (Bld) [Mass/Vol] 14.2 g/dL 13.0-16.5 [facility] Work Phone: Blood lymphocytes/100 leukoc yteson 07-22-2022 Lymphocytes/100 WBC (Bld) 42.4 % 19-41 [facility] Work Phone: Blood monocytes/100 leukocyt eson 07-22-2022 Monocytes/100 WBC (Bld) 10.4 % 0-10 [facility] Work Phone: Blood platelet mean volumeon 07-22-2022 Platelet mean volume (Bld) [Entitic vol] 10.2 fL 6.2-12.0 [facility] Work Phone: Determination of erythrocyte mean corpuscular volume (MCV)on 07-22-2022 MCV (RBC) [Entitic vol] 94.2 fL 80-94 [facility] Work Phone: Hematocrit Auto (Bld) [Volum e fraction]on 07-22-2022 Hematocrit (Bld) [Volume fraction] 42.5 % 40-54 [facility] Work Phone: Laboratory - Chemistry and C hemistry - challengeon 07-22-2022 ALP [Catalytic activity/Vol] 79 U/L 45-117 [facility] Work Phone: ALT [Catalytic activity/Vol] 34 U/L 16-61 [facility] Work Phone: CO2 [Moles/Vol] 28.0 mmol/L 21.0-32.0 [facility] Work Phone: Globulin (S) [Mass/Vol] 3.3 g/dL 2.2-4.2 [facility] Work Phone: Urea nitrogen/Creatinine [Mass ratio] 22.5 mg/mg 10-20 [facility] Work Phone: Laboratory - Hematology and Cell countson 07-22-2022 Erythrocyte distribution width (RBC) [Entitic vol] 41.1 fL 35.1-43.9 [facility] Work Phone: Erythrocyte distribution width (RBC) [Ratio] 11.9 % 11.6-14.6 [facility] Work Phone: Immature granulocytes/100 WBC (Bld) 0.200 % 0.0-0.9 [facility] Work Phone: Comment on above: IG% - Immature Granu locytes (promyelocytes, myelocytes and metamyelocytes) > 1% indicates that a LEFT SHIFT is Present. MCH (RBC) [Entitic mass] 31.5 pg 27.0-32.0 [facility] Work Phone: Nucleated RBC/100 WBC (Bld) [Ratio] 0 % 0-5 [facility] Work Phone: MCHC Auto (RBC) [Mass/Vol]on 07-22-2022 MCHC (RBC) [Mass/Vol] 33.4 g/dL 32-36 [facility] Work Phone: No Panel Informationon 07-22 Estimated GFR (MDRD) Amer 127 mL/min >60 [facility] Work Phone: Comment on above: GFR Calc Estimated GFR (MDRD) Non-Af Amer 105 mL/min >60 [facility] Work Phone: Comment on above: Non- GFR Calc Thyroid Stimulating Hormone (TSH) 1.89 uIU/mL 0.358-3.74 [facility] Work Phone: Urine Microalbumin/Creatinin e Ratio 13.4 mg/g CRE <30 [facility] Work Phone: Vitamin D 25-Hydroxy 40.9 ng/mL [facility] Work Phone: Comment on above: Vitamin D 25(OH) Sta tus Range Deficiency <20 ng/mL (50nmol/L) Insufficiency 20 - 30 ng/mL (50 - 75 nmol/L) Sufficiency 30 - 100 ng/mL (75 - 250 nmol/L) Toxicity >100 ng/mL (>250 nmol/L) Platelets bldon 07-22-2022 Platelets (Bld) [#/Vol] 237 10*3/uL 150-450 [facility] Work Phone: Serum or plasma albumin keiko urement (mass/volume)on 07-22-2022 Albumin [Mass/Vol] 3.7 g/dL 3.2-5.0 [facility] Work Phone: Serum or plasma albumin/glob ulin mass ratioon 07-22-2022 Albumin/Globulin [Mass ratio] 1.1 {ratio} 0.9-2.4 [facility] Work Phone: Serum or plasma calcium keiko urement (mass/volume)on 07-22-2022 Calcium [Mass/Vol] 8.6 mg/dL 8.5-10.1 [facility] Work Phone: Serum or plasma cholesterol in HDL measurement (mass/volume)on 07-22-2022 Cholesterol in HDL [Mass/Vol] 60 mg/dL >40 [facility] Work Phone: Comment on above: The drugs N-Acetylcy steine and Metamizole may falsely depress this assay. Reference Range HDL <40 mg/dL Low HDL Cholesterol HDL >or= 60 mg/dL High HDL Cholesterol Serum or plasma cholesterol in VLDL measurement (mass/volume)on 07-22-2022 Cholesterol in VLDL [Mass/Vol] 27 mg/dL 5-40 [facility] Work Phone: Serum or plasma creatinine m easurement (mass/volume)on 07-22-2022 Creatinine [Mass/Vol] 0.80 mg/dL 0.70-1.30 [facility] Work Phone: Comment on above: The validity of the calculated GFR & GFRAA in patients over 70 years has not been determined. Clinical correlation is essential. Serum or plasma low density lipoprotein (LDL) cholesterol measurement (mass/volume)on 07-22-2022 Cholesterol in LDL [Mass/Vol] 124 mg/dL 0-130 [facility] Work Phone: Serum or plasma urea nitroge n measurement (mass/volume)on 07-22-2022 Urea nitrogen [Mass/Vol] 18 mg/dL 7-18 [facility] Work Phone: Thin prep Papanicolaou smear with manual screeningon 07-22-2022 Thin prep Papanicolaou smear with manual screening 17 U/L 15-37 [facility] Work Phone: Thin prep Papanicolaou smear with manual screening 4 5-15 [facility] Work Phone: Thin prep Papanicolaou smear with manual screening 11.6 mg/L NO RANGE EST. [facility] Work Phone: Urine creatinine measurement (mass/volume)on 07-22-2022 Creatinine (U) [Mass/Vol] 86.40 mg/dL NO RANGE EST. [facility] Work Phone: Absolute lymphocyte counton 01-19-2022 Lymphocytes Auto (Unsp spec) [#/Vol] 2.03 10*3/uL 0.83-4.51 [facility] Work Phone: Basophil percentageon 2021 Basophils/100 WBC (Bld) 1.0 % 0-1 [facility] Work Phone: Bilirubin [Mass/Vol] 0.60 mg/dL 0.20-1.00 [facility] Work Phone: Comment on above: For patients on eltr ombopag therapy, use of Dimension [place] TBIL is not recommended. Chloride [Moles/Vol] 105 mmol/L 98-107 [facility] Work Phone: Cholesterol [Mass/Vol] 204 mg/dL <200 [facility] Work Phone: Comment on above: <200 mg/dL Desirable 200-240 mg/dL Borderline >240 mg/dL High Risk Eosinophils/100 WBC (Bld) 2.5 % 0-5 [facility] Work Phone: Glucose [Mass/Vol] 95 mg/dL 74-106 [facility] Work Phone: Neutrophils (Bld) [#/Vol] 2.4 10*3/uL 2.0-7.7 [facility] Work Phone: Neutrophils/100 WBC (Bld) 46.1 % 47-70 [facility] Work Phone: Potassium [Moles/Vol] 4.2 mmol/L 3.5-5.1 [facility] Work Phone: Protein [Mass/Vol] 7.2 g/dL 6.4-8.2 [facility] Work Phone: Sodium [Moles/Vol] 138 mmol/L 136-145 [facility] Work Phone: Triglyceride [Mass/Vol] 130 mg/dL [facility] Work Phone: Comment on above: The drugs N-Acetylcy steine and Metamizole may falsely depress this assay.Serum Triglycerides Reference Interval Normal <150 mg/dL Borderline high 150 - 199 mg/dL High 200 - 499 mg/dL Very High > or = 500 mg/dL WBC (Bld) [#/Vol] 5.1 10*3/uL 4.4-11.0 [facility] Work Phone: Bilirubin Test strip Ql (U)o n 01-19-2022 Bilirubin Ql (U) Negative Negative [facility] Work Phone: Blood erythrocytes count (nu mber/volume)on 01-19-2022 RBC (Bld) [#/Vol] 4.45 10*6/uL 4.6-6.2 [facility] Work Phone: Blood hemoglobin measurement (mass/volume)on 01-19-2022 Hemoglobin (Bld) [Mass/Vol] 14.1 g/dL 13.0-16.5 [facility] Work Phone: Blood lymphocytes/100 leukoc yteson 01-19-2022 Lymphocytes/100 WBC (Bld) 39.5 % 19-41 [facility] Work Phone: Blood monocytes/100 leukocyt eson 01-19-2022 Monocytes/100 WBC (Bld) 10.7 % 0-10 [facility] Work Phone: Blood platelet mean volumeon 01-19-2022 Platelet mean volume (Bld) [Entitic vol] 10.0 fL 6.2-12.0 [facility] Work Phone: Determination of erythrocyte mean corpuscular volume (MCV)on 01-19-2022 MCV (RBC) [Entitic vol] 93.9 fL 80-94 [facility] Work Phone: Hematocrit Auto (Bld) [Volum e fraction]on 01-19-2022 Hematocrit (Bld) [Volume fraction] 41.8 % 40-54 [facility] Work Phone: Ketones Test strip Ql (U)on 01-19-2022 Ketones Ql (U) Negative Negative [facility] Work Phone: Laboratory - Chemistry and C hemistry - challengeon 01-19-2022 ALP [Catalytic activity/Vol] 91 U/L 45-117 [facility] Work Phone: ALT [Catalytic activity/Vol] 33 U/L 16-61 [facility] Work Phone: CO2 [Moles/Vol] 27.0 mmol/L 21.0-32.0 [facility] Work Phone: Globulin (S) [Mass/Vol] 3.5 g/dL 2.2-4.2 [facility] Work Phone: Urea nitrogen/Creatinine [Mass ratio] 18.3 mg/mg 10-20 [facility] Work Phone: Laboratory - Hematology and Cell countson 01-19-2022 Erythrocyte distribution width (RBC) [Entitic vol] 42.7 fL 35.1-43.9 [facility] Work Phone: Erythrocyte distribution width (RBC) [Ratio] 12.3 % 11.6-14.6 [facility] Work Phone: Immature granulocytes/100 WBC (Bld) 0.200 % 0.0-0.9 [facility] Work Phone: Comment on above: IG% - Immature Granu locytes (promyelocytes, myelocytes and metamyelocytes) > 1% indicates that a LEFT SHIFT is Present. MCH (RBC) [Entitic mass] 31.7 pg 27.0-32.0 [facility] Work Phone: Nucleated RBC/100 WBC (Bld) [Ratio] 0 % 0-5 [facility] Work Phone: MCHC Auto (RBC) [Mass/Vol]on 01-19-2022 MCHC (RBC) [Mass/Vol] 33.7 g/dL 32-36 [facility] Work Phone: Nitrite Test strip Ql (U)on 01-19-2022 Nitrite Ql (U) Negative Negative [facility] Work Phone: No Panel Informationon 01-19 Estimated GFR (MDRD) Amer 123 mL/min >60 [facility] Work Phone: Comment on above: GFR Calc Estimated GFR (MDRD) Non-Af Amer 102 mL/min >60 [facility] Work Phone: Comment on above: Non- GFR Calc Prostate Specific Antigen Screen 2.15 ng/mL 0.00-4.00 [facility] Work Phone: Comment on above: This test was perfor med using the TPSA assay method for [employer] chemistry system. Values obtained with differentassay methods cannot be used interchangably.When changing PSA assays in the course of monitoring apatient, additional sequential testing should be carriedout to confirm baseline values. Thyroid Stimulating Hormone (TSH) 2.34 uIU/mL 0.358-3.74 [facility] Work Phone: Urine Microalbumin/Creatinin e Ratio TNP [facility] Work Phone: Comment on above: Test not performed Vitamin D 25-Hydroxy 50.4 ng/mL [facility] Work Phone: Comment on above: Vitamin D 25(OH) Sta tus Range Deficiency <20 ng/mL (50nmol/L) Insufficiency 20 - 30 ng/mL (50 - 75 nmol/L) Sufficiency 30 - 100 ng/mL (75 - 250 nmol/L) Toxicity >100 ng/mL (>250 nmol/L) Platelets bldon 01-19-2022 Platelets (Bld) [#/Vol] 240 10*3/uL 150-450 [facility] Work Phone: Protein Test strip Ql (U)on 01-19-2022 Protein Ql (U) Negative Negative [facility] Work Phone: Serum or plasma albumin keiko urement (mass/volume)on 01-19-2022 Albumin [Mass/Vol] 3.7 g/dL 3.2-5.0 [facility] Work Phone: Serum or plasma albumin/glob ulin mass ratioon 01-19-2022 Albumin/Globulin [Mass ratio] 1.1 {ratio} 0.9-2.4 [facility] Work Phone: Serum or plasma calcium keiko urement (mass/volume)on 01-19-2022 Calcium [Mass/Vol] 8.9 mg/dL 8.5-10.1 [facility] Work Phone: Serum or plasma cholesterol in HDL measurement (mass/volume)on 01-19-2022 Cholesterol in HDL [Mass/Vol] 49 mg/dL [facility] Work Phone: Comment on above: The drugs N-Acetylcy steine and Metamizole may falsely depress this assay. Reference Range HDL <40 mg/dL Low HDL Cholesterol HDL >or= 60 mg/dL High HDL Cholesterol Serum or plasma cholesterol in VLDL measurement (mass/volume)on 01-19-2022 Cholesterol in VLDL [Mass/Vol] 26 mg/dL 5-40 [facility] Work Phone: Serum or plasma creatinine m easurement (mass/volume)on 01-19-2022 Creatinine [Mass/Vol] 0.82 mg/dL 0.70-1.30 [facility] Work Phone: Comment on above: The validity of the calculated GFR & GFRAA in patients over 70 years has not been determined. Clinical correlation is essential. Serum or plasma low density lipoprotein (LDL) cholesterol measurement (mass/volume)on 01-19-2022 Cholesterol in LDL [Mass/Vol] 129 mg/dL 0-130 [facility] Work Phone: Serum or plasma urea nitroge n measurement (mass/volume)on 01-19-2022 Urea nitrogen [Mass/Vol] 15 mg/dL 7-18 [facility] Work Phone: Thin prep Papanicolaou smear with manual screeningon 01-19-2022 Thin prep Papanicolaou smear with manual screening 15 U/L 15-37 [facility] Work Phone: Thin prep Papanicolaou smear with manual screening 6 5-15 [facility] Work Phone: Thin prep Papanicolaou smear with manual screening < 5.0 mg/L NO RANGE EST. [facility] Work Phone: Urine blood detectionon RBC Ql (U) Negative Negative [facility] Work Phone: Urine clarityon 01-19-2022 Clarity (U) Clear Clear [facility] Work Phone: Urine color determinationon 01-19-2022 Color (U) Yellow Yellow [facility] Work Phone: Urine creatinine measurement (mass/volume)on 01-19-2022 Creatinine (U) [Mass/Vol] 30.90 mg/dL NO RANGE EST. [facility] Work Phone: Urine glucose detectionon Glucose Ql (U) Normal mg/dl Normal [facility] Work Phone: Urine leukocyte esterase det ection by dipstickon 01-19-2022 Leukocyte esterase Test strip Ql (U) Negative Negative [facility] Work Phone: Urine pHon 01-19-2022 pH (U) 7.0 [pH] [facility] Work Phone: Urine specific gravity measu rementon 01-19-2022 Specific gravity (U) [Rel density] 1.005 [facility] Work Phone: Urobilinogen Auto test strip Ql (U)on 01-19-2022 Urobilinogen Ql (U) Normal mg/dl Normal [facility] Work Phone: Whole blood hemoglobin A1c/t otal hemoglobin ratio (mass fraction)on 01-19-2022 HbA1c (Bld) [Mass fraction] 5.4 % 3.8-5.6 [facility] Work Phone: Comment on above: Normal < 5.7 % Predi abetic 5.7 - 6.4 % Diabetic >or= 6.5 % Please note range changes. Blood Glucose , Office ([phone])Ordered By: Abi Newman on 10-28-2020 Glucose Glucometer (BldC) [Moles/Vol] 102 1 Normal [facility]; [facility] Work Phone: HgA1C , Office ([id number])Ordere d By: Abi Newman on 10-28-2020 HbA1c (Bld) [Mass fraction] 5.1 % Normal 4.6 - 7.1 [facility]; [facility] Work Phone: Metabolic Panel, Basic ([phone])Ordered By: Wrapper Off on 09-04-2019 Calcium [Mass/Vol] 9.1 mg/dL Normal 8.7-10.2 [facility] Work Phone: Comment on above: PATIENT WAS FASTINGP ERFORMED BY: CB [facility] [id number] [place] [id number] Chloride [Moles/Vol] 98 mmol/L Normal 96-106 [facility] Work Phone: Comment on above: PATIENT WAS FASTINGP ERFORMED BY: CB [facility] [id number] [address]Dublin [place] [id number] CO2 [Moles/Vol] 24 mmol/L Normal 20-29 [facility] Work Phone: Comment on above: PATIENT WAS FASTINGP ERFORMED BY: CB [facility] [id number]Dublin [place] [id number] Creatinine [Mass/Vol] 0.82 mg/dL Normal 0.76-1.27 [facility] Work Phone: Comment on above: PATIENT WAS FASTINGP ERFORMED BY: CB [facility] [id number]Dublin [place] [id number] GFR/1.73 sq M predicted among blacks CKD-EPI (S/P/Bld) [Vol rate/Area] 113 mL/min/1.73 Normal [facility] Work Phone: Comment on above: PATIENT WAS FASTINGP ERFORMED BY: CB [facility] [id number] [place] [id number] GFR/1.73 sq M predicted among non-blacks CKD-EPI (S/P/Bld) [Vol rate/Area] 98 mL/min/1.73 Normal [facility] Work Phone: Comment on above: PATIENT WAS FASTINGP ERFORMED BY: CB [facility] [id number] [place] [id number] Glucose [Mass/Vol] 88 mg/dL Normal 65-99 [facility] Work Phone: Comment on above: PATIENT WAS FASTINGP ERFORMED BY: [facility] [id number] [facility] [id number] Potassium [Moles/Vol] 4.1 mmol/L Normal 3.5-5.2 [facility] Work Phone: Comment on above: PATIENT WAS FASTINGP ERFORMED BY: [facility] [id number] [facility] [id number] Sodium [Moles/Vol] 137 mmol/L Normal 134-144 [facility] Work Phone: Comment on above: PATIENT WAS FASTINGP ERFORMED BY: [facility] [id number] [facility] [id number] Urea nitrogen [Mass/Vol] 13 mg/dL Normal 6-24 [facility] Work Phone: Comment on above: PATIENT WAS FASTINGP ERFORMED BY: [facility] [id number] [facility] [id number] Urea nitrogen/Creatinine [Mass ratio] 16 mg/mg Normal 9-20 [facility] Work Phone: Comment on above: PATIENT WAS FASTINGP ERFORMED BY: [facility] [id number] [facility] [id number] Lipid ProfileOrdered By: Aguila tem Finish Patcher on 05-28-2018 Cholesterol in HDL mass conc 58 mg/dL Normal [facility] Work Phone: Comment on above: The drugs N-Acetylcy steine and Metamizole may falselydepress this assay. Reference Range HDL <40 mg/dL Low HDL Cholesterol HDL >or= 60 mg/dL High HDL Cholesterol Cholesterol in LDL mass conc 75 mg/dL Normal 0-130 [facility] Work Phone: Cholesterol in VLDL mass conc 32 mg/dL Normal 5-40 [facility] Work Phone: Cholesterol mass conc 165 mg/dL Normal [facility] Work Phone: Comment on above: <200 mg/dL Desirable 200-240 mg/dL Borderline >240 mg/dL High Risk Triglyceride mass conc 158 mg/dL Normal [facility] Work Phone: Comment on above: The drugs N-Acetylcy steine and Metamizole may falselydepress this assay.Serum Triglycerides Reference Interval Normal <150 mg/dL Borderline high 150 - 199 mg/dL High 200 - 499 mg/dL Very High > or = 500 mg/dL PSA,Total - Annual ScreenOrd ered By: Wrapper Off on 05-28-2018 Prostate specific Ag mass conc 1.18 ng/mL Normal 0.00-4.00 [facility] Work Phone: Comment on above: This test was perfor med using the TPSA assay method for [employer] chemistry system. Values obtained with differentassay methods cannot be used interchangably.When changing PSA assays in the course of monitoring apatient, additional sequential testing should be carriedout to confirm baseline values. CBC W/Diff, AutomatedOrdered By: Wrapper Off on 11-27-2017 Absolute Lymph 2.21 {X10_3/ul} Normal 0.83-4.51 [facility] Work Phone: Absolute Neut 2.3 {X10_3/uL} Normal 2.0-7.7 [facility] Work Phone: Basophils/100 WBC Auto (Bld) 0.4 % Normal 0-1 [facility] Work Phone: Eosinophils/100 WBC Auto (Bld) 4.9 % Normal 0-5 [facility] Work Phone: Erythrocyte distribution width Auto Ratio (RBC) 12.1 % Normal 11.6-14.6 [facility] Work Phone: Hematocrit Auto Volume Fraction (Bld) 41.9 % Normal 40-54 [facility] Work Phone: Hemoglobin mass conc (Bld) 14.2 g/dL Normal 13.0-16.5 [facility] Work Phone: IM GRAN % 0.000 % Normal 0.0-0.9 [facility] Work Phone: Comment on above: IG% - Immature Granu locytes (promyelocytes, myelocytes andmetamyelocytes) > 1% indicates that a LEFT SHIFT is Present. Lymphocytes/100 WBC Auto (Bld) 41.3 % Abnormal 19-41 [facility] Work Phone: MCH Auto Entitic mass (RBC) 31.2 pg Normal 27.0-32.0 [facility] Work Phone: MCHC Auto mass conc (RBC) 33.9 {g/gl} Normal 32-36 [facility] Work Phone: MCV Auto Entitic volume (RBC) 92.1 fL Normal 80-94 [facility] Work Phone: Monocytes/100 WBC Auto (Bld) 11.0 % Abnormal 0-10 [facility] Work Phone: Neutrophils/100 WBC Auto (Bld) 42.4 % Abnormal 47-70 [facility] Work Phone: Platelet mean volume Auto Entitic volume (Bld) 10.2 fL Normal 6.2-12.0 [facility] Work Phone: Platelets Auto #/vol (Bld) 228 10*3/uL Normal 150-450 [facility] Work Phone: RBC Auto #/vol (Bld) 4.55 {M/mm3} Abnormal 4.6-6.2 [facility] Work Phone: RDW SD 40.1 fL Normal 35.1-43.9 [facility] Work Phone: WBC Auto #/vol (Bld) 5.4 10*3/uL Normal 4.4-11.0 [facility] Work Phone: Comprehensive Metabolic Prof ilOrdered By: Wrapper Off on 11-27-2017 Comprehensive metabolic 2000 panel 105 mmol/L Normal 98-107 [facility] Work Phone: Comprehensive metabolic 2000 panel 28.0 mmol/L Normal 21.0-32.0 [facility] Work Phone: Comprehensive metabolic 2000 panel 8.3 mg/dL Abnormal 8.5-10.1 [facility] Work Phone: Comprehensive metabolic 2000 panel 7 1 Normal 5-15 [facility] Work Phone: Comprehensive metabolic 2000 panel 1.1 {RATIO} Normal 0.9-2.4 [facility] Work Phone: Comprehensive metabolic 2000 panel 3.4 g/dL Normal 2.2-4.2 [facility] Work Phone: Comprehensive metabolic 2000 panel 3.7 g/dL Normal 3.2-5.0 [facility] Work Phone: Comprehensive metabolic 2000 panel 13.0 {RATIO} Normal 10-20 [facility] Work Phone: Comprehensive metabolic 2000 panel 109 mL/min Normal [facility] Work Phone: Comment on above: GFR Calc [facility] 1999 panel 3.9 mmol/L Normal 3.5-5.1 [facility] Work Phone: [facility] metabolic 2000 panel 37 U/L Normal 16-61 [facility] Work Phone: [facility] metabolic 2000 panel 90 mL/min Normal [facility] Work Phone: Comment on above: Non- GFR Calc [facility] 1999 panel 0.93 mg/dL Normal 0.70-1.30 [facility] Work Phone: Comment on above: The validity of the calculated GFR AND GFRAA in patients over70 years has not been determined. Clinical correlation isessential. [facility] 2000 panel 12 mg/dL Normal 7-18 [facility] Work Phone: [facility] 2000 panel 7.1 g/dL Normal 6.4-8.2 [facility] Work Phone: Comprehensive metabolic 2000 panel 0.50 mg/dL Normal 0.20-1.00 [facility] Work Phone: [facility] 2000 panel 86 mg/dL Normal 74-106 [facility] Work Phone: Comment on above: Please note revised GLUCOSE reference range [id number]/02/2018. [facility] 2000 panel 140 mmol/L Normal 136-145 [facility] Work Phone: [facility] 2000 panel 88 U/L Normal 45-117 [facility] Work Phone: [facility] 2000 panel 17 U/L Normal 15-37 [facility] Work Phone: Lipid ProfileOrdered By: Aguila tem Finish Patcher on 11-27-2017 Cholesterol in HDL mass conc 35 mg/dL Abnormal [facility] Work Phone: Comment on above: The drugs N-Acetylcy steine and Metamizole may falselydepress this assay. Reference Range HDL <40 mg/dL Low HDL Cholesterol HDL >or= 60 mg/dL High HDL Cholesterol Cholesterol in LDL mass conc 65 mg/dL Normal 0-130 [facility] Work Phone: Cholesterol in VLDL mass conc 31 mg/dL Normal 5-40 [facility] Work Phone: Cholesterol mass conc 131 mg/dL Normal [facility] Work Phone: Comment on above: <200 mg/dL Desirable 200-240 mg/dL Borderline >240 mg/dL High Risk Triglyceride mass conc 157 mg/dL Normal [facility] Work Phone: Comment on above: The drugs N-Acetylcy steine and Metamizole may falselydepress this assay.Serum Triglycerides Reference Interval Normal <150 mg/dL Borderline high 150 - 199 mg/dL High 200 - 499 mg/dL Very High > or = 500 mg/dL MicroalbOrdered By: Charley adam on 11-27-2017 Creatinine mass conc Test not performed Normal [facility] Work Phone: MICROALBUMIN,UR < 5.0 Normal [facility] Work Phone: UR CREAT 54.60 mg/dL Normal [facility] Work Phone: Thyroid Stim Hormone (TSH)Or dered By: Wrapper Off on 11-27-2017 Thyrotropin Qn 2.27 {uIU/mL} Normal 0.358-3.74 [facility] Work Phone: Urinalysis, CompleteOrdered By: Wrapper Off on 11-27-2017 CLARITY Sl. Cloudy Normal [facility] Work Phone: COLOR Yellow Normal [facility] Work Phone: LEUK ESTERASE Negative Normal [facility] Work Phone: MUCUS, URINE 0 SEEN Normal 0-5 [facility] Work Phone: pH UR 7.0 1 Normal 5.0 - 8.0 [facility] Work Phone: RBC Test strip #/vol (U) 0 SEEN Normal 0-5 [facility] Work Phone: SP.GR. DIPSTX 1.010 1 Normal 1.002-1.030 [facility] Work Phone: UROBILI Normal Normal [facility] Work Phone: Comprehensive Metabolic Prof ilOrdered By: Wrapper Off on 05-25-2017 [facility] 2000 panel 3.9 mmol/L Normal 3.5-5.1 [facility] Work Phone: [facility] metabolic 2000 panel 7.2 g/dL Normal 6.4-8.2 [facility] Work Phone: Comprehensive metabolic 2000 panel 3.6 g/dL Abnormal 2.3-3.5 [facility] Work Phone: Comprehensive metabolic 2000 panel 126 mL/min Normal [facility] Work Phone: Comment on above: GFR Calc [facility] 2000 panel 99 mg/dL Normal 70-110 [facility] Work Phone: Comprehensive metabolic 2000 panel 1.0 {RATIO} Normal 0.9-2.4 [facility] Work Phone: Comprehensive metabolic 2000 panel 8.1 mg/dL Abnormal 8.5-10.1 [facility] Work Phone: Comprehensive metabolic 2000 panel 17 U/L Normal 15-37 [facility] Work Phone: [facility] metabolic 2000 panel 7 1 Normal 5-15 [facility] Work Phone: Comprehensive metabolic 2000 panel 105 U/L Normal 45-117 [facility] Work Phone: Comprehensive metabolic 2000 panel 37 U/L Normal 12-78 [facility] Work Phone: Comprehensive metabolic 2000 panel 24.4 {RATIO} Abnormal 10-20 [facility] Work Phone: Comprehensive metabolic 2000 panel 28.0 mmol/L Normal 21.0-32.0 [facility] Work Phone: Comprehensive metabolic 2000 panel 102 mmol/L Normal 98-107 [facility] Work Phone: Comprehensive metabolic 2000 panel 0.20 mg/dL Normal 0.20-1.00 [facility] Work Phone: Comprehensive metabolic 2000 panel 104 mL/min Normal [facility] Work Phone: Comment on above: Non- GFR Calc [facility] 1999 panel 20 mg/dL Abnormal 7-18 [facility] Work Phone: Comprehensive metabolic 2000 panel 137 mmol/L Normal 136-145 [facility] Work Phone: [facility] metabolic 2000 panel 0.82 mg/dL Normal 0.70-1.30 [facility] Work Phone: Comment on above: The validity of the calculated GFR AND GFRAA in patients over70 years has not been determined. Clinical correlation isessential. CBC W/Diff, AutomatedOrdered By: Wrapper Off on 11-14-2016 Absolute Lymph 2.27 {X10_3/ul} Normal 0.83-4.51 [facility] Work Phone: Absolute Neut 2.3 {X10_3/uL} Normal 2.0-7.7 [facility] Work Phone: Basophils/100 WBC Auto (Bld) 0.6 % Normal 0-1 [facility] Work Phone: Eosinophils/100 WBC Auto (Bld) 3.4 % Normal 0-5 [facility] Work Phone: Erythrocyte distribution width Auto Ratio (RBC) 12.2 % Normal 11.6-14.6 [facility] Work Phone: Hematocrit Auto Volume Fraction (Bld) 38.5 % Abnormal 40-54 [facility] Work Phone: Hemoglobin mass conc (Bld) 12.8 g/dL Abnormal 13.0-16.5 [facility] Work Phone: IM GRAN % 0.200 % Normal 0.0-0.9 [facility] Work Phone: Comment on above: IG% - Immature Granu locytes (promyelocytes, myelocytes andmetamyelocytes) > 1% indicates that a LEFT SHIFT is Present. Lymphocytes/100 WBC Auto (Bld) 42.6 % Abnormal 19-41 [facility] Work Phone: MCH Auto Entitic mass (RBC) 30.9 pg Normal 27.0-32.0 [facility] Work Phone: MCHC Auto mass conc (RBC) 33.2 {g/gl} Normal 32-36 [facility] Work Phone: MCV Auto Entitic volume (RBC) 93.0 fL Normal 80-94 [facility] Work Phone: Monocytes/100 WBC Auto (Bld) 10.7 % Abnormal 0-10 [facility] Work Phone: Neutrophils/100 WBC Auto (Bld) 42.5 % Abnormal 47-70 [facility] Work Phone: Platelet mean volume Auto Entitic volume (Bld) 10.3 fL Normal 6.2-12.0 [facility] Work Phone: Platelets Auto #/vol (Bld) 230 10*3/uL Normal 150-450 [facility] Work Phone: RBC Auto #/vol (Bld) 4.14 {M/mm3} Abnormal 4.6-6.2 [facility] Work Phone: RDW SD 40.5 fL Normal 35.1-43.9 [facility] Work Phone: WBC Auto #/vol (Bld) 5.3 10*3/uL Normal 4.4-11.0 Com prehensive [facility] Work Phone: Comprehensive Metabolic Prof ilOrdered By: Wrapper Off on 11-14-2016 Comprehensive metabolic 2000 panel 40 U/L Normal 12-78 Comprehensi ve Internal Medicine Work Phone: Comprehensive metabolic 2000 panel 9 mg/dL Normal 7-18 Comprehensi ve [facility] Work Phone: Comprehensive metabolic 1999 panel 20 U/L Normal 15-37 Comprehensi ve [facility] Work Phone: Comprehensive metabolic 2000 panel 8.1 mg/dL Abnormal 8.5-10.1 Comprehensi ve [facility] Work Phone: Comprehensive metabolic 2000 panel 1.1 {RATIO} Normal 0.9-2.4 Comprehensi [facility] Work Phone: Comprehensive metabolic 2000 panel 82 U/L Normal 45-117 Comprehensi ve [facility] Work Phone: Comprehensive metabolic 2000 panel 3.3 g/dL Normal 2.3-3.5 Comprehensi ve [facility] Work Phone: Comprehensive metabolic 1999 panel 92 mg/dL Normal 70-110 Comprehensi ve [facility] Work Phone: Comprehensive metabolic 2000 panel 3.5 g/dL Normal 3.4-5.0 Comprehensi [facility] Work Phone: Comprehensive metabolic 2000 panel 6.8 g/dL Normal 6.4-8.2 Comprehensi ve [facility] Work Phone: Comprehensive metabolic 2000 panel 8 1 Normal 5-15 Comprehensi ve [facility] Medicine Work Phone: Comprehensive metabolic 2000 panel 11.1 {RATIO} Normal 10-20 Comprehensi ve [facility] Work Phone: Comprehensive metabolic 2000 panel 0.20 mg/dL Normal 0.20-1.00 Comprehensi [facility] Work Phone: Comprehensive metabolic 2000 panel 128 mL/min Normal Comprehensi ve [facility] Work Phone: Comment on above: GFR Calc Comprehensive metabolic 2000 panel 106 mL/min Normal Comprehensi ve [facility] Medicine Work Phone: Comment on above: Non- GFR Calc [facility] metabolic 2000 panel 140 mmol/L Normal 136-145 Comprehensi ve [facility] Work Phone: Comprehensive metabolic 2000 panel 3.9 mmol/L Normal 3.5-5.1 Comprehensi ve [facility] Work Phone: Comprehensive metabolic 2000 panel 105 mmol/L Normal 98-107 Comprehensi ve [facility] Medicine Work Phone: Comprehensive metabolic 2000 panel 27.0 mmol/L Normal 21.0-32.0 Comprehensi ve [facility] Work Phone: Comprehensive metabolic 2000 panel 0.81 mg/dL Normal 0.70-1.30 Comprehensi ve [facility] Medicine Work Phone: Comment on above: The validity of the calculated GFR AND GFRAA in patients over70 years has not been determined. Clinical correlation isessential. Lipid ProfileOrdered By: Aguila tem Finish Patcher on 11-14-2016 Cholesterol in HDL mass conc 44 mg/dL Normal [facility] Work Phone: Comment on above: The drugs N-Acetylcy steine and Metamizole may falsely deressthis assay. Reference Range HDL <40 mg/dL Low HDL Cholesterol HDL >or= 60 mg/dL High HDL Cholesterol Cholesterol in LDL mass conc 78 mg/dL Normal 0-130 [facility] Work Phone: Cholesterol in VLDL mass conc 25 mg/dL Normal 5-40 [facility] Work Phone: Cholesterol mass conc 147 mg/dL Normal Com prehensive [facility] Medicine Work Phone: Comment on above: <200 mg/dL Desirable 200-240 mg/dL Borderline >240 mg/dL High Risk Triglyceride mass conc 125 mg/dL Normal Co mprehensive [facility] Work Phone: Comment on above: The drugs N-Acetylcy steine and Metamizole may falsely deressthis assay.Serum Triglycerides Reference Interval Normal <150 mg/dL Borderline high 150 - 199 mg/dL High 200 - 499 mg/dL Very High > or = 500 mg/dL MicroalbOrdered By: Charley adam on 11-14-2016 Creatinine mass conc 10.1 {mg/g_CRE} Normal [facility] Work Phone: MICROALBUMIN,UR 5.9 mg/L Normal Comprehen [facility] Internal Medicine Work Phone: UR CREAT 58.20 mg/dL Normal [facility] Work Phone: Thyroid Stim Hormone (TSH)Or dered By: Wrapper Off on 11-14-2016 Thyrotropin Qn 2.47 {uIU/mL} Normal 0.358-3.74 [facility] Work Phone: Urinalysis, CompleteOrdered By: Wrapper Off on 11-14-2016 BACTERIA 0 SEEN Normal 0-5 [facility] Work Phone: CLARITY Clear Normal [facility] Work Phone: COLOR Straw Normal [facility] Work Phone: GLUCOSE, UR Normal Normal [facility] Internal Medicine Work Phone: OCCULT BLOOD-UR Negative Normal Comprehen [facility] Internal Medicine Work Phone: pH UR 6.5 1 Normal 5.0 - 8.0 [facility] Work Phone: RBC Test strip #/vol (U) 0 SEEN Normal 0-5 [facility] Work Phone: SP.GR. DIPSTX 1.015 1 Normal 1.002-1.030 [facility] Work Phone: Lipid ProfileOrdered By: Aguila tem Finish Patcher on 05-16-2016 Cholesterol in HDL mass conc 48 mg/dL Normal [facility] Work Phone: Comment on above: The drugs N-Acetylcy steine and Metamizole may falsely deressthis assay. Reference Range HDL <40 mg/dL Low HDL Cholesterol HDL >or= 60 mg/dL High HDL Cholesterol Cholesterol in LDL mass conc 96 mg/dL Normal 0-130 [facility] Internal Medicine Work Phone: Cholesterol in VLDL mass conc 26 mg/dL Normal 5-40 [facility] Internal Medicine Work Phone: Cholesterol mass conc 170 mg/dL Normal Com prehensive Internal Medicine Work Phone: Comment on above: <200 mg/dL Desirable 200-240 mg/dL Borderline >240 mg/dL High Risk Triglyceride mass conc 131 mg/dL Normal [facility] Work Phone: Comment on above: The drugs N-Acetylcy steine and Metamizole may falsely deressthis assay.Serum Triglycerides Reference Interval Normal <150 mg/dL Borderline high 150 - 199 mg/dL High 200 - 499 mg/dL Very High > or = 500 mg/dL Liver ProfileOrdered By: Aguila tem Finish Patcher on 05-16-2016 Albumin mass conc 3.7 g/dL Normal 3.4-5.0 Compreh [facility] Internal Medicine Work Phone: ALP enzyme act/vol 91 U/L Normal 50-136 [facility] Internal Medicine Work Phone: ALT enzyme act/vol 40 U/L Normal 12-78 [facility] Internal Medicine Work Phone: AST enzyme act/vol 20 U/L Normal 15-37 [facility] Internal Medicine Work Phone: Bilirubin mass conc 0.60 mg/dL Normal 0.20-1.00 [facility] Internal Medicine Work Phone: Bilirubin.direct mass conc 0.12 mg/dL Normal 0.00-0.30 [facility] Internal Medicine Work Phone: Globulin Calculated mass conc (S) 3.2 g/dL Normal 2.3-3.5 [facility] Internal Medicine Work Phone: Protein mass conc 6.9 g/dL Normal 6.4-8.2 [facility] Internal Medicine Work Phone: CBC W/AUTO DIFF WBC ([id number])O rdered By: Wrapper Off on 11-06-2015 Basophils #/vol (Bld) 0.0 {x10E3/uL} Normal 0.0-0.2 [facility] Work Phone: Comment on above: PATIENT WAS FASTINGP ERFORMED BY: [address] [id number] Information: [id number] Basophils (Bld) [#/Vol] 0.0 10*3/uL Normal 0.0-0.2 [facility] Work Phone: Comment on above: PATIENT WAS FASTINGP ERFORMED BY: [address] [id number] Information: [id number] Basophils Auto #/vol (Bld) 0.0 {x10E3/uL} Normal 0.0-0.2 [facility] Work Phone: Basophils/100 WBC (Bld) 1 % Normal [facility] Work Phone: Comment on above: PATIENT WAS FASTINGP ERFORMED BY: [address] [id number] Information: [id number] Basophils/100 WBC Auto (Bld) 1 % Normal [facility] Work Phone: Eosinophils #/vol (Bld) 0.2 {x10E3/uL} Normal 0.0-0.4 [facility] Work Phone: Comment on above: PATIENT WAS FASTINGP ERFORMED BY: [address] [id number] Information: [id number] Eosinophils (Bld) [#/Vol] 0.2 10*3/uL Normal 0.0-0.4 [facility] Work Phone: Comment on above: PATIENT WAS FASTINGP ERFORMED BY: [address] [id number] Information: [id number] Eosinophils Auto #/vol (Bld) 0.2 {x10E3/uL} Normal 0.0-0.4 [facility] Work Phone: Eosinophils/100 WBC (Bld) 5 % Normal [facility] Work Phone: Comment on above: PATIENT WAS FASTINGP ERFORMED BY: [place] [id number] [facility] [id number] Information: [id number] Eosinophils/100 WBC Auto (Bld) 5 % Normal [facility] Work Phone: Erythrocyte distribution width Auto Ratio (RBC) 13.3 % Normal 12.3-15.4 [facility] Work Phone: Erythrocyte distribution width Ratio (RBC) 13.3 % Normal 12.3-15.4 [facility] Work Phone: Comment on above: PATIENT WAS FASTINGP ERFORMED BY: [address] [id number] Information: [id number] Hematocrit Auto Volume Fraction (Bld) 42.0 % Normal 37.5-51.0 [facility] Work Phone: Hematocrit Volume Fraction (Bld) 42.0 % Normal 37.5-51.0 [facility] Work Phone: Comment on above: PATIENT WAS FASTINGP ERFORMED BY: [place] [id number] [facility] [id number] Information: [id number] Hemoglobin mass conc (Bld) 14.2 g/dL Normal 12.6-17.7 [facility] Work Phone: Comment on above: PATIENT WAS FASTINGP ERFORMED BY: [place] [id number] [facility] [id number] Information: [id number] Immature granulocytes #/vol (Bld) 0.0 {x10E3/uL} Normal 0.0-0.1 [facility] Work Phone: Comment on above: PATIENT WAS FASTINGP ERFORMED BY: [address] [id number] Information: [id number] Immature granulocytes (Bld) [#/Vol] 0.0 10*3/uL Normal 0.0-0.1 [facility] Work Phone: Comment on above: PATIENT WAS FASTINGP ERFORMED BY: [address] [id number] Information: [id number] Immature granulocytes/100 WBC (Bld) 0 % Normal [facility] Work Phone: Comment on above: PATIENT WAS FASTINGP ERFORMED BY: [address] [id number] Information: [id number] Lymphocytes #/vol (Bld) 1.6 {x10E3/uL} Normal 0.7-3.1 [facility] Work Phone: Comment on above: PATIENT WAS FASTINGP ERFORMED BY: [address] [id number] Information: [id number] Lymphocytes (Bld) [#/Vol] 1.6 10*3/uL Normal 0.7-3.1 [facility] Work Phone: Comment on above: PATIENT WAS FASTINGP ERFORMED BY: [address] [id number] Information: [id number] Lymphocytes Auto #/vol (Bld) 1.6 {x10E3/uL} Normal 0.7-3.1 [facility] Work Phone: Lymphocytes/100 WBC (Bld) 36 % Normal [facility] Work Phone: Comment on above: PATIENT WAS FASTINGP ERFORMED BY: [place] [id number] [facility] [id number] Information: [id number] Lymphocytes/100 WBC Auto (Bld) 36 % Normal [facility] Work Phone: MCH Auto Entitic mass (RBC) 30.7 pg Normal 26.6-33.0 [facility] Work Phone: MCH Entitic mass (RBC) 30.7 pg Normal 26.6-33.0 [facility] Internal Medicine Work Phone: Comment on above: PATIENT WAS FASTINGP ERFORMED BY: MENDEZ LabBrian Ville [id number] [facility] [id number] Information: [id number] MCHC Auto mass conc (RBC) 33.8 g/dL Normal 31.5-35.7 [facility] Work Phone: MCHC mass conc (RBC) 33.8 g/dL Normal 31.5-35.7 [facility] Internal Medicine Work Phone: Comment on above: PATIENT WAS FASTINGP ERFORMED BY: [address] [id number] Information: [id number] MCV Auto Entitic volume (RBC) 91 fL Normal 79-97 [facility] Work Phone: MCV Entitic volume (RBC) 91 fL Normal 79-97 [facility] Work Phone: Comment on above: PATIENT WAS FASTINGP ERFORMED BY: [place] [id number] [facility] [id number] Information: [id number] Monocytes #/vol (Bld) 0.5 {x10E3/uL} Normal 0.1-0.9 [facility] Work Phone: Comment on above: PATIENT WAS FASTINGP ERFORMED BY: LabBrian Ville [id number] [facility] [id number] Information: [id number] Monocytes (Bld) [#/Vol] 0.5 10*3/uL Normal 0.1-0.9 [facility] Work Phone: Comment on above: PATIENT WAS FASTINGP ERFORMED BY: [address] [id number] Information: [id number] Monocytes Auto #/vol (Bld) 0.5 {x10E3/uL} Normal 0.1-0.9 [facility] Work Phone: Monocytes/100 WBC (Bld) 10 % Normal [facility] Work Phone: Comment on above: PATIENT WAS FASTINGP ERFORMED BY: [place] [id number] [facility] [id number] Information: [id number] Monocytes/100 WBC Auto (Bld) 10 % Normal [facility] Work Phone: Neutrophils #/vol (Bld) 2.1 {x10E3/uL} Normal 1.4-7.0 [facility] Work Phone: Comment on above: PATIENT WAS FASTINGP ERFORMED BY: [place] [id number] [facility] [id number] Information: [id number] Neutrophils (Bld) [#/Vol] 2.1 10*3/uL Normal 1.4-7.0 [facility] Work Phone: Comment on above: PATIENT WAS FASTINGP ERFORMED BY: [place] [id number] [facility] [id number] Information: [id number] Neutrophils Auto #/vol (Bld) 2.1 {x10E3/uL} Normal 1.4-7.0 [facility] Work Phone: Neutrophils/100 WBC (Bld) 48 % Normal [facility] Work Phone: Comment on above: PATIENT WAS FASTINGP ERFORMED BY: [facility]6370 [facility] [id number] Information: [id number] Neutrophils/100 WBC Auto (Bld) 48 % Normal [facility] Work Phone: Platelets #/vol (Bld) 249 {x10E3/uL} Normal 150-379 [facility] Work Phone: Comment on above: PATIENT WAS FASTINGP ERFORMED BY: MENDEZ [facility]6370 [facility] [id number] Information: [id number] Platelets (Bld) [#/Vol] 249 10*3/uL Normal 150-379 [facility] Work Phone: Comment on above: PATIENT WAS FASTINGP ERFORMED BY: [address] [id number] Information: [id number] Platelets Auto #/vol (Bld) 249 {x10E3/uL} Normal 150-379 [facility] Work Phone: RBC #/vol (Bld) 4.62 {x10E6/uL} Normal 4.14-5.80 [facility] Internal Medicine Work Phone: Comment on above: PATIENT WAS FASTINGP ERFORMED BY: [place] [id number] [facility] [id number] Information: [id number] RBC (Bld) [#/Vol] 4.62 10*6/uL Normal 4.14-5.80 [facility] Internal Medicine Work Phone: Comment on above: PATIENT WAS FASTINGP ERFORMED BY: [facility]6370 [facility] [id number] Information: [id number] RBC Auto #/vol (Bld) 4.62 {x10E6/uL} Normal 4.14-5.80 [facility] Internal Medicine Work Phone: WBC #/vol (Bld) 4.5 {x10E3/uL} Normal 3.4-10.8 [facility] Internal Medicine Work Phone: Comment on above: PATIENT WAS FASTINGP ERFORMED BY: [facility]6370 [facility] [id number] Information: [id number] WBC (Bld) [#/Vol] 4.5 10*3/uL Normal 3.4-10.8 Compre hensive Internal Medicine Work Phone: Comment on above: PATIENT WAS FASTINGP ERFORMED BY: MENDEZ Thong Mars6370 [facility] [id number] Information: [id number] WBC Auto #/vol (Bld) 4.5 {x10E3/uL} Normal 3.4-10.8 [facility] Work Phone: LIPID PANEL ([id number])Ordered B y: Wrapper Off on 11-06-2015 Cholesterol in HDL mass conc 53 mg/dL Normal [facility] Work Phone: Comment on above: According to ATP-III Guidelines, HDL-C >59 mg/dL is considered anegative risk factor for CHD. PATIENT WAS FASTINGP ERFORMED BY: MENDEZ EdmundoMessi Bewgib4656 [facility] [id number] Cholesterol in LDL mass conc 106 mg/dL Abnormal 0-99 [facility] Work Phone: Comment on above: PATIENT WAS FASTINGP ERFORMED BY: MENDEZ EdmundoMessi Sbuqtn1519 [facility] [id number] Cholesterol in LDL/Cholesterol in HDL mass ratio 2.0 {ratio_units} Normal 0.0-3.6 [facility] Work Phone: Comment on above: LDL/HDL Ratio Men Wo men 1/2 Avg.Risk 1.0 1.5 Avg.Risk 3.6 3.2 2X Avg.Risk 6.2 5.0 3X Avg.Risk 8.0 6.1 PATIENT WAS FASTINGP ERFORMED BY: MENDEZ EdmundoMessi SalasLhrpti2765 [facility] [id number] Cholesterol in VLDL mass conc 27 mg/dL Normal 5-40 [facility] Work Phone: Comment on above: PATIENT WAS FASTINGP ERFORMED BY: MENDEZ EdmundoMessi Cpnfst2012 [facility] [id number] Cholesterol mass conc 186 mg/dL Normal 100-199 Com prehensive Internal Medicine Work Phone: Comment on above: PATIENT WAS FASTINGP ERFORMED BY: MENDEZ [facility] Muvxpg9570 [facility] [id number] Triglyceride mass conc 137 mg/dL Normal 0-149 [facility] Internal [facility] Work Phone: Comment on above: PATIENT WAS FASTINGP ERFORMED BY: MENDEZ LabCaevelin Yoyvzx[address] [facility] [place] [id number] METABOLIC PANEL, COMPREHENSI VE ([id number])Ordered By: Wrapper Off on 11-06-2015 Albumin mass conc 4.4 g/dL Normal 3.5-5.5 Compreh [facility] Internal Medicine Work Phone: Comment on above: PATIENT WAS FASTINGP ERFORMED BY: MENDEZ LabCoevelin SalasEskuwy[address]26 [address] [facility] [id number] Albumin/Globulin mass ratio 1.7 {ratio} Normal 1.1-2.5 [facility] Internal Medicine Work Phone: Comment on above: PATIENT WAS FASTINGP ERFORMED BY: MENDEZ Salaslin[address] [facility] [id number] ALP [Catalytic activity/Vol] 88 U/L Normal 39-117 [facility] Internal Medicine Work Phone: Comment on above: PATIENT WAS FASTINGP ERFORMED BY: MENDEZ LabMessi SalasEdhotz3991 [address] [facility] [place] [id number] ALP enzyme act/vol 88 [iU]/L Normal 39-117 [facility] Internal Medicine Work Phone: Comment on above: PATIENT WAS FASTINGP ERFORMED BY: MENDEZ LabCoevelin SalasPuucnw5355 [address] [facility] [id number] ALT [Catalytic activity/Vol] 25 U/L Normal 0-44 [facility] Internal Medicine Work Phone: Comment on above: PATIENT WAS FASTINGP ERFORMED BY: MENDEZ [facility] Hhhmnn6734 [address] [facility] [place] [id number] ALT enzyme act/vol 25 [iU]/L Normal 0-44 [facility] Internal Medicine Work Phone: Comment on above: PATIENT WAS FASTINGP ERFORMED BY: MENDEZ LabCo Adajcn9730 [address] [facility] [id number] AST [Catalytic activity/Vol] 20 U/L Normal 0-40 [facility] Work Phone: Comment on above: PATIENT WAS FASTINGP ERFORMED BY: MENDEZ Mars[address] [facility] [id number] AST enzyme act/vol 20 [iU]/L Normal 0-40 [facility]pre [facility] Internal Medicine Work Phone: Comment on above: PATIENT WAS FASTINGP ERFORMED BY: MENDEZ Salaslin6370 [facility] [id number] Bilirubin mass conc 0.6 mg/dL Normal 0.0-1.2 Compr ensive Internal Medicine Work Phone: Comment on above: PATIENT WAS FASTINGP ERFORMED BY: MENDEZ Salaslin6370 [facility] [id number] Calcium mass conc 9.3 mg/dL Normal 8.7-10.2 Compreh [facility] Internal Medicine Work Phone: Comment on above: PATIENT WAS FASTINGP ERFORMED BY: MENDEZ Salaslin6370 [facility] [id number] Chloride molar conc 99 mmol/L Normal 97-108 Compr [facility] Internal Medicine Work Phone: Comment on above: PATIENT WAS FASTINGP ERFORMED BY: MENDEZ Salaslin6370 [facility] [id number] CO2 molar conc 22 mmol/L Normal 18-29 Comprehens [facility] Internal Medicine Work Phone: Comment on above: PATIENT WAS FASTINGP ERFORMED BY: MENDEZ Joseph Aehohu2801 [facility] [id number] Creatinine mass conc 0.87 mg/dL Normal 0.76-1.27 Comp [facility] Internal Medicine Work Phone: Comment on above: PATIENT WAS FASTINGP ERFORMED BY: MENDEZ Salaslin6370 [facility] [id number] GFR/1.73 sq M predicted among blacks CKD-EPI vol rate/area (S/P/Bld) 114 mL/min/1.73 Normal [facility] Work Phone: Comment on above: PATIENT WAS FASTINGP ERFORMED BY: MENDEZ [facility] Wlfmcw1408 [address] [facility] [place] [id number] GFR/1.73 sq M predicted among non-blacks CKD-EPI vol rate/area (S/P/Bld) 99 mL/min/1.73 Normal Comprehensiv e Internal Medicine Work Phone: Comment on above: PATIENT WAS FASTINGP ERFORMED BY: MENDEZ [facility] Csmdkz9285 [address] [facility] [id number] Globulin Calculated mass conc (S) 2.6 g/dL Normal 1.5-4.5 [facility] Work Phone: Globulin mass conc (S) 2.6 g/dL Normal 1.5-4.5 Co mprehensive Internal Medicine Work Phone: Comment on above: PATIENT WAS FASTINGP ERFORMED BY: MENDEZ LabMessi SalasXicldj2591 [address] [facility] [id number] Glucose mass conc 88 mg/dL Normal 65-99 Compreh ensive Internal Medicine Work Phone: Comment on above: PATIENT WAS FASTINGP ERFORMED BY: MENDEZ LabCoevelin SalasYzridu9270 [address] [facility] [place] [id number] Potassium molar conc 4.7 mmol/L Normal 3.5-5.2 Comp rehensive Internal Medicine Work Phone: Comment on above: PATIENT WAS FASTINGP ERFORMED BY: MENDEZ [facility] Hcjlrs3417 [facility] [id number] Protein mass conc 7.0 g/dL Normal 6.0-8.5 Compreh ensive Internal Medicine Work Phone: Comment on above: PATIENT WAS FASTINGP ERFORMED BY: MENDEZ [facility] Lebbup6209 [address] [facility] [place] [id number] Sodium molar conc 137 mmol/L Normal 134-144 Compreh ensive Internal Medicine Work Phone: Comment on above: PATIENT WAS FASTINGP ERFORMED BY: MENDEZ [facility] Ffahry6795 [address] [facility] [id number] Urea nitrogen mass conc 14 mg/dL Normal 6-24 [facility] Work Phone: Comment on above: PATIENT WAS FASTINGP ERFORMED BY: MENDEZ [facility] Glvflw1896 [address] RoadDublin [place] [id number] Urea nitrogen/Creatinine mass ratio 16 mg/mg Normal 9-20 [facility] Work Phone: Comment on above: PATIENT WAS FASTINGP ERFORMED BY: CB [facility] Uqstcl1834 [address]Dublin [place] [id number] MICROALBUMINOrdered By: aCterina em Finish Patcher on 11-06-2015 Albumin DL <= 20 mg/L (U) [Mass/Vol] mg/dL Normal 0.0-17.0 [facility] Work Phone: Comment on above: PATIENT WAS FASTINGP ERFORMED BY: MENDEZ [facility] Jjqxbz6076 [address] RoadDublin [place] [id number] Albumin DL <= 20 mg/L mass conc (U) mg/dL Normal 0.0-17.0 [facility] Work Phone: Comment on above: PATIENT WAS FASTINGP ERFORMED BY: MENDEZ [facility] Expatj7321 [address] RoadDublin [place] [id number] Albumin/Creatinine mass ratio (U) <6.6 Normal 0.0-30.0 [facility] Work Phone: Comment on above: PATIENT WAS FASTINGP ERFORMED BY: MENDEZ [facility] Zofiwn9907 [address]Dublin [place] [id number] Creatinine mass conc (U) 45.2 mg/dL Normal 22.0-328.0 [facility] Work Phone: Comment on above: PATIENT WAS FASTINGP ERFORMED BY: CB [facility] Afcyob5644 [address]Dublin [place] [id number] TSH ([id number])Ordered By: Tobias Finish Patcher on 11-06-2015 Thyrotropin Qn 1.290 {uIU/mL} Normal 0.450-4.500 [facility] Internal Medicine Work Phone: Comment on above: PATIENT WAS FASTINGP ERFORMED BY: CB [facility] Rnvbti0289 [address]Dublin [place] [id number] Calcium,TotalOrdered By: Sys tem Finish Patcher on 06-15-2015 Calcium mass conc 8.7 mg/dL Normal 8.5-10.1 Compreh ensive Internal Medicine Work Phone: CBC W/Diff, AutomatedOrdered By: Wrapper Off on 05-13-2015 Absolute Lymph 1.62 {X10_3/ul} Normal 0.83-4.51 Compr [facility] Work Phone: Absolute Neut 2.1 {X10_3/uL} Normal 2.0-7.7 Compreh ensive Internal Medicine Work Phone: Basophils/100 WBC Auto (Bld) 0.6 % Normal 0-1 [facility] Work Phone: Eosinophils/100 WBC Auto (Bld) 7.3 % Abnormal 0-5 [facility] Work Phone: Erythrocyte distribution width Auto Ratio (RBC) 12.3 % Normal 11.6-14.6 [facility] Work Phone: Hematocrit Auto Volume Fraction (Bld) 41.0 % Normal 40-54 [facility] Work Phone: Hemoglobin mass conc (Bld) 13.7 g/dL Normal 13.0-16.5 [facility] Work Phone: IM GRAN % 0.200 % Normal 0.0-0.9 [facility] Work Phone: Comment on above: IG% - Immature Granu locytes (promyelocytes, myelocytes andmetamyelocytes) > 1% indicates that a LEFT SHIFT is Present. Lymphocytes/100 WBC Auto (Bld) 34.9 % Normal 19-41 [facility] Work Phone: MCH Auto Entitic mass (RBC) 31.0 pg Normal 27.0-32.0 [facility] Work Phone: MCHC Auto mass conc (RBC) 33.4 {g/gl} Normal 32-36 [facility] Work Phone: MCV Auto Entitic volume (RBC) 92.8 fL Normal 80-94 [facility] Work Phone: Monocytes/100 WBC Auto (Bld) 11.0 % Abnormal 0-10 [facility] Work Phone: Neutrophils/100 WBC Auto (Bld) 46.0 % Abnormal 47-70 [facility] Work Phone: Platelet mean volume Auto Entitic volume (Bld) 10.1 fL Normal 6.2-12.0 [facility] Work Phone: Platelets Auto #/vol (Bld) 238 10*3/uL Normal 150-450 [facility] Work Phone: RBC Auto #/vol (Bld) 4.42 {M/mm3} Abnormal 4.6-6.2 Co mprehensive Internal Medicine Work Phone: RDW SD 41.4 fL Normal 35.1-43.9 [facility] Internal Medicine Work Phone: WBC Auto #/vol (Bld) 4.6 10*3/uL Normal 4.4-11.0 [facility] prehensive Internal Medicine Work Phone: Comprehensive Metabolic Prof ilOrdered By: Wrapper Off on 05-13-2015 Comprehensive metabolic 2000 panel 86 mg/dL Normal 70-110 Comprehensi ve Internal Medicine Work Phone: Comprehensive metabolic 2000 panel 28.0 mmol/L Normal 21.0-32.0 Comprehensi ve Internal Medicine Work Phone: Comprehensive metabolic 2000 panel 103 mmol/L Normal 98-107 Comprehensi ve Internal Medicine Work Phone: Comprehensive metabolic 2000 panel 3.9 mmol/L Normal 3.5-5.1 Comprehensi ve Internal Medicine Work Phone: Comprehensive metabolic 2000 panel 8.2 mg/dL Abnormal 8.5-10.1 Comprehensi ve Internal Medicine Work Phone: Comprehensive metabolic 2000 panel 0.70 mg/dL Normal 0.20-1.00 Comprehensi ve Internal Medicine Work Phone: Comprehensive metabolic 2000 panel 45 U/L Normal 12-78 Comprehensi ve Internal Medicine Work Phone: Comprehensive metabolic 2000 panel 84 U/L Normal 50-136 Comprehensi ve Internal Medicine Work Phone: Comprehensive metabolic 2000 panel 21 U/L Normal 15-37 Comprehensi ve Internal Medicine Work Phone: Comprehensive metabolic 2000 panel 1.3 {RATIO} Normal 0.9-2.4 Comprehensi ve Internal Medicine Work Phone: Comprehensive metabolic 2000 panel 3.0 g/dL Normal 2.3-3.5 Comprehensi ve Internal Medicine Work Phone: Comprehensive metabolic 2000 panel 3.8 g/dL Normal 3.4-5.0 Comprehensi ve Internal Medicine Work Phone: Comprehensive metabolic 2000 panel 6.8 g/dL Normal 6.4-8.2 Comprehensi ve Internal Medicine Work Phone: Comprehensive metabolic 2000 panel 18.4 {RATIO} Normal 10-20 Comprehensi ve Internal Medicine Work Phone: Comprehensive metabolic 2000 panel 119 mL/min Normal Comprehensi ve Internal Medicine Work Phone: Comprehensive metabolic 2000 panel 98 mL/min Normal Comprehensi ve Internal Medicine Work Phone: Comprehensive metabolic 2000 panel 0.87 mg/dL Normal 0.70-1.30 Comprehensi ve Internal Medicine Work Phone: Comment on above: The validity of the calculated GFR AND GFRAA in patients over70 years has not been determined. Clinical correlation isessential. Comprehensive metabolic 2000 panel 4 1 Abnormal 5-15 Comprehensi ve Internal Medicine Work Phone: Comprehensive metabolic 2000 panel 16 mg/dL Normal 7-18 Comprehensi ve Internal Medicine Work Phone: Comprehensive metabolic 2000 panel 135 mmol/L Abnormal 136-145 Comprehensi ve Internal Medicine Work Phone: Lipid ProfileOrdered By: Aguila tem Finish Patcher on 05-13-2015 Cholesterol in HDL mass conc 51 mg/dL Normal [facility] Work Phone: Comment on above: Reference Range HDL <40 mg/dL Low HDL Cholesterol HDL >or= 60 mg/dL High HDL Cholesterol Cholesterol in LDL mass conc 97 mg/dL Normal 0-130 [facility] Work Phone: Cholesterol in VLDL mass conc 32 mg/dL Normal 5-40 [facility] Work Phone: Cholesterol mass conc 180 mg/dL Normal Com prehensive Internal Medicine Work Phone: Comment on above: <200 mg/dL Desirable 200-240 mg/dL Borderline >240 mg/dL High Risk Triglyceride mass conc 159 mg/dL Normal Co mprehensive Internal Medicine Work Phone: Comment on above: Serum Triglycerides Reference Interval Normal <150 mg/dL Borderline high 150 - 199 mg/dL High 200 - 499 mg/dL Very High > or = 500 mg/dL MicroalbOrdered By: Charley adam on 05-13-2015 Creatinine mass conc 9.0 {mg/g_CRE} Normal [facility] Work Phone: MICROALBUMIN,UR 6.6 mg/L Normal Comprehen sive Internal Medicine Work Phone: UR CREAT 68.30 mg/dL Normal [facility] Work Phone: Thyroid Stim Hormone (TSH)Or dered By: Wrapper Off on 05-13-2015 Thyrotropin Qn 1.67 {uIU/mL} Normal 0.358-3.74 Compreh ensive Internal Medicine Work Phone: CBC with auto diff ([id number])Or dered By: Wrapper Off on 11-07-2014 Basophils #/vol (Bld) 0.0 {x10E3/uL} Normal 0.0-0.2 [facility] Work Phone: Comment on above: PATIENT NOT FASTINGP ERFORMED BY: CB [facility] Dmoszy[address] [facility] [id number] Information: [id number] Basophils (Bld) [#/Vol] 0.0 10*3/uL Normal 0.0-0.2 [facility] Work Phone: Comment on above: PATIENT NOT FASTINGP ERFORMED BY: CB [facility] Welxhm8182 [address] [facility] [id number] Information: [id number] Basophils Auto #/vol (Bld) 0.0 {x10E3/uL} Normal 0.0-0.2 [facility] Work Phone: Basophils/100 WBC (Bld) 1 % Normal [facility] Work Phone: Comment on above: PATIENT NOT FASTINGP ERFORMED BY: [facility] [id number] Information: [id number] Basophils/100 WBC Auto (Bld) 1 % Normal [facility] Work Phone: Eosinophils #/vol (Bld) 0.3 {x10E3/uL} Normal 0.0-0.4 [facility] Work Phone: Comment on above: PATIENT NOT FASTINGP ERFORMED BY: [place] [id number] [facility] [id number] Information: [id number] Eosinophils (Bld) [#/Vol] 0.3 10*3/uL Normal 0.0-0.4 [facility] Work Phone: Comment on above: PATIENT NOT FASTINGP ERFORMED BY: [place] [id number] [facility] [id number] Information: [id number] Eosinophils Auto #/vol (Bld) 0.3 {x10E3/uL} Normal 0.0-0.4 [facility] Work Phone: Eosinophils/100 WBC (Bld) 4 % Normal [facility] Work Phone: Comment on above: PATIENT NOT FASTINGP ERFORMED BY: [facility] [id number] Information: [id number] Eosinophils/100 WBC Auto (Bld) 4 % Normal [facility] Work Phone: Erythrocyte distribution width Auto Ratio (RBC) 13.1 % Normal 12.3-15.4 [facility] Work Phone: Erythrocyte distribution width Ratio (RBC) 13.1 % Normal 12.3-15.4 [facility] Work Phone: Comment on above: PATIENT NOT FASTINGP ERFORMED BY: MENDEZ Thong Simpson [facility] [id number] Information: [id number] Hematocrit Auto Volume Fraction (Bld) 41.4 % Normal 37.5-51.0 [facility] Work Phone: Hematocrit Volume Fraction (Bld) 41.4 % Normal 37.5-51.0 [facility] Work Phone: Comment on above: PATIENT NOT FASTINGP ERFORMED BY: MENDEZ Opal Iaddzl7469 [facility] [id number] Information: [id number] Hemoglobin mass conc (Bld) 14.0 g/dL Normal 12.6-17.7 [facility] Work Phone: Comment on above: PATIENT NOT FASTINGP ERFORMED BY: MENDEZ Opalevelin SalasDljgpa1231 [facility] [id number] Information: [id number] Immature granulocytes #/vol (Bld) 0.0 {x10E3/uL} Normal 0.0-0.1 [facility] Work Phone: Comment on above: PATIENT NOT FASTINGP ERFORMED BY: MENDEZ Opalevelin SalasHkltwg1115 [facility] [id number] Information: [id number] Immature granulocytes (Bld) [#/Vol] 0.0 10*3/uL Normal 0.0-0.1 [facility] Work Phone: Comment on above: PATIENT NOT FASTINGP ERFORMED BY: MENDEZ [facility] Gxprim5908 [facility] [id number] Information: [id number] Immature granulocytes/100 WBC (Bld) 0 % Normal [facility] Work Phone: Comment on above: PATIENT NOT FASTINGP ERFORMED BY: MENDEZ [facility] Uelqyv8813 [facility] [id number] Information: [id number] Lymphocytes #/vol (Bld) 1.8 {x10E3/uL} Normal 0.7-3.1 [facility] Work Phone: Comment on above: PATIENT NOT FASTINGP ERFORMED BY: MENDEZ [place] [id number] [facility] [id number] Information: [id number] Lymphocytes (Bld) [#/Vol] 1.8 10*3/uL Normal 0.7-3.1 [facility] Work Phone: Comment on above: PATIENT NOT FASTINGP ERFORMED BY: [address] [id number] Information: [id number] Lymphocytes Auto #/vol (Bld) 1.8 {x10E3/uL} Normal 0.7-3.1 [facility] Work Phone: Lymphocytes/100 WBC (Bld) 26 % Normal [facility] Work Phone: Comment on above: PATIENT NOT FASTINGP ERFORMED BY: [address] [id number] Information: [id number] Lymphocytes/100 WBC Auto (Bld) 26 % Normal [facility] Work Phone: MCH Auto Entitic mass (RBC) 30.4 pg Normal 26.6-33.0 [facility] Work Phone: MCH Entitic mass (RBC) 30.4 pg Normal 26.6-33.0 [facility] Internal Medicine Work Phone: Comment on above: PATIENT NOT FASTINGP ERFORMED BY: [address] [id number] Information: [id number] MCHC Auto mass conc (RBC) 33.8 g/dL Normal 31.5-35.7 [facility] Work Phone: MCHC mass conc (RBC) 33.8 g/dL Normal 31.5-35.7 Comp rehensive Internal Medicine Work Phone: Comment on above: PATIENT NOT FASTINGP ERFORMED BY: [facility]6370 [facility] [id number] Information: [id number] MCV Auto Entitic volume (RBC) 90 fL Normal 79-97 [facility] Work Phone: MCV Entitic volume (RBC) 90 fL Normal 79-97 [facility] Work Phone: Comment on above: PATIENT NOT FASTINGP ERFORMED BY: [address] [id number] Information: [id number] Monocytes #/vol (Bld) 0.5 {x10E3/uL} Normal 0.1-0.9 [facility] Work Phone: Comment on above: PATIENT NOT FASTINGP ERFORMED BY: [address] [id number] Information: [id number] Monocytes (Bld) [#/Vol] 0.5 10*3/uL Normal 0.1-0.9 [facility] Work Phone: Comment on above: PATIENT NOT FASTINGP ERFORMED BY: [address] [id number] Information: [id number] Monocytes Auto #/vol (Bld) 0.5 {x10E3/uL} Normal 0.1-0.9 [facility] Work Phone: Monocytes/100 WBC (Bld) 6 % Normal [facility] Work Phone: Comment on above: PATIENT NOT FASTINGP ERFORMED BY: [address] [id number] Information: [id number] Monocytes/100 WBC Auto (Bld) 6 % Normal [facility] Work Phone: Neutrophils #/vol (Bld) 4.5 {x10E3/uL} Normal 1.4-7.0 [facility] Work Phone: Comment on above: PATIENT NOT FASTINGP ERFORMED BY: MENDEZ Mars6370 [facility] [id number] Information: [id number] Neutrophils (Bld) [#/Vol] 4.5 10*3/uL Normal 1.4-7.0 [facility] Work Phone: Comment on above: PATIENT NOT FASTINGP ERFORMED BY: MENDEZ Thong Mars6370 [facility] [id number] Information: [id number] Neutrophils Auto #/vol (Bld) 4.5 {x10E3/uL} Normal 1.4-7.0 [facility] Work Phone: Neutrophils/100 WBC (Bld) 63 % Normal [facility] Work Phone: Comment on above: PATIENT NOT FASTINGP ERFORMED BY: MENDEZ Opalevelin SalasUouoyl5287 [facility] [id number] Information: [id number] Neutrophils/100 WBC Auto (Bld) 63 % Normal [facility] Work Phone: Platelets #/vol (Bld) 246 {x10E3/uL} Normal 150-379 [facility] Work Phone: Comment on above: PATIENT NOT FASTINGP ERFORMED BY: MENDEZ Opalevelin SalasHodbps5838 [facility] [id number] Information: [id number] Platelets (Bld) [#/Vol] 246 10*3/uL Normal 150-379 [facility] Work Phone: Comment on above: PATIENT NOT FASTINGP ERFORMED BY: MENDEZ Joseph Wgdskl1387 [facility] [id number] Information: [id number] Platelets Auto #/vol (Bld) 246 {x10E3/uL} Normal 150-379 [facility] Work Phone: RBC #/vol (Bld) 4.61 {x10E6/uL} Normal 4.14-5.80 [facility] Internal Medicine Work Phone: Comment on above: PATIENT NOT FASTINGP ERFORMED BY: MENDEZ Thong Mars6370 [facility] [id number] Information: [id number] RBC (Bld) [#/Vol] 4.61 10*6/uL Normal 4.14-5.80 Compr [facility] Internal Medicine Work Phone: Comment on above: PATIENT NOT FASTINGP ERFORMED BY: MENDEZ [facility]6370 [facility] [id number] Information: [id number] RBC Auto #/vol (Bld) 4.61 {x10E6/uL} Normal 4.14-5.80 [facility] Work Phone: WBC #/vol (Bld) 7.1 {x10E3/uL} Normal 3.4-10.8 [facility] Internal Medicine Work Phone: Comment on above: PATIENT NOT FASTINGP ERFORMED BY: MENDEZ [facility]6370 [facility] [id number] Information: [id number] WBC (Bld) [#/Vol] 7.1 10*3/uL Normal 3.4-10.8 [facility] Work Phone: Comment on above: PATIENT NOT FASTINGP ERFORMED BY: [facility] [id number] Information: [id number] WBC Auto #/vol (Bld) 7.1 {x10E3/uL} Normal 3.4-10.8 [facility] Internal Medicine Work Phone: METABOLIC PANEL, COMPREHENSI VE ([id number])Ordered By: Wrapper Off on 11-07-2014 Albumin mass conc 4.5 g/dL Normal 3.5-5.5 Compreh [facility] Internal Medicine Work Phone: Comment on above: PATIENT NOT FASTINGP ERFORMED BY: CB [facility] Qjfeyx9842 [address] RoadDublin [place] [id number] Albumin/Globulin mass ratio 2.1 {ratio} Normal 1.1-2.5 [facility] Work Phone: Comment on above: PATIENT NOT FASTINGP ERFORMED BY: CB [facility] Pryhbu0581 [address] RoadDublin [place] [id number] ALP [Catalytic activity/Vol] 101 U/L Normal 39-117 [facility] Internal Medicine Work Phone: Comment on above: PATIENT NOT FASTINGP ERFORMED BY: CB [facility] Lamhxi6343 [address] RoadDublin [place] [id number] ALP enzyme act/vol 101 [iU]/L Normal 39-117 [facility] Internal Medicine Work Phone: Comment on above: PATIENT NOT FASTINGP ERFORMED BY: [facility] Wjnrcz4577 [address] RoadDublin [place] [id number] ALT [Catalytic activity/Vol] 31 U/L Normal 0-44 [facility] Internal Medicine Work Phone: Comment on above: PATIENT NOT FASTINGP ERFORMED BY: [facility] Nfhmjb3136 [address] RoadDublin [place] [id number] ALT enzyme act/vol 31 [iU]/L Normal 0-44 [facility] Internal Medicine Work Phone: Comment on above: PATIENT NOT FASTINGP ERFORMED BY: [facility] Apgcyr3066 [address] RoadDublin [place] [id number] AST [Catalytic activity/Vol] 22 U/L Normal 0-40 [facility] Internal Medicine Work Phone: Comment on above: PATIENT NOT FASTINGP ERFORMED BY: CB [facility] Rmbctl7351 [address] RoadDublin [place] [id number] AST enzyme act/vol 22 [iU]/L Normal 0-40 [facility] Internal Medicine Work Phone: Comment on above: PATIENT NOT FASTINGP ERFORMED BY: CB [facility] Zbsjjz3889 [address] RoadDublin [place] [id number] Bilirubin mass conc 0.3 mg/dL Normal 0.0-1.2 Compr ehensive Internal Medicine Work Phone: Comment on above: PATIENT NOT FASTINGP ERFORMED BY: MENDEZ [facility] Daarry8288 [address] RoadDublin [place] [id number] Calcium mass conc 9.7 mg/dL Normal 8.7-10.2 Compreh ensive Internal Medicine Work Phone: Comment on above: PATIENT NOT FASTINGP ERFORMED BY: CB [facility] Rmtjbx5076 [address] RoadDublin [place] [id number] Chloride molar conc 103 mmol/L Normal 97-108 Compr ehensive Internal Medicine Work Phone: Comment on above: PATIENT NOT FASTINGP ERFORMED BY: CB [facility] Xwuiad2575 [address] RoadDublin [place] [id number] CO2 molar conc 25 mmol/L Normal 18-29 Comprehens [place] Internal Medicine Work Phone: Comment on above: PATIENT NOT FASTINGP ERFORMED BY: CB [facility] Jxomoi1613 [address] RoadAtrium Health Carol[facility] Medical Centerin [place] [id number] Creatinine mass conc 0.93 mg/dL Normal 0.76-1.27 Comp [facility] Work Phone: Comment on above: PATIENT NOT FASTINGP ERFORMED BY: CB [facility] Crbmuu6598 [address] RoadAtrium Health Carolinas Medical Centerin [place] [id number] GFR/1.73 sq M predicted among blacks CKD-EPI vol rate/area (S/P/Bld) 109 mL/min/1.73 Normal [facility] Work Phone: Comment on above: PATIENT NOT FASTINGP ERFORMED BY: CB [facility] Ugxngn4332 [address] RoadDublin [place] [id number] GFR/1.73 sq M predicted among non-blacks CKD-EPI vol rate/area (S/P/Bld) 94 mL/min/1.73 Normal Comprehensiv e Internal Medicine Work Phone: Comment on above: PATIENT NOT FASTINGP ERFORMED BY: CB [facility] Bdckxv0135 [address] RoadDublin [place] [id number] Globulin Calculated mass conc (S) 2.1 g/dL Normal 1.5-4.5 [facility] Work Phone: Globulin mass conc (S) 2.1 g/dL Normal 1.5-4.5 Co mprehensive Internal Medicine Work Phone: Comment on above: PATIENT NOT FASTINGP ERFORMED BY: CB [facility] Macrrl1624 [address]Dublin [place] [id number] Glucose mass conc 84 mg/dL Normal 65-99 Compreh ensive Internal Medicine Work Phone: Comment on above: PATIENT NOT FASTINGP ERFORMED BY: CB [facility] Clpwbj4015 [address]Dublin [place] [id number] Potassium molar conc 4.4 mmol/L Normal 3.5-5.2 Comp rehensive Internal Medicine Work Phone: Comment on above: PATIENT NOT FASTINGP ERFORMED BY: CB [facility] Akqqln9361 [address]Dublin [place] [id number] Protein mass conc 6.6 g/dL Normal 6.0-8.5 Compreh ensive Internal Medicine Work Phone: Comment on above: PATIENT NOT FASTINGP ERFORMED BY: CB [facility] Momnln9095 [address]Dublin [place] [id number] Sodium molar conc 143 mmol/L Normal 134-144 Compreh ensive Internal Medicine Work Phone: Comment on above: PATIENT NOT FASTINGP ERFORMED BY: CB [facility] Hsrovn6581 [address]Dublin [place] [id number] Urea nitrogen mass conc 19 mg/dL Normal 6-24 [facility] Work Phone: Comment on above: PATIENT NOT FASTINGP ERFORMED BY: CB [facility] Qujlib0873 [address]Dublin [place] [id number] Urea nitrogen/Creatinine mass ratio 20 mg/mg Normal 9-20 [facility] Work Phone: Comment on above: PATIENT NOT FASTINGP ERFORMED BY: CB [facility] Qgesmo1912 [address]Dublin [place] [id number] TSH ([id number])Ordered By: Tobias Kumar on 11-07-2014 Thyrotropin Qn 0.960 {uIU/mL} Normal 0.450-4.500 [facility] Work Phone: Comment on above: PATIENT NOT FASTINGP ERFORMED BY: MENDEZ [facility] Ysevwl[address] [employer]*[facility] [id number] Lipid ProfileOrdered By: Aguila tem Finish Patcher on 09-25-2014 Cholesterol in HDL mass conc 44 mg/dL Normal [facility] Work Phone: Comment on above: Reference Range HDL <40 mg/dL Low HDL Cholesterol HDL >or= 60 mg/dL High HDL Cholesterol Cholesterol in LDL mass conc 88 mg/dL Normal 0-130 [facility] Work Phone: Cholesterol in VLDL mass conc 20 mg/dL Normal 5-40 [facility] Work Phone: Cholesterol mass conc 152 mg/dL Normal Com prehensive Internal Medicine Work Phone: Comment on above: <200 mg/dL Desirable 200-240 mg/dL Borderline >240 mg/dL High Risk Triglyceride mass conc 100 mg/dL Normal 0-199 [facility] Work Phone: Comment on above: Serum Triglycerides Reference Interval Normal <150 mg/dL Borderline high 150 - 199 mg/dL High 200 - 499 mg/dL Very High > or = 500 mg/dL PSA,Total - Annual ScreenOrd ered By: Wrapper Off on 09-25-2014 PSA,Total - Annual Screen 1.26 ng/mL Normal 0.00-4.00 [facility] Internal Medicine Work Phone: Comment on above: This test was perfor med using the TPSA assay method for the[facility] chemistry system. Values obtained with differentassay methods cannot be used interchangably.When changing PSA assays in the course of monitoring apatient, additional sequential testing should be carriedout to confirm baseline values. HEPATIC FUNCTION PANEL ([id number])Ordered By: Wrapper Off on 05-13-2014 Albumin mass conc 4.3 g/dL Normal 3.5-5.5 [facility] Internal Medicine Work Phone: Comment on above: PATIENT WAS FASTINGP ERFORMED BY: MENDEZ [facility] Smfecg0088 [facility] [id number] ALP [Catalytic activity/Vol] 90 U/L Normal 39-117 [facility] Work Phone: Comment on above: PATIENT WAS FASTINGP ERFORMED BY: [facility] Idnlya0482 [address]Dublin [place] [id number] ALP enzyme act/vol 90 [iU]/L Normal 39-117 [facility] Internal Medicine Work Phone: Comment on above: PATIENT WAS FASTINGP ERFORMED BY: LabCoKessler Institute for RehabilitationEhtlxz5561 [address] RoadDublin [place] [id number] ALT [Catalytic activity/Vol] 40 U/L Normal 0-44 [facility] Work Phone: Comment on above: PATIENT WAS FASTINGP ERFORMED BY: [facility] Btriau1151 [address] RoadAtrium Health Carolinas Medical Centerin [place] [id number] ALT enzyme act/vol 40 [iU]/L Normal 0-44 [facility] Internal Medicine Work Phone: Comment on above: PATIENT WAS FASTINGP ERFORMED BY: [facility] [facility]in [place] [id number] AST [Catalytic activity/Vol] 21 U/L Normal 0-40 [facility] Work Phone: Comment on above: PATIENT WAS FASTINGP ERFORMED BY: [facility]6[address] [facility]in [place] [id number] AST enzyme act/vol 21 [iU]/L Normal 0-40 [facility] Internal Medicine Work Phone: Comment on above: PATIENT WAS FASTINGP ERFORMED BY: LabK[facility] Center6370 [address] RoadAtrium Health Carol[facility] Centerin [place] [id number] Bilirubin mass conc 0.6 mg/dL Normal 0.0-1.2 [facility] Internal Medicine Work Phone: Comment on above: PATIENT WAS FASTINGP ERFORMED BY: LabCoKessler Institute for RehabilitationByggzm9292 [address] RoadDublin [place] [id number] Bilirubin.direct mass conc 0.15 mg/dL Normal 0.00-0.40 [facility] [facility] Work Phone: Comment on above: PATIENT WAS FASTINGP ERFORMED BY: MENDEZ [facility] [id number] [facility] [id number] Protein mass conc 6.2 g/dL Normal 6.0-8.5 Compreh ensive Internal Medicine Work Phone: Comment on above: PATIENT WAS FASTINGP ERFORMED BY: MENDEZ Joseph Ijgybu9435 [facility] [id number] LIPID PANEL ([id number])Ordered B y: Wrapper Off on 05-13-2014 Cholesterol in HDL mass conc 54 mg/dL Normal [facility] Work Phone: Comment on above: According to ATP-III Guidelines, HDL-C >59 mg/dL is considered anegative risk factor for CHD. PATIENT WAS FASTINGP ERFORMED BY: MENDEZ Salaslin6370 [facility] [id number] Information: [id number] Cholesterol in LDL mass conc 110 mg/dL Abnormal 0-99 [facility] Work Phone: Comment on above: PATIENT WAS FASTINGP ERFORMED BY: [facility] Qjqjzz6199 [facility] [id number] Information: [id number] Cholesterol in LDL/Cholesterol in HDL mass ratio 2.0 {ratio_units} Normal 0.0-3.6 [facility] Work Phone: Comment on above: LDL/HDL Ratio Men Wo men 1/2 Avg.Risk 1.0 1.5 Avg.Risk 3.6 3.2 2X Avg.Risk 6.2 5.0 3X Avg.Risk 8.0 6.1 PATIENT WAS FASTINGP ERFORMED BY: [facility]CoK[facility] Institute for RehabilitationOwrfbo8922 [facility] [id number] Information: [id number] Cholesterol in VLDL mass conc 42 mg/dL Abnormal 5-40 [facility] Work Phone: Comment on above: PATIENT WAS FASTINGP ERFORMED BY: [facility] Hnxerm1260 [facility] [id number] Information: [id number] Cholesterol mass conc 206 mg/dL Abnormal 100-199 Com prehensive Internal Medicine Work Phone: Comment on above: PATIENT WAS FASTINGP ERFORMED BY: MENDEZ [facility] Hodyaf8535 [facility] [id number] Information: [id number] Triglyceride mass conc 210 mg/dL Abnormal 0-149 Co mprehensive [facility] Work Phone: Comment on above: PATIENT WAS FASTINGP ERFORMED BY: MENDEZ [facility]6370 [facility] [id number] Information: [id number] BMPOrdered By: System Manage r on 04-17-2014 Calcium mass conc 9.1 mg/dL Normal 8.5-10.1 Compreh ensive [facility] Work Phone: Chloride molar conc 107 mmol/L Normal 98-107 Compr ehensive [facility] Medicine Work Phone: CO2 molar conc 26.0 mmol/L Normal 21.0-32.0 Comprehen sive Internal Medicine Work Phone: Creatinine mass conc 0.8 mg/dL Normal 0.8-1.3 Comp rehensive Internal Medicine Work Phone: GFR/1.73 sq M predicted among non-blacks MDRD vol rate/area (S/P/Bld) 108 mL/min/{1.73_m2} Normal Compreh ensive [facility] Medicine Work Phone: Glucose mass conc 86 mg/dL Normal 70-110 Compreh ensive [facility] Work Phone: Potassium molar conc 3.8 mmol/L Normal 3.5-5.1 Comp rehensive Internal Medicine Work Phone: Sodium molar conc 139 mmol/L Normal 136-145 Compreh ensive [facility] Work Phone: Urea nitrogen mass conc 13 mg/dL Normal 7-18 [facility] Work Phone: BMP 6 1 Normal 5-15 [facility] Work Phone: BMP 16.3 {RATIO} Normal 10-20 Comprehensiv e Internal Medicine Work Phone: BMP 131 mL/min Normal [facility] Work Phone: CBCOrdered By: System Manage r on 04-16-2014 Erythrocyte distribution width Auto Ratio (RBC) 12.5 % Normal 11.6-14.6 [facility] Work Phone: Hematocrit Auto Volume Fraction (Bld) 43.0 % Normal 40-54 [facility] Work Phone: Hemoglobin mass conc (Bld) 14.7 g/dL Normal 13.0-16.5 [facility] Work Phone: MCH Auto Entitic mass (RBC) 31.3 pg Normal 27.0-32.0 [facility] Work Phone: MCHC Auto mass conc (RBC) 34.2 {g/gl} Normal 32-36 [facility] Internal Medicine Work Phone: MCV Auto Entitic volume (RBC) 91.7 fL Normal 80-94 [facility] Work Phone: Platelet mean volume Auto Entitic volume (Bld) 10.7 fL Normal 6.2-12.0 [facility] Internal Medicine Work Phone: Platelets Auto #/vol (Bld) 227 10*3/uL Normal 150-450 [facility] Internal Medicine Work Phone: RBC Auto #/vol (Bld) 4.69 {M/mm3} Normal 4.6-6.2 Co mprehensive [facility] Work Phone: WBC Auto #/vol (Bld) 5.3 10*3/uL Normal 4.4-11.0 [facility] prehensive Internal Medicine Work Phone: CBC 41.1 fL Normal 35.1-43.9 [facility] Internal Medicine Work Phone: CMPOrdered By: System Manage r on 02-24-2014 Albumin mass conc 3.7 g/dL Normal 3.4-5.0 Compreh ensive Internal Medicine Work Phone: Albumin/Globulin mass ratio 1.3 {RATIO} Normal 0.9-2.4 [facility] Work Phone: ALP enzyme act/vol 75 U/L Normal 45-117 [facility]: ALT enzyme act/vol 35 U/L Normal 12-78 [facility]: AST enzyme act/vol 19 U/L Normal 15-37 [facility] Work Phone: Bilirubin mass conc 0.50 mg/dL Normal 0.00-1.00 Compr ehensive Internal Medicine Work Phone: Calcium mass conc 8.5 mg/dL Normal 8.5-10.1 Compreh ensive [facility] Medicine Work Phone: Chloride molar conc 105 mmol/L Normal 98-107 Compr ensive Internal Medicine Work Phone: CO2 molar conc 27.0 mmol/L Normal 21.0-32.0 [facility] Work Phone: Creatinine mass conc 0.9 mg/dL Normal 0.8-1.3 [facility] Work Phone: GFR/1.73 sq M predicted among non-blacks MDRD vol rate/area (S/P/Bld) 94 mL/min/{1.73_m2} Normal Comprehe nsive Internal Medicine Work Phone: Globulin Calculated mass conc (S) 2.9 g/dL Normal 2.7-4.2 [facility] Work Phone: Glucose mass conc 91 mg/dL Normal 70-110 Compreh ensive [facility] Medicine Work Phone: Potassium molar conc 3.8 mmol/L Normal 3.5-5.1 Comp rehensive Internal Medicine Work Phone: Protein mass conc 6.6 g/dL Normal 6.4-8.2 Compreh ensive [facility] Work Phone: Sodium molar conc 138 mmol/L Normal 136-145 Compreh ensive [facility] Work Phone: Urea nitrogen mass conc 12 mg/dL Normal 7-18 [facility] Work Phone: Urea nitrogen/Creatinine mass ratio 13.3 {RATIO} Normal 10-20 [facility] Work Phone: CMP 6 1 Normal 5-15 [facility] Work Phone: CMP 114 mL/min Normal [facility] Work Phone: LIVEROrdered By: Charley norris on 08-21-2013 Albumin mass conc 3.8 g/dL Normal 3.4-5.0 Compreh ensive Internal Medicine Work Phone: ALP enzyme act/vol 94 U/L Normal 50-136 [facility]: ALT enzyme act/vol 42 U/L Normal 12-78 [facility] Work Phone: AST enzyme act/vol 18 U/L Normal 15-37 [facility] Work Phone: Protein mass conc 7.4 g/dL Normal 6.4-8.2 Compreh ensive [facility] Medicine Work Phone: LIVER 0.19 mg/dL Normal 0.00-0.30 [facility] Work Phone: LIVER 0.70 mg/dL Normal 0.00-1.00 [facility] Work Phone: LIPIDOrdered By: Charley norris on 05-29-2013 Cholesterol in HDL mass conc 52 mg/dL Normal [facility] Work Phone: Comment on above: Reference RangeHDL < 40 mg/dL Low HDL CholesterolHDL >or= 60 mg/dL High HDL Cholesterol Cholesterol in LDL mass conc 170 mg/dL Abnormal 0-130 [facility] Work Phone: Cholesterol mass conc 247 mg/dL Abnormal Com prehensive [facility] Medicine Work Phone: Comment on above: <200 mg/dL Desirable 200-240 mg/dL Borderline>240 mg/dL High Risk Triglyceride mass conc 127 mg/dL Normal 0-199 Co mprehensive [facility] Work Phone: Comment on above: Serum Triglycerides Reference IntervalNormal <150 mg/dLBorderline high 150 - 199 mg/dLHigh 200 - 499 mg/dLVery High > or = 500 mg/dL LIPID 25 mg/dL Normal 5-40 [facility] Work Phone: LIPIDOrdered By: Caringo on 01-24-2013 Cholesterol in HDL mass conc 49 mg/dL Normal [facility] Work Phone: Comment on above: Reference RangeHDL < 40 mg/dL Low HDL CholesterolHDL >or= 60 mg/dL High HDL Cholesterol Cholesterol in LDL mass conc 209 mg/dL Abnormal 0-130 [facility] Work Phone: Cholesterol mass conc 291 mg/dL Abnormal Com prehensive [facility] Work Phone: Comment on above: <200 mg/dL Desirable 200-240 mg/dL Borderline>240 mg/dL High Risk Triglyceride mass conc 167 mg/dL Normal Co mprehensive [facility] Work Phone: Comment on above: Serum Triglycerides Reference IntervalNormal <150 mg/dLBorderline high 150 - 199 mg/dLHigh 200 - 499 mg/dLVery High > or = 500 mg/dL LIPID 33 mg/dL Normal 5-40 [facility] Work Phone: LIPIDOrdered By: System Saadia myrna on 07-18-2012 Cholesterol in HDL mass conc 55 mg/dL Normal [facility] Work Phone: Comment on above: Reference Range HDL <40 mg/dL Low HDL Cholesterol HDL >or= 60 mg/dL High HDL Cholesterol Cholesterol in LDL mass conc 176 mg/dL Abnormal 0-130 [facility] Work Phone: Cholesterol in VLDL mass conc 19 mg/dL Normal 5-40 [facility] Work Phone: Cholesterol mass conc 250 mg/dL Abnormal Com prehensive [facility] Medicine Work Phone: Comment on above: <200 mg/dL Desirable 200-240 mg/dL Borderline >240 mg/dL High Risk Triglyceride mass conc 94 mg/dL Normal [facility] Work Phone: Comment on above: Serum Triglycerides Reference Interval Normal <150 mg/dL Borderline high 150 - 199 mg/dL High 200 - 499 mg/dL Very High > or = 500 mg/dL C-REACT PROT HIGH SENS(hsCRP ) ([id number])Ordered By: Wrapper Off on 04-20-2011 CRP High sensitivity method mass conc 0.75 mg/L Normal 0.00-3.00 [facility] Work Phone: Comment on above: Relative Risk for Fu ture Cardiovascular Event Low <1.00 Average 1.00 - 3.00 High >3.00 PATIENT NOT FASTINGP ERFORMED BY: BrightContextlin6370 [facility] [id number] PSA (PROSTATE SPECIFIC ANTIG EN) (V76.44)Ordered By: Wrapper Off on 04-20-2011 Prostate specific Ag mass conc 1.1 ng/mL Normal 0.0-4.0 [facility] Work Phone: Comment on above: EyeVerify ECLIA methodol ogy. .According to the [place] [employer], Serum PSA shoulddecrease and remain at undetectable levels after radicalprostatectomy. The AUA defines biochemical recurrence as an initialPSA value 0.2 ng/mL or greater followed by a subsequent confirmatoryPSA value 0.2 ng/mL or greater.Values obtained with different assay methods or kits cannot be usedinterchangeably. Results cannot be interpreted as absolute evidenceof the presence or absence of malignant disease. PATIENT NOT FASTINGP ERFORMED BY: [employer]6370 [facility] [id number] Information: [id number] Vital Signs Date Time Vital Sign Value Performing Clinician Facility 04-05-2023 15:05-0400 Body height 172.72 cm HOLA Farmer LPN [facility]; [facility] Work Phone: 04-05-2023 15:05-0400 Body mass index (BMI) [Ratio] 27.98 kg/m2 HOLA Farmer LPN [facility]; [facility] Work Phone: 04-05-2023 15:05-0400 Body surface area Derived from formula 1.97 m2 HOLA Farmer LPN [facility]; [facility] Work Phone: 04-05-2023 15:05-0400 Body temperature 97.7 [degF] HOLA Farmer LPN Comprehens[facility]; [facility] Work Phone: Comment on above: Method: Temporal 04-05-2023 15:05-0400 Body weight 83.46 kg HOLA Farmer ANITA [facility]; [facility] Work Phone: 04-05-2023 15:05-0400 Diastolic blood pressure 80 mm[Hg] HOLA Farmer TWX OPERATOR [facility]; [facility] Work Phone: Comment on above: Patient Position: Sitting; Cuff Location : Left Arm; Cuff Size: Large 04-05-2023 15:05-0400 Heart rate 72 /min HOLA Farmer ANITA [facility]; [facility] Work Phone: Comment on above: Pattern: Regular 04-05-2023 15:05-0400 Respiratory rate 20 /min HOLA Farmer ANITA [facility]; [facility] Work Phone: Comment on above: Pattern: Unlabored 04-05-2023 15:05-0400 SaO2% (BldA) [Mass fraction] 97 % HOLA Farmer ANITA [facility]; [facility] Work Phone: Comment on above: Room air 04-05-2023 15:05-0400 Systolic blood pressure 120 mm[Hg] HOLA Farmer TWX OPERATOR [facility]; [facility] Work Phone: Comment on above: Patient Position: Sitting; Cuff Location : Left Arm; Cuff Size: Large 09-21-2022 15:03-0500 Body height 172.72 cm Dalton [facility]; [facility] Work Phone: 09-21-2022 15:03-0500 Body mass index (BMI) [Ratio] 28.13 kg/m2 [facility]; [facility] Work Phone: 09-21-2022 15:03-0500 Body surface area Derived from formula 1.98 m2 Dalton [facility]; [facility] Work Phone: 09-21-2022 15:03-0500 Body temperature 97.3 [degF] [facility]; [facility] Work Phone: 09-21-2022 15:03-0500 Body weight 83.92 kg [facility]; [facility] Work Phone: 09-21-2022 15:03-0500 Diastolic blood pressure 82 mm[Hg] Dalton [facility]; [facility] Work Phone: Comment on above: Patient Position: Sitting; Cuff Location : Left Arm; Cuff Size: Standard 09-21-2022 15:03-0500 Heart rate 65 /min [facility]; [facility] Work Phone: Comment on above: Pattern: Regular 09-21-2022 15:03-0500 Respiratory rate 16 /min [facility] Comprehensiv e Internal Medicine; [facility] Work Phone: Comment on above: Pattern: Unlabored 09-21-2022 15:03-0500 SaO2% (BldA) [Mass fraction] 97 % [facility]; [facility] Work Phone: Comment on above: Room air 09-21-2022 15:03-0500 Systolic blood pressure 122 mm[Hg] Dalton [facility]; [facility] Work Phone: Comment on above: Patient Position: Sitting; Cuff Location : Left Arm; Cuff Size: Standard 07-27-2022 15:13-0500 Body height 172.72 cm [facility]; [facility] Work Phone: 07-27-2022 15:13-0500 Body mass index (BMI) [Ratio] 28.32 kg/m2 [facility]; [facility] Work Phone: 07-27-2022 15:13-0500 Body surface area Derived from formula 1.98 m2 [facility]; [facility] Work Phone: 07-27-2022 15:13-0500 Body temperature 97.5 [degF] [facility] Comprehensiv e Internal Medicine; [facility] Work Phone: 07-27-2022 15:13-0500 Body weight 84.48 kg [address]; [facility] Work Phone: 07-27-2022 15:13-0500 Diastolic blood pressure 68 mm[Hg] Dalton [facility]; [facility] Work Phone: Comment on above: Patient Position: Sitting; Cuff Location : Left Arm; Cuff Size: Standard 07-27-2022 15:13-0500 Heart rate 86 /min [facility]; [facility] Work Phone: Comment on above: Pattern: Regular 07-27-2022 15:13-0500 Respiratory rate 16 /min Dalton Shen [facility] Comprehensiv e Internal Medicine; [facility] Work Phone: Comment on above: Pattern: Unlabored 07-27-2022 15:13-0500 SaO2% (BldA) [Mass fraction] 97 % Dalton [facility]; [facility] Work Phone: Comment on above: Room air 07-27-2022 15:13-0500 Systolic blood pressure 118 mm[Hg] Dalton [facility]; [facility] Work Phone: Comment on above: Patient Position: Sitting; Cuff Location : Left Arm; Cuff Size: Standard 01-24-2022 15:11-0400 Body height 172.72 cm Analia Guillermo [facility]; [facility] Work Phone: 01-24-2022 15:11-0400 Body mass index (BMI) [Ratio] 27.67 kg/m2 Analia Mima [facility]; [facility] Work Phone: 01-24-2022 15:11-0400 Body surface area Derived from formula 1.96 m2 Analia Guillermo [facility]; [facility] Work Phone: 01-24-2022 15:11-0400 Body temperature 97.1 [degF] Analia Gregoriorb TWX OPERATOR [facility]; [facility] Work Phone: 01-24-2022 15:11-0400 Body weight 82.56 kg Analia Gregoriorb TWX OPERATOR [facility]; [facility] Work Phone: 01-24-2022 15:11-0400 Diastolic blood pressure 82 mm[Hg] Analia Slarb TWX OPERATOR [facility]; [facility] Work Phone: Comment on above: Patient Position: Sitting; Cuff Location : Left Arm; Cuff Size: Standard 01-24-2022 15:11-0400 Heart rate 73 /min Analia Slarb TWX OPERATOR [facility]; [facility] Work Phone: Comment on above: Pattern: Regular 01-24-2022 15:11-0400 Respiratory rate 16 /min Analia Darlinerb TWX OPERATOR [facility]; [facility] Work Phone: Comment on above: Pattern: Unlabored 01-24-2022 15:11-0400 SaO2% (BldA) [Mass fraction] 98 % Analia Darlinerb TWX OPERATOR [facility]; [facility] Work Phone: Comment on above: Room air 01-24-2022 15:11-0400 Systolic blood pressure 148 mm[Hg] Analia Gregroiorb TWX OPERATOR [facility]; [facility] Work Phone: Comment on above: Patient Position: Sitting; Cuff Location : Left Arm; Cuff Size: Standard 08-23-2021 14:43-0500 Body height 172.72 cm Leda Barron [facility]; [facility] Work Phone: Comment on above: no vs taken as this is phone encounter d ue to covid 08-23-2021 14:43-0500 Body mass index (BMI) [Ratio] 31.7 kg/m2 Leda [facility]; [facility] Work Phone: Comment on above: no vs taken as this is phone encounter d ue to covid 08-23-2021 14:43-0500 Body surface area Derived from formula 2.08 m2 Leda Gravius COMMUNITY EDUCATOR [facility]; [facility] Work Phone: Comment on above: no vs taken as this is phone encounter d ue to covid 08-23-2021 14:43-0500 Body weight 94.58 kg Leda Barron [facility]; [facility] Work Phone: Comment on above: no vs taken as this is phone encounter d ue to covid 08-23-2021 14:43-0500 Diastolic blood pressure 80 mm[Hg] Leda Barron [facility]; [facility] Work Phone: Comment on above: Patient Position: Sitting; Cuff Location : Left Arm; Cuff Size: Standard no vs taken as this is phone encounter due to covid 08-23-2021 14:43-0500 Systolic blood pressure 120 mm[Hg] Leda Barron [facility]; [facility] Work Phone: Comment on above: Patient Position: Sitting; Cuff Location : Left Arm; Cuff Size: Standard no vs taken as this is phone encounter due to covid 07-26-2021 15:35-0500 Body height 172.72 cm Analia Slarb TWX OPERATOR [facility]; [facility] Work Phone: 07-26-2021 15:35-0500 Body mass index (BMI) [Ratio] 32.01 kg/m2 Analia Slarb TWX OPERATOR [facility]; [facility] Work Phone: 07-26-2021 15:35-0500 Body surface area Derived from formula 2.09 m2 Analia Slarb TWX OPERATOR [facility]; [facility] Work Phone: 07-26-2021 15:35-0500 Body temperature 97.8 [degF] Analia Slarb TWX OPERATOR [facility]; [facility] Work Phone: 07-26-2021 15:35-0500 Body weight 95.48 kg Analia Slarb TWX OPERATOR [facility]; [facility] Work Phone: 07-26-2021 15:35-0500 Diastolic blood pressure 80 mm[Hg] Analia Slarb TWX OPERATOR [facility]; [facility] Work Phone: Comment on above: Patient Position: Sitting; Cuff Location : Left Arm; Cuff Size: Standard 07-26-2021 15:35-0500 Heart rate 76 /min Analia Slarb TWX OPERATOR [facility]; [facility] Work Phone: Comment on above: Pattern: Regular 07-26-2021 15:35-0500 Respiratory rate 17 /min Analia Slarb TWX OPERATOR [facility]; [facility] Work Phone: Comment on above: Pattern: Unlabored 07-26-2021 15:35-0500 SaO2% (BldA) [Mass fraction] 97 % Analia Slarb TWX OPERATOR [facility]; [facility] Work Phone: Comment on above: Room air 07-26-2021 15:35-0500 Systolic blood pressure 138 mm[Hg] Analia Slarb TWX OPERATOR [facility]; [facility] Work Phone: Comment on above: Patient Position: Sitting; Cuff Location : Left Arm; Cuff Size: Standard 07-05-2021 15:32-0500 Body height 172.72 cm Analia Slarb TWX OPERATOR [facility]; [facility] Work Phone: 07-05-2021 15:32-0500 Body mass index (BMI) [Ratio] 32.14 kg/m2 Analia Slarb TWX OPERATOR [facility]; [facility] Work Phone: 07-05-2021 15:32-0500 Body surface area Derived from formula 2.09 m2 Analia Slarb TWX OPERATOR [facility]; [facility] Work Phone: 07-05-2021 15:32-0500 Body temperature 97.3 [degF] Analia Slarb TWX OPERATOR [facility]; [facility] Work Phone: 07-05-2021 15:32-0500 Body weight 95.88 kg Analia Slarb TWX OPERATOR [facility]; [facility] Work Phone: 07-05-2021 15:32-0500 Diastolic blood pressure 88 mm[Hg] Analia Slarb TWX OPERATOR [facility]; [facility] Work Phone: Comment on above: Patient Position: Sitting; Cuff Location : Left Arm; Cuff Size: Standard 07-05-2021 15:32-0500 Heart rate 78 /min Analai Guillermo TWX OPERATOR [facility]; [facility] Work Phone: Comment on above: Pattern: Regular 07-05-2021 15:32-0500 Respiratory rate 17 /min Analia Guillermo TWX OPERATOR [facility]; [facility] Work Phone: Comment on above: Pattern: Unlabored 07-05-2021 15:32-0500 SaO2% (BldA) [Mass fraction] 96 % Analia Darlinerb TWX OPERATOR [facility]; [facility] Work Phone: Comment on above: Room air 07-05-2021 15:32-0500 Systolic blood pressure 150 mm[Hg] Analia Gregoriorb TWX OPERATOR [facility]; [facility] Work Phone: Comment on above: Patient Position: Sitting; Cuff Location : Left Arm; Cuff Size: Standard 05-03-2021 [id number] Body height 172.72 cm Leda Barron [facility]; [facility] Work Phone: 05-03-2021 17:11-0400 Body mass index (BMI) [Ratio] 32.91 kg/m2 Leda Barron [facility]; [facility] Work Phone: 05-03-2021 17:11-0400 Body surface area Derived from formula 2.11 m2 Leda Barron [facility]; [facility] Work Phone: 05-03-2021 17:11-0400 Body temperature 97.1 [degF] Leda Barron [facility]; [facility] Work Phone: Comment on above: Method: Infrared 05-03-2021 17:11-0400 Body weight 98.18 kg Leda Barron [facility]; [facility] Work Phone: 05-03-2021 17:11-0400 Diastolic blood pressure 100 mm[Hg] Leda Barron CMA [facility]; [facility] Work Phone: Comment on above: Patient Position: Sitting; Cuff Location : Left Arm; Cuff Size: Standard 05-03-2021 17:11-0400 Heart rate 78 /min Leda Barron COMMUNITY EDUCATOR [facility]; [facility] Work Phone: Comment on above: Pattern: Regular 05-03-2021 17:11-0400 Respiratory rate 16 /min Leda Barron COMMUNITY EDUCATOR [facility]; [facility] Work Phone: Comment on above: Pattern: Unlabored 05-03-2021 17:11-0400 SaO2% (BldA) [Mass fraction] 97 % Leda Barron [facility]; [facility] Work Phone: Comment on above: Room air 05-03-2021 17:11-0400 Systolic blood pressure 141 mm[Hg] Leda Barron [facility]; [facility] Work Phone: Comment on above: Patient Position: Sitting; Cuff Location : Left Arm; Cuff Size: Standard 10-28-2020 14:38-0400 BMI (Body Mass Index) 30.63 kg/m2 Abi Trevizoon DO Work Phone: [facility]; [facility] Work Phone: Comment on above: virtual visit so partial vitals 10-28-2020 14:38-0400 Body Temperature 97.9 [degF] Abi Trevizoon DO Work Phone: [facility]; [facility] Work Phone: Comment on above: Method: Oral virtual visit so par tial vitals 10-28-2020 14:38-0400 Body weight 91.38 kg Abi Trevizoon DO Work Phone: [facility]; [facility] Work Phone: Comment on above: virtual visit so partial vitals 10-28-2020 14:38-0400 BP Diastolic 80 mm[Hg] Abi Trevizoon DO Work Phone: [facility]; [facility] Work Phone: Comment on above: Patient Position: Sitting virtual visit so fazal duartel vitals 10-28-2020 14:38-0400 BP Systolic 130 mm[Hg] Abi Trevizoon DO Work Phone: [facility]; [facility] Work Phone: Comment on above: Patient Position: Sitting virtual visit so fazal duartel vitals 10-28-2020 14:38-0400 BSA (Body Surface Area) 2.05 m2 Abi Paty DO Work Phone: [facility]; [facility] Work Phone: Comment on above: virtual visit so partial vitals 10-28-2020 14:38-0400 Height 172.72 cm Abi Trevizoon DO Work Phone: [facility]; [facility] Work Phone: Comment on above: virtual visit so partial vitals 10-28-2020 14:38-0400 Pulse (Heart Rate) 78 /min Abi Trevizoon DO Work Phone: [facility]; [facility] Work Phone: Comment on above: Pattern: Regular virtual visit so fazal loza vitals 10-28-2020 14:38-0400 Respiratory Rate 16 /min Abi Trevizoon DO Work Phone: [facility]; [facility] Work Phone: Comment on above: Pattern: Unlabored virtual visit so fazal loza vitals 04-15-2020 16:01-0400 BMI (Body Mass Index) 30.63 kg/m2 [facility] Work Phone: 04-15-2020 16:01-0400 Body Temperature 97.1 [degF] [facility] Work Phone: Comment on above: Method: Thermal Scan 04-15-2020 16:01-0400 Body weight 91.38 kg [facility] Work Phone: 04-15-2020 16:01-0400 BP Diastolic 70 mm[Hg] Jacey Rodriguez LPN [facility] Work Phone: Comment on above: Patient Position: Sitting; Cuff Location : Left Arm; Cuff Size: Standard 04-15-2020 16:01-0400 BP Systolic 124 mm[Hg] Jacey Rodriguez LPN [facility] Work Phone: Comment on above: Patient Position: Sitting; Cuff Location : Left Arm; Cuff Size: Standard 04-15-2020 16:01-0400 BSA (Body Surface Area) 2.05 m2 Jacey Rodriguez TWX OPERATOR [facility] Work Phone: 04-15-2020 16:01-0400 Height 172.72 cm Jacey Rodriguez TWX OPERATOR [facility] Internal Medicine Work Phone: 04-15-2020 16:01-0400 Pulse (Heart Rate) 89 /min Jacey Rodriguez LPN [facility] Work Phone: Comment on above: Pattern: Regular 04-15-2020 16:01-0400 Pulse Oximetry 98 % Abi Newman [facility] Internal Medicine Work Phone: Comment on above: Room air 04-15-2020 16:01-0400 Respiratory Rate 16 /min Jacey Rodriguez TWX OPERATOR [facility] Internal Medicine Work Phone: Comment on above: Pattern: Unlabored 04-15-2020 16:01-0400 SaO2% (BldA) [Mass fraction] 98 % Jacey Rodriguez [facility] Internal Medicine Work Phone: Comment on above: Room air 10-16-2019 15:36-0500 BMI (Body Mass Index) 31.97 kg/m2 Onelia Montano [facility] Work Phone: 10-16-2019 15:36-0500 Body Temperature 97.3 [degF] Onelia Montano [facility] Internal Medicine Work Phone: Comment on above: Method: Temporal 10-16-2019 15:36-0500 Body weight 95.37 kg Onelia Montano [facility] Internal Medicine Work Phone: 10-16-2019 15:36-0500 BP Diastolic 88 mm[Hg] Onelia Montano TWX OPERATOR [facility] Internal Medicine Work Phone: Comment on above: Patient Position: Sitting; Cuff Location : Left Arm; Cuff Size: Standard 10-16-2019 15:36-0500 BP Systolic 138 mm[Hg] Onelia Montano LPN [facility] Internal Medicine Work Phone: Comment on above: Patient Position: Sitting; Cuff Location : Left Arm; Cuff Size: Standard 10-16-2019 15:36-0500 BSA (Body Surface Area) 2.09 m2 Onelia Montano [facility] Internal Medicine Work Phone: 10-16-2019 15:36-0500 Height 172.72 cm Onelia Montano TWX OPERATOR [facility] Internal Medicine Work Phone: 10-16-2019 15:36-0500 Pulse (Heart Rate) 78 /min Onelia Montano LPN [facility] Internal Medicine Work Phone: Comment on above: Pattern: Regular 10-16-2019 15:36-0500 Pulse Oximetry 97 % Abi Paty [facility] Internal Medicine Work Phone: Comment on above: Room air 10-16-2019 15:36-0500 Respiratory Rate 16 /min Onelia Montano [facility] Internal Medicine Work Phone: Comment on above: Pattern: Unlabored 10-16-2019 15:36-0500 SaO2% (BldA) [Mass fraction] 97 % Onelia Montano [facility] Internal Medicine Work Phone: Comment on above: Room air 09-09-2019 15:51-0500 BMI (Body Mass Index) 31.51 kg/m2 Aixa Yates RN [facility] Work Phone: 09-09-2019 15:51-0500 Body weight 94.01 kg Aixa Yates RN [facility] Work Phone: 09-09-2019 15:51-0500 BP Diastolic 82 mm[Hg] Aixa Yates RN [facility] Work Phone: Comment on above: Patient Position: Sitting; Cuff Location : Left Arm; Cuff Size: Large 09-09-2019 15:51-0500 BP Systolic 142 mm[Hg] Aixa Yates RN [facility] Work Phone: Comment on above: Patient Position: Sitting; Cuff Location : Left Arm; Cuff Size: Large 09-09-2019 15:51-0500 BSA (Body Surface Area) 2.08 m2 Aixa Yates RN [facility] Work Phone: 09-09-2019 15:51-0500 Height 172.72 cm Aixa Yates RN [facility] Work Phone: 09-09-2019 15:51-0500 Pulse (Heart Rate) 74 /min Aixa Yates RN [facility] Work Phone: Comment on above: Pattern: Regular 09-09-2019 15:51-0500 Pulse Oximetry 97 % Abi Newman [facility] Work Phone: Comment on above: Room air 09-09-2019 15:51-0500 Respiratory Rate 18 /min Aixa Yates RN [facility] Work Phone: Comment on above: Pattern: Unlabored 09-09-2019 15:51-0500 SaO2% (BldA) [Mass fraction] 97 % Aixa Yates RN [facility] Work Phone: Comment on above: Room air 08-19-2019 15:56-0500 BMI (Body Mass Index) 31.55 kg/m2 Aixa Yates RN [facility] Work Phone: 08-19-2019 15:56-0500 Body weight 94.12 kg Aixa Yates RN [facility] Work Phone: 08-19-2019 15:56-0500 BP Diastolic 82 mm[Hg] Aixa Yates RN [facility] Work Phone: Comment on above: Patient Position: Sitting; Cuff Location : Left Arm; Cuff Size: Large 08-19-2019 15:56-0500 BP Systolic 140 mm[Hg] Aixa Yates RN [facility] Work Phone: Comment on above: Patient Position: Sitting; Cuff Location : Left Arm; Cuff Size: Large 08-19-2019 15:56-0500 BSA (Body Surface Area) 2.08 m2 Aixa Yates RN [facility] Work Phone: 08-19-2019 15:56-0500 Height 172.72 cm Aixa Yates RN [facility] Work Phone: 08-19-2019 15:56-0500 Pulse (Heart Rate) 88 /min Aixa Yates RN [facility] Work Phone: Comment on above: Pattern: Regular 08-19-2019 15:56-0500 Pulse Oximetry 96 % Abi Newman [facility] Work Phone: Comment on above: Room air 08-19-2019 15:56-0500 Respiratory Rate 18 /min Aixa Yates RN [facility] Work Phone: Comment on above: Pattern: Unlabored 08-19-2019 15:56-0500 SaO2% (BldA) [Mass fraction] 96 % Aixa Yates RN [facility] Work Phone: Comment on above: Room air 06-19-2019 15:59-0500 BMI (Body Mass Index) 31.02 kg/m2 Leda Barron [facility] Work Phone: 06-19-2019 15:59-0500 Body Temperature 97.2 [degF] Leda Barron [facility] Work Phone: Comment on above: Method: Temporal 06-19-2019 15:59-0500 Body weight 92.53 kg Leda Barron [facility] Work Phone: 06-19-2019 15:59-0500 BP Diastolic 90 mm[Hg] Leda Barron [facility] Work Phone: Comment on above: Patient Position: Sitting; Cuff Location : Left Arm; Cuff Size: Standard 06-19-2019 15:59-0500 BP Systolic 127 mm[Hg] Leda Barron [facility] Work Phone: Comment on above: Patient Position: Sitting; Cuff Location : Left Arm; Cuff Size: Standard 06-19-2019 15:59-0500 BSA (Body Surface Area) 2.06 m2 Leda Barron [facility] Work Phone: 06-19-2019 15:59-0500 Height 172.72 cm Leda Barron CMA [facility] Work Phone: 06-19-2019 15:59-0500 Pulse (Heart Rate) 84 /min Leda Barron CMA [facility] Work Phone: Comment on above: Pattern: Regular 06-19-2019 15:59-0500 Pulse Oximetry 97 % Abi Newman [facility] Work Phone: Comment on above: Room air 06-19-2019 15:59-0500 Respiratory Rate 18 /min Leda Barron CMA [facility] Work Phone: Comment on above: Pattern: Unlabored 06-19-2019 15:59-0500 SaO2% (BldA) [Mass fraction] 97 % Leda Barron [facility] Work Phone: Comment on above: Room air 12-19-2018 16:16-0400 BMI (Body Mass Index) 29.04 kg/m2 Leda Barron COMMUNITY EDUCATOR [facility] Work Phone: 12-19-2018 16:16-0400 Body Temperature 97.2 [degF] Leda Barron CMA [facility] Work Phone: Comment on above: Method: Temporal 12-19-2018 16:16-0400 Body weight 86.64 kg Leda Barron COMMUNITY EDUCATOR [facility] Work Phone: 12-19-2018 16:16-0400 BP Diastolic 90 mm[Hg] Leda Barron [facility] Work Phone: Comment on above: Patient Position: Sitting; Cuff Location : Left Arm; Cuff Size: Standard 12-19-2018 16:16-0400 BP Systolic 130 mm[Hg] Leda Barron [facility] Work Phone: Comment on above: Patient Position: Sitting; Cuff Location : Left Arm; Cuff Size: Standard 12-19-2018 16:16-0400 BSA (Body Surface Area) 2 m2 Leda Barron COMMUNITY EDUCATOR [facility] Work Phone: 12-19-2018 16:16-0400 Height 172.72 cm Leda Barron CMA [facility] Work Phone: 12-19-2018 16:16-0400 Pulse (Heart Rate) 74 /min Leda Barron CMA [facility] Work Phone: Comment on above: Pattern: Regular 12-19-2018 16:16-0400 Pulse Oximetry 98 % Abi Newman [facility] Work Phone: Comment on above: Room air 12-19-2018 16:16-0400 Respiratory Rate 18 /min Leda Barron CMA [facility] Work Phone: Comment on above: Pattern: Unlabored 12-19-2018 16:16-0400 SaO2% (BldA) [Mass fraction] 98 % Leda Barron COMMUNITY EDUCATOR [facility] Work Phone: Comment on above: Room air 12-19-2018 16:16-0400 Weight 86.64 kg Abi Newman [facility] Work Phone: 06-18-2018 16:05-0500 BMI (Body Mass Index) 28.74 kg/m2 Aixa Yates RN [facility] Work Phone: 06-18-2018 16:05-0500 Body Temperature 98.1 [degF] Aixa Yates RN [facility] Work Phone: Comment on above: Method: Temporal 06-18-2018 16:05-0500 Body weight 85.73 kg Aixa Yates RN [facility] Work Phone: 06-18-2018 16:05-0500 BP Diastolic 62 mm[Hg] Aixa Yates RN [facility] Work Phone: Comment on above: Patient Position: Sitting; Cuff Location : Left Arm; Cuff Size: Large 06-18-2018 16:05-0500 BP Systolic 118 mm[Hg] Aixa Yates RN [facility] Work Phone: Comment on above: Patient Position: Sitting; Cuff Location : Left Arm; Cuff Size: Large 06-18-2018 16:05-0500 BSA (Body Surface Area) 2 m2 Aixa Yates RN [facility] Work Phone: 06-18-2018 16:05-0500 Height 172.72 cm Aixa Yates RN [facility] Work Phone: 06-18-2018 16:05-0500 Pulse (Heart Rate) 80 /min Aixa Yates RN [facility] Work Phone: Comment on above: Pattern: Regular 06-18-2018 16:05-0500 Pulse Oximetry 98 % Abi Trevizoon [facility] Internal Medicine Work Phone: Comment on above: Room air 06-18-2018 16:05-0500 Respiratory Rate 17 /min Aixa Yates RN [facility] Work Phone: Comment on above: Pattern: Unlabored 06-18-2018 16:05-0500 SaO2% (BldA) [Mass fraction] 98 % Aixa Yates RN [facility] Work Phone: Comment on above: Room air 06-18-2018 16:05-0500 Weight 85.73 kg Abi Newman [facility] Internal Medicine Work Phone: 12-04-2017 16:00-0400 BMI (Body Mass Index) 30.45 kg/m2 [facility] Work [facility] 12-04-2017 16:00-0400 [facility] Work [facility]: 12-04-2017 16:00-0400 BP Diastolic 74 mm[Hg] [facility] Internal Medicine Work Phone: Comment on above: Patient Position: Sitting; Cuff Location : Left Arm; Cuff Size: Standard 12-04-2017 16:00-0400 BP Systolic 132 mm[Hg] [facility] Medicine Work Phone: Comment on above: Patient Position: Sitting; Cuff Location : Left Arm; Cuff Size: Standard 12-04-2017 16:00-0400 BSA (Body Surface Area) 2.05 m2 Carmen [facility] Internal Medicine Work Phone: 12-04-2017 16:00-0400 Height 172.72 cm Carmen Friedman [facility] Internal Medicine Work Phone: 12-04-2017 16:00-0400 Pulse (Heart Rate) 77 /min Carmen Friedman [facility] Medicine Work Phone: Comment on above: Pattern: Regular 12-04-2017 16:00-0400 Pulse Oximetry 96 % Abi Newman [facility] Internal Medicine Work Phone: Comment on above: Room air 12-04-2017 16:00-0400 Respiratory Rate 18 /min Carmen Friedman [facility] Internal Medicine Work Phone: Comment on above: Pattern: Unlabored 12-04-2017 16:00-0400 SaO2% (BldA) [Mass fraction] 96 % Carmen Friedman [facility] Internal Medicine Work Phone: Comment on above: Room air 12-04-2017 16:00-0400 Weight 90.83 kg Abi Newman [facility] Medicine Work Phone: 05-29-2017 15:48-0400 BMI (Body Mass Index) 31.84 kg/m2 Aixa Yates RN [facility] Work Phone: 05-29-2017 15:48-0400 Body weight 94.97 kg Aixa Yates RN [facility] Work Phone: 05-29-2017 15:48-0400 BP Diastolic 88 mm[Hg] Aixa Yates RN [facility] Work Phone: Comment on above: Patient Position: Sitting; Cuff Location : Left Arm; Cuff Size: Large 05-29-2017 15:48-0400 BP Systolic 138 mm[Hg] Aixa Yates RN [facility] Work Phone: Comment on above: Patient Position: Sitting; Cuff Location : Left Arm; Cuff Size: Large 05-29-2017 15:48-0400 BSA (Body Surface Area) 2.08 m2 Aixa Yates RN [facility] Work Phone: 05-29-2017 15:48-0400 Height 172.72 cm Aixa Yates RN [facility] Work Phone: 05-29-2017 15:48-0400 Pulse (Heart Rate) 72 /min Aixa Yates RN [facility] Work Phone: Comment on above: Pattern: Regular 05-29-2017 15:48-0400 Pulse Oximetry 98 % Abi Newman [facility] Internal Medicine Work Phone: Comment on above: Room air 05-29-2017 15:48-0400 Respiratory Rate 18 /min Aixa Yates RN [facility] Work Phone: Comment on above: Pattern: Unlabored 05-29-2017 15:48-0400 SaO2% (BldA) [Mass fraction] 98 % Aixa Yates RN [facility] Work Phone: Comment on above: Room air 05-29-2017 15:48-0400 Weight 94.97 kg Abi Newman [facility] Work Phone: 11-21-2016 15:45-0400 BMI (Body Mass Index) 31.06 kg/m2 Aixa Yates RN [facility] Work Phone: 11-21-2016 15:45-0400 Body weight 92.65 kg Aixa Yates RN [facility] Work Phone: 11-21-2016 15:45-0400 BP Diastolic 78 mm[Hg] Aixa Yates RN [facility] Work Phone: Comment on above: Patient Position: Sitting; Cuff Location : Left Arm; Cuff Size: Large 11-21-2016 15:45-0400 BP Systolic 142 mm[Hg] Aixa Yates RN [facility] Work Phone: Comment on above: Patient Position: Sitting; Cuff Location : Left Arm; Cuff Size: Large 11-21-2016 15:45-0400 BSA (Body Surface Area) 2.06 m2 Aixa Yates RN [facility] Work Phone: 11-21-2016 15:45-0400 Height 172.72 cm Aixa Yates RN [facility] Work Phone: 11-21-2016 15:45-0400 Pulse (Heart Rate) 86 /min Aixa Yates RN [facility] Work Phone: Comment on above: Pattern: Regular 11-21-2016 15:45-0400 Pulse Oximetry 98 % Abi Paty [facility] Work Phone: Comment on above: Room air 11-21-2016 15:45-0400 Respiratory Rate 18 /min Aixa Yates RN [facility] Work Phone: Comment on above: Pattern: Unlabored 11-21-2016 15:45-0400 SaO2% (BldA) [Mass fraction] 98 % Aixa Yates RN [facility] Work Phone: Comment on above: Room air 11-21-2016 15:45-0400 Weight 92.65 kg Abi Paty [facility] Work Phone: 07-13-2016 15:31-0500 BMI (Body Mass Index) 31.97 kg/m2 Aixa Yates RN [facility] Work Phone: 07-13-2016 15:31-0500 Body weight 95.37 kg Aixa Yates RN [facility] Work Phone: 07-13-2016 15:31-0500 BP Diastolic 80 mm[Hg] Aixa Yates RN [facility] Work Phone: Comment on above: Patient Position: Sitting; Cuff Location : Left Arm; Cuff Size: Large 07-13-2016 15:31-0500 BP Systolic 122 mm[Hg] Aixa Yates RN [facility] Work Phone: Comment on above: Patient Position: Sitting; Cuff Location : Left Arm; Cuff Size: Large 07-13-2016 15:31-0500 BSA (Body Surface Area) 2.09 m2 Aixa Yates RN [facility] Work Phone: 07-13-2016 15:31-0500 Height 172.72 cm Aixa Yates RN [facility] Work Phone: 07-13-2016 15:31-0500 Pulse (Heart Rate) 98 /min Aixa Yates RN [facility] Work Phone: Comment on above: Pattern: Regular 07-13-2016 15:31-0500 Pulse Oximetry 94 % Abi Newman [facility] Work Phone: Comment on above: Room air 07-13-2016 15:31-0500 Respiratory Rate 18 /min Aixa Yates RN [facility] Work Phone: Comment on above: Pattern: Unlabored 07-13-2016 15:31-0500 SaO2% (BldA) [Mass fraction] 94 % Aixa Yates RN [facility] Work Phone: Comment on above: Room air 07-13-2016 15:31-0500 Weight 95.37 kg Abi Newman [facility] Work Phone: 05-18-2016 15:50-0400 BMI (Body Mass Index) 31.53 kg/m2 Aixa Yates RN [facility] Work Phone: 05-18-2016 15:50-0400 Body weight 94.07 kg Aixa Yates RN [facility] Work Phone: 05-18-2016 15:50-0400 BP Diastolic 98 mm[Hg] Aixa Yates RN [facility] Work Phone: Comment on above: Patient Position: Sitting; Cuff Location : Left Arm; Cuff Size: Large 05-18-2016 15:50-0400 BP Systolic 148 mm[Hg] Aixa Yates RN [facility] Work Phone: Comment on above: Patient Position: Sitting; Cuff Location : Left Arm; Cuff Size: Large 05-18-2016 15:50-0400 BSA (Body Surface Area) 2.08 m2 Aixa Yates RN [facility] Work Phone: 05-18-2016 15:50-0400 Height 172.72 cm Aixa Yates RN [facility] Work Phone: 05-18-2016 15:50-0400 Pulse (Heart Rate) 90 /min Aixa Yates RN [facility] Work Phone: Comment on above: Pattern: Regular 05-18-2016 15:50-0400 Pulse Oximetry 98 % Abi Newman [facility] Work Phone: Comment on above: Room air 05-18-2016 15:50-0400 Respiratory Rate 18 /min Aixa Yates RN [facility] Work Phone: Comment on above: Pattern: Unlabored 05-18-2016 15:50-0400 SaO2% (BldA) [Mass fraction] 98 % Aixa Yates RN [facility] Work Phone: Comment on above: Room air 05-18-2016 15:50-0400 Weight 94.07 kg Abi Newman [facility] Work Phone: 11-11-2015 16:46-0400 BP Diastolic 78 mm[Hg] Kathleen Judd [facility] Work Phone: Comment on above: Patient Position: Sitting; Cuff Location : Left Arm; Cuff Size: Standard 11-11-2015 16:46-0400 BP Systolic 128 mm[Hg] Kathleen Judd [facility] Work Phone: Comment on above: Patient Position: Sitting; Cuff Location : Left Arm; Cuff Size: Standard 11-11-2015 15:28-0400 BMI (Body Mass Index) 30.77 kg/m2 Aixa Yates RN [facility] Work Phone: 11-11-2015 15:28-0400 Body weight 91.8 kg Aixa Yates RN [facility] Work Phone: 11-11-2015 15:28-0400 BP Diastolic 98 mm[Hg] Aixa Yates RN [facility] Work Phone: Comment on above: Patient Position: Sitting; Cuff Location : Left Arm; Cuff Size: Large 11-11-2015 15:28-0400 BP Systolic 142 mm[Hg] Aixa Yates RN [facility] Work Phone: Comment on above: Patient Position: Sitting; Cuff Location : Left Arm; Cuff Size: Large 11-11-2015 15:28-0400 BSA (Body Surface Area) 2.05 m2 Aixa Yates RN [facility] Work Phone: 11-11-2015 15:28-0400 Height 172.72 cm Aixa Yates RN [facility] Work Phone: 11-11-2015 15:28-0400 Pulse (Heart Rate) 100 /min [facility]ix[facility]ates [facility] Work Phone: Comment on above: Pattern: Regular 11-11-2015 15:28-0400 Pulse Oximetry 94 % Abi Newman [facility] Work Phone: Comment on above: Room air 11-11-2015 15:28-0400 Respiratory Rate 18 /min Aixa Yates [facility] Work Phone: Comment on above: Pattern: Unlabored 11-11-2015 15:28-0400 SaO2% (BldA) [Mass fraction] 94 % Aixa Yates RN [facility] Work Phone: Comment on above: Room air 11-11-2015 15:28-0400 Weight 91.8 kg Abi Newman [facility] Work Phone: 05-11-2015 15:38-0400 BMI (Body Mass Index) 31.17 kg/m2 Berna Blair RN [facility] Work Phone: 05-11-2015 15:38-0400 Body weight 92.99 kg Berna Blair RN [facility] Work Phone: 05-11-2015 15:38-0400 BP Diastolic 84 mm[Hg] Berna Blair RN [facility] Work Phone: Comment on above: Patient Position: Sitting; Cuff Location : Left Arm; Cuff Size: Standard 05-11-2015 15:38-0400 BP Systolic 140 mm[Hg] Berna Blair RN [facility] Work Phone: Comment on above: Patient Position: Sitting; Cuff Location : Left Arm; Cuff Size: Standard 05-11-2015 15:38-0400 BSA (Body Surface Area) 2.07 m2 Berna Blair RN [facility] Work Phone: 05-11-2015 15:38-0400 Height 172.72 cm Berna Blair RN [facility] Work Phone: 05-11-2015 15:38-0400 Pulse (Heart Rate) 70 /min Berna Blair RN [facility] Work Phone: Comment on above: Pattern: Regular 05-11-2015 15:38-0400 Respiratory Rate 16 /min Berna Blair RN [facility] Work Phone: Comment on above: Pattern: Unlabored 05-11-2015 15:38-0400 Weight 92.99 kg Abi Newman [facility] Work Phone: 11-07-2014 14:33-0400 BMI (Body Mass Index) 31.66 kg/m2 Aixa Yates RN [facility] Work Phone: 11-07-2014 14:33-0400 Body weight 94.46 kg Aixa Yates RN [facility] Work Phone: 11-07-2014 14:33-0400 BP Diastolic 86 mm[Hg] Aixa Yates RN [facility] Work Phone: Comment on above: Patient Position: Sitting; Cuff Location : Left Arm; Cuff Size: Large 11-07-2014 14:33-0400 BP Systolic 142 mm[Hg] Aixa Yates RN [facility] Work Phone: Comment on above: Patient Position: Sitting; Cuff Location : Left Arm; Cuff Size: Large 11-07-2014 14:33-0400 BSA (Body Surface Area) 2.08 m2 Aixa Yates RN [facility] Work Phone: 11-07-2014 14:33-0400 Height 172.72 cm Aixa Yates RN [facility] Work Phone: 11-07-2014 14:33-0400 Pulse (Heart Rate) 101 /min Aixa Yates [facility] Work Phone: Comment on above: Pattern: Regular 11-07-2014 14:33-0400 Pulse Oximetry 98 % Abi Trevizoon [facility] Work Phone: Comment on above: Room air 11-07-2014 14:33-0400 Respiratory Rate 20 /min Aixa Yates [facility] Work Phone: Comment on above: Pattern: Unlabored 11-07-2014 14:33-0400 SaO2% (BldA) [Mass fraction] 98 % Aixa Yates RN [facility] Work Phone: Comment on above: Room air 11-07-2014 14:33-0400 Weight 94.46 kg Abi Newman [facility] Work Phone: 10-01-2014 15:27-0500 BMI (Body Mass Index) 31.06 kg/m2 Aixa Yates RN [facility] Work Phone: Comment on above: recheck bp 142/92 10-01-2014 15:27-0500 Body weight 92.65 kg Aixa Yates RN [facility] Work Phone: Comment on above: recheck bp 142/92 10-01-2014 15:27-0500 BP Diastolic 98 mm[Hg] Aixa Yates RN [facility] Work Phone: Comment on above: Patient Position: Sitting; Cuff Location : Left Arm; Cuff Size: Large recheck bp 142/92 10-01-2014 15:27-0500 BP Systolic 170 mm[Hg] Aixa Yates RN [facility] Work Phone: Comment on above: Patient Position: Sitting; Cuff Location : Left Arm; Cuff Size: Large recheck bp 142/92 10-01-2014 15:27-0500 BSA (Body Surface Area) 2.06 m2 Aixa Yates RN [facility] Work Phone: Comment on above: recheck bp 142/92 10-01-2014 15:27-0500 Height 172.72 cm Aixa Yates RN [facility] Work Phone: Comment on above: recheck bp 142/92 10-01-2014 15:27-0500 Pulse (Heart Rate) 81 /min Aixa Yates [facility] Work Phone: Comment on above: Pattern: Regular recheck bp 142/92 10-01-2014 15:27-0500 Pulse Oximetry 97 % Abi Newman [facility] Work Phone: Comment on above: Room air recheck bp 142/92 10-01-2014 15:27-0500 Respiratory Rate 18 /min Aixa Yates RN [facility] Work Phone: Comment on above: Pattern: Unlabored recheck bp 142/92 10-01-2014 15:27-0500 SaO2% (BldA) [Mass fraction] 97 % Aixa Yates RN [facility] Work Phone: Comment on above: Room air recheck bp 142/92 10-01-2014 15:27-0500 Weight 92.65 kg Abi Newman [facility] Work Phone: Comment on above: recheck bp 142/92 05-26-2014 15:56-0400 BMI (Body Mass Index) 31.52 kg/m2 Aixa Yates RN [facility] Work Phone: 05-26-2014 15:56-0400 Body weight 94.04 kg Aixa Yates RN [facility] Work Phone: 05-26-2014 15:56-0400 BP Diastolic 80 mm[Hg] Aixa Yates RN [facility] Work Phone: Comment on above: Patient Position: Sitting; Cuff Location : Left Arm; Cuff Size: Large 05-26-2014 15:56-0400 BP Systolic 142 mm[Hg] Aixa Yates RN [facility] Work Phone: Comment on above: Patient Position: Sitting; Cuff Location : Left Arm; Cuff Size: Large 05-26-2014 15:56-0400 BSA (Body Surface Area) 2.08 m2 Aixa Yates RN [facility] Work Phone: 05-26-2014 15:56-0400 Height 172.72 cm Aixa Yates RN [facility] Work Phone: 05-26-2014 15:56-0400 Pulse (Heart Rate) 69 /min Aixa Yates [facility] Work Phone: Comment on above: Pattern: Regular 05-26-2014 15:56-0400 Pulse Oximetry 98 % Abi Newman [facility] Work Phone: Comment on above: Room air 05-26-2014 15:56-0400 Respiratory Rate 18 /min Aixa Yates [facility] Work Phone: Comment on above: Pattern: Unlabored 05-26-2014 15:56-0400 SaO2% (BldA) [Mass fraction] 98 % Aixa Yates RN [facility] Work Phone: Comment on above: Room air 05-26-2014 15:56-0400 Weight 94.04 kg Abi Newman [facility] Work Phone: 08-26-2013 15:48-0500 BMI (Body Mass Index) 30.42 kg/m2 Aixa Yates RN [facility] Work Phone: 08-26-2013 15:48-0500 Body weight 90.75 kg Aixa Yates RN [facility] Work Phone: 08-26-2013 15:48-0500 BP Diastolic 88 mm[Hg] Aixa Yates RN [facility] Work Phone: Comment on above: Patient Position: Sitting; Cuff Location : Left Arm; Cuff Size: Large 08-26-2013 15:48-0500 BP Systolic 148 mm[Hg] Aixa Yates RN [facility] Work Phone: Comment on above: Patient Position: Sitting; Cuff Location : Left Arm; Cuff Size: Large 08-26-2013 15:48-0500 BSA (Body Surface Area) 2.04 m2 Aixa Yates RN [facility] Work Phone: 08-26-2013 15:48-0500 Height 172.72 cm Aixa Yates RN [facility] Work Phone: 08-26-2013 15:48-0500 Pulse (Heart Rate) 84 /min Aixa Yates [facility] Work Phone: Comment on above: Pattern: Regular 08-26-2013 15:48-0500 Pulse Oximetry 98 % Abi Newman [facility] Work Phone: Comment on above: Room air 08-26-2013 15:48-0500 Respiratory Rate 20 /min Aixa Yates RN [facility] Work Phone: Comment on above: Pattern: Unlabored 08-26-2013 15:48-0500 SaO2% (BldA) [Mass fraction] 98 % Aixa Yates RN [facility] Work Phone: Comment on above: Room air 08-26-2013 15:48-0500 Weight 90.75 kg Abi Newman [facility] Work Phone: 06-03-2013 15:220400 BMI (Body Mass Index) 29.55 kg/m2 Aixa Yates RN [facility] Work Phone: 06-03-2013 15:22-0400 Body Temperature 99.2 [degF] Aixa Yates [facility] Work Phone: Comment on above: Method: Oral 06-03-2013 15:220400 Body weight 88.17 kg Aixa Yates RN [facility] Work Phone: 06-03-2013 15:22-0400 BP Diastolic 82 mm[Hg] Aixa Yates RN [facility] Work Phone: Comment on above: Patient Position: Sitting; Cuff Location : Left Arm; Cuff Size: Large 06-03-2013 15:22-0400 BP Systolic 152 mm[Hg] Aixa Yates RN [facility] Work Phone: Comment on above: Patient Position: Sitting; Cuff Location : Left Arm; Cuff Size: Large 06-03-2013 15:220400 BSA (Body Surface Area) 2.02 m2 Aixa Yates RN [facility] Work Phone: 06-03-2013 15:220400 Height 172.72 cm Aixa Yates RN [facility] Work Phone: 06-03-2013 15:22-0400 Pulse (Heart Rate) 96 /min Aixa Yates [facility] Work Phone: Comment on above: Pattern: Regular 06-03-2013 15:22-0400 Pulse Oximetry 98 % Abi Newman [facility] Work Phone: Comment on above: Room air 06-03-2013 15:22-0400 Respiratory Rate 20 /min Aixa Yates RN [facility] Work Phone: Comment on above: Pattern: Unlabored 06-03-2013 15:22-0400 SaO2% (BldA) [Mass fraction] 98 % Aixa Yates RN [facility] Work Phone: Comment on above: Room air 06-03-2013 15:22-0400 Weight 88.17 kg Abi Newman [facility] Work Phone: 02-06-2013 15:58-0400 BMI (Body Mass Index) 29.89 kg/m2 Aixa Yates RN [facility] Work Phone: 02-06-2013 15:58-0400 Body weight 89.16 kg Aixa Yates RN [facility] Work Phone: 02-06-2013 15:58-0400 BP Diastolic 82 mm[Hg] Aixa Yates RN [facility] Work Phone: Comment on above: Patient Position: Sitting; Cuff Location : Left Arm; Cuff Size: Large 02-06-2013 15:58-0400 BP Systolic 124 mm[Hg] Aixa Yates RN [facility] Work Phone: Comment on above: Patient Position: Sitting; Cuff Location : Left Arm; Cuff Size: Large 02-06-2013 15:58-0400 BSA (Body Surface Area) 2.03 m2 Aixa Yates RN [facility] Work Phone: 02-06-2013 15:58-0400 Height 172.72 cm Aixa Yates RN [facility] Work Phone: 02-06-2013 15:58-0400 Pulse (Heart Rate) 64 /min Aixa Yates [facility] Work Phone: Comment on above: Pattern: Regular 02-06-2013 15:58-0400 Respiratory Rate 18 /min Aixa Yates [facility] Work Phone: Comment on above: Pattern: Unlabored 02-06-2013 15:58-0400 Weight 89.16 kg Abi Newman [facility] Work Phone: 07-23-2012 15:11-0500 BMI (Body Mass Index) 29.58 kg/m2 Aixa Yates RN [facility] Work Phone: 07-23-2012 15:11-0500 Body Temperature 99.1 [degF] Aixa Yates RN [facility] Work Phone: Comment on above: Method: Oral 07-23-2012 15:11-0500 Body weight 88.25 kg Aixa Yates RN [facility] Work Phone: 07-23-2012 15:11-0500 BP Diastolic 82 mm[Hg] Aixa Yates RN [facility] Work Phone: Comment on above: Patient Position: Sitting; Cuff Location : Left Arm; Cuff Size: Large 07-23-2012 15:11-0500 BP Systolic 138 mm[Hg] Aixa Yates RN [facility] Work Phone: Comment on above: Patient Position: Sitting; Cuff Location : Left Arm; Cuff Size: Large 07-23-2012 15:11-0500 BSA (Body Surface Area) 2.02 m2 Aixa Yates RN [facility] Work Phone: 07-23-2012 15:11-0500 Height 172.72 cm Aixa Yates RN [facility] Work Phone: 07-23-2012 15:11-0500 Pulse (Heart Rate) 64 /min Aixa Yates [facility] Work Phone: Comment on above: Pattern: Regular 07-23-2012 15:11-0500 Respiratory Rate 18 /min Aixa Yates [facility] Work Phone: Comment on above: Pattern: Unlabored 07-23-2012 15:11-0500 Weight 88.25 kg Abi Newman [facility] Work Phone: 07-13-2012 15:08-0500 BMI (Body Mass Index) 29.35 kg/m2 Aixa Yates RN [facility] Work Phone: 07-13-2012 15:08-0500 Body Temperature 98.3 [degF] Aixa Yates RN [facility] Work Phone: Comment on above: Method: Oral 07-13-2012 15:08-0500 Body weight 87.57 kg Aixa Yates RN [facility] Work Phone: 07-13-2012 15:08-0500 BP Diastolic 92 mm[Hg] Aixa Yates RN [facility] Work Phone: Comment on above: Patient Position: Sitting; Cuff Location : Left Arm; Cuff Size: Large 07-13-2012 15:08-0500 BP Systolic 142 mm[Hg] Aixa Yates RN [facility] Work Phone: Comment on above: Patient Position: Sitting; Cuff Location : Left Arm; Cuff Size: Large 07-13-2012 15:08-0500 BSA (Body Surface Area) 2.01 m2 Aixa Yates RN [facility] Work Phone: 07-13-2012 15:08-0500 Height 172.72 cm Aixa Yates RN [facility] Work Phone: 07-13-2012 15:08-0500 Pulse (Heart Rate) 80 /min Aixa Yates [facility] Work Phone: Comment on above: Pattern: Regular 07-13-2012 15:08-0500 Respiratory Rate 16 /min Aixa Yates RN [facility] Work Phone: Comment on above: Pattern: Unlabored 07-13-2012 15:08-0500 Weight 87.57 kg Abi Newamn [facility] Work Phone: 04-20-2011 14:38-0400 BMI (Body Mass Index) 30.58 kg/m2 Aixa Yates RN [facility] Work Phone: 04-20-2011 14:38-0400 Body Temperature 98.8 [degF] Aixa Yates RN [facility] Work Phone: Comment on above: Method: Oral 04-20-2011 14:38-0400 Body weight 91.23 kg Aixa Yates RN [facility] Work Phone: 04-20-2011 14:38-0400 BP Diastolic 80 mm[Hg] Aixa Yates RN [facility] Work Phone: Comment on above: Patient Position: Sitting; Cuff Location : Right Arm; Cuff Size: Standard 04-20-2011 14:38-0400 BP Systolic 142 mm[Hg] Aixa Yates RN [facility] Work Phone: Comment on above: Patient Position: Sitting; Cuff Location : Right Arm; Cuff Size: Standard 04-20-2011 14:38-0400 BSA (Body Surface Area) 2.05 m2 Aixa Yates RN [facility] Work Phone: 04-20-2011 14:38-0400 Height 172.72 cm Aixa Yates RN [facility] Work Phone: 04-20-2011 14:38-0400 Pulse (Heart Rate) 80 /min Aixa Yates [facility] Work Phone: Comment on above: Pattern: Regular 04-20-2011 14:38-0400 Respiratory Rate 20 /min Aixa Yates RN [facility] Work Phone: Comment on above: Pattern: Unlabored 04-20-2011 14:38-0400 Weight 91.23 kg Abi Newman [facility] Work Phone: Encounters Encounter Date Encounter Type Care Provider Facility Start: 08-28-2024 End: 08-28-2024 ambulatory Abi Paty Facility:[facility] Start: 03-21-2024 End: 03-21-2024 Emergency department patient visit Abi Newman Facility:[facility] Start: 02-07-2024 End: 02-07-2024 ambulatory [place] Paty Facility:[facility] Start: 10-06-2023 End: 10-06-2023 ambulatory [facility] Work Phone: Start: 10-06-2023 End: 10-06-2023 Patient encounter procedure [facility] Work Phone: Start: 10-06-2023 End: 10-06-2023 ambulatory Abi Newman Facility:[facility] Start: 07-12-2023 End: 07-12-2023 ambulatory [facility] Work Phone: Start: 07-12-2023 End: 07-12-2023 Patient encounter procedure [facility] Work Phone: Start: 06-20-2023 End: 06-20-2023 ambulatory [facility] Work Phone: Start: 06-20-2023 End: 06-20-2023 Patient encounter procedure [facility] Work Phone: Start: 04-05-2023 End: 04-05-2023 Office outpatient visit 15 minutes Abi Paty DO Work Phone: [facility] Start: 03-29-2023 End: 03-29-2023 ambulatory [facility] Work Phone: Start: 03-29-2023 End: 03-29-2023 Patient encounter procedure [facility] Work Phone: Start: 11-23-2022 ambulatory Abi Paty DO Comp [...] DO Work Phone: [facility] Start: 07-22-2022 End: 07-22-2022 ambulatory [facility] Work Phone: Start: 07-22-2022 End: 07-22-2022 Patient encounter procedure [facility] Start: 01-24-2022 End: 01-24-2022 Office outpatient visit 25 minutes Abi Paty DO Work Phone: [facility] Start: 01-24-2022 Review Abi Fearo n DO Work Phone: [facility] Start: 01-19-2022 End: 01-19-2022 Patient encounter procedure [facility] Start: 09-23-2021 End: 09-23-2021 Lab Order Abi Paty DO Work Phone: [facility] Start: 08-30-2021 End: 09-14-2021 Phone Encounter Abi Paty DO Work Phone: [facility] Start: 08-30-2021 Review Abi Trevizoo n DO Work Phone: [facility] [...] Start: 10-29-2020 End: 10-29-2020 Phone Encounter [facility] Start: 10-29-2020 End: 10-29-2020 Phone Encounter [facility]i Pat[facility] Start: 10-28-2020 End: 10-28-2020 Office outpatient visit 15 minutes Abi Newman [facility] Start: 04-15-2020 End: 04-15-2020 Office outpatient visit 25 minutes Abi Newman [facility] Start: 10-16-2019 End: 10-16-2019 Office outpatient visit 10 minutes Abi Paty [facility] Start: 09-09-2019 End: 09-09-2019 Office outpatient visit 15 minutes Abi Paty [facility] Start: 08-19-2019 End: 08-19-2019 Office outpatient visit 15 minutes Abi Paty [facility] Start: 07-16-2019 End: 07-16-2019 Phone Encounter [facility]i Pat[facility] Start: 06-19-2019 End: 06-19-2019 Office outpatient visit 15 minutes Abisoheila Newman [facility] Start: 02-08-2019 End: 02-08-2019 Office outpatient visit 10 minutes Abi Paty [facility] Start: 12-19-2018 End: 12-19-2018 Office outpatient visit 25 minutes [facility] Start: 06-18-2018 End: 06-18-2018 Office outpatient visit 15 minutes Abi Newman [facility] Start: 12-04-2017 End: 12-04-2017 Office outpatient visit 15 minutes Abi Newman [facility] Start: 05-29-2017 End: 05-29-2017 Phone Encounter [facility] Start: 05-29-2017 End: 05-29-2017 Office outpatient visit 15 minutes Abi Newman [facility] Start: 11-21-2016 End: 11-21-2016 Office outpatient visit 15 minutes Abi Newman [facility] Start: 07-13-2016 End: 07-13-2016 Office outpatient visit 15 minutes Abi Newman [facility] Start: 05-18-2016 End: 05-18-2016 Office outpatient visit 15 minutes Abi Newman [facility] Start: 11-11-2015 End: 11-11-2015 Office outpatient visit 25 minutes Abi Newman [facility] Start: 08-19-2015 End: 08-19-2015 Phone Encounter [facility] Start: 05-13-2015 End: 05-13-2015 Phone Encounter [facility] Start: 05-11-2015 End: 05-11-2015 Office outpatient visit 15 minutes Abi Newman [facility] Start: 11-07-2014 End: 11-07-2014 Office outpatient visit 25 minutes Abi Newman [facility] Start: 10-15-2014 End: 10-15-2014 Phone Encounter [facility] Start: 10-01-2014 End: 10-01-2014 Office outpatient visit 15 minutes Abi Newman [facility] Start: 05-26-2014 End: 05-26-2014 Office outpatient visit 40 minutes [facility] Start: 08-26-2013 End: 08-26-2013 Patient encounter [facility] Start: 06-03-2013 End: 06-03-2013 Patient encounter [facility]i Newman [facility] Start: 02-06-2013 End: 02-06-2013 Patient encounter [facility]i [facility] Start: 07-23-2012 End: 07-23-2012 Patient encounter [facility]i [facility] Start: 07-13-2012 End: 07-13-2012 Patient encounter [facility]i [facility] Start: 04-20-2011 End: 04-20-2011 Patient encounter [facility]i [facility] Procedures Date Procedure Procedure Detail Performing Clinician Start: 09-20-2021 End: 09-20-2021 Stress Report Comments: See Note; NOTES: [facility] [address] [place] [address] MR#: [id number] Acct: [id number] Name: LOPEZ MOMIN Rep #: [id number] : 1960 61 From: Jose Rajput MD [...] at a high workload. Excellent functional capacity 09/20/21 1752 <Electronically signed by Jose Rajput MD> Date Jose Rajput MD CC: Dr. Abi Newman DO; Abi Newman DO Date Dictated: 09/20/211750 Date Transcribed: 09/20/211750 Sales Representative [employer]: [place] Signed Abi Newman DO Work Phone: Start: 09-20-2021 End: 09-20-2021 Echo Complete W/ Contrast Comments: See Note; NOTES: [facility] [address] [place] [address] Echo Complete W/ Contrast 09/20/21 1100 MR#: [id number] Acct: [id number] Name: LOPEZ MOMIN Rep #: [id number] : 1960 61 From: Jose Rajput MD Attending Dr: Dr. Abi Newman DO Status: R EG CLI Ordering Dr: Abi Newman DO Date: 09/20/21 Location: [facility] Sex: M C Admitted: Reason For Study: [...] cm2 Doppler Measurements Calculations MV E max rodrigo: 81.9 cm/sec Lat Peak E' Rodrigo: 15.8 cm/sec Med Peak E' Rodrigo: 10.3 cm/sec MV A max rodrigo: 71.9 cm/sec E/E' lat: 5.2 E/E' med: 7.9 MV E/A: 1.1 Ao V2 max: 147.4 cm/sec LV V1 max: 146.8 cm/sec TR max rodrigo: 268.5 cm/sec Ao max P.7 mmHg LV V1 max P.6 mmHg TR max P.8 mmHg ECHO/Echo Complete W/ Contrast Interpretation Summary Normal LV size. Left ventricular systolic function is normal. The estimated ejection fraction is 60 %. Normal diastology for age. Contrast injection was performed. ____ _ Ordering Physician: Abi Newman Referring Physician: Abi Newman Performed By: Delmi Richards, RDCS, RVT 09/20/21 1155 Date Jose Rajput MD CC: Dr. Abi Newman DO; Abi Newman DO Date Dictated: 09/20/21 1100 Date Transcribed: 09/20/21 115 Sales Representative [employer]: Signed Abi Newman DO Work Phone: Start: 03-22-2018 End: 03-22-2018 Screening colonoscopy Daja Woody CM A Comment on above: Dr. rose, normal - repeat 10 yrs Start: 11-11-2015 End: 11-12-2015 Ecg routine ecg w/least 12 lds w/i&r [MEASUREMENTS ANALYSIS] Date of Test: 11/11/2015 16:41:24; Heart Rate: 81; SD Interval: 138; QRS: 92; QT Interval: 362; Corrected QT Interval (QTc): 398; P Wave [place]: 60; QRS Wave [place]: 45; T Wave [place]: 35; Blood Pressure: 142/98 [ECG DIAGNOSTIC STATEMENTS] Date of Test: 11/11/2015 16:41:24; Summary: Sinus Rhythm -Prominent R(V1) -nonspecific. BORDERLINE Abi Newman Work Phone: Comment on above: nsr no acute chg Start: 05-05-2014 End: 05-05-2014 Inital Evaluation - PT Comments: See Note; NOTES: [facility] [address] [place], [place] [id number] Fax REHABILITATION SERVICES INITIAL EVALUATION MR#: [id number] Acct: [id number] Name: LOPEZ MOMIN Rep #: [id number] : 1960 54 From: Jo Ann Hernandez Referring DrTristin: Kevin Johnston DO Status: REG RCR Insurance: [place] Date: DATE OF SERVICE: 05/01/2014 Lopez Momin is a 54-year-old male referred to physical therapy by Dr. Johnston with a medical diagnosis of rotator cuff repair. SUBJECTIVE: The patient reports that he fell approximately a year ago, tried cortisone injections and physical therapy, but was unsuccessful and decided to have rotator cuff repair. Had surgery approximately a week ago. Pain at its worst is an 8/10, best is0/10 , currently is 0/10. The patient reports pain is sore and achy and he does tell it is there, it is his left shoulder. It is aggravated by movement. Eases are ice and rest. The patient is right-handed. Sleep is disturbed. He is sleeping in a chair. He goes back to see MD on the of this month, but he does sees the PA tomorrow. 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 PAST MEDICAL HISTORY: None. MEDICATIONS: Cholesterol medication and Vicodin p.r.n. OBJECTIVE: POSTURE: Forward head, rounded shoulders, increased kyphosis. The patient does come to physical therapy today in a sling. PALPATION: Not tender. RANGE OF MOTION: Passive flexion to 96 degrees, abduction to 90 degrees, external rotation 30 degrees, internal rotation to belly. SENSATION/REFLEXES: Intact. STRENGTH: Not tested secondary to protocol. INITIAL TREATMENT EVALUATION: Educated the patient on diagnosis and plan of care. The patient agreeable to plan of care. Instructed the patient on home exercise program, which included pendulum. ASSESSMENT: Lopez Momin is a 54-year-old male referred to physical therapy with medical diagnosis of rotator cuff repair. The patient presents with hypomobility. The patient has decreased upper extremity range of motion, strength, muscular endurance and inability to perform ADLs. The patient's rehabilitation potential is fair. The patient will benefit from skilled physical therapy to solve some problems and meet the following goals. PROBLEM LIST: 1. Decreased knowledge of exercise program. 2. Decreased upper extremity range of motion. 3. Decreased strength. 4. Inability to perform ADLs. GOALS: 1. The patient will be with home exercise program progression. 2. The patient will demonstrate 5/5 strength in upper extremity where deficit to ease ADLs. 3. The patient will demonstrate full range of motion in upper extremity where deficit to ease ADLs. 4. The patient will report 0/10 pain with ability to perform all ADLs. Again, all of these will be progressed after protocol. PLAN OF CARE: The patient will be seen 2 times a week for 4 weeks. The patient will be educated on diagnosis and plan of care. The patient will be educated in home exercise program progression. Interventions to include therapeutic exercise, therapeutic activity, neuromuscular education, gait, manual modalities. The patient's anticipated discharge plan is independent with home exercise program and return to normalized activities with decreased pain. Jo Ann Hernandez DPT T: FELA JOB: [id number] <Electronically signed by Jo Ann Hernandez > 05/05/14 0724 CC: Signed For Medicare only, by signing this I certify the plan of care. ____ Physicians Signature Date Abi Newman Start: 04-16-2014 End: 04-16-2014 12 lead ECG Comments: See Note; NOTES: [facility] Cardiovascular Services [address] [place] [address] 12 Lead EKG 04/16/14 0611 MR#: [id number] Acct: [id number] Name: LOPEZ MOMIN Rep #: [id number] : 1960 54 From: Jose Rajput MD Attending Dr: Kevin Johnston DO Status: REG CLI Ordering Dr: Kevin Johnston DO Date: 04/16/14 Location: LAB Sex: M C Admitted: Test Reason : PRE-OP Blood Pressure : / mmHG Vent. Rate : 075 BPM Atrial Rate : 075 BPM P-R Int : 132 ms QRS Dur : 088 ms QT Int : 368 ms P-R-T Axes : 033 046 025 degrees QTc Int : 410 ms Normal sinus rhythm Normal ECG Confirmed by JOSE RAJPUT MD ([id number]), medical editor QUIRINO THORNTON ([id number]) on 04/16/2014 12 :07:29 PM Referred By: MOLLY Confirmed By:JOSE RAJPUT MD 04/16/14 1207 Date Jose Rajput MD CC: Abi Newman DO Date Dictated: 04/16/14610 Date Transcribed: 04/16/14610 Sales Representative [employer]: Signed Abi Newman Start: 06-03-2013 End: 06-04-2013 Shoulder min 2 Views Comments: See Note; NOTES: [facility] Imaging Services [address] [place] [address] Radiology Report MR#: [id number] Acct: [id number] Name: LOPEZ MOMIN Rep #: [id number] : 1960 M 53 From: Brady Ladd MD PCP: Status: REG CLI Study: Shoulder min 2 Views Date of Exam: 06/03/13 Exam# [id number] Ordering Dr: Abi Newman DO STUDY: X-RAY - LEFT SHOULDER REASON FOR EXAM: Male, 53 years old. Injury to the shoulder. TECHNIQUE: 4 views of the shoulder. COMPARISON: None. FINDINGS: Normal glenohumeral articulation. Normal acromioclavicular joint. Normal acromion. Normal humeral head and visualized proximal humerus. The soft tissue structures are unremarkable. Normal visualized pulmonary apex. IMPRESSION: Normal x-ray examination of the shoulder. Signed: Brady Ladd M.D. June 04, 2013 at 10:05:18 AM EDT [phone] Electronically Signed GP/GP If you are the referring physician and would like to consult with the radiologist who provided this interpretation, please contact Brady Ladd M.D. at [phone]. If this radiologist is unavailable, you will be directed to another radiologist to assist. If you are a patient with a question regarding this report, please contact your referring physician directly. Professional Interpretation Provided By: Zhenai, Phone , These documents contain legally protected and confidential health information intended only for the use of the individual or entity named above. If you are not the intended recipient, you are hereby notified that any disclosure, copying, distribution, or other use of these documents is strictly prohibited. If you have received this information in error, please notify the sender immediately and arrange for the return or destruction of these documents. CC: Abi Newman DO Sales Representative [employer]: Signed Abi Newman Work Phone: lt shoulder sx Carmen Friedman Comment on above: 04/25/14 lt shoulder sx Leda Graviu s Comment on above: 04/25/14 lt shoulder sx Onelia Montano Comment on above: 04/25/14 lt shoulder sx Jacey Rodriguez Comment on above: 04/25/14 lt shoulder sx Leda Graviu s Comment on above: 04/25/14 lt shoulder sx Analia Slarb TWX OPERATOR Comment on above: 04/25/14 lt shoulder sx Leda Graviu s COMMUNITY EDUCATOR Comment on above: 04/25/14 lt shoulder sx Analia Slarb TWX OPERATOR Comment on above: 04/25/14 lt shoulder sx Kayela Radfor d COMMUNITY EDUCATOR Comment on above: 04/25/14 lt shoulder sx Kayela Radfor d COMMUNITY EDUCATOR Comment on above: 04/25/14 lt shoulder sx HOLA Elijah contreras TWX OPERATOR Comment on above: 04/25/14 Tonsillectomy Carmen Friedman Comment on above: as a baby Tonsillectomy Leda Gravius Comment on above: as a baby Tonsillectomy Onelia Montano Comment on above: as a baby Tonsillectomy Jacey Rodriguez Comment on above: as a baby Tonsillectomy Leda Gravius Comment on above: as a baby Tonsillectomy Analia Slarb L PN Comment on above: as a baby Tonsillectomy Leda Gravius COMMUNITY EDUCATOR Comment on above: as a baby Tonsillectomy Analia Slarb L PN Comment on above: as a baby Tonsillectomy Kamilesa Graham COMMUNITY EDUCATOR Comment on above: as a baby Tonsillectomy Raula Graham COMMUNITY EDUCATOR Comment on above: as a baby Tonsillectomy HOLA Farmer TWX OPERATOR Comment on above: as a baby Plan of Treatment Date Care Activity Detail Author Start: 04-05-2023 Lipid panel LIPID PANEL (61386) [facility] Work Phone: Start: 04-05-2023 Procedure Education Eprescribe d prescriptions (G8553) [facility]; [facility] Work Phone: Start: 04-05-2023 Provider Instruction s for Treatment [facility]; [facility] Work Phone: Start: 09-21-2022 Hepatitis c antibody HEPATITIS C ANTIBODY (39269) [facility]; [facility] Work Phone: Start: 09-21-2022 Assay of prostate specific antigen total PSA (PROSTATE SPECIFIC ANTIGEN) (V76.44) [facility]; [facility] Work Phone: Start: 09-21-2022 Urine albumin quantitative MICROALBUMIN: CREATININE RATIO (50835) AND (56301) [facility]; [facility] Work Phone: Start: 09-21-2022 Assay of thyroid stimulating hormone tsh TSH (70762) [facility]; [facility] Work Phone: Start: 02-08-2023 Comprehensive metabo lic panel METABOLIC PANEL, COMPREHENSIVE (20735) [facility]; [facility] Work Phone: Start: 09-21-2022 Lipid panel LIPID PANEL (93713) [facility] Work Phone: Start: 09-21-2022 Blood count complete auto&auto difrntl wbc CBC W/AUTO DIFF WBC (62571) [facility]; [facility] Work Phone: Start: 09-21-2022 Procedure Education Eprescribe d prescriptions (G8553) [facility]; [facility] Work Phone: Start: 09-21-2022 Provider Instruction s for Treatment [facility]; [facility] Work Phone: Start: 07-27-2022 Lipid panel LIPID PANEL (57950) [facility]; [facility] Work Phone: Comment on above: Sep Start: 07-27-2022 Procedure Education Eprescribe d prescriptions (G8553) [facility]; [facility] Work Phone: Start: 07-27-2022 Provider Instruction s for Treatment [facility]; [facility] Work Phone: Start: 01-24-2022 25 hydroxy includes fractions if performed CALCIFIDIOL (05886) VIT D 25 [facility]; [facility] Work Phone: Start: 01-24-2022 Assay of thyroid stimulating hormone tsh TSH (94885) [facility]; [facility] Work Phone: Start: 01-24-2022 Urine albumin quantitative MICROALBUMIN: CREATININE RATIO (22937) AND (47059) [facility]; [facility] Work Phone: Start: 01-24-2022 Comprehensive metabo lic panel METABOLIC PANEL, COMPREHENSIVE (65813) [facility]; [facility] Work Phone: Start: 01-24-2022 Blood count complete auto&auto difrntl wbc CBC W/AUTO DIFF WBC (52881) [facility]; [facility] Work Phone: Start: 01-24-2022 Lipid panel LIPID PANEL (37765) [facility]; [facility] Work Phone: Start: 01-24-2022 Procedure Education Eprescribe d prescriptions (G8553) [facility]; [facility] Work Phone: Start: 01-24-2022 Provider Instruction s for Treatment [facility]; [facility] Work Phone: Start: 09-23-2021 Urinalysis qual/semiquant except immunoassays URINALYSIS (86656) [facility]; [facility] Work Phone: Start: 09-23-2021 Assay of thyroid stimulating hormone tsh TSH (83021) [facility]; [facility] Work Phone: Start: 09-23-2021 Assay of prostate specific antigen total PSA (Prostate Specific Antigen), Screening (42813) [facility]; [facility] Work Phone: Start: 09-23-2021 1 25 dihydroxy inclu marcia fractions if performed VITAMIN D, 1, 25-DIHYDROXY (51632) [facility]; [facility] Work Phone: Start: 09-23-2021 Urine albumin quantitative MICROALBUMIN: CREATININE RATIO (01036) AND (60441) [facility]; [facility] Work Phone: Start: 09-23-2021 Blood count complete auto&auto difrntl wbc CBC W/AUTO DIFF WBC (26359) [facility]; [facility] Work Phone: Start: 09-23-2021 Blood count hemoglobin HGB (HE MOGLOBIN) (04282) [facility]; [facility] Work Phone: Start: 09-23-2021 Lipid panel LIPID PANEL (22431) [facility]; [facility] Work Phone: Start: 09-23-2021 Comprehensive metabo lic panel METABOLIC PANEL, COMPREHENSIVE (06367) [facility]; [facility] Work Phone: Start: 08-23-2021 Procedure Education Eprescribe d prescriptions (G8553) [facility]; [facility] Work Phone: Start: 08-23-2021 Provider Instruction s for Treatment [facility]; [facility] Work Phone: Start: 07-26-2021 Procedure Education Eprescribe d prescriptions (G8553) [facility]; [facility] Work Phone: Start: 07-26-2021 Provider Instruction s for Treatment [facility]; [facility] Work Phone: Start: 07-05-2021 Procedure Education Eprescribe d prescriptions (G8553) [facility]; [facility] Work Phone: Start: 07-05-2021 Provider Instruction s for Treatment [facility]; [facility] Work Phone: Start: 05-03-2021 Procedure Education Eprescribe d prescriptions (G8553) [facility]; [facility] Work Phone: Start: 05-03-2021 Provider Instruction s for Treatment [facility]; [facility] Work Phone: Start: 10-29-2020 Lipid panel LIPID PANEL (98413) [facility]; [facility] Work Phone: Start: 10-29-2020 Blood count complete automated CBC & PLATELETS (AUTO) (75897) [facility]; [facility] Work Phone: Start: 10-29-2020 HbA1c (Bld) [Mass fraction] HGB A1C (36673) [facility]; [facility] Work Phone: Start: 10-29-2020 Hemoglobin glycosyla savannah a1c HGB A1C (71595) [facility]; [facility] Work Phone: Start: 10-29-2020 Assay of thyroid stimulating hormone tsh TSH (THYROID STIMULATING HORMONE) (11110) [facility]; [facility] Work Phone: Start: 10-29-2020 TSH Qn TSH (THYROID STIMULATING HORMONE) (83383) [facility]; [facility] Work Phone: Start: 10-29-2020 Urinalysis qual/semiquant except immunoassays URINALYSIS (72184) [facility]; [facility] Work Phone: Start: 10-29-2020 Comprehensive metabo lic panel METABOLIC PANEL, COMPREHENSIVE (07942) [facility]; [facility] Work Phone: Start: 10-29-2020 Creatinine other source MICROA LB;CREAT RATION, RAND UR (13260) [facility]; [facility] Work Phone: Start: 10-29-2020 HbA1c (Bld) [Mass fraction] HgA1C , Office (21740) [facility]; [facility] Work Phone: Start: 10-29-2020 Hemoglobin glycosyla savannah a1c HgA1C , Office (16285) [facility]; [facility] Work Phone: Start: 10-29-2020 Gluc bld gluc mntr d ev cleared fda spec home use Blood Glucose , Office (33530) [facility]; [facility] Work Phone: Start: 10-29-2020 Glucose [Mass/Vol] Blood Gluco se , Office (42145) [facility]; [facility] Work Phone: Start: 10-28-2020 Procedure Education Eprescribe d prescriptions (G8553) [facility]; [facility] Work Phone: Start: 10-28-2020 Provider Instruction s for Treatment [facility]; [facility] Work Phone: Start: 04-15-2020 Assay of thyroid stimulating hormone tsh TSH (41570) [facility] Work Phone: Start: 04-15-2020 TSH Qn TSH (37966) [facility] Work Phone: Start: 04-15-2020 Urnls dip stick/tabl et reagent auto microscopy URINALYSIS, W/ MICRO (51183) [facility] Work Phone: Start: 04-15-2020 Urine albumin quantitative MICROALBUMIN: CREATININE RATIO (77648) AND (43319) [facility] Work Phone: Start: 04-15-2020 Lipid panel LIPID PANEL (54068) [facility] Work Phone: Start: 04-15-2020 Comprehensive metabo lic panel METABOLIC PANEL, COMPREHENSIVE (20734) [facility] Work Phone: Start: 04-15-2020 Blood count complete auto&auto difrntl wbc CBC W/AUTO DIFF WBC (35618) [facility] Work Phone: Start: 04-15-2020 Procedure Education Eprescribe d prescriptions (G8553) [facility] Work Phone: Start: 04-15-2020 Provider Instruction s for Treatment [facility] Work Phone: Start: 10-16-2019 Procedure Education Eprescribe d prescriptions (G8553) [facility] Work Phone: Start: 10-16-2019 Provider Instruction s for Treatment [facility] Work Phone: Start: 09-09-2019 Provider Instruction s for Treatment [facility] Work Phone: Start: 08-19-2019 Procedure Education Eprescribe d prescriptions (G8553) [facility] Work Phone: Start: 08-19-2019 Provider Instruction s for Treatment [facility] Work Phone: Start: 06-19-2019 Procedure Education Eprescribe d prescriptions (G8553) [facility] Work Phone: Start: 06-19-2019 Provider Instruction s for Treatment [facility] Work Phone: Start: 02-08-2019 Procedure Education Eprescribe d prescriptions (G8553) [facility] Work Phone: Start: 12-19-2018 Procedure Education Eprescribe d prescriptions (G8553) [facility] Work Phone: Start: 12-19-2018 Provider Instruction s for Treatment [facility] Work Phone: Start: 06-18-2018 Assay of thyroid stimulating hormone tsh TSH (71326) [facility] Work Phone: Start: 06-18-2018 Thyrotropin Qn T[facility] (11475) [facility] Start: 06-18-2018 Urnls dip stick/tabl et reagent auto microscopy URINALYSIS, W/ MICRO (34102) [facility] Work Phone: Start: 06-18-2018 Urine albumin quantitative MICROALBUMIN: CREATININE RATIO (56617) AND (32363) [facility] Work Phone: Start: 06-18-2018 Comprehensive metabo lic panel METABOLIC PANEL, COMPREHENSIVE (88086) [facility] Work Phone: Start: 06-18-2018 Blood count complete auto&auto difrntl wbc CBC W/AUTO DIFF WBC (17811) [facility] Work Phone: Start: 06-18-2018 Lipid panel LIPID PANEL (50269) [facility] Work Phone: Comment on above: do lab in 6mo Start: 06-18-2018 Provider Instruction s for Treatment [facility] Work Phone: Start: 12-04-2017 Assay of prostate specific antigen total PSA (PROSTATE SPECIFIC ANTIGEN) (V76.44) [facility] Work Phone: Start: 12-04-2017 Protein mass conc PSA (PROSTAT E SPECIFIC ANTIGEN) (V76.44) [facility] Work Phone: Start: 12-04-2017 Lipid panel LIPID PANEL (11833) [facility] Work Phone: Start: 12-04-2017 Procedure Education Eprescribe d prescriptions (G8553) [facility] Work Phone: Start: 12-04-2017 Provider Instruction s for Treatment [facility] Work Phone: Start: 05-29-2017 Assay of thyroid stimulating hormone tsh TSH (80670) [facility] Work Phone: Start: 05-29-2017 Thyrotropin Qn TSH (73814) [facility] Work Phone: Start: 05-29-2017 Urnls dip stick/tabl et reagent auto microscopy URINALYSIS, W/ MICRO (21879) [facility] Work Phone: Start: 05-29-2017 Urine albumin quantitative MICROALBUMIN: CREATININE RATIO (19518) AND (74905) [facility] Work Phone: Start: 05-29-2017 Comprehensive metabo lic panel METABOLIC PANEL, COMPREHENSIVE (23400) [facility] Work Phone: Start: 05-29-2017 Lipid panel LIPID PANEL (36392) [facility] Work Phone: Start: 05-29-2017 Blood count complete auto&auto difrntl wbc CBC W/AUTO DIFF WBC (88185) [facility] Work Phone: Start: 05-29-2017 Provider Instruction s for Treatment [facility] Work Phone: Start: 11-21-2016 Comprehensive metabo lic panel Metabolic Panel, Comprehensive (62958) [facility] Work Phone: Start: 11-21-2016 Provider Instruction s for Treatment [facility] Work Phone: Start: 07-13-2016 Procedure Education Eprescribe d prescriptions (G8553) [facility] Work Phone: Start: 07-13-2016 Provider Instruction s for Treatment Continue Current Prescription(s) [facility] Work Phone: Start: 05-18-2016 Assay of thyroid stimulating hormone tsh TSH (69274) [facility] Work Phone: Start: 05-18-2016 Thyrotropin Qn TSH (75881) [facility] Work Phone: Start: 05-18-2016 Urnls dip stick/tabl et reagent auto microscopy URINALYSIS, W/ MICRO (59987) [facility] Work Phone: Start: 05-18-2016 Urine albumin quantitative MICROALBUMIN: CREATININE RATIO (47591) AND (93776) [facility] Work Phone: Start: 05-18-2016 Comprehensive metabo lic panel METABOLIC PANEL, COMPREHENSIVE (74689) [facility] Work Phone: Start: 05-18-2016 Lipid panel LIPID PANEL (76672) [facility] Work Phone: Start: 05-18-2016 Blood count complete auto&auto difrntl wbc CBC W/AUTO DIFF WBC (61309) [facility] Work Phone: Start: 05-18-2016 Procedure Education Eprescribe d prescriptions (G8553) [facility] Work Phone: Start: 05-18-2016 Provider Instruction s for Treatment [facility] Work Phone: Start: 11-11-2015 Lipid panel LIPID PANEL (14892) [facility] Work Phone: Start: 11-11-2015 Hepatic function panel HEPATIC FUNCTION PANEL (53314) [facility] Work Phone: Start: 11-11-2015 Procedure Education Eprescribe d prescriptions (G8553) [facility] Work Phone: Start: 11-11-2015 Provider Instruction s for Treatment [facility] Work Phone: Start: 05-13-2015 Calcium mass conc CALCIUM SERUM (823 10) [facility] Work Phone: Comment on above: to be drawn 06/12/15 Start: 05-13-2015 Calcium total CALCIUM SERUM (39779) [facility] Work Phone: Comment on above: to be drawn 06/12/15 Start: 05-11-2015 Assay of thyroid stimulating hormone tsh TSH (01654) [facility] Work Phone: Start: 05-11-2015 Thyrotropin Qn TSH (68668) [facility] Work Phone: Start: 05-11-2015 Lipid panel LIPID PANEL (27990) [facility] Work Phone: Start: 05-11-2015 Urine albumin quantitative MICROALBUMIN: CREATININE RATIO (12052) AND (02918) [facility] Work Phone: Start: 05-11-2015 Blood count complete auto&auto difrntl wbc CBC W/AUTO DIFF WBC (60078) [facility] Work Phone: Start: 05-11-2015 Comprehensive metabo lic panel METABOLIC PANEL, COMPREHENSIVE (81248) [facility] Work Phone: Start: 05-11-2015 Procedure Education Eprescribe d prescriptions (G8553) [facility] Work Phone: Start: 05-11-2015 Provider Instruction s for Treatment Follow up in 6 months [facility] Work Phone: Start: 11-07-2014 Urnls dip stick/tabl et reagent auto microscopy URINALYSIS, W/ MICRO (88445) [facility] Work Phone: Start: 11-07-2014 Urine albumin quantitative MICROALBUMIN: CREATININE RATIO (86313) AND (47971) [facility] Work Phone: Start: 11-07-2014 Provider Instruction s for Treatment [facility] Work Phone: Start: 10-01-2014 Provider Instruction s for Treatment [facility] Work Phone: Start: 09-14-2014 Lipid panel LIPID PANEL (43781) [facility] Work Phone: Start: 05-26-2014 Assay of prostate specific antigen total PSA (PROSTATE SPECIFIC ANTIGEN) (V76.44) [facility] Work Phone: Start: 05-26-2014 Protein mass conc PSA (PROSTAT E SPECIFIC ANTIGEN) (V76.44) [facility] Work Phone: Start: 05-26-2014 Patient Education Flu (Influen za) *: flu shot [facility] Work Phone: Start: 05-26-2014 Provider Instruction s for Treatment [facility] Work Phone: Start: 08-26-2013 Provider Instruction s for Treatment [facility] Work Phone: Start: 06-03-2013 Provider Instruction s for Treatment [facility] Internal Medicine Work Phone: Start: 05-14-2013 Lipid panel LIPID PANEL (49036) [facility]hens[facility] Work Phone: Start: 02-06-2013 Provider Instruction s for Treatment [facility] Work Phone: Start: 07-23-2012 Patient Education High Cholest jennifer (Hypercholesterolemia) *: cardiovascular health [facility] Work Phone: Start: 07-23-2012 Provider Instruction s for Treatment Cholesterol mgmt [facility] Work Phone: Start: 07-13-2012 Lipid panel LIPID PANEL ([id number]) [facility] Work Phone: Start: 07-13-2012 Provider Instruction s for Treatment Cholesterol mgmt [facility] Work Phone: [facility] Work Phone: [facility] Work Phone: [facility] Work Phone: [facility] Work Phone: [facility] Work Phone: [facility] Work Phone: [facility] Work Phone: [facility] Work Phone: [facility] Work Phone: [facility] Work Phone: [facility] Work Phone: [facility] Work Phone: [facility] Work Phone: [facility]; [facility] Work Phone: [facility]; [facility] Work Phone: [facility]; [facility] Work Phone: Immunizations Immunization Date Immunization Notes Care Provider Seth campos 07-05-2021 zoster vaccine, live Arabella Newman DO Work Phone: [facility]; [facility] Work Phone: Comment on above: Site: Right Deltoid 07-05-2021 zoster vaccine recombinant Abi Newman DO Work Phone: [facility]; [facility] Work Phone: Comment on above: lot [id number] exp 09/2022 reconstituted with lot [id number] exp 10/06 0.5 mlright dltPedroMabarry, drop wire operator 08-14-2020 COVID-Pfizer (30 MCG/0.3 ML) Abi Newman DO Work Phone: [facility]; [facility] Work Phone: 05-14-2019 influenza, seasonal, injectable Abi Newman [facility] Work Phone: Payers Date Payer Category Payer Private Health Insurance 1 [id number] 2023 Self-pay [id number] 2021 Private Health Insurance [id number] 2020 Unknown [id number] 2018 Unknown [id number] 2015 Unknown [id number] 2010 Unknown [id number] 1962 Unknown [id number] Private Health Insurance [facility] [id number] Unknown Unknown [id number] Unknown [id number] Unknown [id number] Unknown [id number] Unknown [id number] Social History Date Type Detail Facility Alcohol Use: Unknown if ever smoked [facility] Work Phone: Caffeine Use [facility] Work Phone: Comment on above: none [facility]: [facility] Living Situation: Lives with spouse. [facility] Internal [facility] Work Phone: [facility]: [facility]: Alcohol Use: Alcohol Use: [facility] Work Phone: Exercise History: Exercise History: [facility] Internal Medicine Work Phone: Living Situation: Living Situation: [facility] Internal Medicine Work Phone: Tobacco Use: Tobacco Use: [facility] Work Phone: Start: 1960 Sex Assigned At Male [facility] Clinical Notes Note Date & Type Note Facility Evaluation note No assessment information availa [facility] Work Phone: Instructions Name How to Access Health Information Online using Patient Portal and [employer] Apps Indication:Tobacco abuse Start: 1 Instruction Type:Patient Education Patient Instructions Indication:Tobacco abuse Start: 1 Instruction Type:Provider Instructions for Treatment How to access health information online Indication:Non-smoker Start:15-Apr-2020 Instruction Type:Patient Education How to access health information online - Detail Indication:Non-smoker Start:15-Apr-2020 Instruction Type:Patient Education Patient Instructions Indication:Non-smoker Start:15-Apr-2020 Instruction Type:Provider Instructions for Treatment How to access health information online Indication:BMI 31.0-31.9,adult Start:16-Oct-2019 Instruction Type:Patient Education How to access health information online - Detail Indication:BMI 31.0-31.9,adult Start:16-Oct-2019 Instruction Type:Patient Education Patient Instructions Indication:BMI 31.0-31.9,adult Start:16-Oct-2019 Instruction Type:Provider Instructions for Treatment How to access health information online Indication:BMI 31.0-31.9,adult Start: 0 Instruction Type:Patient Education How to access health information online - Detail Indication:BMI 31.0-31.9,adult Start: 0 Instruction Type:Patient Education Patient Instructions Indication:BMI 31.0-31.9,adult Start: Instruction Type:Provider Instructions for Treatment How to access health information online Indication:BMI 31.0-31.9,adult Start:19-Aug-2019 Instruction Type:Patient Education How to access health information online - Detail Indication:BMI 31.0-31.9,adult Start:19-Aug-2019 Instruction Type:Patient Education Patient Instructions Indication:BMI 31.0-31.9,adult Start:19-Aug-2019 Instruction Type:Provider Instructions for Treatment How to access health information online Indication:BMI 31.0-31.9,adult Start:19-Jun-2019 Instruction Type:Patient Education How to access health information online - Detail Indication:BMI 31.0-31.9,adult Start:19-Jun-2019 Instruction Type:Patient Education Patient Instructions Indication:BMI 31.0-31.9,adult Start:19-Jun-2019 Instruction Type:Provider Instructions for Treatment How to access health information online Indication:Muscle injury Start: Instruction Type:Patient Education How to access health information online - Detail Indication:Muscle injury Start: Instruction Type:Patient Education Patient Instructions Indication:Muscle injury Start: Instruction Type:Provider Instructions for Treatment How to access health information online Indication:Non-smoker Start:19-Dec-2018 Instruction Type:Patient Education How to access health information online - Detail Indication:Non-smoker Start:19-Dec-2018 Instruction Type:Patient Education Patient Instructions Indication:Non-smoker Start:19-Dec-2018 Instruction Type:Provider Instructions for Treatment How to access health information online Indication:BMI 28.0-28.9,adult Start:18-Jun-2018 Instruction Type:Patient Education How to access health information online - Detail Indication:BMI 28.0-28.9,adult Start:18-Jun-2018 Instruction Type:Patient Education Patient Instructions Indication:BMI 28.0-28.9,adult Start:18-Jun-2018 Instruction Type:Provider Instructions for Treatment How to access health information online Indication:Snuff user Start: 8 Instruction Type:Patient Education How to access health information online - Detail Indication:Snuff user Start: 8 Instruction Type:Patient Education Patient Instructions Indication:Snuff user Start: 8 Instruction Type:Provider Instructions for Treatment How to access health information online Indication:Snuff user Start: Instruction Type:Patient Education How to access health information online - Detail Indication:Snuff user Start: Instruction Type:Patient Education Patient Instructions Indication:Snuff user Start: Instruction Type:Provider Instructions for Treatment How to access health information online Indication:Snuff user Start: 7 Instruction Type:Patient Education How to access health information online - Detail Indication:Snuff user Start: Instruction Type:Patient Education Patient Instructions Indication:Snuff user Start: Instruction Type:Provider Instructions for Treatment How to access health information online Indication:Benign essential HTN Start: Instruction Type:Patient Education How to access health information online - Detail Indication:Benign essential HTN Start: Instruction Type:Patient Education Patient Instructions Indication:Benign essential HTN Start: Instruction Type:Provider Instructions for Treatment How to access health information online Indication:Benign essential HTN Start:18-May-2016 Instruction Type:Patient Education How to access health information online - Detail Indication:Benign essential HTN Start:18-May-2016 Instruction Type:Patient Education Patient Instructions Indication:Benign essential HTN Start:18-May-2016 Instruction Type:Provider Instructions for Treatment Patient Instructions Indication:Benign essential HTN Start: 6 Instruction Type:Provider Instructions for Treatment How to access health information online - Detail Indication:Benign essential HTN Start: Instruction Type:Patient Education How to access health information online Indication:Benign essential HTN Start:30-Mar-201 6 Instruction Type:Patient Education How to access health information online Indication:Hyperlipidemia Start: 5 Instruction Type:Patient Education How to access health information online - Detail Indication:Hyperlipidemia Start: 5 Instruction Type:Patient Education Patient Instructions Indication:Hyperlipidemia Start: 5 Instruction Type:Provider Instructions for Treatment Patient Instructions Indication:Hyperlipidemia Start: 5 Instruction Type:Provider Instructions for Treatment Patient Instructions Indication:Hyperlipidemia Start: 4 Instruction Type:Provider Instructions for Treatment How to access health information online Indication:Hyperlipidemia Start: 4 Instruction Type:Patient Education How to access health information online - Detail Indication:Hyperlipidemia Start: 4 Instruction Type:Patient Education Patient Instructions Indication:Hyperlipidemia Start: 4 Instruction Type:Provider Instructions for Treatment Patient Instructions Start: 3 Instruction Type:Provider Instructions for Treatment Patient Instructions Indication:Hyperlipidemia Start: 3 Instruction Type:Provider Instructions for Treatment Patient Instructions Indication:Hyperlipidemia Start: 2 Instruction Type:Provider Instructions for Treatment [facility]; [facility] Work Phone: Instructions* Name Dates Details Patient Instructions Indication:Non-smoker Start:26-Jul-2021 Instruction Type:Provider Instructions for Treatment How to Access Health Informa tion Online using Patient Portal and [employer] Apps Indication:Non-smoker Start:26-Jul-2021 Instruction Type:Patient Education Patient Instructions Indication:BMI 32.0-32.9,adult Start:05-Jul-2021 Instruction Type:Provider Instructions for Treatment How to Access Health Informa tion Online using Patient Portal and [employer] Apps Indication:BMI 32.0-32.9,adult Start:05-Jul-2021 Instruction Type:Patient Education Patient Instructions Indication:Non-smoker Start:03-May-2021 Instruction Type:Provider Instructions for Treatment How to Access Health Informa tion Online using Patient Portal and [employer] Apps Indication:Non-smoker Start:03-May-2021 Instruction Type:Patient Education How to Access Health Informa tion Online using Patient Portal and [employer] Apps Indication:Tobacco abuse Start:28-Oct-2020 Instruction Type:Patient Education [...] Informa tion Online using Patient Portal and [employer] Apps Indication:Non-smoker Start:23-Aug-2021 Instruction Type:Patient Education Patient Instructions Indication:Non-smoker Start:26-Jul-2021 Instruction Type:Provider Instructions for Treatment How to Access Health Informa tion Online using Patient Portal and [employer] Apps Indication:Non-smoker Start:26-Jul-2021 Instruction Type:Patient Education Patient Instructions Indication:BMI 32.0-32.9,adult Start:05-Jul-2021 Instruction Type:Provider Instructions for Treatment How to Access Health Informa tion Online using Patient Portal and [employer] Apps Indication:BMI 32.0-32.9,adult Start:05-Jul-2021 Instruction Type:Patient Education Patient Instructions Indication:Non-smoker Start:03-May-2021 Instruction Type:Provider Instructions for Treatment How to Access Health Informa tion Online using Patient Portal and [employer] Apps Indication:Non-smoker Start:03-May-2021 Instruction Type:Patient Education How to Access Health Informa tion Online using Patient Portal and [employer] Apps Indication:Tobacco abuse Start:28-Oct-2020 Instruction Type:Patient Education [...] tion Online using Patient Portal and [employer] Apps Indication:Non-smoker Start:23-Aug-2021 Instruction Type:Patient Education Patient Instructions Indication:Non-smoker Start:26-Jul-2021 Instruction Type:Provider Instructions for Treatment How to Access Health Informa tion Online using Patient Portal and [employer] Apps Indication:Non-smoker Start:26-Jul-2021 Instruction Type:Patient Education Patient Instructions Indication:BMI 32.0-32.9,adult Start:05-Jul-2021 Instruction Type:Provider Instructions for Treatment How to Access Health Informa tion Online using Patient Portal and [employer]rd [employer] Apps Indication:BMI 32.0-32.9,adult Start:05-Jul-2021 Instruction Type:Patient Education Patient Instructions Indication:Non-smoker Start:03-May-2021 Instruction Type:Provider Instructions for Treatment How to Access Health Informa tion Online using Patient Portal and [employer]rd [employer] Apps Indication:Non-smoker Start:03-May-2021 Instruction Type:Patient Education How to Access Health Informa tion Online using Patient Portal and [employer]rd [employer] Apps Indication:Tobacco abuse Start:28-Oct-2020 Instruction Type:Patient Education [...] tion Online using Patient Portal and [employer] Apps Indication:Non-smoker Start:23-Aug-2021 Instruction Type:Patient Education Patient Instructions Indication:Non-smoker Start:26-Jul-2021 Instruction Type:Provider Instructions for Treatment How to Access Health Informa tion Online using Patient Portal and [employer] Apps Indication:Non-smoker Start:26-Jul-2021 Instruction Type:Patient Education Patient Instructions Indication:BMI 32.0-32.9,adult Start:05-Jul-2021 Instruction Type:Provider Instructions for Treatment How to Access Health Informa tion Online using Patient Portal and [employer]rd [employer] Apps Indication:BMI 32.0-32.9,adult Start:05-Jul-2021 Instruction Type:Patient Education Patient Instructions Indication:Non-smoker Start:03-May-2021 Instruction Type:Provider Instructions for Treatment How to Access Health Informa tion Online using Patient Portal and [employer]rd [employer] Apps Indication:Non-smoker Start:03-May-2021 Instruction Type:Patient Education How to Access Health Informa tion Online using Patient Portal and [employer]rd [employer] Apps Indication:Tobacco abuse Start:28-Oct-2020 Instruction Type:Patient Education [...] Informa tion Online using Patient Portal and [employer] Apps Indication:Non-smoker Start:23-Aug-2021 Instruction Type:Patient Education Patient Instructions Indication:Non-smoker Start:26-Jul-2021 Instruction Type:Provider Instructions for Treatment How to Access Health Informa tion Online using Patient Portal and [employer] Apps Indication:Non-smoker Start:26-Jul-2021 Instruction Type:Patient Education Patient Instructions Indication:BMI 32.0-32.9,adult Start:05-Jul-2021 Instruction Type:Provider Instructions for Treatment How to Access Health Informa tion Online using Patient Portal and [employer] Apps Indication:BMI 32.0-32.9,adult Start:05-Jul-2021 Instruction Type:Patient Education Patient Instructions Indication:Non-smoker Start:03-May-2021 Instruction Type:Provider Instructions for Treatment How to Access Health Informa tion Online using Patient Portal and [employer] Apps Indication:Non-smoker Start:03-May-2021 Instruction Type:Patient Education How to Access Health Informa tion Online using Patient Portal and [employer] Apps Indication:Tobacco abuse Start:28-Oct-2020 Instruction Type:Patient Education [...] tion Online using Patient Portal and [employer] Apps Indication:Non-smoker Start:23-Aug-2021 Instruction Type:Patient Education Patient Instructions Indication:Non-smoker Start:26-Jul-2021 Instruction Type:Provider Instructions for Treatment How to Access Health Informa tion Online using Patient Portal and [employer] Apps Indication:Non-smoker Start:26-Jul-2021 Instruction Type:Patient Education Patient Instructions Indication:BMI 32.0-32.9,adult Start:05-Jul-2021 Instruction Type:Provider Instructions for Treatment How to Access Health Informa tion Online using Patient Portal and [employer] Apps Indication:BMI 32.0-32.9,adult Start:05-Jul-2021 Instruction Type:Patient Education Patient Instructions Indication:Non-smoker Start:03-May-2021 Instruction Type:Provider Instructions for Treatment How to Access Health Informa tion Online using Patient Portal and [employer] Apps Indication:Non-smoker Start:03-May-2021 Instruction Type:Patient Education How to Access Health Informa tion Online using Patient Portal and [employer] Apps Indication:Tobacco abuse Start:28-Oct-2020 Instruction Type:Patient Education [...] tion Online using Patient Portal and [employer] Apps Indication:Non-smoker Start:23-Aug-2021 Instruction Type:Patient Education Patient Instructions Indication:Non-smoker Start:26-Jul-2021 Instruction Type:Provider Instructions for Treatment How to Access Health Informa tion Online using Patient Portal and [employer] Apps Indication:Non-smoker Start:26-Jul-2021 Instruction Type:Patient Education Patient Instructions Indication:BMI 32.0-32.9,adult Start:05-Jul-2021 Instruction Type:Provider Instructions for Treatment How to Access Health Informa tion Online using Patient Portal and [employer] Apps Indication:BMI 32.0-32.9,adult Start:05-Jul-2021 Instruction Type:Patient Education Patient Instructions Indication:Non-smoker Start:03-May-2021 Instruction Type:Provider Instructions for Treatment How to Access Health Informa tion Online using Patient Portal and [employer] Apps Indication:Non-smoker Start:03-May-2021 Instruction Type:Patient Education How to Access Health Informa tion Online using Patient Portal and [employer] Apps Indication:Tobacco abuse Start:28-Oct-2020 Instruction Type:Patient Education [...] tion Online using Patient Portal and [employer] Apps Indication:Non-smoker Start:24-Jan-2022 Instruction Type:Patient Education Patient Instructions Indication:Non-smoker Start:23-Aug-2021 Instruction Type:Provider Instructions for Treatment How to Access Health Informa tion Online using Patient Portal and [employer] Apps Indication:Non-smoker Start:23-Aug-2021 Instruction Type:Patient Education Patient Instructions Indication:Non-smoker Start:26-Jul-2021 Instruction Type:Provider Instructions for Treatment How to Access Health Informa tion Online using Patient Portal and [employer] Apps Indication:Non-smoker Start:26-Jul-2021 Instruction Type:Patient Education Patient Instructions Indication:BMI 32.0-32.9,adult Start:05-Jul-2021 Instruction Type:Provider Instructions for Treatment How to Access Health Informa tion Online using Patient Portal and [employer] Apps Indication:BMI 32.0-32.9,adult Start:05-Jul-2021 Instruction Type:Patient Education Patient Instructions Indication:Non-smoker Start:03-May-2021 Instruction Type:Provider Instructions for Treatment How to Access Health Informa tion Online using Patient Portal and [employer] Apps Indication:Non-smoker Start:03-May-2021 Instruction Type:Patient Education How to Access Health Informa tion Online using Patient Portal and [employer] Apps Indication:Tobacco abuse Start:28-Oct-2020 Instruction Type:Patient Education [...] tion Online using Patient Portal and [employer] Apps Indication:Non-smoker Start:24-Jan-2022 Instruction Type:Patient Education Patient Instructions Indication:Non-smoker Start:23-Aug-2021 Instruction Type:Provider Instructions for Treatment How to Access Health Informa tion Online using Patient Portal and [employer] Apps Indication:Non-smoker Start:23-Aug-2021 Instruction Type:Patient Education Patient Instructions Indication:Non-smoker Start:26-Jul-2021 Instruction Type:Provider Instructions for Treatment How to Access Health Informa tion Online using Patient Portal and [employer] Apps Indication:Non-smoker Start:26-Jul-2021 Instruction Type:Patient Education Patient Instructions Indication:BMI 32.0-32.9,adult Start:05-Jul-2021 Instruction Type:Provider Instructions for Treatment How to Access Health Informa tion Online using Patient Portal and [employer] Apps Indication:BMI 32.0-32.9,adult Start:05-Jul-2021 Instruction Type:Patient Education Patient Instructions Indication:Non-smoker Start:03-May-2021 Instruction Type:Provider Instructions for Treatment How to Access Health Informa tion Online using Patient Portal and [employer] Apps Indication:Non-smoker Start:03-May-2021 Instruction Type:Patient Education How to Access Health Informa tion Online using Patient Portal and [employer] Apps Indication:Tobacco abuse Start:28-Oct-2020 Instruction Type:Patient Education [...] tion Online using Patient Portal and [employer] Apps Indication:Non-smoker Start:24-Jan-2022 Instruction Type:Patient Education Patient Instructions Indication:Non-smoker Start:23-Aug-2021 Instruction Type:Provider Instructions for Treatment How to Access Health Informa tion Online using Patient Portal and [employer] Apps Indication:Non-smoker Start:23-Aug-2021 Instruction Type:Patient Education Patient Instructions Indication:Non-smoker Start:26-Jul-2021 Instruction Type:Provider Instructions for Treatment How to Access Health Informa tion Online using Patient Portal and [employer] Apps Indication:Non-smoker Start:26-Jul-2021 Instruction Type:Patient Education Patient Instructions Indication:BMI 32.0-32.9,adult Start:05-Jul-2021 Instruction Type:Provider Instructions for Treatment How to Access Health Informa tion Online using Patient Portal and [employer] Apps Indication:BMI 32.0-32.9,adult Start:05-Jul-2021 Instruction Type:Patient Education Patient Instructions Indication:Non-smoker Start:03-May-2021 Instruction Type:Provider Instructions for Treatment How to Access Health Informa tion Online using Patient Portal and [employer] Apps Indication:Non-smoker Start:03-May-2021 Instruction Type:Patient Education How to Access Health Informa tion Online using Patient Portal and [employer] Apps Indication:Tobacco abuse Start:28-Oct-2020 Instruction Type:Patient Education [...] tion Online using Patient Portal and [employer] Apps Indication:BMI 28.0-28.9,adult Start:27-Jul-2022 Instruction Type:Patient Education Patient Instructions Indication:Non-smoker Start:24-Jan-2022 Instruction Type:Provider Instructions for Treatment How to Access Health Informa tion Online using Patient Portal and [employer] Apps Indication:Non-smoker Start:24-Jan-2022 Instruction Type:Patient Education Patient Instructions Indication:Non-smoker Start:23-Aug-2021 Instruction Type:Provider Instructions for Treatment How to Access Health Informa tion Online using Patient Portal and [employer] Apps Indication:Non-smoker Start:23-Aug-2021 Instruction Type:Patient Education Patient Instructions Indication:Non-smoker Start:26-Jul-2021 Instruction Type:Provider Instructions for Treatment How to Access Health Informa tion Online using Patient Portal and [employer] Apps Indication:Non-smoker Start:26-Jul-2021 Instruction Type:Patient Education Patient Instructions Indication:BMI 32.0-32.9,adult Start:05-Jul-2021 Instruction Type:Provider Instructions for Treatment How to Access Health Informa tion Online using Patient Portal and [employer]rd [employer] Apps Indication:BMI 32.0-32.9,adult Start:05-Jul-2021 Instruction Type:Patient Education Patient Instructions Indication:Non-smoker Start:03-May-2021 Instruction Type:Provider Instructions for Treatment How to Access Health Informa tion Online using Patient Portal and [employer]rd [employer] Apps Indication:Non-smoker Start:03-May-2021 Instruction Type:Patient Education How to Access Health Informa tion Online using Patient Portal and [employer]rd [employer] Apps Indication:Tobacco abuse Start:28-Oct-2020 Instruction Type:Patient Education [...] tion Online using Patient Portal and [employer]rd [employer] Apps Indication:BMI 28.0-28.9,adult Start:21-Sep-2022 Instruction Type:Patient Education Patient Instructions Indication:BMI 28.0-28.9,adult Start:27-Jul-2022 Instruction Type:Provider Instructions for Treatment How to Access Health Informa tion Online using Patient Portal and [employer]rd [employer] Apps Indication:BMI 28.0-28.9,adult Start:27-Jul-2022 Instruction Type:Patient Education Patient Instructions Indication:Non-smoker Start:24-Jan-2022 Instruction Type:Provider Instructions for Treatment How to Access Health Informa tion Online using Patient Portal and [employer]rd [employer] Apps Indication:Non-smoker Start:24-Jan-2022 Instruction Type:Patient Education Patient Instructions Indication:Non-smoker Start:23-Aug-2021 Instruction Type:Provider Instructions for Treatment How to Access Health Informa tion Online using Patient Portal and [employer]rd [employer] Apps Indication:Non-smoker Start:23-Aug-2021 Instruction Type:Patient Education Patient Instructions Indication:Non-smoker Start:26-Jul-2021 Instruction Type:Provider Instructions for Treatment How to Access Health Informa tion Online using Patient Portal and [employer]rd [employer] Apps Indication:Non-smoker Start:26-Jul-2021 Instruction Type:Patient Education Patient Instructions Indication:BMI 32.0-32.9,adult Start:05-Jul-2021 Instruction Type:Provider Instructions for Treatment How to Access Health Informa tion Online using Patient Portal and [employer]rd [employer] Apps Indication:BMI 32.0-32.9,adult Start:05-Jul-2021 Instruction Type:Patient Education Patient Instructions Indication:Non-smoker Start:03-May-2021 Instruction Type:Provider Instructions for Treatment How to Access Health Informa tion Online using Patient Portal and [employer]rd [employer] Apps Indication:Non-smoker Start:03-May-2021 Instruction Type:Patient Education How to Access Health Informa tion Online using Patient Portal and [employer]rd [employer] Apps Indication:Tobacco abuse Start:28-Oct-2020 Instruction Type:Patient Education [...] tion Online using Patient Portal and [employer]rd [employer] Apps Indication:BMI 28.0-28.9,adult Start:21-Sep-2022 Instruction Type:Patient Education Patient Instructions Indication:BMI 28.0-28.9,adult Start:27-Jul-2022 Instruction Type:Provider Instructions for Treatment How to Access Health Informa tion Online using Patient Portal and [employer]rd [employer] Apps Indication:BMI 28.0-28.9,adult Start:27-Jul-2022 Instruction Type:Patient Education Patient Instructions Indication:Non-smoker Start:24-Jan-2022 Instruction Type:Provider Instructions for Treatment How to Access Health Informa tion Online using Patient Portal and [employer]rd [employer] Apps Indication:Non-smoker Start:24-Jan-2022 Instruction Type:Patient Education Patient Instructions Indication:Non-smoker Start:23-Aug-2021 Instruction Type:Provider Instructions for Treatment How to Access Health Informa tion Online using Patient Portal and [employer]rd [employer] Apps Indication:Non-smoker Start:23-Aug-2021 Instruction Type:Patient Education Patient Instructions Indication:Non-smoker Start:26-Jul-2021 Instruction Type:Provider Instructions for Treatment How to Access Health Informa tion Online using Patient Portal and [employer]rd [employer] Apps Indication:Non-smoker Start:26-Jul-2021 Instruction Type:Patient Education Patient Instructions Indication:BMI 32.0-32.9,adult Start:05-Jul-2021 Instruction Type:Provider Instructions for Treatment How to Access Health Informa tion Online using Patient Portal and [employer]rd [employer] Apps Indication:BMI 32.0-32.9,adult Start:05-Jul-2021 Instruction Type:Patient Education Patient Instructions Indication:Non-smoker Start:03-May-2021 Instruction Type:Provider Instructions for Treatment How to Access Health Informa tion Online using Patient Portal and [employer]rd [employer] Apps Indication:Non-smoker Start:03-May-2021 Instruction Type:Patient Education How to Access Health Informa tion Online using Patient Portal and [employer]rd [employer] Apps Indication:Tobacco abuse Start:28-Oct-2020 Instruction Type:Patient Education [...] Informa tion Online using Patient Portal and [employer] Apps Indication:BMI 28.0-28.9,adult Start:21-Sep-2022 Instruction Type:Patient Education Patient Instructions Indication:BMI 28.0-28.9,adult Start:27-Jul-2022 Instruction Type:Provider Instructions for Treatment How to Access Health Informa tion Online using Patient Portal and [employer]rd [employer] Apps Indication:BMI 28.0-28.9,adult Start:27-Jul-2022 Instruction Type:Patient Education Patient Instructions Indication:Non-smoker Start:24-Jan-2022 Instruction Type:Provider Instructions for Treatment How to Access Health Informa tion Online using Patient Portal and [employer]rd [employer] Apps Indication:Non-smoker Start:24-Jan-2022 Instruction Type:Patient Education Patient Instructions Indication:Non-smoker Start:23-Aug-2021 Instruction Type:Provider Instructions for Treatment How to Access Health Informa tion Online using Patient Portal and [employer]rd [employer] Apps Indication:Non-smoker Start:23-Aug-2021 Instruction Type:Patient Education Patient Instructions Indication:Non-smoker Start:26-Jul-2021 Instruction Type:Provider Instructions for Treatment How to Access Health Informa tion Online using Patient Portal and [employer]rd [employer] Apps Indication:Non-smoker Start:26-Jul-2021 Instruction Type:Patient Education Patient Instructions Indication:BMI 32.0-32.9,adult Start:05-Jul-2021 Instruction Type:Provider Instructions for Treatment How to Access Health Informa tion Online using Patient Portal and [employer]rd [employer] Apps Indication:BMI 32.0-32.9,adult Start:05-Jul-2021 Instruction Type:Patient Education Patient Instructions Indication:Non-smoker Start:03-May-2021 Instruction Type:Provider Instructions for Treatment How to Access Health Informa tion Online using Patient Portal and [employer]rd [employer] Apps Indication:Non-smoker Start:03-May-2021 Instruction Type:Patient Education How to Access Health Informa tion Online using Patient Portal and [employer]rd [employer] Apps Indication:Tobacco abuse Start:28-Oct-2020 Instruction Type:Patient Education [...] tion Online using Patient Portal and [employer]rd [employer] Apps Indication:Non-smoker Start:05-Apr-2023 Instruction Type:Patient Education Patient Instructions Indication:Non-smoker Start:05-Apr-2023 Instruction Type:Provider Instructions for Treatment Patient Instructions Indication:BMI 28.0-28.9,adult Start:21-Sep-2022 Instruction Type:Provider Instructions for Treatment How to Access Health Informa tion Online using Patient Portal and [employer]rd [employer] Apps Indication:BMI 28.0-28.9,adult Start:21-Sep-2022 Instruction Type:Patient Education Patient Instructions Indication:BMI 28.0-28.9,adult Start:27-Jul-2022 Instruction Type:Provider Instructions for Treatment How to Access Health Informa tion Online using Patient Portal and [employer]rd [employer] Apps Indication:BMI 28.0-28.9,adult Start:27-Jul-2022 Instruction Type:Patient Education Patient Instructions Indication:Non-smoker Start:24-Jan-2022 Instruction Type:Provider Instructions for Treatment How to Access Health Informa tion Online using Patient Portal and [employer]rd [employer] Apps Indication:Non-smoker Start:24-Jan-2022 Instruction Type:Patient Education Patient Instructions Indication:Non-smoker Start:23-Aug-2021 Instruction Type:Provider Instructions for Treatment How to Access Health Informa tion Online using Patient Portal and [employer] Apps Indication:Non-smoker Start:23-Aug-2021 Instruction Type:Patient Education Patient Instructions Indication:Non-smoker Start:26-Jul-2021 Instruction Type:Provider Instructions for Treatment How to Access Health Informa tion Online using Patient Portal and [employer]rd [employer] Apps Indication:Non-smoker Start:26-Jul-2021 Instruction Type:Patient Education Patient Instructions Indication:BMI 32.0-32.9,adult Start:05-Jul-2021 Instruction Type:Provider Instructions for Treatment How to Access Health Informa tion Online using Patient Portal and [employer]rd [employer] Apps Indication:BMI 32.0-32.9,adult Start:05-Jul-2021 Instruction Type:Patient Education Patient Instructions Indication:Non-smoker Start:03-May-2021 Instruction Type:Provider Instructions for Treatment How to Access Health Informa tion Online using Patient Portal and [employer]rd [employer] Apps Indication:Non-smoker Start:03-May-2021 Instruction Type:Patient Education How to Access Health Informa tion Online using Patient Portal and [employer]rd [employer] Apps Indication:Tobacco abuse Start:28-Oct-2020 Instruction Type:Patient Education [...] [facility] Work Phone: Family History No Family History Records FoundUnknown Family Member Name Dates Details Asthma Comments:Mother. [...] Informa tion Online using Patient Portal and [employer] Apps Indication:Tobacco abuse Start:28-Oct-2020 Instruction Type:Patient Education [...] tion Online using Patient Portal and [employer]rd [employer] Apps Indication:Tobacco abuse Start:28-Oct-2020 Instruction Type:Patient Education [...] Instruction Type:Provider Instructions for Treatment Advance Directives No Advanced Directives Records Found Name Dates Details Immunization Registry [place] - Effective on 06/19/2019. Expiration date unspecified Effective:19-Jun-2019 Name Dates Details Immunization Registry [place] - Effective on 06/19/2019. Expiration date unspecified Effective:19-Jun-2019 Name Dates Details Immunization Registry [place] - Effective on 06/19/2019. Expiration date unspecified Effective:19-Jun-2019 Name Dates Details Immunization Registry [place] - Effective on 06/19/2019. Expiration date unspecified Effective:19-Jun-2019 Name Dates Details Immunization Registry [place] - Effective on 06/19/2019. Expiration date unspecified Effective:19-Jun-2019 Name Dates Details Immunization Registry [place] - Effective on 06/19/2019. Expiration date unspecified Effective:19-Jun-2019 Name Dates Details Immunization Registry [place] - Effective on 06/19/2019. Expiration date unspecified Effective:19-Jun-2019 Name Dates Details Immunization Registry [place] - Effective on 06/19/2019. Expiration date unspecified Effective:19-Jun-2019 Name Dates Details Immunization Registry [place] - Effective on 06/19/2019. Expiration date unspecified Effective:19-Jun-2019 Name Dates Details Immunization Registry [place] - Effective on 06/19/2019. Expiration date unspecified Effective:19-Jun-2019 Name Dates Details Immunization Registry [place] - Effective on 06/19/2019. Expiration date unspecified Effective:19-Jun-2019 Name Dates Details Immunization Registry [place] - Effective on 06/19/2019. Expiration date unspecified Effective:19-Jun-2019 Name Dates Details Immunization Registry [place] - Effective on 06/19/2019. Expiration date unspecified Effective:19-Jun-2019 Name Dates Details Immunization Registry [place] - Effective on 06/19/2019. Expiration date unspecified Effective:19-Jun-2019 Name Dates Details Immunization Registry [place] - Effective on 06/19/2019. Expiration date unspecified Effective:19-Jun-2019 Name Dates Details Immunization Registry [place] - Effective on 06/19/2019. Expiration date unspecified Effective:19-Jun-2019 Name Dates Details Immunization Registry [place] - Effective on 06/19/2019. Expiration date unspecified Effective:19-Jun-2019 Name Dates Details Immunization Registry [place] - Effective on 06/19/2019. Expiration date unspecified Effective:19-Jun-2019 Name Dates Details Immunization Registry [place] - Effective on 06/19/2019. Expiration date unspecified Effective:19-Jun-2019 Name Dates Details Immunization Registry [place] - Effective on 06/19/2019. Expiration date unspecified Effective:6-Nov-2019 Name Dates Details Immunization Registry [place] - Effective on 06/19/2019. Expiration date unspecified Effective:19-Jun-2019 Name Dates Details Immunization Registry [place] - Effective on 06/19/2019. Expiration date unspecified Effective:19-Jun-2019 Name Dates Details Immunization Registry [place] - Effective on 06/19/2019. Expiration date unspecified Effective:19-Jun-2019 Summary Purpose Additional Source Comments Goals (unrecognized section and content) Goals may be documented in a n alternate sectionGoals may be documented in an alternate sectionGoals may be documented in an alternate sectionGoals may be documented in an alternate sectionGoals may be documented in an alternate sectionGoals may be documented in an alternate section (unrecognized sect ion and content) No Status Records FoundNo Status Records Found INFORMATION SOURCE (unrecogn ized section and content) DATE CREATED AUTHOR [facility] CRE[facility] AUTHOR AUTHOR'S ORGANIZ ATION 09/19/2024 [facility] Care Teams (unrecognized sec tion and content) Team Status: Active Member Role Status Dates Dr. Abi Newman , DO Family Provider Active Dr. Abi Newman , DO Primary Care Provider Active Team Status: Inactive Member Role Status Dates Dr. Abi Newman , DO Primary Care Pr ovider, Attending Provider, Referring Provider Active FOR RECORDS PERTAINING TO PATIENTS WHO ARE [...] BE BASED ON THE PRIMARY CLINICAL RECORDS. [facility] [employer] provides no warranty or guarantee of the accuracy or completeness of information in this document.
[2025-02-27 08:46] LABS: Anion Gap 12 (5-15); BUN 17 mg/dL (4-19); BUN/Creat Ratio 19.5 RATIO (10-20); Calcium,Total 9.2 mg/dL (7.6-11.0); Carbon Dioxide 23.2 mmol/L (21.0-32.0); Chloride 100 mmol/L (98-108); Cholesterol 237 mg/dL (<=200); Glucose 94 mg/dL (70-99); Low Density Lipoprotein Calc. 128 mg/dL; Potassium 4.2 mmol/L (3.3-5.1); Triglycerides 274 mg/dL; Very Low Density Lipoprotein 55 mg/dL (5-40); cholesterol:hdl ratio screen 4.34
== END | disposition home or self-care (01) ==
PROVIDERS: PCP Internal Medicine; Referring Provider Internal Medicine; Visit Provider Internal Medicine
DX: E87.1 Hypo-osmolality and hyponatremia (principal)
CPT/HCPCS: 36415; 80048; 80061